=== PATIENT | female | born 1950 | race Caucasian/White ===

== ENCOUNTER → 2016-12-15 | Outpatient (CLI) | payer BC ==
[2016-12-15 11:44] LABS: ALT/SGPT 24 U/L (12-78); AST/SGOT 18 U/L (15-37); BLOOD UREA NITROGEN 19 mg/dl (7-18); BUN/CREATININE RATIO 17.6 (10-20); CALCIUM 9.2 mg/dl (8.5-10.1); CARBON DIOXIDE 28 mmol/L (21-32); CHLORIDE 110 mmol/L (98-107); GLUCOSE 95 mg/dl (70-99); POTASSIUM 4.5 mmol/L (3.5-5.1); SODIUM 141 mmol/L (136-145)
[2016-12-15 11:47] LABS: ALKALINE PHOSPHATASE 48 U/L (45-117); CHOLESTEROL 159 mg/dl (0-200); CHOLESTEROL/HDL RATIO 1.8; HDL CHOLESTEROL 86 mg/dl; LDL CHOLESTEROL CALCULATED 62 mg/dl; TRIGLYCERIDES 57 mg/dl (0-150); VERY LOW DENSITY LIPOPROT CALC 11 mg/dl
== END | disposition home or self-care (01) ==
LOC: C.LABBC 08:48
PROVIDERS: ATTEND Internal Medicine
DX: Z00.00 Encounter for general adult medical examination without abnormal findings (principal)

== ENCOUNTER → 2017-01-04 | Outpatient (CLI) | payer BC ==
--- NOTE | 2017-01-04 17:16 | MAMMOGRAPHY REPORT ---
BILATERAL DIGITAL SCREENING MAMMOGRAM WITH CAD: 01/04/2017 CLINICAL HISTORY: Routine screening. Patient has no complaints. TECHNIQUE: Current study was also evaluated with a Computer Aided Detection (CAD) system. Bilateral CC and MLO views were obtained. COMPARISON: Comparison is made to exams dated: 12/30/2015 mammogram, 12/22/2014 mammogram, 07/26/2013 lori mogram, 08/08/2012 mammogram, 07/17/2012 mammogram, and 01/04/2011 mammogram - [facility] ter. BREAST COMPOSITION: There are scattered areas of fibroglandular density in both breasts. FINDINGS: No suspicious masses, calcifications, or areas of architectural distortion are noted in ei ther breast. There has been no significant interval change compared to prior exams. Scattered bilater al benign-appearing calcifications are not significantly changed. IMPRESSION: ACR BI-RADS CATEGORY 2: BENIGN There is no mammographic evidence of malignancy. A 1 year screening mammogram is recommended. The pa tient will receive written notification of the results. Approximately 10% of breast cancers are not detected with mammography. A negative mammographic report should not delay biopsy if a clinically suggestive mass is present. Melanie Shah M.D. ah/:01/04/2017 16:03:30 Florist: Nina SON(Francisca)(M), [facility] letter sent: Normal 1/2 BI-RADS Code: ACR BI-RADS Category 2: Benign
== END | disposition home or self-care (01) ==
LOC: C.MAMM 15:39
PROVIDERS: ATTEND Internal Medicine
DX: Z12.31 Encounter for screening mammogram for malignant neoplasm of breast (principal)

== ENCOUNTER → 2017-02-27 | Outpatient (CLI) | payer BC | END | disposition home or self-care (01) | LOC: C.PAPS 10:11 | PROVIDERS: ATTEND Obstetrics & Gynecology | DX: Z01.419 Encounter for gynecological examination (general) (routine) without abnormal findings (principal); Z78.0 Asymptomatic menopausal state ==

== ENCOUNTER 2021-02-03 22:46 | Inpatient (IN) ==
[2021-02-04] MEDS ORDERED: SODIUM CHLORIDE 0.9% 500 ML IV ONE (00:03)
[2021-02-04 01:01] LABS: INR 1.2 (0.9-1.1); Partial Thromboplastin Ratio 1.1; Partial Thromboplastin Time 27.9 Seconds (21.0-31.0); Prothrombin Time 12.3 Seconds (9.0-12.0)
[2021-02-04 01:06] LABS: Hematocrit (blood only) 34.9 % (37-47); Hemoglobin 11.8 g/dL (12.0-16.0); Mean Corpuscular Hemoglobin 30.6 pg (25-34); Mean Corpuscular Hgb Conc 33.8 g/dL (32-36); Mean Corpuscular Volume 90.6 fL (80-100); Mean Platelet Volume 12.4 fL (7.4-10.4); Platelet Count 50 K/uL (130-400); RDW Coefficient of Variation 14.3 % (11.5-14.5); RDW Standard Deviation 47.2 fL (36.4-46.3); Red Blood Count 3.85 M/uL (4.2-5.4); White Blood Count 15.37 K/uL (4.8-10.8)
[2021-02-04 01:08] LABS: Alanine Aminotransferase 60 U/L (12-78); Aspartate Aminotransferase 38 U/L (15-37); BUN Creatinine Ratio 26.4 (10-20); Basophils # (auto) 0.01 K/uL (0-0.2); Basophils % (auto) 0.1 %; Blood Urea Nitrogen 34 mg/dl (7-18); Carbon Dioxide 23 mmol/L (21-32); Chloride 104 mmol/L (98-107); Echinocytes 1+; Eosinophils # (auto) 0.01 K/uL (0-0.5); Eosinophils % (auto) 0.1 %; Est GFR (African American) 48.8 ml/min; Est GFR (Non-African American) 42.1 ml/min; Glucose 129 mg/dl (70-99); Immature Granulocytes # (auto) 0.13 K/uL (0.00-0.02); Immature Granulocytes % (auto) 0.8 %; Lymphocytes # (auto) 0.34 K/uL (1.2-3.4); Lymphocytes % (auto) 2.2 %; Magnesium 1.7 mg/dl (1.8-2.4); Monocytes # (auto) 0.19 K/uL (0.11-0.59); Monocytes % (auto) 1.2 %; Neutrophils # (auto) 14.69 K/uL (1.4-6.5); Neutrophils % (auto) 95.6 %; Platelet Estimate Decreased (Normal); Potassium 4.1 mmol/L (3.5-5.1); Sodium 134 mmol/L (136-145)
[2021-02-04 01:10] LABS: Albumin Globulin Ratio 0.6 (0.9-2); Alkaline Phosphatase 196 U/L (45-117); Bilirubin,Total 1.7 mg/dl (0.2-1); Globulin 3.6 gm/dl (2.5-4.0); Total Protein 5.6 gm/dl (6.4-8.2)
[2021-02-04] MEDS ORDERED: PIPERACILL/TAZOBAC CONSULT ACTIVE PRN ×2 (01:14→06:43)
[2021-02-04] MEDS ORDERED: PIPERACILLIN/TAZOBACTAM 4.5 GM/120 ML BAG IV ONE (01:14)
[2021-02-04] MEDS ORDERED: OPTIRAY 320 100ml IV ONE (01:33)
[2021-02-04] MEDS ORDERED: VANCOMYCIN CONSULT ACTIVE PRN ×2 (01:44→06:43)
[2021-02-04] MEDS ORDERED: VANCOMYCIN HCL 1,000 MG in SODIUM CHLORIDE 0.9% 500 ML IV ONE (01:44)
[2021-02-04 03:13] LABS: Appearance Urine Clear (Clear); Bilirubin Urine Negative (Negative); Blood Urine Negative (Negative); Color Urine Yellow; Glucose Urine UA Negative (Negative); Ketones Urine Negative (Negative); Leukocyte Esterase Urine Negative (Negative); Nitrite Urine Negative (Negative); Protein Urine Negative (Negative); Specific Gravity Urine 1.024 (1.000-1.030); Urobilinogen Urine Negative (Negative)
--- NOTE | 2021-02-04 05:05 | History & Physical Report ---
Date of Service February 04, 2021 Assessment & Plan (1) Liver abscess: Plan: Multiple liver abscesses/pancreatic cancer metastatic to liver/status post IR treatment at [facility]- Persistent temperature over the past 10 days, with increased to 104 in the past 24 hours Vancomycin IV and Zosyn IV per pharmacokinetic monitoring Coordinate care with physicians at [facility] NPO Follow serial CBC with differential and chemistry profile (2) Pancreatic cancer: Plan: See above (3) Acute kidney injury superimposed on chronic kidney disease: Plan: Creatinine 1.30 upon admission, with most recent 1.03 NSS plus KCl 20 mEq at 100 mils per hour Repeat laboratories every morning (4) Thrombocytopenia: Plan: Platelets 50 upon admission, with usual range in the mid 200s. Check a peripheral smear Has never required platelet transfusion in the past No spontaneous bleeding Follow laboratory serially Does not appear sick enough to be in DIC (5) Hypothyroid: Plan: Continue levothyroxine 50 mcg daily History of Present Illness Chief Complaint: The patient presents to the emergency department with persis tently elevated temperature in the 102-103 range, and actually up to 104 today, and worsening abdominal discomfort since having her procedure at [facility] on January 22 Primary Care Provider: Sp Cadena MD Patient is a 70-year-old female with a past medical history including pleural effusion, pancreatic cancer, hypothyroidism, CKD stage III, renal insufficiency, GERD and constipation. Patient presents to the emergency department as noted above. Abnormal laboratories: WBC 15.37, hemoglobin 11.8, hematocrit 34.9, platelets 50, INR 1.2, sodium 134, creatinine 1.30, magnesium 1.7, total bili 1.7, AST 38, alk phos [address] of abdomen and pelvis with contrast: Irregular and patchy low-attenuation changes in the dome of the liver worrisome for abscesses. Diffuse thickening of the colon suggesting some form of colitis. Surgical changes related to the stomach and possibly pancreas Attempt was made to transfer the patient to [facility], where she receives most of her treatment, however, there were no beds available. From the ED patient received vancomycin IV, Zosyn IV and NSS of 500 mL. Allergies Allergy/AdvReac Type Severity Reaction Status Date / Time No Known Drug Allergies Allergy Unknown Verified 02/04/21 01:02 Home Medications Medication Instructions Recorded Confirmed Type calcium carbonate 600 mg(1,500 1 tab PO BID 12/27/18 02/04/21 History mg)-vitamin D3 800 unit chewable tablet (Caltrate 600 plus D) multivitamin 1 tab PO DAILY 12/27/18 02/04/21 History ascorbate calcium (vitamin C) 500 500 mg PO DAILY 01/02/19 02/04/21 History mg tablet cholecalciferol (vitamin D3) 50 50 mcg PO DAILY 01/09/20 02/04/21 History mcg (2,000 unit) tablet levothyroxine 50 mcg tablet 50 mcg PO DAILY #90 tab 01/09/20 02/04/21 Rx pantoprazole 40 mg tablet,delayed 40 mg PO DAILY 01/09/20 02/04/21 History release sennosides 8.6 mg capsule (senna) 8.6 mg PO BID PRN 01/09/20 02/04/21 History vit C 50 mg-E 15 unit-zinc cit 4.5 1 tab PO DAILY tab 01/09/20 02/04/21 History mg-lutein 2.5 mg-zeaxan chew tablet ([employer]) zinc 50 mg tablet 50 mg PO DAILY 01/09/20 02/04/21 History hydrocodone-homatropine 5 mg-1.5 5 ml PO Q6H PRN #946 ml 01/18/21 02/04/21 Rx mg/5 mL oral syrup (Hycodan (with homatropine)) ondansetron 8 mg disintegrating 8 mg PO Q8 PRN 02/04/21 02/04/21 History tablet Past Med/Surg History Medical History (Updated 02/04/21 @ 05:00 by Reji Leal MD) CKD (chronic kidney disease), stage III Hypothyroid Impacted cerumen of right ear Menopause Pancreatic mass Renal insufficiency, mild Surgical History H/O oral surgery History of ERCP 05/2019 History of liver biopsy History of pancreatic surgery History of thoracentesis Family History (Updated 01/13/21 @ 15:23 by Mariah Kamara) Mother Colon cancer Hyperlipidemia Hearing loss of aging Colorectal cancer Father Prostate cancer Hypertension Unknown Breast cancer Grandmother (Maternal) Diabetes Grandfather (Paternal) Stroke Other Allergies No family history of adverse response to anesthesia No family history of bleeding disorder Denies family history of Ovarian cancer Lung cancer Social History (Updated 01/13/21 @ 15:22 by Mariah Kamara) Smoking Status: Never smoker Second Hand Exposure: No; Hx Alcohol Use: Yes Alcohol type: hard liquor Alcohol Intake Frequency: 4 or More x per/Week Alcohol Intake Frequency Comment: no current use due to chemo Hx Substance Use: No Preferred Language: Algerian Communication Ability: Effective Visual Impairment: Limited Hearing Ability: Normal Administrator Health Care Facility Required: No marital status: Current Living Situation: Spouse current occupational status: employed 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 How many Children do You have: 0 Feels Safe at Home: Yes Childhood Exposure to Second-Hand Smoke: No caffeine: No Dental Care, Regularly: Yes Physical Activity Frequency: 5-6 Times per Week Seatbelt Use: always Sunscreen Use: Yes Review of Systems Review of Systems: The patient denies chest pain, palpitations, shortness of breath, dyspnea on exertion, cough, lower extremity swelling, sore throat, chills, sweats, blood in urine or stool, dysuria, urinary frequency or urgency, lightheadedness, dizziness, headache, memory loss, loss of consciousness, rash, abnormal bruising or bleeding, imbalance, focal weakness, numbness or tingling in arms or legs, neck pain, or night sweats. The review of systems is otherwise negative other than for that already noted above, and at least 10 systems have been reviewed. Physical Exam Physical Exam: The patient is awake, alert and oriented 3, normocephalic and atraumatic, lying in bed and in no acute distress. HEENT--PERRL, EOMI, mucous membranes and oropharynx normal. Neck--supple. No JVD. No bruits. Thyroid normal, trachea midline, no erasmo nopathy. Heart--normal S1 and S2. No murmurs, rubs or gallops. Lungs--clear bilaterally, no respiratory distress, no accessory muscle use. Abdomen--normal bowel sounds and soft. Tender right upper quadrant. Nondistended. Extremities--no cyanosis or clubbing. No edema. Dermatologic--normal skin turgor, normal color, no abnormal lymph nodes, no rash. Neurologic--cranial nerves II through XII grossly intact. Rheumatologic--normal range of motion. Psychiatric--normal affect. Results & Data Results & Data ([facility]) Vital Signs (Past 12 Hours) Vital Signs Temp Pulse Pulse Resp BP BP Pulse Ox 02/04/21 04:00 79 24 100/54 L 96 02/04/21 03:30 83 17 106/55 L 98 02/04/21 03:00 85 20 109/52 L 97 02/04/21 02:51 97 02/04/21 02:30 89 18 95/49 L 97 02/04/21 02:00 89 21 92/48 L 99 02/04/21 01:34 98 H 22 109/49 L 98 02/04/21 01:02 93 02/04/21 01:00 97 H 22 88/52 L 97 02/04/21 00:33 103 H 24 02/04/21 00:30 108 H 21 02/04/21 00:02 97 02/04/21 00:00 104 H 22 103/63 97 02/03/21 23:49 104 H 21 96 02/03/21 23:41 112 H 101/65 96 02/03/21 22:52 98.1 F 122 H 16 98/52 L 96 Laboratory Results Laboratory Results WBC 15.37 K/uL (4.8-10.8) H 02/04/21 00:28 RBC 3.85 M/uL (4.2-5.4) L 02/04/21 00:28 Hgb 11.8 g/dL (12.0-16.0) L 02/04/21 00:28 Hct 34.9 % (37-47) L 02/04/21 00:28 MCV 90.6 fL (80-100) 02/04/21 00:28 MCH 30.6 pg (25-34) 02/04/21 00:28 MCHC 33.8 g/dL (32-36) 02/04/21 00:28 RDW Std Deviation 47.2 fL (36.4-46.3) H 02/04/21 00:28 RDW Coeff of Lakhwinder 14.3 % (11.5-14.5) 02/04/21 00:28 Plt Count 50 K/uL (130-400) L 02/04/21 00:28 MPV 12.4 fL (7.4-10.4) H 02/04/21 00:28 Immature Gran % (Auto) 0.8 % 02/04/21 00:28 Neut % (Auto) 95.6 % 02/04/21 00: Lymph % (Auto) 2.2 % 02/04/21 00: Meagher % (Auto) 1.2 % 02/04/21 00:28 Eos % (Auto) 0.1 % 02/04/21 00:28 Baso % (Auto) 0.1 % 02/04/21 00:28 Neut # (Auto) 14.69 K/uL (1.4-6.5) H 02/04/21 00:28 Lymph # (Auto) 0.34 K/uL (1.2-3.4) L 02/04/21: Meagher # (Auto) 0.19 K/uL (0.11-0.59) 02/04/21 00: Eos # (Auto) 0.01 K/uL (0-0.5) 02/04/21 00: Baso # (Auto) 0.01 K/uL (0-0.2) 02/04/21 00: Immature Gran # (Auto) 0.13 K/uL (0.00-0.02) H 02/04/21 00:28 Platelet Estimate Decreased (Normal) L 02/04/21: Echinocytes 1+ 02/04/21: PT 12.3 Seconds (9.0-12.0) H 02/04/21 00: INR 1.2 (0.9-1.1) H 02/04/21: APTT 27.9 Seconds (21.0-31.0) 02/04/21: PTT Ratio 1.1 02/04/21: Sodium 134 mmol/L (136-145) L 02/04/21:28 Potassium 4.1 mmol/L (3.5-5.1) 02/04/21: Chloride 104 mmol/L (98-107) 02/04/21 00: Carbon Dioxide 23 mmol/L (21-32) 02/04/21: Anion Gap 7.0 (3-11) 02/04/21: BUN 34 mg/dl (7-18) H 02/04/21 00:28 Creatinine 1.30 mg/dl (0.6-1.2) H 02/04/21 00:28 Est Cr Clr Drug Dosing Not Reportable 02/04/21 00:28 Est GFR ( Amer) 48.8 ml/min 02/04/21 00:28 Est GFR (Non-Af Amer) 42.1 ml/min 02/04/21 00:28 BUN/Creatinine Ratio 26.4 (10-20) H 02/04/21 00:28 Glucose 129 mg/dl (70-99) H 02/04/21 00:28 Lactate 1.4 mmol/L (0.4-2.0) 02/04/21 01:43 Calcium 8.0 mg/dl (8.5-10.1) L 02/04/21 00:28 Magnesium 1.7 mg/dl (1.8-2.4) L 02/04/21 00:28 Total Bilirubin 1.7 mg/dl (0.2-1) H 02/04/21 00:28 AST 38 U/L (15-37) H 02/04/21 00:28 ALT 60 U/L (12-78) 02/04/21 00:28 Alkaline Phosphatase 196 U/L (45-117) H 02/04/21 00:28 Total Protein 5.6 gm/dl (6.4-8.2) L 02/04/21 00:28 Albumin 2.0 gm/dl (3.4-5.0) L 02/04/21 00:28 Globulin 3.6 gm/dl (2.5-4.0) 02/04/21 00:28 Albumin/Globulin Ratio 0.6 (0.9-2) L 02/04/21 00:28 Urine Color Yellow 02/04/21 02:45 Urine Appearance Clear (Clear) 02/04/21 02:45 Urine pH 5.0 (4.5-7.5) 02/04/21 02:45 Ur Specific [place] 1.024 (1.000-1.030) 02/04/21 02:45 Urine Protein Negative (Negative) 02/04/21 02:45 Urine Glucose (UA) Negative (Negative) 02/04/21 02:45 Urine Ketones Negative (Negative) 02/04/21 02:45 Urine Blood Negative (Negative) 02/04/21 02:45 Urine Nitrite Negative (Negative) 02/04/21 02:45 Urine Bilirubin Negative (Negative) 02/04/21 02:45 Urine Urobilinogen Negative (Negative) 02/04/21 02:45 Ur Leukocyte Esterase Negative (Negative) 02/04/21 02:45 COVID-19 Eval Order Covid19 at [facility] 02/04/21 00:35 SARS-CoV-2 (PCR) NEGATIVE (Negative) 02/04/21 00:35 Diagnostic Findings [facility] Patient: ANNALEE STEWART (Female) : 54 Status: ER Date: 02/04/21 01:40 Room #: History: PAIN AT RIGHT SIDE OF ABD, R/O LIVER ABSCESS S/P Y 90 PROCEDURE, Slices: 669 Priors: Tech: TamikoDaniel ardon @ [phone] Exams: CT ABDOMEN & PELVIS With Contrast Contrast: IV Amt: 93 ML OPTIRAY 320 Accession Numbers: [id number] Referring Physician: REFERRED SELF Preliminary Findings Only See Final Report For Complete Findings CT ABDOMEN & PELVIS With Contrast: Irregular and patchy low-attenuation changes in the dome of the liver, worrisome for abscesses. Cyst in left lobe. Diffuse thickening in the colon suggesting some form of colitis. No evidence of pneumatosis. Appendix not identified Irregular thickening and soft tissues of the left breast. Cholecystectomy. Surgical changes related to the stomach and possibly pancreas. Correlate Radiologist: Jesu Bullock M.D. Study ready at 01:48 and initial results transmitted at 01:55 *This report constitutes a preliminary interpretation only. Non-acute findings felt to be unrelated to the clinical presentation may not be discussed in this report. The study will be interpreted and a final report will be generated by the local Radiologist the following shift. To reach the hospital radiology department call [phone]. If a discrepancy is found between the preliminary and final interpretations of this study, please notify us via our Client Portal at [email or web address] [email or web address].You can also fax this report with a description of the discrepancy, or include the final report, to our daytime fax number [phone].If faxing, please indicate the severity of discrepancy using one of the following categories: [ ] 1 - Agree/Informational [ ] 2 - Unlikely to Affect Management [ ] 3 - Possible Eventual Change of Management [ ] 4 - Probable Immediate Change of Management For all other patient related information, please fax us at [phone]. [id number] Code Status & VTE Plan Code Status Full code VTE Prophylaxis Plan VTE Prophylaxis will be ordered: Yes PG Care Time/CCT Total # of Minutes Spent Total Time Spent with Patient: Total time spent is greater than 50% in coordination of care (as documented) at patient's floor/unit and/or counseling patient: Coding Level of Care Code 91690 Initial Inpt Care Lvl 3 Diagnoses Liver abscess K75.0 Pancreatic cancer C25.9 Hypothyroid E03.9 Acute kidney injury superimposed on chronic kidney disease N17.9; N18.9 Thrombocytopenia D69.6
[2021-02-04] MEDS ORDERED: PIPERACILLIN/TAZOBACTAM 4.5 GM in DEXTROSE 5% 100 ML IV SCH (06:43)
[2021-02-04] MEDS ORDERED: VANCOMYCIN HCL 750 MG in SODIUM CHLORIDE 0.9% 500 ML IV SCH (06:43)
--- NOTE | 2021-02-04 07:15 | Emergency Department Note ---
Impression & Plan Liver abscess Admit to the [facility] with plans to transfer to [facility] - accepting physician at [facility] was Dr. Larose from GI and Dr. Camarena from the Hospitalist group. They explained that she would be placed on a wait list and that this list was quite long but that if her vital signs declined that she could be moved to ICU level status and her transfer would be expedited. I made the admitting physicians aware of this as well as the patient and her . ED Provider Note NAME: ANNALEE STEWART AGE: 70 SEX: F ARRIVES VIA: Walk-In INFORMANT: Patient and her ED PROVIDER(S): Oksana Guevara DO CHIEF COMPLAINT: Fever and abdominal pain PLAN: Disposition: Admit to the [facility] until a bed was available at [facility] Condition: Guarded MEDICAL DECISION MAKING: This is a 70-year-old female patient who presents to the emergency department with persistent fever and increasing abdominal pain. The patient underwent a Y- 90 procedure 2 weeks ago with interventional radiology at [facility]. She has had intermittent fever since that time. However over the past couple days, the fever has been more persistent and she has increasing abdominal pain. The patient has symptoms that are concerning for peritoneal signs in the abdo men. She has significant leukocytosis. She presented hypotensive and tachycardic. Lactic acid was normal. Her blood pressure and pulse normalized with IV crystalloid therapy. She felt much better after fluids. She was given IV Zosyn and vancomycin. She has been accepted at [facility] but is waitlisted until a bed becomes available. Triage Nursing notes reviewed and agree with them. Additional history obtained from her who is a physician and is at the bedside. Vital Signs: reviewed and remarkable for hypotension and tachycardia Differential diagnosis: Perforated viscus, sepsis, septic shock, hepatic abscess, intra-abdominal bleeding ER treatment provided: IV normal saline bolus IV vancomycin IV Zosyn Diagnostics interpreted by me: ECG: Sinus tachycardia at [address] segment elevation or signs of ischemia. There is no ectopy. Cardiac Monitoring: Sinus tachycardia at 118 Laboratory studies: See below Imaging studies: As per stat rad CT abdomen and pelvis with contrast: Irregular and patchy low-attenuation changes in the dome of the liver, worrisome for abscess. Cyst in the left lobe. Diffuse thickening of the colon suggesting some form of colitis. No evidence of pneumatosis. Appendix not identified. Irregular thickening of soft tissues of the left breast. Cholecystectomy. Surgical changes related to the stomach and possibly pancreas. HPI: 70/F arrives for evaluation of fever abdominal pain. The patient underwent a Y-90 procedure on Jan 22, 2021 through interventional radiology at [facility]. Since that time, she has been on moxifloxacin and was given a Medrol Dosepak. She has had intermittent fevers which initially was not unexpected. However, the fever has become more consistent and has been higher over the past couple of days. She has felt more fatigued and now has developed increasing abdominal pain. After the patient arrived home from work today, she had significantly decreased appetite and developed rigors with a fever of 104 degrees. ROS: See above HPI for pertinent positives & negatives. A total of 10 systems re viewed and were otherwise negative. PAST MEDICAL HISTORY:See Below PAST SURGICAL HISTORY:See Below FAMILY HISTORY:See Below SOCIAL HISTORY:See Below HOME MEDICATIONS:See list ALLERGIES:None VITALS:See Below PHYSICAL EXAMINATION: HEENT: Head - normocephalic and atraumatic Pupils are equal, round, and reactive to light. Extraocular eye muscles are intact, and sclera are anicteric. Nose - moist nasal mucosa without discharge. Mouth - moist buccal mucosa. Oropharynx is nonerythematous and there is no tonsillar exudate or edema noted. Neck: Supple; no cervical lymphadenopathy or thyromegaly. Heart: Tachycardic rate and regular rhythm. There is a normal S1 and S2 with no murmurs, clicks, or gallops appreciated. Lungs: Clear to auscultation bilaterally with no wheezes, rales, or rhonchi. Abdomen: Soft, moderately tender, nondistended, with good bowel sounds. There are no palpable pulsatile masses or hepatosplenomegaly. There is no guarding, rigidity, or rebound noted. Extremities: No evidence of cyanosis, clubbing, or edema. There are easily palpable peripheral pulses. Skin: Pale, hot and dry with poor turgor and no rashes. ED COURSE: Times/Reassessments: 0000 the patient was evaluated in room C2. A septic pro tocol was performed. A Covid test was obtained. 2 IV locks were initiated and the patient was started on a bolus of normal saline solution because she was hypotensive initially. She received a total of 1500 cc of saline. An order was placed for continuous cardiac monitoring. The patient was in a sinus tachycardia at 118. A twelve-lead EKG was obtained. Patient was started on broad-spectrum antibiotics to include IV Zosyn and IV vancomycin. Her blood pressure responded nicely to the IV crystalloid therapy. The patient went for CT scan of the abdomen/pelvis. I reviewed the results of the labs and CT scan with the patient and her . I contacted the transfer center at [facility] with regards to this patient and they have accepted her in transfer but will wait list her until a bed becomes available as described above. At this point, I discussed the case with the [facility] hospitalist and they will evaluate for further management. I have personally spent greater than 75 minutes of critical care time in the direct management of this patient. This includes bedside care, interpretation of diagnostic studies, and testing, discussion with consultants, patient, and family members, and other required patient management activities. This 75 minutes is in excess of all separately billable procedures. Oksana Guevara DO Past Med/Surg History Medical History (Updated 02/04/21 @ 07:15 by Oksana Guevara DO) CKD (chronic kidney disease), stage III Hypothyroid Impacted cerumen of right ear Menopause Pancreatic mass Renal insufficiency, mild Surgical History H/O oral surgery History of ERCP 05/2019 History of liver biopsy History of pancreatic surgery History of thoracentesis Family History (Updated 01/13/21 @ 15:23 by Mariah Kamara) Mother Colon cancer Hyperlipidemia Hearing loss of aging Colorectal cancer Father Prostate cancer Hypertension Unknown Breast cancer Grandmother (Maternal) Diabetes Grandfather (Paternal) Stroke Other Allergies No family history of adverse response to anesthesia No family history of bleeding disorder Denies family history of Ovarian cancer Lung cancer Social History (Updated 01/13/21 @ 15:22 by Mariah Kamara) Smoking Status: Never smoker Second Hand Exposure: No; Hx Alcohol Use: Yes Alcohol type: hard liquor Alcohol Intake Frequency: 4 or More x per/Week Alcohol Intake Frequency Comment: no current use due to chemo Hx Substance Use: No Preferred Language: Czech Communication Ability: Effective Visual Impairment: Limited Hearing Ability: Normal Ride Mechanic Required: No Beliefs That Will Affect Care: None marital status: Current Living Situation: Spouse current occupational status: employed 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 How many Children do You have: 0 Feels Safe at Home: Yes Childhood Exposure to Second-Hand Smoke: No caffeine: No Dental Care, Regularly: Yes Physical Activity Frequency: 5-6 Times per Week Seatbelt Use: always Sunscreen Use: Yes Assistive Devices: Glasses Allergies Allergies Allergy/AdvReac Type Severity Reaction Status Date / Time No Known Drug Allergies Allergy Unknown Verified 02/04/21 01:02 Home Meds Home Medications Medication Instructions Recorded Confirmed calcium carbonate 600 mg(1,500 1 tab PO BID 12/27/18 02/04/21 mg)-vitamin D3 800 unit chewable tablet (Caltrate 600 plus D) multivitamin 1 tab PO DAILY 12/27/18 02/04/21 ascorbate calcium (vitamin C) 500 500 mg PO DAILY 01/02/19 02/04/21 mg tablet cholecalciferol (vitamin D3) 50 50 mcg PO DAILY 01/09/20 02/04/21 mcg (2,000 unit) tablet pantoprazole 40 mg tablet,delayed 40 mg PO DAILY 01/09/20 02/04/21 release sennosides 8.6 mg capsule (senna) 8.6 mg PO BID PRN 01/09/20 02/04/21 vit C 50 mg-E 15 unit-zinc cit 4.5 1 tab PO DAILY tab 01/09/20 02/04/21 mg-lutein 2.5 mg-zeaxan chew tablet ([employer] [facility]) zinc 50 mg tablet 50 mg PO DAILY 01/09/20 02/04/21 ondansetron 8 mg disintegrating 8 mg PO Q8 PRN 02/04/21 02/04/21 tablet Previous Rx's Medication Instructions Recorded levothyroxine 50 mcg tablet 50 mcg PO DAILY #90 tab 01/09/20 hydrocodone-homatropine 5 mg-1.5 5 ml PO Q6H PRN #946 ml 01/18/21 mg/5 mL oral syrup (Hycodan (with homatropine)) Results & Data (ED) Vital Signs Vital Signs - 24 hr 02/03/21 22:52 02/03/21 23:41 02/03/21 23:49 Temperature 36.7 C Temperature Source Temporal Artery Scan Pulse Rate 122 H 104 H Pulse Rate [Finger] 112 H Pulse Rate from SpO2 Sensor 107 H Respiratory Rate 16 21 Respiratory Effort / Characteristics Non-Labored Spontaneous Respiratory Depth Normal Blood Pressure 98/52 L Blood Pressure [Right Arm] 101/65 Blood Pressure Mean 67 Blood Pressure Mean [Right Arm] 77 Blood Pressure Position Sitting Pulse Oximetry 96 96 96 Oxygen Delivery Method Room Air Room Air Sepsis Recent Fever Within 48 Hours Yes Sepsis New/Unexplained Change in Mental Status No Sepsis Action Taken by Nursing No Action Required 02/04/21 00:00 02/04/21 00:02 02/04/21 00:30 Temperature Temperature Source Pulse Rate 104 H 108 H Pulse Rate [Finger] Pulse Rate from SpO2 Sensor 106 H Respiratory Rate 22 21 Respiratory Effort / Characteristics Non-Labored Spontaneous Respiratory Depth Blood Pressure 103/63 Blood Pressure [Right Arm] Blood Pressure Mean 76 Blood Pressure Mean [Right Arm] Blood Pressure Position Pulse Oximetry 97 97 Oxygen Delivery Method Room Air Sepsis Recent Fever Within 48 Hours Sepsis New/Unexplained Change in Mental Status Sepsis Action Taken by Nursing 02/04/21 00:33 02/04/21 01:00 02/04/21 01:02 Temperature Temperature Source Pulse Rate 97 H Pulse Rate [Finger] 103 H Pulse Rate from SpO2 Sensor 99 H Respiratory Rate 24 22 Respiratory Effort / Characteristics Non-Labored Spontaneous Respiratory Depth Blood Pressure 88/52 L Blood Pressure [Right Arm] Blood Pressure Mean 64 Blood Pressure Mean [Right Arm] Blood Pressure Position Pulse Oximetry 97 93 Oxygen Delivery Method Room Air Sepsis Recent Fever Within 48 Hours Sepsis New/Unexplained Change in Mental Status Sepsis Action Taken by Nursing 02/04/21 01:34 02/04/21 02:00 02/04/21 02:30 Temperature Temperature Source Pulse Rate 98 H 89 89 Pulse Rate [Finger] Pulse Rate from SpO2 Sensor 101 H 90 90 Respiratory Rate 22 21 18 Respiratory Effort / Characteristics Respiratory Depth Blood Pressure 109/49 L 92/48 L 95/49 L Blood Pressure [Right Arm] Blood Pressure Mean 69 62 64 Blood Pressure Mean [Right Arm] Blood Pressure Position Pulse Oximetry 98 99 97 Oxygen Delivery Method Room Air Sepsis Recent Fever Within 48 Hours Sepsis New/Unexplained Change in Mental Status Sepsis Action Taken by Nursing 02/04/21 02:51 02/04/21 03:00 02/04/21 03:30 Temperature Temperature Source Pulse Rate 85 83 Pulse Rate [Finger] Pulse Rate from SpO2 Sensor 85 82 Respiratory Rate 20 17 Respiratory Effort / Characteristics Non-Labored Spontaneous Respiratory Depth Blood Pressure 109/52 L 106/55 L Blood Pressure [Right Arm] Blood Pressure Mean 71 72 Blood Pressure Mean [Right Arm] Blood Pressure Position Pulse Oximetry 97 97 98 Oxygen Delivery Method Room Air Sepsis Recent Fever Within 48 Hours Sepsis New/Unexplained Change in Mental Status Sepsis Action Taken by Nursing 02/04/21 04:00 Temperature Temperature Source Pulse Rate 79 Pulse Rate [Finger] Pulse Rate from SpO2 Sensor 79 Respiratory Rate 24 Respiratory Effort / Characteristics Respiratory Depth Blood Pressure 100/54 L Blood Pressure [Right Arm] Blood Pressure Mean 69 Blood Pressure Mean [Right Arm] Blood Pressure Position Pulse Oximetry 96 Oxygen Delivery Method Room Air Sepsis Recent Fever Within 48 Hours Sepsis New/Unexplained Change in Mental Status Sepsis Action Taken by Nursing Laboratory Data Result diagrams: 02/04/21 08:43 02/04/21 08:43 Lab Results 02/04/21 02/04/21 02/04/21 Range/Units 00:28 00:28 00:28 WBC 15.37 H (4.8-10.8) K/uL RBC 3.85 L (4.2-5.4) M/uL Hgb 11.8 L (12.0-16.0) g/dL Hct 34.9 L (37-47) % MCV 90.6 (80-100) fL MCH 30.6 (25-34) pg MCHC 33.8 (32-36) g/dL RDW Std Deviation 47.2 H (36.4-46.3) fL RDW Coeff of Lakhwinder 14.3 (11.5-14.5) % Plt Count 50 L (130-400) K/uL MPV 12.4 H (7.4-10.4) fL Immature Gran % (Auto) 0.8 % Neut % (Auto) 95.6 % Lymph % (Auto) 2.2 % [place] % (Auto) 1.2 % Eos % (Auto) 0.1 % Baso % (Auto) 0.1 % Neut # (Auto) 14.69 H (1.4-6.5) K/uL Lymph # (Auto) 0.34 L (1.2-3.4) K/uL [place] # (Auto) 0.19 (0.11-0.59) K/uL Eos # (Auto) 0.01 (0-0.5) K/uL Baso # (Auto) 0.01 (0-0.2) K/uL Immature Gran # (Auto) 0.13 H (0.00-0.02) K/uL Platelet Estimate Decreased L (Normal) Echinocytes 1+ Peripher Smr Path Cons PT 12.3 H (9.0-12.0) Seconds INR 1.2 H (0.9-1.1) APTT 27.9 (21.0-31.0) Seconds PTT Ratio 1.1 Sodium 134 L (136-145) mmol/L Potassium 4.1 (3.5-5.1) mmol/L Chloride 104 (98-107) mmol/L Carbon Dioxide 23 (21-32) mmol/L Anion Gap 7.0 (3-11) BUN 34 H (7-18) mg/dl Creatinine 1.30 H (0.6-1.2) mg/dl Est Cr Clr Drug Dosing Not Reportable Est GFR ( Amer) 48.8 ml/min Est GFR (Non-Af Amer) 42.1 ml/min BUN/Creatinine Ratio 26.4 H (10-20) Glucose 129 H (70-99) mg/dl Lactate (0.4-2.0) mmol/L Calcium 8.0 L (8.5-10.1) mg/dl Magnesium 1.7 L (1.8-2.4) mg/dl Total Bilirubin 1.7 H (0.2-1) mg/dl AST 38 H (15-37) U/L ALT 60 (12-78) U/L Alkaline Phosphatase 196 H (45-117) U/L Total Protein 5.6 L (6.4-8.2) gm/dl Albumin 2.0 L (3.4-5.0) gm/dl Globulin 3.6 (2.5-4.0) gm/dl Albumin/Globulin Ratio 0.6 L (0.9-2) Urine Color Urine Appearance (Clear) Urine pH (4.5-7.5) Ur Specific [place] (1.000-1.030) Urine Protein (Negative) Urine Glucose (UA) (Negative) Urine Ketones (Negative) Urine Blood (Negative) Urine Nitrite (Negative) Urine Bilirubin (Negative) Urine Urobilinogen (Negative) Ur Leukocyte Esterase (Negative) COVID-19 Eval Order SARS-CoV-2 (PCR) (Negative) 02/04/21 02/04/21 02/04/21 Range/Units 00:35 00:35 01:43 WBC (4.8-10.8) K/uL RBC (4.2-5.4) M/uL Hgb (12.0-16.0) g/dL Hct (37-47) % MCV (80-100) fL MCH (25-34) pg MCHC (32-36) g/dL RDW Std Deviation (36.4-46.3) fL RDW Coeff of Lakhwinder (11.5-14.5) % Plt Count (130-400) K/uL MPV (7.4-10.4) fL Immature Gran % (Auto) % Neut % (Auto) % Lymph % (Auto) % [place] % (Auto) % Eos % (Auto) % Baso % (Auto) % Neut # (Auto) (1.4-6.5) K/uL Lymph # (Auto) (1.2-3.4) K/uL [place] # (Auto) (0.11-0.59) K/uL Eos # (Auto) (0-0.5) K/uL Baso # (Auto) (0-0.2) K/uL Immature Gran # (Auto) (0.00-0.02) K/uL Platelet Estimate (Normal) Echinocytes Peripher Smr Path Cons PT (9.0-12.0) Seconds INR (0.9-1.1) APTT (21.0-31.0) Seconds PTT Ratio Sodium (136-145) mmol/L Potassium (3.5-5.1) mmol/L Chloride (98-107) mmol/L Carbon Dioxide (21-32) mmol/L Anion Gap (3-11) BUN (7-18) mg/dl Creatinine (0.6-1.2) mg/dl Est Cr Clr Drug Dosing Est GFR ( Amer) ml/min Est GFR (Non-Af Amer) ml/min BUN/Creatinine Ratio (10-20) Glucose (70-99) mg/dl Lactate 1.4 (0.4-2.0) mmol/L Calcium (8.5-10.1) mg/dl Magnesium (1.8-2.4) mg/dl Total Bilirubin (0.2-1) mg/dl AST (15-37) U/L ALT (12-78) U/L Alkaline Phosphatase (45-117) U/L Total Protein (6.4-8.2) gm/dl Albumin (3.4-5.0) gm/dl Globulin (2.5-4.0) gm/dl Albumin/Globulin Ratio (0.9-2) Urine Color Urine Appearance (Clear) Urine pH (4.5-7.5) Ur Specific [place] (1.000-1.030) Urine Protein (Negative) Urine Glucose (UA) (Negative) Urine Ketones (Negative) Urine Blood (Negative) Urine Nitrite (Negative) Urine Bilirubin (Negative) Urine Urobilinogen (Negative) Ur Leukocyte Esterase (Negative) COVID-19 Eval Order Covid19 at [facility] SARS-CoV-2 (PCR) NEGATIVE (Negative) 02/04/21 Range/Units 02:45 WBC (4.8-10.8) K/uL RBC (4.2-5.4) M/uL Hgb (12.0-16.0) g/dL Hct (37-47) % MCV (80-100) fL MCH (25-34) pg MCHC (32-36) g/dL RDW Std Deviation (36.4-46.3) fL RDW Coeff of Lakhwinder (11.5-14.5) % Plt Count (130-400) K/uL MPV (7.4-10.4) fL Immature Gran % (Auto) % Neut % (Auto) % Lymph % (Auto) % [place] % (Auto) % Eos % (Auto) % Baso % (Auto) % Neut # (Auto) (1.4-6.5) K/uL Lymph # (Auto) (1.2-3.4) K/uL [place] # (Auto) (0.11-0.59) K/uL Eos # (Auto) (0-0.5) K/uL Baso # (Auto) (0-0.2) K/uL Immature Gran # (Auto) (0.00-0.02) K/uL Platelet Estimate (Normal) Echinocytes Peripher Smr Path Cons PT (9.0-12.0) Seconds INR (0.9-1.1) APTT (21.0-31.0) Seconds PTT Ratio Sodium (136-145) mmol/L Potassium (3.5-5.1) mmol/L Chloride (98-107) mmol/L Carbon Dioxide (21-32) mmol/L Anion Gap (3-11) BUN (7-18) mg/dl Creatinine (0.6-1.2) mg/dl Est Cr Clr Drug Dosing Est GFR ( Amer) ml/min Est GFR (Non-Af Amer) ml/min BUN/Creatinine Ratio (10-20) Glucose (70-99) mg/dl Lactate (0.4-2.0) mmol/L Calcium (8.5-10.1) mg/dl Magnesium (1.8-2.4) mg/dl Total Bilirubin (0.2-1) mg/dl AST (15-37) U/L ALT (12-78) U/L Alkaline Phosphatase (45-117) U/L Total Protein (6.4-8.2) gm/dl Albumin (3.4-5.0) gm/dl Globulin (2.5-4.0) gm/dl Albumin/Globulin Ratio (0.9-2) Urine Color Yellow Urine Appearance Clear (Clear) Urine pH 5.0 (4.5-7.5) Ur Specific [place] 1.024 (1.000-1.030) Urine Protein Negative (Negative) Urine Glucose (UA) Negative (Negative) Urine Ketones Negative (Negative) Urine Blood Negative (Negative) Urine Nitrite Negative (Negative) Urine Bilirubin Negative (Negative) Urine Urobilinogen Negative (Negative) Ur Leukocyte Esterase Negative (Negative) COVID-19 Eval Order SARS-CoV-2 (PCR) (Negative) Administered Medications Acetaminophen (Acetaminophen 325 Mg Tab) 650 mg PO Q4H PRN PRN Reason: Pain or Fever Stop: 03/06/21 06:42 Last Admin: 02/04/21 20:30 Dose: 650 mg Documented by: [id number] Potassium Chloride/Sodium Chloride (Normal Saline W/20 Meq Kcl) 20 meq in 1,000 mls @ 125 mls/hr IV .Q8H JAN Stop: 03/06/21 06:59 Last Admin: 02/04/21 16:31 Dose: 100 mls/hr Documented by: [id number] Infusion: 02/04/21 16:31 Dose: 100 mls/hr Documented by: [id number] Admin: 02/04/21 07:41 Dose: 100 mls/hr Documented by: [id number] Piperacillin Sod/Tazobactam (Sod 3.375 gm/ Dextrose) 115 mls @ 28.75 mls/hr IV Q8H JAN; Protocol Stop: 02/14/21 07:59 Last Infusion: 02/04/21 20:30 Dose: 0 mls/hr Documented by: [id number] Admin: 02/04/21 16:31 Dose: 30 mls/hr Documented by: [id number] Infusion: 02/04/21 12:10 Dose: 0 mls/hr Documented by: [id number] Admin: 02/04/21 07:41 Dose: 28.8 mls/hr Documented by: [id number] Discontinued Medications Sodium Chloride (Nss) 500 mls @ 999 mls/hr IV .Q31M ONE Stop: 02/04/21 00:33 Last Infusion: 02/04/21 01:14 Dose: 0 mls/hr Documented by: [id number] Admin: 02/04/21 00:42 Dose: 999 mls/hr Documented by: [id number] Piperacillin Sod/Tazobactam Sod (Zosyn) 4.5 gm in 120 mls @ 240 mls/hr IV NOW ONE Stop: 02/04/21 01:43 Last Infusion: 02/04/21 02:28 Dose: 0 mls/hr Documented by: [id number] Admin: 02/04/21 01:45 Dose: 240 mls/hr Documented by: [id number] Vancomycin HCl 1,000 mg/ (Sodium Chloride) 520 mls @ 200 mls/hr IV NOW ONE Stop: 02/04/21 04:19 Last Infusion: 02/04/21 04:35 Dose: 0 mls/hr Documented by: [id number] Admin: 02/04/21 01:59 Dose: 200 mls/hr Documented by: [id number] Pantoprazole Sodium 40 mg/ (Syringe) 10 mls @ 5 mls/min IV DAILY@1100 JAN Stop: 03/06/21 10:59 Last Admin: 02/04/21 09:09 Dose: 5 mls/min Documented by: [id number] Daptomycin 275 mg/ Syringe 5.5 mls @ 2.75 mls/min IV DAILY@0900 ONE; Protocol Stop: 02/04/21 08:46 Last Admin: 02/04/21 09:09 Dose: 2.75 mls/min Documented by: [id number] Magnesium Sulfate/Dextrose (Magnesium Sulfate / D5w) 1 gm in 100 mls @ 50 mls/hr IV Q2H JAN Stop: 02/04/21 12:29 Last Infusion: 02/04/21 14:19 Dose: 0 mls/hr Documented by: [id number] Admin: 02/04/21 12:14 Dose: 50 mls/hr Documented by: [id number] Infusion: 02/04/21 12:10 Dose: 0 mls/hr Documented by: [id number] Admin: 02/04/21 09:09 Dose: 50 mls/hr Documented by: [id number] Ioversol (Optiray 320 100ml) 100 ml IV ONCE ONE Stop: 02/04/21 01:34 Last Admin: 02/04/21 01:33 Dose: 93 ml Documented by: [id number] Discharge Plan Visit Data Chief Complaint: Fever Stated Complaint: MILD FEVER ED Provider: Oksana Guevara Discharge Problem: Liver abscess Patient Disposition: Admitted As Inpatient Discharge Instructions Interventions: ED Discharge Assessment Last Done: 02/04/21 05:59
--- NOTE | 2021-02-04 07:36 | XRay Report ---
XR chest 1V portable CLINICAL HISTORY: SEPSIS COMPARISON STUDY: Chest CT September 08, 2020 FINDINGS: Lung volumes are normal. Lungs are clear. There is no pneumothorax or pleural effusion. Car diac size is normal. Mediastinal contours are normal. There is no evidence for pulmonary edema. IMPRESSION: No acute cardiopulmonary findings. ACT 112: Negative or not required by law. Electronically signed by: Hussein Roca M.D. 02/04/2021 7:34 AM
[2021-02-04] MEDS: NSS + 20MEQ KCL 20 MEQ/1,000 ML BAG IV SCH ×2 (07:41→16:31)
[2021-02-04] MEDS: PIPERACILLIN/TAZOBACTAM 3.375 GM in DEXTROSE 5% 100 ML IV SCH ×2 (07:41→16:31)
--- NOTE | 2021-02-04 07:55 | CT Scan Report ---
CT OF THE ABDOMEN AND PELVIS WITH CONTRAST CLINICAL HISTORY: Evaluate for liver abscess s/p procedure. Pancreatic cancer. COMPARISON STUDY: CT of the abdomen November 23, 2019. CT of the abdomen and pelvis June 02, 2019. TECHNIQUE: Following IV administration of 93 mL of Optiray, axial images of the abdomen and pelvis we re obtained from the lung bases to the proximal femurs. Images were reviewed in the axial, sagittal, and coronal planes. IV contrast was administered without complication. Automated exposure control wa s utilized for the study. A dose lowering technique was utilized adhering to the principles of ALARA . CT DOSE: 257.62 mGy.cm FINDINGS: Mild right lower lobe airspace opacity favors atelectasis. No pneumatosis, free air or port al venous gas is present. A 1.2 cm lateral segment hepatic cyst is noted. Note is made of multiple cl ustered hypodense foci within segments 6 and 7 of the liver. In aggregate, these measure 6.7 x 6.5 cm . These are new since CT of November 27, 2019. Mild splenomegaly is noted. Adrenal glands are unremarkab le as are the kidneys. There are postoperative findings consistent with Whipple procedure. There is n o evidence for a bowel obstruction. Prominent para-aortic lymph nodes are probably benign. Note is ma de of marked wall thickening of the rectum. There is also moderate wall thickening of the sigmoid col on, descending colon and transverse colon with marked wall thickening of the cecum. Major vasculature is patent. There is trace ascites. No suspicious lesions identified within visualized skeletal struc tures. IMPRESSION: 1. Cluster hypodense foci within segments 6 and 7 of the liver, measuring 6.7 x 6.5 cm in aggregate. This is suspicious for multiloculated hepatic abscesses. Treated metastatic disease could appear mago lar. 2. Severe nonspecific proctocolitis, as described above. Marked colorectal wall thickening. Small am ount of ascites. No pneumatosis, free air or portal venous gas. Close clinical monitoring is recommen ded. 3. Status post Whipple procedure. 4. No bowel obstruction. ACT 112: Negative or not required by law. Electronically signed by: Hussein Roca M.D. 02/04/2021 7:54 AM
[2021-02-04] MEDS ORDERED: DAPTOmycin 275 MG in SYRINGE 0 ML IV ONE (08:45)
[2021-02-04] MEDS: MAGNESIUM SULFATE / D5W 1 GM/100 ML BAG IV SCH ×2 (09:09→12:14)
[2021-02-04 09:11] LABS: Hematocrit (blood only) 33.3 % (37-47); Mean Corpuscular Hemoglobin 30.3 pg (25-34); Mean Corpuscular Volume 91.7 fL (80-100); Mean Platelet Volume 12.4 fL (7.4-10.4); Platelet Count 58 K/uL (130-400); RDW Coefficient of Variation 14.3 % (11.5-14.5); RDW Standard Deviation 48.5 fL (36.4-46.3); Red Blood Count 3.63 M/uL (4.2-5.4); White Blood Count 20.38 K/uL (4.8-10.8)
[2021-02-04 09:28] LABS: BUN Creatinine Ratio 25.1 (10-20); Calcium 7.5 mg/dl (8.5-10.1); Creatinine Clr Calc Pharmacy 38.4 ml/min; Est GFR (African American) 64.7 ml/min; Est GFR (Non-African American) 55.8 ml/min; Potassium 4.1 mmol/L (3.5-5.1)
[2021-02-04 09:33] LABS: Basophils # (auto) 0.03 K/uL (0-0.2); Basophils % (auto) 0.1 %; Echinocytes 1+; Eosinophils # (auto) 0.01 K/uL (0-0.5); Immature Granulocytes # (auto) 0.12 K/uL (0.00-0.02); Immature Granulocytes % (auto) 0.6 %; Lymphocytes # (auto) 1.02 K/uL (1.2-3.4); Monocytes # (auto) 0.52 K/uL (0.11-0.59); Monocytes % (auto) 2.6 %; Neutrophils # (auto) 18.68 K/uL (1.4-6.5); Neutrophils % (auto) 91.7 %
[2021-02-04 09:45] LABS: Fibrinogen 318 mg/dl (184-400); INR 1.2 (0.9-1.1); Prothrombin Time 11.9 Seconds (9.0-12.0)
--- NOTE | 2021-02-04 10:23 | Hospitalist Progress Note ---
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 Gram-Negative Bacteremia 2/2 Multiple Liver Abscesses; Sepsis; Metastatic Pancreatic Cancer High-grade fevers, rigors, and RUQ abdominal pain x7 days, which started ~one week after Y90 liver procedure for liver metastases. Hypotensive/tachycardic in ED with procal 58.6. CT A/P showing multiloculated abscesses. - blood cx positive for GNB after <10 hours; speciation/sensitivities pending - started on Vanco/Zosyn and given Dapto x1 on 02/04, will continue with Zosyn for now - further adjustments pending blood cx speciation/sensitivities - continue NSS + 20mEq KCl @125cc/hr - while IV abx may be sufficient to treat abscesses in the liver (highly vascular), patient will likely need IR for drainage - [facility] [place] for [place], but there are no available beds; will continue IV abx and wait for available bed (no need for urgent transfer for IR at this point in time) - trend CBC/procal tomorrow AM MORGAN on CKDIII, MORGAN resolved Cr 1.30 on admission, improved to 1.03 with IVFs. Suspect pre-renal injury due to sepsis. NSS plus KCl 20 mEq at 100 mils per hour Repeat laboratories every morning Thrombocytopenia Plts 151 on 01/22, decreased to 50 on admission --> 54 today. No signs of active bleeding. Peripheral smear unremarkable, coags/fibrinogen WNL. Suspect 2/2 sepsis. - trend daily Chronic Normocytic Anemia Hgb 11.0 (at chronic baseline). Suspect anemia of chronic disease. - trend CBC daily Hypothyroidism - continue Synthroid 50 mcg daily GERD - continue Protonix 40mg PO daily FEN/GI: regular diet, NSS + 20mEq KCl @125cc/hr DVT Prophylaxis: SCDs, chemoppx contraindicated due to plts <75,000 Code Status: full code Disposition: PCU w/ tele (2) Pancreatic cancer: (3) Acute kidney injury superimposed on chronic kidney disease: (4) Thrombocytopenia: (5) Hypothyroid: Admission and Anticipated Discharge Date Admission Date: February 04, 2021 Supervising Physician Co-Signing Physician Notes I personally examined the patient and verified all montoya points of history and exam, discussed case, and agree with decision making with Dr Dominguez Feeling a good bit better. Still has right upper quadrant abdominal pain. No other new complaints. Has no lower abdominal pain or new/different bowel symptoms in the last few weeks. Vitals noted, in general she is awake and alert pleasant no distress. HEENT normocephalic atraumatic mucous membranes moist. Breathing unlabored no accessory muscle use good effort. Abdomen is somewhat soft, although she does have voluntary guarding particularly right upper abdominal/right upper quadrant although no rebound. The remainder of her abdomen is nontender. No focal neuro deficits. Sepsis/severe sepsis with gram-negative bacteremia and thrombocytopeniaall present on admissionappears to be related to liver abscesses, which appear to be consequent to her treatment for her liver metastases. Fortunately, she appears to be stabilizing already, and she seems to be doing so well this far into her diagnosis of pancreatic cancer, that this type of fallout from treatment honestly seems fairly reasonable given the overall she stabilizing quickly, and has appeared to do amazingly well with a very terrible diagnosis. Continue Zosyn, await speciation, can narrow antibiotics if possible. As far as source control/drainageshe is on the list for transfer to [place], and I do believe it is likely that drainage will be necessary to affect resolution of the infection, at the same time given how vascular the liver is, and how quickly she has stabilized, I am not harboring concerns about her being able to stabilize on antibiotics, and should she not be able to be transferred for several days, we will plan on repeat CT, because it is also at least theoretically possible antibiotics might be able to clear the infection entirely. AKIfrom severe sepsis. Improved Otherwise as above. Subjective Patient has been afebrile since admission and BP improved with IVFs. This morning the patient reports feeling much better than before admission. Confirms that she started to have worsening fever/chills/rigors (with Tmax 104F) as well as RUQ abdominal pain, 1 week after her Y90 procedure. Denies jaundice, dark urine, or sherri-colored stools. Denies itching. Denies chest pain, palpitations, SOB, cough, N/V, rash. Review of Systems Review of Systems: All systems reviewed & are unremarkable except as noted in HPI & below Physical Exam Physical Exam: General: A&Ox3. NAD. Cooperative. Thin. HEENT: Atraumatic, normocephalic. Pulm: CTAB A&P. -wheezes, -rales, -rhonchi. Symmetrical chest rise. No increase work of breathing. No respiratory distress. Cardiac: RRR, -mrg. Radial pulses intact and symmetrical. Abdominal: soft, moderate tenderness to palpation of RUQ only, non-distended, NA BS x 4 Skin: warm, dry, no rash Results & Data Results & Data ([facility]) Vital Signs (Past 12 Hours) Vital Signs Temp Pulse Pulse Resp BP BP BP 02/04/21 08:15 36.7 C 72 16 102/50 L 02/04/21 05:37 36.6 C 02/04/21 05:30 36.6 C 71 17 101/55 L 02/04/21 04:00 79 24 100/54 L 02/04/21 03:30 83 17 106/55 L 02/04/21 03:00 85 20 109/52 L 02/04/21 02:51 02/04/21 02:30 89 18 95/49 L 02/04/21 02:00 89 21 92/48 L 02/04/21 01:34 98 H 22 109/49 L 02/04/21 01:02 02/04/21 01:00 97 H 22 88/52 L 02/04/21 00:33 103 H 24 02/04/21 00:30 108 H 21 02/04/21 00:02 02/04/21 00:00 104 H 22 103/63 02/03/21 23:49 104 H 21 02/03/21 23:41 112 H 101/65 02/03/21 22:52 36.7 C 122 H 16 98/52 L Pulse Ox 02/04/21 08:15 96 02/04/21 05:37 02/04/21 05:30 100 02/04/21 04:00 96 02/04/21 03:30 98 02/04/21 03:00 97 02/04/21 02:51 97 02/04/21 02:30 97 02/04/21 02:00 99 02/04/21 01:34 98 02/04/21 01:02 93 02/04/21 01:00 97 02/04/21 00:33 02/04/21 00:30 02/04/21 00:02 97 02/04/21 00:00 97 02/03/21 23:49 96 02/03/21 23:41 96 02/03/21 22:52 96 Resident Activity Tracking Resident Involvement: Resident Care Provided Care Provided: Adult Hospital Medicine
[2021-02-04] MEDS ORDERED: PANTOprazole 40 MG in SYRINGE 0 ML IV SCH (11:00)
--- NOTE | 2021-02-04 16:49 | Electrocardiogram Report ---
Test Reason : Blood Pressure : / mmHG Vent. Rate : 111 BPM Atrial Rate : 111 BPM P-R Int : 118 ms QRS Dur : 080 ms QT Int : 354 ms P-R-T Axes : 062 074 072 degrees QTc Int : 481 ms Sinus tachycardia Prolonged QT When compared with ECG of 02-JUN-2019 16:29, Vent. rate has increased BY 61 BPM T wave amplitude has increased in Anterior leads QT has lengthened Confirmed by Abelino Mandel ([id number]) on 02/04/2021 4:49:29 PM Referred By: REFERRED SELF Confirmed By:Abelino Mandel
[2021-02-04] MEDS: ACETAMINOPHEN 325 MG TAB PO PRN (20:30)
[2021-02-05] MEDS: PIPERACILLIN/TAZOBACTAM 3.375 GM in DEXTROSE 5% 100 ML IV SCH ×3 (01:38→17:22)
[2021-02-05] MEDS: ACETAMINOPHEN 325 MG TAB PO PRN (01:39)
[2021-02-05] MEDS: NSS + 20MEQ KCL 20 MEQ/1,000 ML BAG IV SCH ×4 (01:46→16:25)
[2021-02-05 05:07] LABS: Hematocrit (blood only) 31.5 % (37-47); Hemoglobin 10.4 g/dL (12.0-16.0); Mean Corpuscular Hemoglobin 30.7 pg (25-34); Mean Corpuscular Volume 92.9 fL (80-100); RDW Coefficient of Variation 14.5 % (11.5-14.5); RDW Standard Deviation 49.4 fL (36.4-46.3); Red Blood Count 3.39 M/uL (4.2-5.4); White Blood Count 16.17 K/uL (4.8-10.8)
[2021-02-05 05:12] LABS: Mean Platelet Volume 11.4 fL (7.4-10.4); Platelet Count 73 K/uL (130-400)
[2021-02-05 05:38] LABS: Basophils # (auto) 0.02 K/uL (0-0.2); Basophils % (auto) 0.1 %; Dohle Bodies Occasional; Echinocytes 3+; Eosinophils # (auto) 0.18 K/uL (0-0.5); Eosinophils % (auto) 1.1 %; Immature Granulocytes # (auto) 0.07 K/uL (0.00-0.02); Immature Granulocytes % (auto) 0.4 %; Lymphocytes # (auto) 1.06 K/uL (1.2-3.4); Lymphocytes % (auto) 6.6 %; Monocytes # (auto) 0.69 K/uL (0.11-0.59); Monocytes % (auto) 4.3 %; Neutrophils # (auto) 14.15 K/uL (1.4-6.5); Neutrophils % (auto) 87.5 %
[2021-02-05 05:51] LABS: Albumin Globulin Ratio 0.5 (0.9-2); Albumin Level 1.4 gm/dl (3.4-5.0); Bilirubin,Total 0.7 mg/dl (0.2-1); Calcium 7.4 mg/dl (8.5-10.1); Est GFR (African American) 74.2 ml/min; Globulin 3.1 gm/dl (2.5-4.0); Magnesium 2.4 mg/dl (1.8-2.4); Phosphorus 2.3 mg/dl (2.5-4.9); Total Protein 4.5 gm/dl (6.4-8.2)
--- NOTE | 2021-02-05 07:29 | Hospitalist Progress Note ---
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 Gram-Negative Bacteremia 2/2 Multiple Liver Abscesses; Sepsis; Metastatic Ampullary Carcinoma High-grade fevers, rigors, and RUQ abdominal pain x7 days, which started ~one week after Y90 liver procedure for liver metastases. Hypotensive/tachycardic in ED with procal 58.6. CT A/P showing multiloculated abscesses. - Procal 58 --> 41 today, afebrile throughout admission - blood cx positive for GNB after <10 hours; speciation/sensitivities pending - started on Vanco/Zosyn and given Dapto x1 on 02/04, will continue with Zosyn for now - further adjustments pending blood cx speciation/sensitivities - continue NSS + 20mEq KCl @125cc/hr - while IV abx may be sufficient to treat abscesses in the liver (highly vascular), patient may still need IR for drainage [place] [facility] [place], but there are no available beds; will continue IV abx and wait for available bed (no need for urgent transfer for IR at this point in time) - trend CBC daily Acute Diarrhea Non-bloody diarrhea 2-3x per day for the last several days. c-diff negative. Suspect 2/2 abx (Zosyn) vs lack of pancreatic enzyme treatment while hospitalized. - ordered pancreatic enzymes MORGAN on CKDIII, MORGAN resolved Cr 1.30 on admission, improved to 1.03 with IVFs. Suspect pre-renal injury due to sepsis. - continue NSS + 20mEq KCl @ 125cc/hr Thrombocytopenia, improving Plts 151 on 01/22, decreased to 50 on admission --> 73 today. No signs of active bleeding. Peripheral smear unremarkable, coags/fibrinogen WNL. Suspect 2/2 sepsis. - trend daily Chronic Normocytic Anemia Hgb 11.0 (at chronic baseline). Suspect anemia of chronic disease. - trend CBC daily Hypothyroidism - continue Synthroid 50 mcg daily GERD - continue Protonix 40mg PO daily FEN/GI: regular diet, NSS + 20mEq KCl @125cc/hr DVT Prophylaxis: SCDs, chemoppx contraindicated due to plts <75,000 Code Status: full code Disposition: downgraded to med/surg with tele (2) Pancreatic cancer: (3) Acute kidney injury superimposed on chronic kidney disease: (4) Thrombocytopenia: (5) Hypothyroid: Admission and Anticipated Discharge Date Admission Date: February 04, 2021 Supervising Physician Co-Signing Physician Notes I personally examined the patient and verified all montoya points of history and exam, discussed case, and agree with decision making with Dr Dominguez Feeling better overall. Still has good bit of right upper quadrant abdominal painnotices it more after she eats or when she is sitting upright. Otherwise no new symptoms or complaints. Vitals noted, in general she is awake and alert pleasant no distress. HEENT normocephalic atraumatic mucous membranes moist. Breathing unlabored no accessory muscle use good effort. Initially examined seated in the chair, right upper quadrant with a fairly significant degree of voluntary guarding definitely worse than yesterday, no rebound, the rest of her abdomen felt more firm but not necessarily tender. Revisited whenever she was laying supine in bedabdominal exam was more similar to yesterday, may be slightly more tender right upper quadrant but still more mild degree of voluntary guarding, definitely better than it was in the chair. Of note these exams are by about 5 hours. No neuro deficits, mental status intact. Sepsis/severe sepsis with gram-negative bacteremia and thrombocytopeniaall present on admissionappears to be related to liver abscesses, which appear to be consequent to her treatment for her liver metastases. Overall improving. The main question in my mind will not be whether or not we affect improvement without source control, but whether or not she will need source control as a definitive treatment with this. For now continue Zosyn pending speciation on blood cultures, continue serial exams, and depending on when she is/is not able to go to [place] for IR, we may consider reCT to evaluate the progression of these liver lesions, on the small but real chance that they may totally regress with antibiotics alone. That said, the main game plan will still be antibiotics, followed by drainage for more definitive source control, and less definitively proven otherwise. AKIfrom severe sepsis. Improved Otherwise as above. Subjective No acute events overnight. Remains afebrile since admission. IVFs running. Had some abdominal pain controlled with Tylenol overnight. Denies fever/chills, chest pain, palpitations, SOB, cough, N/V, current abdominal pain, rash. Review of Systems Review of Systems: All systems reviewed & are unremarkable except as noted in HPI & below Physical Exam Physical Exam: General: A&Ox3. NAD. Cooperative. Thin. HEENT: Atraumatic, normocephalic. Pulm: CTAB A&P. -wheezes, -rales, -rhonchi. Symmetrical chest rise. No increase work of breathing. No respiratory distress. Cardiac: RRR, -mrg. Radial pulses intact and symmetrical. Abdominal: soft, moderate tenderness to palpation of RUQ, non-distended, NA BS x 4 Skin: warm, dry, no rash Results & Data Results & Data ([facility]) Vital Signs (Past 12 Hours) Vital Signs Temp Pulse Resp BP Pulse Ox Pulse Ox 02/05/21 04:00 36.8 C 62 16 108/57 L 99 02/05/21 00:00 36.6 C 63 16 106/54 L 99 02/04/21 20:00 37.1 C 75 20 109/46 L 100 100 Resident Activity Tracking Resident Involvement: Resident Care Provided Care Provided: Adult Hospital Medicine
[2021-02-05] MEDS: PANTOprazole 40 MG TAB PO SCH (08:25)
[2021-02-05] MEDS: PANCREAZE (LIPASE 10,500U) CAP PO SCH ×2 (12:33→16:26)
--- NOTE | 2021-02-05 16:33 | Billing Data ---
Date of Service February 05, 2021 Coding Level of Care Code 30778 Subseq Hosp Care Lvl 3
[2021-02-06] MEDS: NSS + 20MEQ KCL 20 MEQ/1,000 ML BAG IV SCH ×2 (01:03→09:08)
[2021-02-06] MEDS: PIPERACILLIN/TAZOBACTAM 3.375 GM in DEXTROSE 5% 100 ML IV SCH ×2 (01:55→08:05)
[2021-02-06 06:10] LABS: Basophils # (auto) 0.02 K/uL (0-0.2); Basophils % (auto) 0.2 %; Eosinophils # (auto) 0.09 K/uL (0-0.5); Eosinophils % (auto) 0.9 %; Hematocrit (blood only) 29.9 % (37-47); Immature Granulocytes # (auto) 0.04 K/uL (0.00-0.02); Immature Granulocytes % (auto) 0.4 %; Lymphocytes # (auto) 0.97 K/uL (1.2-3.4); Lymphocytes % (auto) 9.4 %; Mean Corpuscular Hemoglobin 30.9 pg (25-34); Mean Corpuscular Hgb Conc 33.4 g/dL (32-36); Mean Corpuscular Volume 92.3 fL (80-100); Mean Platelet Volume 11.9 fL (7.4-10.4); Monocytes # (auto) 0.42 K/uL (0.11-0.59); Monocytes % (auto) 4.1 %; Neutrophils # (auto) 8.81 K/uL (1.4-6.5); Platelet Count 104 K/uL (130-400); RDW Coefficient of Variation 14.2 % (11.5-14.5); RDW Standard Deviation 48.9 fL (36.4-46.3); Red Blood Count 3.24 M/uL (4.2-5.4); White Blood Count 10.35 K/uL (4.8-10.8)
[2021-02-06 06:41] LABS: Albumin Globulin Ratio 0.4 (0.9-2); Albumin Level 1.4 gm/dl (3.4-5.0); BUN Creatinine Ratio 8.3 (10-20); Bilirubin,Total 0.7 mg/dl (0.2-1); Calcium 7.4 mg/dl (8.5-10.1); Creatinine Clr Calc Pharmacy 47.2 ml/min; Est GFR (African American) 82.8 ml/min; Est GFR (Non-African American) 71.4 ml/min; Globulin 3.4 gm/dl (2.5-4.0); Phosphorus 2.2 mg/dl (2.5-4.9); Potassium 4.4 mmol/L (3.5-5.1); Total Protein 4.8 gm/dl (6.4-8.2)
--- NOTE | 2021-02-06 07:01 | Hospitalist Progress Note ---
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 Gram-Negative Bacteremia 2/2 Multiple Liver Abscesses; Sepsis; Metastatic Ampullary Carcinoma High-grade fevers, rigors, and RUQ abdominal pain x7 days, which started ~one week after Y90 liver procedure for liver metastases. Hypotensive/tachycardic in ED with procal 58.6. CT A/P showing multiloculated abscesses. - Procal elevated up to 58 at admission, afebrile throughout admission - blood cx positive for e coli, resistant to cipro, levo, and Bactrim. - started on Vanco/Zosyn and given Dapto x1 on 02/04, switched to Zosyn. 02/06/21: changing abx from Zosyn to Rocephin+IV Flagyl for intraabd coverage. - continue NSS + 20mEq KCl @125cc/hr - while IV abx may be sufficient to treat abscesses in the liver (highly vascular), patient may still need IR for drainage - [facility] [place], but there are no available beds; will continue IV abx and wait for available bed (no need for urgent transfer for IR at this point in time) - trend CBC daily Acute Diarrhea Non-bloody diarrhea 2-3x per day for the last several days. c-diff negative. Suspect 2/2 abx (Zosyn) vs lack of pancreatic enzyme treatment while hospitalized. - ordered pancreatic enzymes MORGAN on CKDIII, MORGAN resolved Cr 1.30 on admission, improved to 1.03 with IVFs. Suspect pre-renal injury due to sepsis. - NSS + 20mEq KCl @ 125cc/hr; 02/06/21 changing to NSS w/o KCL @ 100cc/hr. Fluid balance is pos 7L and K is in the 4s. Continuing fluids because septic/bacteremic. Assess clinically to avoid hypervolemia. Thrombocytopenia, improving Plts 151 on 01/22, decreased to 50 on admission --> 73 --> 104. No signs of active bleeding. Peripheral smear unremarkable, coags/fibrinogen WNL. Hold chemoppx - trend daily Chronic Normocytic Anemia Hgb 11.0 (at chronic baseline). Suspect anemia of chronic disease. - trend CBC daily Hypothyroidism - continue Synthroid 50 mcg daily GERD - continue Protonix 40mg PO daily FEN/GI: regular diet, NSS @ 100cc/hr DVT Prophylaxis: SCDs, hold chemoppx Code Status: full code Disposition: med/surg tele. awaiting placement [place] [place] (2) Pancreatic cancer: (3) Acute kidney injury superimposed on chronic kidney disease: (4) Thrombocytopenia: (5) Hypothyroid: Admission and Anticipated Discharge Date Admission Date: February 04, 2021 Supervising Physician Co-Signing Physician Notes I personally examined the patient and verified all montoya points of history and exam, discussed case, and agree with decision making with Dr Prabhakar Luis probably on the better side of the same. Otherwise no new complaints. Generally feeling better overall Vitals noted, awake and alert pleasant no distress. HEENT normocephalic atraumatic mucous membranes moist. Breathing unlabored no accessory muscle use good effort. Abdomen is waxer tender with a degree of voluntary guarding right upper quadrantalthough today she is seated upright, and her exam today more or less matches her exam yesterday when she was supine. Therefore it appears overall her abdominal exam is improving. Still no involuntary guarding/r igidity. Sepsis/severe sepsis with gram-negative bacteremia and thrombocytopeniaall present on admissionappears to be related to liver abscesses, which appear to be consequent to her treatment for her liver metastases. Overall improving. The main question in my mind will not be whether or not we affect improvement without source control, but whether or not she will need source control as a de finitive treatment with this. For now continue Zosyn pending speciation on blood cultures, continue serial exams, and depending on when she is/is not able to go to [place] for IR, we may consider reCT to evaluate the progression of these liver lesions, on the small but real chance that they may totally regress with antibiotics alone. With sensitivitieschanging antibiotics from Zosyn to ceftriaxone. Probably repeat CT tomorrow. Given the severity of the infection and the bacteremia, I suspect we should probably treat for the duration with IV, but fortunately since it is sensitive to ceftriaxone, that should be fairly easy to facilitate. AKIfrom severe sepsis. Improved Otherwise as above. Subjective No complaints. Slight subj warmth last night. No chills. Overall feels ok. Some appetite. The RUQ pain from yesterday afternoon has improved. Review of Systems Review of Systems: All systems reviewed & are unremarkable except as noted in HPI & below Constitutional: Denies chills Eyes: Denies blurry vision, vision changes ENT: Denies sore throat, sinus pain Cardiovascular: Denies chest pain, palpitations Respiratory: Denies shortness of breath Gastrointestinal: Denies abd pain, nausea, vomiting, constipation. liquidy stool. No bloody or melena. Genitourinary: Denies urinary symptoms including dysuria Musculoskeletal: Denies weakness, muscle aches/pain, joint aches/pain Neurological: Denies headache, focal weakness. chronic feet neuropathy. Physical Exam Physical Exam: General: Grossly A&O. NAD. Cooperative. HEENT: Atraumatic, normocephalic. Pulm: CTAB. -wheezes, -rales, -rhonchi. No respiratory distress. Cardiac: RRR, -mrg. Radial pulses intact and symmetrical. 1+ BLE Abdominal: Mildly firm. Voluntary guarding and mild ttp at RUQ. Results & Data Results & Data ([facility]) Vital Signs (Past 12 Hours) Vital Signs vitals reviewed Temp Pulse Pulse Resp BP Pulse Ox 02/06/21 03:54 36.8 C 65 18 115/58 L 98 02/05/21 23:59 66 02/05/21 23:00 37.2 C 65 18 111/63 98 02/05/21 19:00 37.1 C 72 18 108/67 98 Laboratory Results wbc 20.38->16.17->10.35. Hb stable 11.0->10.0. Plts 50-73->104. electrolytes ok. morgan resolved. 1.3->.92->.84. phos 2.2. liver labs ok. corrected Ca ok. alb 1.4 yest procalc still high at 41.0. neg cdiff. 02/04 ct abd/pelv multiloculated hepatic abscesses.. severe proctocolitis. s/p whipple procedure. 02/04 cxr ok. 02/04 ecg qtc 481. avoid qtc prolonging medications. 02/04 BC w/ gram neg bacilli aerobic pending. anaerobic e coli pending. stool culture pending 4.4L in 1L out. cumulative 8.2L in 1L out. 02/06/21 05:31 02/06/21 05:31 Diagnostic Findings Chest X-Ray 02/04/21 00:02 XR chest 1V portable CLINICAL HISTORY: SEPSIS COMPARISON STUDY: Chest CT September 08, 2020 FINDINGS: Lung volumes are normal. Lungs are clear. There is no pneumothorax or pleural effusion. Cardiac size is normal. Mediastinal contours are normal. There is no evidence for pulmonary edema. IMPRESSION: No acute cardiopulmonary findings. ACT 112: Negative or not required by law. Electronically signed by: Hussein Roca M.D. 02/04/2021 7:34 AM Abdomen/Pelvis CT 02/04/21 00:24 CT OF THE ABDOMEN AND PELVIS WITH CONTRAST CLINICAL HISTORY: Evaluate for liver abscess s/p procedure. Pancreatic cancer. COMPARISON STUDY: CT of the abdomen November 23, 2019. CT of the abdomen and pelvis June 02, 2019. TECHNIQUE: Following IV administration of 93 mL of Optiray, axial images of the abdomen and pelvis were obtained from the lung bases to the proximal femurs. Images were reviewed in the axial, sagittal, and coronal planes. IV contrast was administered without complication. Automated exposure control was utilized for the study. A dose lowering technique was utilized adhering to the principles of ALARA. CT DOSE: 257.62 mGy.cm FINDINGS: Mild right lower lobe airspace opacity favors atelectasis. No pneumatosis, free air or portal venous gas is present. A 1.2 cm lateral segment hepatic cyst is noted. Note is made of multiple clustered hypodense foci within segments 6 and 7 of the liver. In aggregate, these measure 6.7 x 6.5 cm. These are new since CT of November 27, 2019. Mild splenomegaly is noted. Adrenal glands are unremarkable as are the kidneys. There are postoperative findings consistent with Whipple procedure. There is no evidence for a bowel obstruction. Prominent para-aortic lymph nodes are probably benign. Note is made of marked wall thickening of the rectum. There is also moderate wall thickening of the sigmoid colon, descending colon and transverse colon with marked wall thickening of the cecum. Major vasculature is patent. There is trace ascites. No suspicious lesions identified within visualized skeletal structures. IMPRESSION: 1. Cluster hypodense foci within segments 6 and 7 of the liver, measuring 6.7 x 6.5 cm in aggregate. This is suspicious for multiloculated hepatic abscesses. Treated metastatic disease could appear similar. 2. Severe nonspecific proctocolitis, as described above. Marked colorectal wall thickening. Small amount of ascites. No pneumatosis, free air or portal venous gas. Close clinical monitoring is recommended. 3. Status post Whipple procedure. 4. No bowel obstruction. ACT 112: Negative or not required by law. Electronically signed by: Hussein Roca M.D. 02/04/2021 7:54 AM Medications Administered IV Zosyn Resident Activity Tracking Resident Involvement: Resident Care Provided Care Provided: Adult [facility] Medicine
[2021-02-06] MEDS: PANTOprazole 40 MG TAB PO SCH (07:58)
[2021-02-06] MEDS: PANCREAZE (LIPASE 10,500U) CAP PO SCH ×3 (07:58→16:58)
[2021-02-06] MEDS: cefTRIAXone SODIUM 1,000 MG in DEXTROSE 5% 50 ML IV SCH (16:21)
[2021-02-06] MEDS: metroNIDAZOLE 500 MG/100 ML BAG IV SCH ×2 (16:23→23:13)
[2021-02-06] MEDS: SODIUM CHLORIDE 0.9% 1000ML 1,000 ML IV SCH (16:57)
[2021-02-06] MEDS: ONDANSETRON INJ 2 MG/ML 2 ML VIAL IV PRN ×2 (16:58→23:12)
--- NOTE | 2021-02-06 17:13 | Billing Data ---
Date of Service February 06, 2021 Coding Level of Care Code 83101 Subseq Hosp Care Lvl 3
[2021-02-07] MEDS: SODIUM CHLORIDE 0.9% 1000ML 1,000 ML IV SCH (03:16)
[2021-02-07] MEDS ORDERED: CALCIUM CARBONATE 500 MG CHEWABLE TAB PO PRN ×2 (03:56→08:46)
[2021-02-07 06:26] LABS: Basophils # (auto) 0.03 K/uL (0-0.2); Basophils % (auto) 0.4 %; Eosinophils # (auto) 0.08 K/uL (0-0.5); Hematocrit (blood only) 31.4 % (37-47); Hemoglobin 10.4 g/dL (12.0-16.0); Immature Granulocytes # (auto) 0.03 K/uL (0.00-0.02); Immature Granulocytes % (auto) 0.4 %; Lymphocytes # (auto) 0.89 K/uL (1.2-3.4); Lymphocytes % (auto) 10.9 %; Mean Corpuscular Hemoglobin 30.7 pg (25-34); Mean Corpuscular Hgb Conc 33.1 g/dL (32-36); Mean Corpuscular Volume 92.6 fL (80-100); Mean Platelet Volume 10.7 fL (7.4-10.4); Monocytes # (auto) 0.46 K/uL (0.11-0.59); Monocytes % (auto) 5.7 %; Neutrophils # (auto) 6.65 K/uL (1.4-6.5); Neutrophils % (auto) 81.6 %; Platelet Count 144 K/uL (130-400); RDW Coefficient of Variation 14.1 % (11.5-14.5); RDW Standard Deviation 47.6 fL (36.4-46.3); Red Blood Count 3.39 M/uL (4.2-5.4); White Blood Count 8.14 K/uL (4.8-10.8)
[2021-02-07 06:41] LABS: Albumin Level 1.5 gm/dl (3.4-5.0); BUN Creatinine Ratio 7.4 (10-20); Calcium 7.7 mg/dl (8.5-10.1); Creatinine Clr Calc Pharmacy 53.6 ml/min; Est GFR (African American) 96.5 ml/min; Est GFR (Non-African American) 83.2 ml/min; Potassium 4.1 mmol/L (3.5-5.1)
[2021-02-07 06:43] LABS: Albumin Globulin Ratio 0.4 (0.9-2); Bilirubin,Total 0.6 mg/dl (0.2-1); Globulin 3.5 gm/dl (2.5-4.0)
[2021-02-07] MEDS: PANTOprazole 40 MG TAB PO SCH (08:32)
[2021-02-07] MEDS: PANCREAZE (LIPASE 10,500U) CAP PO SCH ×3 (08:32→16:04)
[2021-02-07] MEDS: metroNIDAZOLE 500 MG/100 ML BAG IV SCH ×2 (08:33→16:57)
--- NOTE | 2021-02-07 10:58 | Hospitalist Progress Note ---
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 Gram-Negative Bacteremia 2/2 Multiple Liver Abscesses; Sepsis, resolved; Metastatic Ampullary Carcinoma High-grade fevers, rigors, and RUQ abdominal pain x7 days, which started ~one week after Y90 liver procedure for liver metastases. Hypotensive/tachycardic in ED with procal 58.6. CT A/P showing multiloculated abscesses. - afebrile/hemodynamically stable on IVFs for >48 hours - however, repeat CT A/P today shows stable appearance of liver abscesses as well as increased peripheral enhancement and wall thickness - blood cx positive for e. coli, resistant to cipro, levo, and Bactrim. - continue CTX/Flagyl IV (day 4 abx) - stopped IVFs today - while IV abx may be sufficient to treat sepsis/bacteremia, patient will likely still need IR for drainage of abscesses - [facility] [place] and accepted patient for transfer, but there are no available beds; will continue IV abx and wait for available bed (no need for urgent transfer for IR at this point in time) - trend CBC daily Abdominal pain; Diarrhea RUQ abdominal pain as well as epigastric tenderness and lower right-sided abdominal pain. CT A/P today showed severe proctocolitis. Suspect due to Zosyn, which was changed yesterday. - continue abx as stated above - consider outpatient colonoscopy - defer to PCP Acute Diarrhea Non-bloody diarrhea 2-3x per day for the last several days. c-diff negative. Suspect 2/2 abx (Zosyn) vs lack of pancreatic enzyme treatment while hos pitalized. - continue pancreatic enzymes MORGAN on CKDIII, MORGAN resolved Cr 1.30 on admission, quickly improved to 1.03 with IVFs. Suspect pre-renal injury due to sepsis. - stopped IVFs today as stated above Thrombocytopenia, resolved Plts 151 on 01/22, decreased to 50 on admission --> 73 --> 104 --> 144 today. No signs of active bleeding. Peripheral smear unremarkable, coags/fibrinogen WNL. - started Lovenox today for DVT ppx - trend daily Chronic Normocytic Anemia Hgb 11.0 (at chronic baseline). Suspect anemia of chronic disease. - trend CBC daily Hypothyroidism - continue Synthroid 50 mcg daily GERD - continue Protonix 40mg PO daily - added Tums PRN for additional control FEN/GI: regular diet DVT Prophylaxis: SCDs, Lovenox Code Status: full code Disposition: med/surg tele. awaiting placement ([facility] [place]) (2) Pancreatic cancer: (3) Acute kidney injury superimposed on chronic kidney disease: (4) Thrombocytopenia: (5) Hypothyroid: Admission and Anticipated Discharge Date Admission Date: February 04, 2021 Supervising Physician Co-Signing Physician Notes I personally examined the patient and verified all montoya points of history and exam, discussed case, and agree with decision making with Dr Dominguez Subjective No acute events overnight. Remains afebrile since admission. Had some epigastric burning pain overnight, without N/V/hematemesis or melena, which significantly improved with Tums. Also continues to have mild-moderate RUQ pain. Denies fever/chills, chest pain, palpitations, SOB, cough, rash. Review of Systems Review of Systems: All systems reviewed & are unremarkable except as noted in HPI & below Physical Exam Physical Exam: General: A&Ox3. NAD. Cooperative. Thin. HEENT: Atraumatic, normocephalic. Pulm: CTAB A&P. -wheezes, -rales, -rhonchi. Symmetrical chest rise. No increase work of breathing. No respiratory distress. Cardiac: RRR, -mrg. Radial pulses intact and symmetrical. Abdominal: soft, moderate tenderness to palpation of RUQ, mild tenderness to palpation of epigastrium, non-distended, NA BS x 4 Skin: warm, dry, no rash Results & Data Results & Data ([facility]) Vital Signs (Past 12 Hours) Vital Signs Temp Pulse Pulse Resp BP Pulse Ox 02/07/21 08:37 36.6 C 63 14 118/50 L 100 02/07/21 02:41 37 C 69 16 114/71 98 02/06/21 23:59 64 02/06/21 23:00 37.2 C 67 18 113/67 98 Resident Activity Tracking Resident Involvement: Resident Care Provided Care Provided: [facility] Medicine
[2021-02-07] MEDS ORDERED: ENOXAPARIN INJ 30 MG/0.3 ML SYR SQ SCH (11:00)
[2021-02-07] MEDS ORDERED: OPTIRAY 320 100ml IV ONE (11:51)
--- NOTE | 2021-02-07 12:08 | CT Scan Report ---
CT OF THE ABDOMEN AND PELVIS WITH CONTRAST CLINICAL HISTORY: Follow-up liver abscesses. Pancreatic cancer. COMPARISON STUDY: CT of the abdomen and pelvis February 04, 2021. TECHNIQUE: Following IV administration of 95 mL of Optiray, axial images of the abdomen and pelvis we re obtained from the lung bases to the proximal femurs. Images were reviewed in the axial, sagittal, and coronal planes. IV contrast was administered without complication. Automated exposure control wa s utilized for the study. A dose lowering technique was utilized adhering to the principles of ALARA . CT DOSE: 252.05 mGy.cm FINDINGS: A trace right pleural effusion is noted. No pneumatosis, free air or portal venous gas is p resent. Postoperative findings consistent with Whipple procedure are noted. Cluster of peripherally e nhancing complex fluid collections within segments 6 and 7 of the liver are similar in size to CT of February 04, 2021. In aggregate, these measure 6.6 x 6.6 cm. Although size is similar to prior exam, t here is probable interval increase in peripheral enhancement of these abscesses. Mild prominence of i ntrahepatic bile duct is unchanged. A lateral segment hepatic cyst is again noted. A small amount of abdominal and pelvic ascites has increased since prior examination. Marked rectal wall thickening wit h mucosal hyperemia has progressed. There is no evidence for a bowel obstruction. The appendix is unr emarkable. No pathologically enlarged lymph nodes are present. There is no hydronephrosis. The spleen , adrenal glands and kidneys are unremarkable. No acute fracture or suspicious lesion is identified w ithin the visualized skeletal structures. There is body wall edema, slightly increased since prior ex am. Major vasculature is patent. IMPRESSION: 1. No significant change in size of the suspected multiloculated right hepatic lobe abscesses since C T of February 04, 2021. Peripheral enhancement and wall thickness of the abscesses has slightly increa sed. 2. Marked colorectal wall thickening with mucosal enhancement which has progressed since prior exam. This represents a severe nonspecific proctocolitis. Increase in a small amount of abdominal and pelvi c ascites. 3. No bowel obstruction. Status post Whipple procedure. ACT 112: Negative or not required by law. Electronically signed by: Hussein Roca M.D. 02/07/2021 12:06 PM
[2021-02-07] MEDS: cefTRIAXone SODIUM 1,000 MG in DEXTROSE 5% 50 ML IV SCH (16:13)
--- NOTE | 2021-02-07 17:12 | Discharge Summary ---
Date of Service February 07, 2021 Admission HPI Per Admitting Provider Patient is a 70-year-old female with a past medical history including pleural effusion, pancreatic cancer, hypothyroidism, CKD stage III, renal insufficiency, GERD and constipation. Patient presents to the emergency department as noted above. Abnormal laboratories: WBC 15.37, hemoglobin 11.8, hematocrit 34.9, platelets 50, INR 1.2, sodium 134, creatinine 1.30, magnesium 1.7, total bili 1.7, AST 38, alk phos [address] of abdomen and pelvis with contrast: Irregular and patchy low-attenuation changes in the dome of the liver worrisome for abscesses. Diffuse thickening of the colon suggesting some form of colitis. Surgical changes related to the stomach and possibly pancreas Attempt was made to transfer the patient to [facility], where she receives most of her treatment, however, there were no beds available. From the ED patient received vancomycin IV, Zosyn IV and NSS of 500 mL. Admission Exam Per Admitting Provider The patient is awake, alert and oriented 3, normocephalic and atraumatic, lying in bed and in no acute distress. HEENT--PERRL, EOMI, mucous membranes and oropharynx normal. Neck--supple. No JVD. No bruits. Thyroid normal, trachea midline, no adenopathy. Heart--normal S1 and S2. No murmurs, rubs or gallops. Lungs--clear bilaterally, no respiratory distress, no accessory muscle use. Abdomen--normal bowel sounds and soft. Tender right upper quadrant. Nondistended. Extremities--no cyanosis or clubbing. No edema. Dermatologic--normal skin turgor, normal color, no abnormal lymph nodes, no rash. Neurologic--cranial nerves II through XII grossly intact. Rheumatologic--normal range of motion. Psychiatric--normal affect. Principal Diagnosis Gram Negative Bacteremia due to Liver Abscesses Discharge Exam General: A&Ox3. NAD. Cooperative. Thin. HEENT: Atraumatic, normocephalic. Pulm: CTAB A&P. -wheezes, -rales, -rhonchi. Symmetrical chest rise. No increase work of breathing. No respiratory distress. Cardiac: RRR, -mrg. Radial pulses intact and symmetrical. 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 She will be transferred to [facility] on 02/07 for IR drainage of abscesses. Gram-Negative Bacteremia 2/2 Multiple Liver Abscesses; Sepsis, resolved; Metastatic Ampullary Carcinoma High-grade fevers, rigors, and RUQ abdominal pain x7 days, which started ~one week after Y90 liver procedure for liver metastases. Hypotensive/tachycardic in ED with procal 58.6. CT A/P showing multiloculated abscesses. - afebrile/hemodynamically stable on IVFs for >48 hours - however, repeat CT A/P today shows stable appearance of liver abscesses as well as increased peripheral enhancement and wall thickness - blood cx positive for e. coli, resistant to cipro, levo, and Bactrim. - started on Vanco/Zosyn on admission, given Dapto x1 on 02/04, and continued with Zosyn monotherapy until 02/06; then transitioned to CTX 1g IV Q24H + Flagyl 500mg IV Q8H (today is day 4 of abx) - stopped IVFs today - while IV abx may be sufficient to treat sepsis/bacteremia, patient will likely still need IR for drainage of abscesses - [facility] called and accepted patient for transfer Abdominal pain; Diarrhea; GERD RUQ abdominal pain as well as epigastric tenderness and lower right-sided abdominal pain. C-diff negative. CT A/P today showed severe proctocolitis. Suspect abdominal pain due to liver abscesses as well as exacerbated GERD due to recent severe illness. Suspect diarrhea due to pancreatic insufficiency as well as Zosyn adverse side effect - increased Protonix to 40mg PO BID - to continue for 1-2 weeks and then wean back to once daily - started Carafate 1g PO QID and Pepcid 20mg PO BID, to take both for the next 2 days MORGAN on CKDIII, MORGAN resolved Cr 1.30 on admission, quickly improved to 1.03 with IVFs. Suspect pre-renal injury due to sepsis. - stopped IVFs today as stated above Thrombocytopenia, resolved Plts 151 on 01/22, decreased to 50 on admission --> 73 --> 104 --> 144 today. No signs of active bleeding. Peripheral smear unremarkable, coags/fibrinogen WNL. - started Lovenox today for DVT ppx - trend daily Chronic Normocytic Anemia Hgb 11.0 (at chronic baseline). Suspect anemia of chronic disease. - trend CBC daily Hypothyroidism - continue Synthroid 50 mcg daily FEN/GI: regular diet DVT Prophylaxis: SCDs, Lovenox Code Status: full code (2) Pancreatic cancer: (3) Acute kidney injury superimposed on chronic kidney disease: (4) Thrombocytopenia: (5) Hypothyroid: Total Time Total Time Spent Total Time Spent (In Minutes): <30 minutes Discharge Plan Discharge Items Patient Disposition: Transfer Acute Care Hospital Reason For Visit: LIVER ABSCESSES Discharge Diagnosis: Gram Negative Bacteremia due to Liver Abscesses Activity: Per Instructions section Non-emergency contact: Primary Care Provider and Oncologist Call non-emergency contact if: you have any medication questions, your symptoms worsen, your pain is not controlled and you have a fever Follow-up/Referrals: Sp Cadena MD [Primary Care Provider] - Diet: Regular Addtl Attending Provider Instructions: Tamara Elkins is a 70yo female with PMHx including 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 She will be transferred to [facility] on 02/07 for IR drainage of abscesses. Gram-Negative Bacteremia 2/2 Multiple Liver Abscesses; Sepsis, resolved; Metastatic Ampullary Carcinoma High-grade fevers, rigors, and RUQ abdominal pain x7 days, which started ~one week after Y90 liver procedure for liver metastases. Hypotensive/tachycardic in ED with procal 58.6. CT A/P showing multiloculated abscesses. - afebrile/hemodynamically stable on IVFs for >48 hours - however, repeat CT A/P today shows stable appearance of liver abscesses as well as increased peripheral enhancement and wall thickness - blood cx positive for e. coli, resistant to cipro, levo, and Bactrim. - started on Vanco/Zosyn on admission, given Dapto x1 on 02/04, and continued with Zosyn monotherapy until 02/06; then transitioned to CTX 1g IV Q24H + Flagyl 500mg IV Q8H (today is day 4 of abx) - stopped IVFs today - while IV abx may be sufficient to treat sepsis/bacteremia, patient will likely still need IR for drainage of abscesses - [facility] called and accepted patient for transfer Abdominal pain; Diarrhea; GERD RUQ abdominal pain as well as epigastric tenderness and lower right-sided abdominal pain. C-diff negative. CT A/P today showed severe proctocolitis. Suspect abdominal pain due to liver abscesses as well as exacerbated GERD due to recent severe illness. Suspect diarrhea due to pancreatic insufficiency as well as Zosyn adverse side effect - increased Protonix to 40mg PO BID - to continue for 1-2 weeks and then wean back to once daily - started Carafate 1g PO QID and Pepcid 20mg PO BID, to take both for the next 2 days MORGAN on CKDIII, MORGAN resolved Cr 1.30 on admission, quickly improved to 1.03 with IVFs. Suspect pre-renal injury due to sepsis. - stopped IVFs today as stated above Thrombocytopenia, resolved Plts 151 on 01/22, decreased to 50 on admission --> 73 --> 104 --> 144 today. No signs of active bleeding. Peripheral smear unremarkable, coags/fibrinogen WNL. - started Lovenox today for DVT ppx - trend daily Chronic Normocytic Anemia Hgb 11.0 (at chronic baseline). Suspect anemia of chronic disease. - trend CBC daily Hypothyroidism - continue Synthroid 50 mcg daily FEN/GI: regular diet DVT Prophylaxis: SCDs, Lovenox Code Status: full code Pending Studies at Discharge: No Stand-Alone Forms: [facility] Skilled Items Patient informed of condition?: Yes DNR: No Discharge Level of Care: Other Communicable Disease: No Discharge Prognosis: Improving Lines: Peripheral IV Urinary Catheter: No Medications and DC Order Prescriptions: Continued hydrocodone-homatropine [Hycodan (with homatropine)] 5-1.5 mg/5 mL syrup 5 ml PO Q6H PRN (Reason: cough) Qty: 946 RF: 0 multivitamin tablet 1 tab PO DAILY RF: 0 Caltrate 600 plus D 600 mg (1,500 mg)-800 unit tablet,chewable 1 tab PO BID RF: 0 ascorbate calcium (vitamin C) 500 mg tablet 500 mg PO DAILY RF: 0 zinc 50 mg tablet 50 mg PO DAILY RF: 0 cholecalciferol (vitamin D3) 50 mcg (2,000 unit) tablet 50 mcg PO DAILY RF: 0 pantoprazole 40 mg tablet,delayed release (DR/EC) 40 mg PO DAILY RF: 0 senna 8.6 mg capsule 8.6 mg PO BID PRN (Reason: Constipation) RF: 0 levothyroxine 50 mcg tablet 50 mcg PO DAILY Qty: 90 RF: 3 Ocuvite Eye Health 50 mg-15 unit- 4.5 mg-2.5 mg tablet,chewable 1 tab PO DAILY RF: 0 ondansetron 8 mg tablet,disintegrating 8 mg PO Q8 PRN (Reason: Nausea And Vomiting) RF: 0 Discharge Orders: Discharge Order (Routine); Ordered 02/07/21 Ordered By: Twin Dominguez Admission Data Admit Date/Time: 02/04/21 04:43 Attending Provider: Nhan Blair Admit Provider: Reji Leal Primary Care Provider: Sp Cadena Other Providers: Reji Leal Other Interventions: Discharge Summary Assessment (RN) Last Done: 02/07/21 19:15 Supervising Physician Co-Signing Physician Notes I personally examined the patient and verified all montoya points of history and exam, discussed case, and agree with decision making with Dr Radford Main new complaint is an epigastric pain that is kind of a burning, sometimes a little bit better after eating and then comes back, sometimes worse after eating. Vitals noted, awake and alert pleasant no distress. HEENT normocephalic atraumatic mucous membranes moist. Breathing unlabored no accessory muscle use good effort. Skin shows no rashes, no pallor no icterus Sepsis/severe sepsis with gram-negative bacteremia and thrombocytopeniaall present on admissionappears to be related to liver abscesses, which appear to be consequent to her treatment for her liver metastases. Overall improving. On ceftriaxone and Flagyl. CT scan without any meaningful changeheavily implying that she will need drainage for source controlfortunately bed available at [place] and she can be transferred today. AKIfrom severe sepsis. Improved Otherwise as above. Resident Activity Tracking Resident Involvement: Resident Care Provided Care Provided: Adult Hospital Medicine
--- NOTE | 2021-02-07 19:48 | Billing Data ---
Date of Service February 07, 2021 Coding Level of Care Code D/C DAY MANAGEMENT <30 MINS
[2021-02-07] MEDS: SUCRALFATE 1 GM TAB PO SCH ×2 (19:54→19:55)
[2021-02-07] MEDS ORDERED: FAMOTIDINE 20 MG TAB PO SCH (21:00)
[2021-02-07] MEDS ORDERED: PANTOprazole 40 MG TAB PO SCH (21:00)
--- NOTE | 2021-02-25 07:15 | Coding Query ---
CODING QUERY To promote full compliance with coding requirements relating to patient care, provider participation is requested in all cases of transfer table operator uncertainty. Please assist us with the question(s) below: Coding Question(s): Your documentation states,"Sepsis/Severe Sepsis w/ Gram- Negative Bacteremia and Thrombocytopenia-all POA-appears to be related to liver abscess, which appear to be consequent to her treatment for her liver metastases." Please clarify below: (x ) Sepsis/Severe Sepsis and Liver Abscess are complications of the procedure ( ) Sepsis/Severe Sepsis and Liver Abscess are not complications of the procedure ( ) Sepsis/Severe Sepsis and Liver Abscess are expected outcomes of the procedure ( ) Other Please Explain: Thank you Jose Whaley Principal Diagnosis: "that condition established after study, to be chiefly responsible for occasioning the admission of the patient to the hospital for care." Co-Existing Principal Diagnosis: "when two or more diagnoses equally meet the criteria for principal diagnosis as determined by the circumstances of admission, diagnostic work up, and/or therapy provided, and the Alphabetic Index, Tabular List, or another coding guideline does not provide sequencing direction, any one of the diagnoses may be sequenced first." "When the physician has documented what appears to be a current diagnosis in the body of the record, but has not included the diagnosis in the final diagnostic statement, the physician should be asked whether the diagnosis should be added." ([facility] 2 QTR90. p3-4) KATHLEEN
== END 2021-02-07 20:51 | disposition short-term general hospital (02) | DRG 393 ==
LOC: ED 22:46 → SUATTDRO 02-04 04:43 → 1E 02-04 04:43 → 2W 02-05 17:14

== ENCOUNTER 2022-06-17 13:09 | Inpatient (IN) ==
[2022-06-17] MEDS ORDERED: SODIUM CHLORIDE 0.9% 1000ML 1,000 ML IV STA (14:05)
--- NOTE | 2022-06-17 14:09 | Emergency Department Note ---
Impression & Plan MORGAN (acute kidney injury) Admission ED Provider Note HPI: The patient is a 71-year-old female with history of metastatic pancreatic cancer, currently on chemotherapy, presents the emergency department with her at the bedside over concern for dehydration and weight loss. Patient's states that the patient has had nausea and vomiting that has been worse christina over the past 2 weeks. She is only able to tolerate small amounts of p.o. intake and then often will have episodes of emesis following p.o. intake. Patient finished her latest course of IV chemotherapy on 06/06. She was unable to tolerate her oral therapy for the past 4 to 5 days secondary to nausea and vomiting. Patient and her contacted their hematology/oncology provider through [facility], they were advised to come to the ED to be assessed for dehydration and the possibility of a mechanical obstruction as a source of her nausea and vomiting. Patient has lost approximately 15 pounds in the past 2 weeks according to her . On arrival here to the ED the patient is very frail and cachectic appearing however she is alert and hemodynamically stable, she is noted to have some mild hypotension at 96/69, heart rate is within normal limits, patient is saturating well on room air on arrival, patient is afebrile on arrival, she is in no acute physical distress on my initial assessment. ROS: - Per HPI *Outpatient medications and allergy history reviewed. *Pertinent external medical records reviewed. PE: General: Alert, cachectic appearing HEENT: Normocephalic, trachea midline Eyes: Extraocular eye movement is intact, no scleral erythema Pulmonary: Clear to auscultation bilaterally, no wheezing Cardio: Regular rate and rhythm GI: Abdomen is soft, nontender : No suprapubic tenderness MSK: No evidence of trauma or malformation of the extremities, no edema Skin: No evidence of rash Neuro: Alert, no focal deficits Psychiatric: Cooperative environmental monitoring technician: (As interpreted by myself): - An order was placed for continuous cardiac monitoring - Patient was noted to be in sinus rhythm with a rate of 60 Interventions provided in ED: -IV fluid bolus Medical Decision Making: Patient presented to the emergency department with nausea and vomiting, this is in the setting of known metastatic pancreatic cancer. Patient finished IV chemotherapy cycling several weeks ago, she is currently on oral chemotherapy but she was unable to tolerate this over about the past 4 days secondary to nausea and vomiting. She has not really had any abdominal pain. Shortly after arrival IV was established, lab work obtained, patient was placed on monitor tech. Lab work does show evidence of multiple abnormalities including acute renal failure, creatinine at 4.6, BUN elevated at 71, anion gap of 15, serum bicarbonate level of 17, likely consistent with starvation ketosis. There is also evidence of hyponatremia at 128. Hemoglobin is stable, platelet count is within normal limits. CT imaging of the abdomen pelvis was obtained without contrast, no evidence of small bowel obstruction, there is worsening metastatic disease in comparison to CT imaging from April 2021. On my reassessment the patient remains hemodynamically stable and resting comfortably in bed, she has not had any active nausea or vomiting here in the ED today. I discussed all the above findings with the patient and her at the bedside, they are in agreement for admission for further management. I do suspect her acute kidney injury is likely multifactorial but possibly secondary to fluid losses from her nausea and vomiting, unclear if there could be a side effect from her chemotherapy agents. She receives most of her care for this through [facility]. Regardless, she has not been taking any chemotherapy for about the past 4 to 5 days according to her at the bedside secondary to her symptoms. Given the patient's lab abnormalities, [facility] hospitalist service was consulted for admission. Case was discussed with Dr. Kim. Patient was placed for admission in stable condition. Consultants: Hospitalist service, Dr. Kim Disposition discussion held by myself with: Patient and at the bedside Diagnosis: 1. Acute renal failure 2. Nausea and vomiting, acute 3. Patient with metastatic pancreatic cancer, currently on chemotherapy 4. Uremia 5. Hyponatremia, acute Disposition: Admission Ever Fisher DO Emergency Medicine Past Med/Surg History Medical History CKD (chronic kidney disease), stage III Hypothyroid Impacted cerumen of right ear Menopause Pancreatic mass Renal insufficiency, mild Surgical History H/O oral surgery History of ERCP History of liver biopsy History of pancreatic surgery History of thoracentesis Family History Mother Colon cancer Hyperlipidemia Hearing loss of aging Colorectal cancer Father Prostate cancer Hypertension Unknown Breast cancer Grandmother (Maternal) Diabetes Myocardial infarction Grandfather (Paternal) Stroke Other Allergies No family history of adverse response to anesthesia No family history of bleeding disorder Denies family history of Ovarian cancer Lung cancer Social History Smoking Status: Never smoker Second Hand Exposure: No; Hx Alcohol Use: Yes Alcohol type: hard liquor Alcohol Intake Frequency: 4 or More x per/Week Alcohol Intake Frequency Comment: no current use due to chemo Hx Substance Use: No Preferred Language: Azerbaijani Communication Ability: Effective Visual Impairment: Limited Hearing Ability: Normal Heavy Equipment Operator/Paver Required: No Beliefs That Will Affect Care: None marital status: Current Living Situation: Spouse current occupational status: employed 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 How many Children do You have: 0 Feels Safe at Home: Yes Childhood Exposure to Second-Hand Smoke: No caffeine: No Dental Care, Regularly: Yes Physical Activity Frequency: 5-6 Times per Week Seatbelt Use: always Sunscreen Use: Yes Assistive Devices: Glasses Allergies Allergies Allergy/AdvReac Type Severity Reaction Status Date / Time No Known Drug Allergies Allergy Unknown Verified 01/18/22 14:50 metronidazole AdvReac Severe Cerebellar Unverified 06/17/22 14:41 toxicity with hospitalization benzoin AdvReac Unknown CONTACT Verified 02/11/22 10:11 DERMATITIS Home Meds Home Medications Medication Instructions Recorded Confirmed multivitamin 1 tab PO DAILY 12/27/18 06/17/22 cholecalciferol (vitamin D3) 50 50 mcg PO DAILY 01/09/20 06/17/22 mcg (2,000 unit) tablet pantoprazole 40 mg tablet,delayed 40 mg PO DAILY 01/09/20 06/17/22 release ondansetron 8 mg disintegrating 8 mg PO Q8 PRN Nausea And Vomiting 02/04/21 06/17/22 tablet Primadophilus 1 cap PO DAILY 02/16/21 06/17/22 [id number] See Rx Instructions .Route .COMPLEX 02/16/21 06/17/22 36,000-114,000-180,000 unit capsule,delay rel (Creon) ascorbate calcium (vitamin C) 500 1 g PO DAILY 02/18/21 06/17/22 mg tablet amoxicillin 875 mg-potassium 1 tab PO BID 06/17/22 06/17/22 clavulanate 125 mg tablet celecoxib 100 mg capsule 100 mg PO BID 06/17/22 06/17/22 gabapentin 300 mg capsule 300 mg PO TID PRN Pain 06/17/22 06/17/22 latanoprost 0.005 % eye drops 1 drp OPB HS 06/17/22 06/17/22 lidocaine-prilocaine 2.5 %-2.5 % 1 applic topical UD 06/17/22 06/17/22 topical cream opium tincture 10 mg/mL (morphine) 0.3 ml PO QID 06/17/22 06/17/22 oral oxycodone 10 mg tablet,crush 10 mg PO BID 06/17/22 06/17/22 resistant,extended release 12 hr (OxyContin) sucralfate 1 gram tablet 1 g PO ACHS 06/17/22 06/17/22 vancomycin 125 mg capsule 125 mg PO Q6H 06/17/22 06/17/22 zinc acetate 50 mg (zinc) capsule 50 mg PO DAILY 06/17/22 06/17/22 Previous Rx's Medication Instructions Recorded hydrocodone-homatropine 5 mg-1.5 5 ml PO Q6H PRN cough #946 mL 11/04/21 mg/5 mL oral syrup (Hycodan (with homatropine)) levothyroxine 50 mcg tablet 50 mcg PO DAILY #90 tabs 03/30/22 Results & Data (ED) Vital Signs Vital Signs - 24 hr 06/17/22 13:24 06/17/22 14:22 06/17/22 14:30 Temperature 36.5 C 36.8 C Temperature Source Temporal Artery Scan Oral Pulse Rate 95 H 77 Pulse Rate [Finger] 79 Pulse Rhythm Regular Respiratory Rate 18 19 16 Respiratory Effort / Characteristics Non-Labored Spontaneous Non-Labored Spontaneous Respiratory Depth Normal Respiratory Pattern Regular Blood Pressure 96/69 L Blood Pressure [Right Arm] 119/69 Blood Pressure Mean 78 Blood Pressure Mean [Right Arm] 85 Blood Pressure Position Sitting Blood Pressure Position [Right Arm] Semi-fowlers Pulse Oximetry 98 98 97 Oxygen Delivery Method Room Air Room Air Room Air Sepsis Recent Fever Within 48 Hours No Sepsis New/Unexplained Change in Mental Status No Sepsis Action Taken by Nursing No Action Required 06/17/22 15:58 06/17/22 16:05 Temperature 36.7 C Temperature Source Oral Pulse Rate 65 Pulse Rate [Finger] 62 Pulse Rhythm Respiratory Rate 14 Respiratory Effort / Characteristics Non-Labored Spontaneous Respiratory Depth Respiratory Pattern Blood Pressure Blood Pressure [Right Arm] 155/76 H Blood Pressure Mean Blood Pressure Mean [Right Arm] 102 Blood Pressure Position Blood Pressure Position [Right Arm] Semi-fowlers Pulse Oximetry 100 Oxygen Delivery Method Sepsis Recent Fever Within 48 Hours Sepsis New/Unexplained Change in Mental Status Sepsis Action Taken by Nursing Laboratory Data 06/17/22 14:38 06/17/22 14:38 Lab Results 06/17/22 06/17/22 06/17/22 Range/Units 14:38 14:38 14:38 WBC 7.56 (4.8-10.8) K/ul RBC 3.79 L (4.20-5.40) M/uL Hgb 12.2 (12.0-16.0) g/dl Hct 34.5 L (37.0-47.0) % MCV 91.0 (80.0-100.0) fL MCH 32.2 (25.0-34.0) pg MCHC 35.4 (32.0-36.0) g/dL RDW Std Deviation 62.0 H (36.4-46.3) fL RDW Coeff of Lakhwinder 19.9 H (11.5-14.5) % Plt Count 200 (130-400) K/uL MPV 9.7 (9.4-12.4) fL Immature Gran % (Auto) 0.4 % Neut % (Auto) 78.1 % Lymph % (Auto) 10.4 % [place] % (Auto) 11.0 % Eos % (Auto) 0.0 % Baso % (Auto) 0.1 % Neut # (Auto) 5.90 (1.40-6.50) K/uL Lymph # (Auto) 0.79 L (1.2-3.4) K/uL [place] # (Auto) 0.83 H (0.11-0.59) K/uL Eos # (Auto) 0.00 (0-0.50) K/uL Baso # (Auto) 0.01 (0-0.2) K/uL Immature Gran # (Auto) 0.03 (0.01-0.20) K/uL Sodium 128 L (136-145) mmol/L Potassium 5.0 (3.5-5.1) mmol/L Chloride 96 L (98-107) mmol/L Carbon Dioxide 17 L (21-32) mmol/L Anion Gap 15 H (3-11) BUN 71 H (6-23) mg/dl Creatinine 4.61 H* (0.6-1.2) mg/dl Est Cr Clr Drug Dosing 7.2 ml/min Est GFR ( Amer) 10.5 ml/min Est GFR (Non-Af Amer) 9.1 ml/min BUN/Creatinine Ratio 15.4 (10-20) Glucose 117 H (70-99(Fasting)) mg/dl Lactate 1.5 (0.4-2.0) mmol/L Calcium 7.6 L (8.5-10.1) mg/dl Total Bilirubin 0.7 (0.2-1.0) mg/dl AST 19 (13-39) U/L ALT 14 (7-52) U/L Alkaline Phosphatase 168 H (34-104) U/L Total Protein 6.8 (6.0-8.3) gm/dl Albumin 4.3 (3.4-5.0) gm/dl Globulin 2.5 (2.5-4.0) gm/dl Albumin/Globulin Ratio 1.7 (0.9-2) Lipase 5 L (11-82) U/L Administered Medications Sodium Chloride (Nss 1000ml) 1,000 mls @ 999 mls/hr IV .Q1H1M ONE Stop: 06/17/22 17:37 Last Admin: 06/17/22 16:48 Dose: 999 mls/hr Documented By: Discontinued Medications Sodium Chloride (Nss 1000ml) 1,000 mls @ 999 mls/hr IV .Q1H1M STA Stop: 06/17/22 15:05 Last Infusion: 06/17/22 15:33 Dose: 0 mls/hr Documented By: Admin: 06/17/22 14:32 Dose: 999 mls/hr Documented By: Imaging Data Radiologist's Impression: Abdomen/Pelvis CT 06/17/22 15:39 CT OF THE ABDOMEN AND PELVIS WITHOUT CONTRAST CLINICAL HISTORY: Nausea and vomiting. History of ampullary carcinoma. History of liver abscess. Evaluate for small bowel obstruction. COMPARISON STUDY: CT of the abdomen and pelvis May 20, 2021 and MRI of the abdomen October 15, 2021. TECHNIQUE: Axial images of the abdomen and pelvis were obtained without IV contrast. Images were reviewed in the axial, sagittal, and coronal planes. Automated exposure control was utilized for the study. A dose lowering technique was utilized adhering to the principles of ALARA. FINDINGS: Numerous ill-defined nodules throughout the lower lungs are noted. These are subcentimeter in size. There is mild interlobular septal thickening within the right lower lobe. No pneumatosis, free air or portal venous gas is present. Evaluation of the abdomen and pelvis is suboptimal on this unenhanced exam. There are postoperative findings consistent with Whipple procedure. A 7.4 x 6.5 cm segment 7 hepatic mass is noted. This represents a significant change since prior CT of May 20, 2021. Numerous additional hypodense hepatic lesi ons have developed since prior exam. There is no biliary or pancreatic ductal dilatation. Spleen, adrenal glands and kidneys are unremarkable. There is no hydronephrosis. There is no evidence for a bowel obstruction. The colon is fluid-filled with multiple air-fluid levels. A few small bowel loops are also mildly fluid-filled. Prominent mesenteric lymph nodes are noted. A 7 mm implant within the right lower quadrant on axial image 190 is noted. Numerous sclerotic skeletal lesions have developed since prior exam. No pathologic fracture is noted. IMPRESSION: 1. Interval development of metastatic disease, including extensive hepatic and skeletal metastases, as described above. No biliary ductal dilatation. No pathologic fractures. 2. Status post Whipple procedure. No bowel obstruction. Fluid-filled large and small bowel. This may reflect a gastroenteritis. 3. Numerous ill-defined nodules within the lower lungs. Although these may be infectious, metastases are favored. ACT 112: Negative or not required by law. Electronically signed by: Hussein Roca M.D. 06/17/2022 4:14 PM Discharge Plan Visit Data Chief Complaint: Illness Stated Complaint: POSSIBLE DEHYFRATION AND MALNURISHED ED Provider: Ever Fisher Discharge Problem: MORGAN (acute kidney injury) Forms Stand Alone Forms: [facility] Prescriptions Prescriptions: No Action Creon 36,000-114,000- 180,000 unit capsule,delayed release(DR/EC) See Rx Instructions .ROUTE .COMPLEX Rx Instructions: 2 capsule PO TID with each meal and 1 capsule PO with each snack, contents of capsule may be mixed with soft foods such as applesauce.; administer with meals and/or snacks Primadophilus 340 mg capsule 1 cap PO DAILY ascorbate calcium (vitamin C) 500 mg tablet 1 g PO DAILY hydrocodone-homatropine [Hycodan (with homatropine)] 5-1.5 mg/5 mL syrup 5 ml PO Q6H PRN (Reason: cough) Qty: 946 0RF levothyroxine 50 mcg tablet 50 mcg PO DAILY Qty: 90 3RF multivitamin tablet 1 tab PO DAILY cholecalciferol (vitamin D3) 50 mcg (2,000 unit) tablet 50 mcg PO DAILY pantoprazole 40 mg tablet,delayed release (DR/EC) 40 mg PO DAILY ondansetron 8 mg tablet,disintegrating 8 mg PO Q8 PRN (Reason: Nausea And Vomiting) latanoprost 0.005 % drops 1 drp OPB HS vancomycin 125 mg capsule 125 mg PO Q6H gabapentin 300 mg capsule 300 mg PO TID PRN (Reason: Pain) Rx Instructions: take as directed up to 3600mg per day in divided dose celecoxib 100 mg capsule 100 mg PO BID opium tincture 10 mg/mL (morphine) tincture 0.3 ml PO QID oxycodone [OxyContin] 10 mg tablet,oral only,ext.rel.12 hr 10 mg PO BID zinc acetate 50 mg (zinc) Capsule 50 mg PO DAILY lidocaine-prilocaine 2.5-2.5 % cream 1 applic topical UD Rx Instructions: 1 hour prior to accessing port amoxicillin-pot clavulanate 875-125 mg tablet 1 tab PO BID sucralfate 1 gram tablet 1 g PO ACHS Rx Instructions: 1 g PO Before Meals and at bedtime; Referrals Referrals: Sp Cadena MD [Primary Care Provider] -
[2022-06-17 15:07] LABS: Basophils # (auto) 0.01 K/uL (0-0.2); Basophils % (auto) 0.1 %; Hematocrit (blood only) 34.5 % (37.0-47.0); Hemoglobin 12.2 g/dl (12.0-16.0); Immature Granulocytes # (auto) 0.03 K/uL (0.01-0.20); Immature Granulocytes % (auto) 0.4 %; Lymphocytes # (auto) 0.79 K/uL (1.2-3.4); Lymphocytes % (auto) 10.4 %; Mean Corpuscular Hemoglobin 32.2 pg (25.0-34.0); Mean Corpuscular Hgb Conc 35.4 g/dL (32.0-36.0); Mean Platelet Volume 9.7 fL (9.4-12.4); Monocytes # (auto) 0.83 K/uL (0.11-0.59); Neutrophils % (auto) 78.1 %; Platelet Count 200 K/uL (130-400); RDW Coefficient of Variation 19.9 % (11.5-14.5); Red Blood Count 3.79 M/uL (4.20-5.40); White Blood Count 7.56 K/ul (4.8-10.8)
[2022-06-17 15:35] LABS: Albumin Globulin Ratio 1.7 (0.9-2); Albumin Level 4.3 gm/dl (3.4-5.0); BUN Creatinine Ratio 15.4 (10-20); Bilirubin,Total 0.7 mg/dl (0.2-1.0); Calcium 7.6 mg/dl (8.5-10.1); Creatinine Clr Calc Pharmacy 7.2 ml/min; Est GFR (African American) 10.5 ml/min; Est GFR (Non-African American) 9.1 ml/min; Globulin 2.5 gm/dl (2.5-4.0); Total Protein 6.8 gm/dl (6.0-8.3)
--- NOTE | 2022-06-17 16:15 | CT Scan Report ---
CT OF THE ABDOMEN AND PELVIS WITHOUT CONTRAST CLINICAL HISTORY: Nausea and vomiting. History of ampullary carcinoma. History of liver abscess. Eval uate for small bowel obstruction. COMPARISON STUDY: CT of the abdomen and pelvis May 20, 2021 and MRI of the abdomen October 15, 2021. TECHNIQUE: Axial images of the abdomen and pelvis were obtained without IV contrast. Images were revi ewed in the axial, sagittal, and coronal planes. Automated exposure control was utilized for the herminio dy. A dose lowering technique was utilized adhering to the principles of ALARA. FINDINGS: Numerous ill-defined nodules throughout the lower lungs are noted. These are subcentimeter in size. There is mild interlobular septal thickening within the right lower lobe. No pneumatosis, fr ee air or portal venous gas is present. Evaluation of the abdomen and pelvis is suboptimal on this un enhanced exam. There are postoperative findings consistent with Whipple procedure. A 7.4 x 6.5 cm seg ment 7 hepatic mass is noted. This represents a significant change since prior CT of May 20, 2021 . Numerous additional hypodense hepatic lesions have developed since prior exam. There is no biliary or pancreatic ductal dilatation. Spleen, adrenal glands and kidneys are unremarkable. There is no hyd ronephrosis. There is no evidence for a bowel obstruction. The colon is fluid-filled with multiple ai r-fluid levels. A few small bowel loops are also mildly fluid-filled. Prominent mesenteric lymph node s are noted. A 7 mm implant within the right lower quadrant on axial image 190 is noted. Numerous scl erotic skeletal lesions have developed since prior exam. No pathologic fracture is noted. IMPRESSION: 1. Interval development of metastatic disease, including extensive hepatic and skeletal metastases, a s described above. No biliary ductal dilatation. No pathologic fractures. 2. Status post Whipple procedure. No bowel obstruction. Fluid-filled large and small bowel. This may reflect a gastroenteritis. 3. Numerous ill-defined nodules within the lower lungs. Although these may be infectious, metastases are favored. ACT 112: Negative or not required by law. Electronically signed by: Hussein Roca M.D. 06/17/2022 4:14 PM
[2022-06-17] MEDS ORDERED: SODIUM CHLORIDE 0.9% 1000ML 1,000 ML IV ONE (16:37)
--- NOTE | 2022-06-17 17:06 | History & Physical Report ---
Date of Service June 17, 2022 Assessment & Plan (1) Acute renal failure: Plan: -Admit to med/tele -The patient is currently afebrile, hemodynamically stable and stable on RA -Cr today noted to be 4.61 (up from 0.73 as of 02/14/22) -Likely due to her nausea, vomiting, and diarrhea cause severe dehydration -CT of the abdomen/pelvis without contrast shows interval development of her metastases to the bone and liver -No acute renal abnormalities noted on CT -Noted to have a sodium of 128, likely due to dehydration and her poor oral intake -S/P 2L NSS bolus in the ED, will continue with LR at 120 mL/hr continuous for now with her poor oral intake -Will repeat labs this evening to see how she is responding to IV hydration, hold off on Nephrology consult for now as this is likely pre-renal -Patient's QTc is currently 497, will need to be very cautious with antiemetics, will add prn ativan for now -Palliative consult placed to assist with symptom management -Will obtain stool panel and c. diff screen to rule out infectious etiology -Monitor intake and output -DVT PPX with BL SCDs and Sub-Q heparin due to her renal failure -AM CBC, CMP, Mag, Phos, (2) High anion gap metabolic acidosis: Plan: -AG noted to be 15 with bicarb of 17 -Lactate WNL -Likely due to her severe dehydration and ketosis for severe malnutrition -Will follow repeat labs this evening (3) Liver abscess: Plan: -Continue chronic Augmentin therapy -Continue Probiotic (4) Primary malignant neoplasm of pancreas with metastasis to other site: Plan: -Hold oral chemotherapy for now (5) COVID-19: Plan: -Incidental findings on admission screen -Patient is currently stable on RA, could be a component of her continued diarrhea -Will obtain chest xray -Incentive spirometry and prn DuoNebs (6) Hypothyroid: Plan: -Continue levothyroxine (7) History of Clostridioides difficile infection: Plan: -Continue PO Vancomycin -Follow stool studies Plan The patient was discussed with Dr. Kim at the time of the admission History of Present Illness Chief Complaint: Dehydration and weight loss Primary Care Provider: Sp Cadena MD Tamara is a 71 year old female with a PMH significant for metastatic adenocarcinoma of the pancreas currently on Chemotherapy, S/P pancreaticoduodenectomy in June of 2019, previous liver abscess on chronic Augmentin therapy, previous C. diff infection currently on PO Vancomycin prophylactic therapy, hypothyroidism, and GERD who presented to the [facility] ED on 06/17/22 with complaints of nausea, vomiting, and dehydration. In the ED the patient was found to be afebrile, hemodynamically stable, and stable on RA. Labs were remarkable for a WBC WNL, stable Hgb at 12.2, stable platelets at 200, lymphopenia at 0.79, cr of 4.61 (Up from 0.73 as of 02/14/22), glcose of 117, sodium of 128, potassium of 5.0, calcium of 7.6, AG of 15 with bicarb of 17, chloride of 96, lipase of 5, alk phos of 168 otherwise LFTs WNL, and lactate of 1.5. CT of the abdomen and pelvis without contrast was read as "1. Interval development of metastatic disease, including extensive hepatic and skeletal metastases, as described above. No biliary ductal dilatation. No pathologic fractures. 2. Status post Whipple procedure. No bowel obstruction. Fluid-filled large and small bowel. This may reflect a gastroenteritis. 3. Numerous ill- defined nodules within the lower lungs. Although these may be infectious, metastases are favored.". Prior to admission the patient was given 1L NSS bolus and continued on NSS at 100 mL/hr. At the time of the exam the patient was resting in bed in no acute distress with her (Dr. Elkins) sitting bedside, history was obtained from both. Her explains that the patient is currently undergoing IV infusions of Irinotecan with 2 week breaks (last dose was approximately 2 weeks ago) and oral Capecitabine twice daily. Unfortunately the patient has been having uncontrolled nausea and vomiting to the point where she is unable to keep solids or liquids down. She did have half a cup of tea this am by taking small sips but nothing substantial recently. She is currently on Augmentin and PO Vancomycin for the previous liver abscess and recurrent C. diff infections. She has been experiencing 30+ episodes of watery diarrhea daily. They have been trying Imodium without relief of her symptoms. They have been in contact with her Oncologist (Dr. Leon) at [facility] and he instructed them to come to the ED for evaluation due to her ongoing symptoms. She denies recent fevers, chills, chest pain, SOB, abd pain, dysuria, hematuria, melena, swelling, and recent trauma. She has lost approximately 10 pounds in the past month due to her symptoms. Due to her symptoms the patient has not been taking her PO Capecitabine. We discussed Code Status and she currently wishes to be a Full Code. The patient was incidentally found to be covid positive on routine admission screen Please refer to Dr. Kim's attestation for any changes to the treatment plan Allergies Allergy/AdvReac Type Severity Reaction Status Date / Time metronidazole AdvReac Severe Cerebellar Verified 06/17/22 18:59 toxicity with hospitalization benzoin AdvReac Unknown CONTACT Verified 02/11/22 10:11 DERMATITIS Home Medications Medication Instructions Recorded Confirmed Type multivitamin 1 tab PO DAILY 12/27/18 06/17/22 History cholecalciferol (vitamin D3) 50 50 mcg PO DAILY 01/09/20 06/17/22 History mcg (2,000 unit) tablet pantoprazole 40 mg tablet,delayed 40 mg PO DAILY 01/09/20 06/17/22 History release ondansetron 8 mg disintegrating 8 mg PO Q8 PRN Nausea And Vomiting 02/04/21 06/17/22 History tablet Primadophilus 1 cap PO DAILY 02/16/21 06/17/22 History [id number]-hisopmp See Rx Instructions .Route .COMPLEX 02/16/21 06/17/22 History 36,000-114,000-180,000 unit capsule,delay rel (Creon) ascorbate calcium (vitamin C) 500 1 g PO DAILY 02/18/21 06/17/22 History mg tablet hydrocodone-homatropine 5 mg-1.5 5 ml PO Q6H PRN cough #946 mL 11/04/21 06/17/22 Rx mg/5 mL oral syrup (Hycodan (with homatropine)) levothyroxine 50 mcg tablet 50 mcg PO DAILY #90 tabs 03/30/22 06/17/22 Rx amoxicillin 875 mg-potassium 1 tab PO BID 06/17/22 06/17/22 History clavulanate 125 mg tablet celecoxib 100 mg capsule 100 mg PO BID 06/17/22 06/17/22 History gabapentin 300 mg capsule 300 mg PO TID PRN Pain 06/17/22 06/17/22 History latanoprost 0.005 % eye drops 1 drp OPB HS 06/17/22 06/17/22 History lidocaine-prilocaine 2.5 %-2.5 % 1 applic topical UD 06/17/22 06/17/22 History topical cream opium tincture 10 mg/mL (morphine) 0.3 ml PO QID 06/17/22 06/17/22 History oral oxycodone 10 mg tablet,crush 10 mg PO BID 06/17/22 06/17/22 History resistant,extended release 12 hr (OxyContin) sucralfate 1 gram tablet 1 g PO ACHS 06/17/22 06/17/22 History vancomycin 125 mg capsule 125 mg PO Q6H 06/17/22 06/17/22 History zinc acetate 50 mg (zinc) capsule 50 mg PO DAILY 06/17/22 06/17/22 History Past Med/Surg History Medical History CKD (chronic kidney disease), stage III Hypothyroid Impacted cerumen of right ear Menopause Pancreatic mass Renal insufficiency, mild Surgical History H/O oral surgery History of ERCP History of liver biopsy History of pancreatic surgery History of thoracentesis Family History Mother Colon cancer Hyperlipidemia Hearing loss of aging Colorectal cancer Father Prostate cancer Hypertension Unknown Breast cancer Grandmother (Maternal) Diabetes Myocardial infarction Grandfather (Paternal) Stroke Other Allergies No family history of adverse response to anesthesia No family history of bleeding disorder Denies family history of Ovarian cancer Lung cancer Social History Smoking Status: Never smoker Second Hand Exposure: No; Hx Alcohol Use: No Hx Substance Use: No Preferred Language: Mongolian Communication Ability: Effective Visual Impairment: Limited Hearing Ability: Normal Environmental Economist Required: No Beliefs That Will Affect Care: None marital status: Current Living Situation: Spouse current occupational status: employed 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 All systems have been reviewed and are otherwise negative. Physical Exam Physical Exam: Physical Exam: General: In no acute distress, stated age, cachectic, malnourished, chronically ill-appearing HEENT: Normocephalic, atraumatic, no scleral icterus, pupils around round, symmetrical, and reactive to light, dry mucus membranes, trachea midline, no thyromegaly Chest/Pulm: No respiratory distress, symmetrical chest expansion, clear breath sounds throughout Cardiac: RRR, no murmurs noted Abdomen: Negative for ascites and bruising, normoactive bowel sounds, soft, non-tender to palpation throughout Musculoskeletal: Symmetrical and without signs of acute trauma, upper and lower extremities with full ROM, no atrophy, spasticity, or flaccidity Extremities: Radial, dorsalis pedis, and posterior tibial pulses are intact and symmetrical, no edema noted in the BL LE's Skin: Warm, dry, no rashes , lesions, or scars noted Neuro: Alert and oriented to person, place, month, year, and president, no focal defects, CN II-XII tested and intact,no tremors noted Psych: No acute distress, calm and cooperative during the exam Results & Data Results & Data ([facility]) Vital Signs (Past 12 Hours) Vital Signs Temp Pulse Pulse Resp BP BP Pulse Ox 06/17/22 16:05 65 06/17/22 15:58 36.7 C 62 14 155/76 H 100 06/17/22 14:30 77 16 97 06/17/22 14:22 36.8 C 79 19 119/69 98 06/17/22 13:24 36.5 C 95 H 18 96/69 L 98 O2 Del Method 06/17/22 16:05 06/17/22 15:58 06/17/22 14:30 Room Air 06/17/22 14:22 Room Air 06/17/22 13:24 Room Air Laboratory Results Abnormal lab results 0206/17/22 06/17/22 Range/Units 14:38 14:38 16:46 RBC 3.79 L (4.20-5.40) M/uL Hct 34.5 L (37.0-47.0) % RDW Std Deviation 62.0 H (36.4-46.3) fL RDW Coeff of Lakhwinder 19.9 H (11.5-14.5) % Lymph # (Auto) 0.79 L (1.2-3.4) K/uL [place] # (Auto) 0.83 H (0.11-0.59) K/uL Sodium 128 L (136-145) mmol/L Chloride 96 L (98-107) mmol/L Carbon Dioxide 17 L (21-32) mmol/L Anion Gap 15 H (3-11) BUN 71 H (6-23) mg/dl Creatinine 4.61 H* (0.6-1.2) mg/dl Glucose 117 H (70-99(Fasting)) mg/dl Calcium 7.6 L (8.5-10.1) mg/dl Alkaline Phosphatase 168 H (34-104) U/L Lipase 5 L (11-82) U/L SARS-CoV-2, RNA, NAAT POSITIVE A* (NEGATIVE) Diagnostic Findings Abdomen/Pelvis CT 06/17/22 15:39 CT OF THE ABDOMEN AND PELVIS WITHOUT CONTRAST CLINICAL HISTORY: Nausea and vomiting. History of ampullary carcinoma. History of liver abscess. Evaluate for small bowel obstruction. COMPARISON STUDY: CT of the abdomen and pelvis May 20, 2021 and MRI of the abdomen October 15, 2021. TECHNIQUE: Axial images of the abdomen and pelvis were obtained without IV contrast. Images were reviewed in the axial, sagittal, and coronal planes. Automated exposure control was utilized for the study. A dose lowering yoel hnique was utilized adhering to the principles of ALARA. FINDINGS: Numerous ill-defined nodules throughout the lower lungs are noted. These are subcentimeter in size. There is mild interlobular septal thickening within the right lower lobe. No pneumatosis, free air or portal venous gas is present. Evaluation of the abdomen and pelvis is suboptimal on this unenhanced exam. There are postoperative findings consistent with Whipple procedure. A 7.4 x 6.5 cm segment 7 hepatic mass is noted. This represents a significant change since prior CT of May 20, 2021. Numerous additional hypodense hepatic lesions have developed since prior exam. There is no biliary or pancreatic ductal dilatation. Spleen, adrenal glands and kidneys are unremarkable. There is no hydronephrosis. There is no evidence for a bowel obstruction. The colon is fluid-filled with multiple air-fluid levels. A few small bowel loops are also mildly fluid-filled. Prominent mesenteric lymph nodes are noted. A 7 mm implant within the right lower quadrant on axial image 190 is noted. Numerous sclerotic skeletal lesions have developed since prior exam. No pathologic fracture is noted. IMPRESSION: 1. Interval development of metastatic disease, including extensive hepatic and skeletal metastases, as described above. No biliary ductal dilatation. No pathologic fractures. 2. Status post Whipple procedure. No bowel obstruction. Fluid-filled large and small bowel. This may reflect a gastroenteritis. 3. Numerous ill-defined nodules within the lower lungs. Although these may be infectious, metastases are favored. ACT 112: Negative or not required by law. Electronically signed by: Hussein Roca M.D. 06/17/2022 4:14 PM ECG Additional Comments: Poor data quality, interpretation may be adversely affected Normal sinus rhythm Possible Left atrial enlargement Nonspecific ST abnormality Prolonged QT Abnormal ECG When compared with ECG of 04-FEB-2021 00:24, Vent. rate has decreased BY [address] now depressed in Anterior leads Code Status & VTE Plan Code Status FUll code VTE Prophylaxis Plan VTE Prophylaxis will be ordered: Yes Supervising Physician Co-Signing Physician Notes I personally saw and examined the patient. I verified all montoya points and agree with Awais Barrios PA-C with the following exceptions and/or additions: 71 year old female with metastatic pancreatic cancer presents to the ER with nausea, vomiting and generalized weakness. Please see history above for full history. O/E A&Ox3, Cachectic appearing, HS RRR, Chest CTAB, Abdo SNT, no CVA tenderness A/P MORGAN - Suspect mostly pre-renal although UA pending. 1.5x maintenance fluids. Suspect nausea and vomiting secondary to uremia since already resolving Metabolic acidosis with elevated anion gap - lactate normal, suspect secondary to starvation ketosis in setting Acute hyponatremia - suspect due to vomiting/diarrhea and poor oral intake SARS-CoV-2 PCR positive - asymptomatic versus presymptomatic versus false positive. No current symptoms. No current need for treatment. PG Care Time/CCT Total # of Minutes Spent Total Time Spent with Patient: Total time spent is greater than 50% in coordination of care (as documented) at patient's floor/unit and/or counseling patient: C[place] [address] INT INP/OBS CARE 3/75MIN Patient Type Established Medical Decision Making High Complexity Diagnoses Acute renal failure N17.9 High anion gap metabolic acidosis E87.29 Liver abscess K75.0 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
[2022-06-17] MEDS ORDERED: ONDANSETRON INJ 2 MG/ML 2 ML VIAL IV PRN (17:33)
[2022-06-17] MEDS: LACTATED RINGER'S 1,000 ML IV SCH (17:57)
[2022-06-17] MEDS ORDERED: ALBUT/IPRATROP 3MG/0.5MG NEB 3 ML VIAL NEB PRN (18:07)
[2022-06-17] MEDS ORDERED: LORazepam 2 MG/1 ML VIAL IV PRN (18:17)
--- NOTE | 2022-06-17 18:34 | XRay Report ---
XR chest 1V portable HISTORY: covid positive COMPARISON: Chest 02/04/2021. FINDINGS: A left jugular Port-A-Cath terminates in the SVC. No pneumothorax. The heart is normal in s ize. Mild elevation the right hemidiaphragm. No pleural effusions. Right basilar linear densities fav or subsegmental atelectasis. Otherwise, lungs are clear. S-shaped scoliosis of the thoracolumbar spin e. IMPRESSION: Right basilar linear densities favor subsegmental atelectasis as seen on the same day abdomen and pel vis CT. ACT 112: Negative or not required by law. Electronically signed by: Ruiz Perrin M.D. 06/17/2022 6:32 PM
[2022-06-17] MEDS ORDERED: GABAPENTIN 300 MG CAP PO PRN ×2 (18:52→20:02)
[2022-06-17] MEDS ORDERED: HYDROcodone/HOMATROPINE SYRUP 5MG/1.5MG 5ML UDP PO PRN (18:52)
[2022-06-17] MEDS ORDERED: PANCREAZE (LIPASE 10,500U) CAP PO PRN (19:21)
[2022-06-17 19:33] LABS: Appearance Urine Turbid (Clear); Bilirubin Urine Negative (Negative); Blood Urine Trace (Negative); Color Urine Yellow; Epithelial Cell Urine Auto >30 /lpf (0-5); Glucose Urine UA Negative (Negative); Ketones Urine Trace (Negative); Leukocyte Esterase Urine Trace (Negative); Nitrite Urine Negative (Negative); Protein Urine 1+ (Negative); RBC Urine Automated 0-4 /hpf (0-4); Specific Gravity Urine 1.019 (1.000-1.030); Urobilinogen Urine Negative (Negative)
[2022-06-17 20:08] LABS: Amorphous Sediment Urine Present (None Prsent); Bacteria Urine Automated 1+ (Negative)
[2022-06-17 21:00] LABS: Albumin Globulin Ratio 1.9 (0.9-2); Albumin Level 3.9 gm/dl (3.4-5.0); Bilirubin,Total 0.7 mg/dl (0.2-1.0); Calcium 7.1 mg/dl (8.5-10.1); Creatinine Clr Calc Pharmacy 10.2 ml/min; Est GFR (African American) 16.1 ml/min; Est GFR (Non-African American) 13.9 ml/min; Globulin 2.1 gm/dl (2.5-4.0); Magnesium 2.2 mg/dl (1.7-2.4); Phosphorus 4.2 mg/dl (2.5-4.9); Potassium 4.4 mmol/L (3.5-5.1)
[2022-06-17] MEDS ORDERED: CELECOXIB 100 MG CAP PO SCH (21:00)
[2022-06-17] MEDS ORDERED: OPIUM TINCTURE 10 MG/ML PO SCH (21:00)
[2022-06-17] MEDS: RASPBERRY SYRUP 5 ML UDP PO SCH (21:20)
[2022-06-17] MEDS: VANCOMYCIN HCL 125 MG/2.5ML SOLN PO SCH (21:20)
[2022-06-17] MEDS: HEPARIN SOD 5,000 UNIT/0.5 ML VIAL SQ SCH (21:22)
[2022-06-17] MEDS: PANCREAZE (LIPASE 10,500U) CAP PO SCH (21:22)
[2022-06-17] MEDS: SUCRALFATE 1 GM TAB PO SCH (21:23)
[2022-06-17] MEDS: GABAPENTIN 300 MG CAP PO SCH (21:23)
[2022-06-17] MEDS: ADVANCED PROBIOTIC 1250 MG CAPSULE PO SCH (21:24)
[2022-06-17] MEDS: oxyCODONE HCL 10 MG TABCR (OxyCONTIN) PO SCH (21:24)
[2022-06-17] MEDS: LATANOPROST 0.005% OP SOLN 2.5 ML BTL OPB SCH (21:25)
[2022-06-17] MEDS: CALCIUM CARBONATE 1,250 MG/5 ML UDC PO SCH (21:35)
[2022-06-17 23:33] LABS: Adenovirus F 40/41 PCR Not Detected (NotDetected); Astrovirus PCR Not Detected (NotDetected); Campylobacter PCR Not Detected (NotDetected); Cryptosporidium PCR Not Detected (NotDetected); Cyclospora cayetanensis PCR Not Detected (NotDetected); Entamoeba histolytica PCR Not Detected (NotDetected); Enteroaggregative E.coli(EAEC) Not Detected (NotDetected); Enteropathogenic E.coli (EPEC) Not Detected (NotDetected); Enterotoxigenic E.coli (ETEC) Not Detected (NotDetected); Giardia lamblia PCR Not Detected (NotDetected); Norovirus GI/GII PCR Not Detected (NotDetected); Plesiomonas shigelloides PCR Not Detected (NotDetected); Rotavirus A PCR Not Detected (NotDetected); Salmonella PCR Not Detected (NotDetected); Sapovirus PCR Not Detected (NotDetected); Shiga-like Toxin E.coli (STEC) Not Detected (NotDetected); Shigella/Enteroinvasive E.coli Not Detected (NotDetected); Vibrio cholerae PCR Not Detected (NotDetected); Vibrio species PCR Not Detected (NotDetected); Yersinia enterocolitica PCR Not Detected (NotDetected)
[2022-06-18] MEDS: RASPBERRY SYRUP 5 ML UDP PO SCH ×4 (01:29→20:22)
[2022-06-18] MEDS: VANCOMYCIN HCL 125 MG/2.5ML SOLN PO SCH ×4 (01:29→20:24)
[2022-06-18] MEDS: LACTATED RINGER'S 1,000 ML IV SCH ×3 (01:29→20:15)
[2022-06-18] MEDS: LEVOTHYROXINE SODIUM 50 MCG TABLET PO SCH (07:20)
[2022-06-18 07:32] LABS: Hemoglobin 9.7 g/dl (12.0-16.0); Mean Corpuscular Hgb Conc 34.6 g/dL (32.0-36.0); Mean Corpuscular Volume 92.4 fL (80.0-100.0); Mean Platelet Volume 10.1 fL (9.4-12.4); Platelet Count 129 K/uL (130-400); RDW Coefficient of Variation 19.8 % (11.5-14.5); RDW Standard Deviation 62.7 fL (36.4-46.3); Red Blood Count 3.03 M/uL (4.20-5.40); White Blood Count 4.43 K/ul (4.8-10.8)
[2022-06-18 07:44] LABS: Albumin Globulin Ratio 1.8 (0.9-2); Albumin Level 3.2 gm/dl (3.4-5.0); BUN Creatinine Ratio 22.2 (10-20); Bilirubin,Total 0.7 mg/dl (0.2-1.0); Calcium 7.6 mg/dl (8.5-10.1); Creatinine Clr Calc Pharmacy 18.7 ml/min; Est GFR (African American) 33.6 ml/min; Globulin 1.8 gm/dl (2.5-4.0); Phosphorus 3.1 mg/dl (2.5-4.9); Potassium 3.4 mmol/L (3.5-5.1)
[2022-06-18] MEDS: GABAPENTIN 300 MG CAP PO SCH ×2 (08:57→20:17)
[2022-06-18] MEDS: PANCREAZE (LIPASE 10,500U) CAP PO SCH ×3 (08:58→20:18)
[2022-06-18] MEDS: HEPARIN SOD 5,000 UNIT/0.5 ML VIAL SQ SCH ×2 (08:59→20:23)
[2022-06-18] MEDS ORDERED: AMOXICILLIN/CLAVULANATE 500 MG TAB PO SCH (09:00)
[2022-06-18] MEDS: SUCRALFATE 1 GM TAB PO SCH ×4 (09:00→20:19)
[2022-06-18] MEDS: ADVANCED PROBIOTIC 1250 MG CAPSULE PO SCH (09:01)
[2022-06-18] MEDS: CALCIUM CARBONATE 1,250 MG/5 ML UDC PO SCH ×2 (09:03→20:21)
--- NOTE | 2022-06-18 09:55 | Electrocardiogram Report ---
Test Reason : Blood Pressure : / mmHG Vent. Rate : 065 BPM Atrial Rate : 065 BPM P-R Int : 150 ms QRS Dur : 074 ms QT Int : 478 ms P-R-T Axes : 069 067 052 degrees QTc Int : 497 ms Poor data quality, interpretation may be adversely affected Normal sinus rhythm Possible Left atrial enlargement Nonspecific ST abnormality Abnormal ECG When compared with ECG of 04-FEB-2021 00:24, Vent. rate has decreased BY 46 BPM Confirmed by Danielito Gongora ([id number]) on 06/18/2022 9:54:47 AM Referred By: REFERRED SELF Confirmed By:Danielito Gongora
[2022-06-18] MEDS: PANTOprazole 40 MG in SYRINGE 0 ML IV SCH (11:24)
[2022-06-18] MEDS: oxyCODONE HCL 10 MG TABCR (OxyCONTIN) PO SCH ×2 (11:32→20:24)
--- NOTE | 2022-06-18 12:38 | Hospitalist Progress Note ---
Date of Service June 18, 2022 Assessment & Plan (1) Acute renal failure: Plan: -Admit to med/tele -The patient is currently afebrile, hemodynamically stable and stable on RA -Cr today noted to be 4.61 (up from 0.73 as of 02/14/22) -Likely due to her nausea, vomiting, and diarrhea cause severe dehydration -CT of the abdomen/pelvis without contrast shows interval development of her metastases to the bone and liver -No acute renal abnormalities noted on CT -Noted to have a sodium of 128, likely due to dehydration and her poor oral intake -S/P 2L NSS bolus in the ED, will continue with LR at 120 mL/hr continuous for now with her poor oral intake -Will repeat labs this evening to see how she is responding to IV hydration, hold off on Nephrology consult for now as this is likely pre-renal -Patient's QTc is currently 497, will need to be very cautious with antiemetics, will add prn ativan for now -Palliative consult placed to assist with symptom management -Will obtain stool panel and c. diff screen to rule out infectious etiology -Monitor intake and output -DVT PPX with BL SCDs and Sub-Q heparin due to her renal failure -AM CBC, CMP, Mag, Phos, 06/18-patient reports slight improvement in symptoms No abdominal pain/patient reports watery stools We will check stool studies Oral intake is improved No evidence of hypoxia noted (2) High anion gap metabolic acidosis: Plan: -AG noted to be 15 with bicarb of 17 -Lactate WNL -Likely due to her severe dehydration and ketosis for severe malnutrition -Will follow repeat labs this evening (3) Liver abscess: Plan: -Continue chronic Augmentin therapy -Continue Probiotic (4) Primary malignant neoplasm of pancreas with metastasis to other site: Plan: -Hold oral chemotherapy for now (5) COVID-19: Plan: -Incidental findings on admission screen -Patient is currently stable on RA, could be a component of her continued diarrhea -Will obtain chest xray -Incentive spirometry and prn DuoNebs No evidence of hypoxia noted (6) Hypothyroid: Plan: -Continue levothyroxine (7) History of Clostridioides difficile infection: Plan: -Continue PO Vancomycin -Follow stool studies Plan The patient was discussed with Dr. Kim at the time of the admission Admission and Anticipated Discharge Date Admission Date: June 17, 2022 Subjective Patient reports watery stools about 2 episodes this a.m. Oral intake is slightly improved Patients at bedside Physical Exam Physical Exam: Head and ENT no thyroid enlargement trachea midline Cardiovascular S1-S2 are normal no S3 Lungs bilateral air entry fair no wheezing Abdomen soft nondistended positive bowel sounds no rebound tenderness Extremity shows trace edema Neurologically no focal deficits Skin shows no rash no cyanosis Results & Data Results & Data ([facility]) Vital Signs (Past 12 Hours) Vital Signs Temp Pulse Resp BP Pulse Ox O2 Del Method 06/18/22 11:59 36.7 C 60 18 121/65 100 Room Air 06/18/22 07:38 36.6 C 60 20 120/63 98 Room Air 06/18/22 02:45 36.7 C 56 L 16 106/62 98 Room Air Laboratory Results Short CBC 06/18/22 Range/Units 06:55 WBC 4.43 L (4.8-10.8) K/ul Hgb 9.7 L (12.0-16.0) g/dl Hct 28.0 L (37.0-47.0) % Plt Count 129 L (130-400) K/uL BMP 06/17/22 06/18/22 20:31 06:55 Sodium 132 L 134 L Potassium 4.4 3.4 L D Chloride 101 104 Carbon Dioxide 22 22 BUN 58 H 39 H Creatinine 3.23 H D 1.76 H D Glucose 73 79 Calcium 7.1 L 7.6 L Liver Function 06/17/22 06/18/22 Range/Units 20:31 06:55 Total Bilirubin 0.7 0.7 (0.2-1.0) mg/dl AST 18 15 (13-39) U/L ALT 12 10 (7-52) U/L Alkaline Phosphatase 152 H 125 H (34-104) U/L Albumin 3.9 3.2 L (3.4-5.0) gm/dl Urine 06/17/22 Range/Units 19:04 Urine Color Yellow Urine Appearance Turbid A (Clear) Urine pH 5.0 (4.5-7.5) Ur Specific [place] 1.019 (1.000-1.030) Urine Protein 1+ H (Negative) Urine Glucose (UA) Negative (Negative) PG Care Time/CCT Total # of Minutes Spent Total Time Spent with Patient: Total time spent is greater than 50% in coordination of care (as documented) at patient's floor/unit and/or counseling patient: Coding Level of Care Code 49096 SUB INP/OBS CARE 2/35MIN Diagnoses Acute renal failure N17.9 High anion gap metabolic acidosis E87.29 Liver abscess K75.0 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
[2022-06-18] MEDS: AMOXICILLIN/CLAVULANATE 500 MG TAB PO SCH (20:19)
[2022-06-18] MEDS: LATANOPROST 0.005% OP SOLN 2.5 ML BTL OPB SCH (20:22)
[2022-06-19] MEDS: VANCOMYCIN HCL 125 MG/2.5ML SOLN PO SCH ×4 (02:30→20:46)
[2022-06-19] MEDS: RASPBERRY SYRUP 5 ML UDP PO SCH ×4 (02:31→20:46)
[2022-06-19] MEDS: LACTATED RINGER'S 1,000 ML IV SCH ×3 (04:06→20:51)
[2022-06-19] MEDS: LEVOTHYROXINE SODIUM 50 MCG TABLET PO SCH (04:08)
[2022-06-19 07:24] LABS: Eosinophils # (auto) 0.04 K/uL (0-0.50); Eosinophils % (auto) 0.8 %; Hematocrit (blood only) 28.4 % (37.0-47.0); Immature Granulocytes # (auto) 0.03 K/uL (0.01-0.20); Immature Granulocytes % (auto) 0.6 %; Lymphocytes # (auto) 0.58 K/uL (1.2-3.4); Mean Corpuscular Hemoglobin 31.9 pg (25.0-34.0); Mean Corpuscular Hgb Conc 35.2 g/dL (32.0-36.0); Mean Corpuscular Volume 90.7 fL (80.0-100.0); Mean Platelet Volume 10.1 fL (9.4-12.4); Monocytes # (auto) 0.71 K/uL (0.11-0.59); Monocytes % (auto) 13.5 %; Neutrophils # (auto) 3.89 K/uL (1.40-6.50); Neutrophils % (auto) 74.1 %; Platelet Count 115 K/uL (130-400); RDW Coefficient of Variation 19.5 % (11.5-14.5); RDW Standard Deviation 61.2 fL (36.4-46.3); Red Blood Count 3.13 M/uL (4.20-5.40); White Blood Count 5.25 K/ul (4.8-10.8)
[2022-06-19 08:08] LABS: Albumin Globulin Ratio 1.7 (0.9-2); Albumin Level 3.1 gm/dl (3.4-5.0); BUN Creatinine Ratio 19.2 (10-20); Bilirubin,Total 0.7 mg/dl (0.2-1.0); Calcium 7.9 mg/dl (8.5-10.1); Creatinine Clr Calc Pharmacy 42.2 ml/min; Est GFR (African American) 89.9 ml/min; Est GFR (Non-African American) 77.6 ml/min; Globulin 1.8 gm/dl (2.5-4.0); Magnesium 1.5 mg/dl (1.7-2.4); Phosphorus 1.8 mg/dl (2.5-4.9); Total Protein 4.9 gm/dl (6.0-8.3)
[2022-06-19] MEDS: ADVANCED PROBIOTIC 1250 MG CAPSULE PO SCH (08:08)
[2022-06-19] MEDS: HEPARIN SOD 5,000 UNIT/0.5 ML VIAL SQ SCH ×2 (08:09→20:49)
[2022-06-19] MEDS: AMOXICILLIN/CLAVULANATE 500 MG TAB PO SCH (08:09)
[2022-06-19] MEDS: GABAPENTIN 300 MG CAP PO SCH ×2 (08:09→20:48)
[2022-06-19] MEDS: CALCIUM CARBONATE 1,250 MG/5 ML UDC PO SCH ×2 (08:09→20:49)
[2022-06-19] MEDS: SUCRALFATE 1 GM TAB PO SCH ×4 (08:09→20:45)
[2022-06-19] MEDS: oxyCODONE HCL 10 MG TABCR (OxyCONTIN) PO SCH ×2 (08:09→20:47)
[2022-06-19] MEDS: PANCREAZE (LIPASE 10,500U) CAP PO SCH ×3 (08:09→20:49)
[2022-06-19] MEDS ORDERED: POTASSIUM CHLORIDE CRTAB 20 MEQ TABCR PO STA (12:34)
[2022-06-19] MEDS: PANTOprazole 40 MG in SYRINGE 0 ML IV SCH (12:48)
[2022-06-19] MEDS: POTASSIUM CHLORIDE / WTR 10 MEQ/100 ML PLCT IV SCH ×3 (13:36→15:33)
--- NOTE | 2022-06-19 18:13 | Hospitalist Progress Note ---
Date of Service June 19, 2022 Assessment & Plan (1) Acute renal failure: Plan: -Admit to med/tele -The patient is currently afebrile, hemodynamically stable and stable on RA -Cr today noted to be 4.61 (up from 0.73 as of 02/14/22) -Likely due to her nausea, vomiting, and diarrhea cause severe dehydration -CT of the abdomen/pelvis without contrast shows interval development of her metastases to the bone and liver -No acute renal abnormalities noted on CT -Noted to have a sodium of 128, likely due to dehydration and her poor oral intake -S/P 2L NSS bolus in the ED, will continue with LR at 120 mL/hr continuous for now with her poor oral intake -Will repeat labs this evening to see how she is responding to IV hydration, hold off on Nephrology consult for now as this is likely pre-renal -Palliative consult placed to assist with symptom management -Will obtain stool panel and c. 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 Patient also has urine culture showing gram-negative bacteria and identification and susceptibility pending at this time Patient however denies any urinary symptoms and patient is also on long-term suppressive therapy with oral Augmentin for her liver abscess which will be continued. 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 Kim at the time of the admission Admission and Anticipated Discharge Date Admission Date: June 17, 2022 Subjective Patient reports improvement in her diarrhea with slightly more formed stools today. Oral intake is slightly improved as well Patients at bedside and plan discussed with patient and her in detail Physical Exam Physical Exam: Head and ENT no thyroid enlargement trachea midline Cardiovascular S1-S2 are normal no S3 Lungs bilateral air entry fair no wheezing Abdomen soft nondistended positive bowel sounds no rebound tenderness Extremity shows trace edema Neurologically no focal deficits Skin shows no rash no cyanosis Results & Data Results & Data ([facility]) Vital Signs (Past 12 Hours) Vital Signs Temp Pulse Pulse Resp BP Pulse Ox O2 Del Method 06/19/22 15:15 64 06/19/22 15:34 36.9 C 63 16 117/73 98 Room Air 06/19/22 11:33 37.0 C 61 16 111/64 99 Room Air 06/19/22 08:00 71 06/19/22 07:37 37.3 C 82 16 120/66 96 Room Air Laboratory Results Short CBC 06/19/22 Range/Units 06:43 WBC 5.25 (4.8-10.8) K/ul Hgb 10.0 L (12.0-16.0) g/dl Hct 28.4 L (37.0-47.0) % Plt Count 115 L (130-400) K/uL BMP 06/19/22 06:43 Sodium 137 Potassium 3.0 L Chloride 102 Carbon Dioxide 28 BUN 15 D Creatinine 0.78 D Glucose 92 Calcium 7.9 L Liver Function 06/19/22 Range/Units 06:43 Total Bilirubin 0.7 (0.2-1.0) mg/dl AST 19 (13-39) U/L ALT 11 (7-52) U/L Alkaline Phosphatase 136 H (34-104) U/L Albumin 3.1 L (3.4-5.0) gm/dl PG Care Time/CCT Total # of Minutes Spent Total Time Spent with Patient: Total time spent is greater than 50% in coordination of care (as documented) at patient's floor/unit and/or counseling patient: Coding Level of Care Code 53581 SUB INP/OBS CARE 2/35MIN Diagnoses Acute renal failure N17.9 High anion gap metabolic acidosis E87.29 Liver abscess K75.0 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
[2022-06-19] MEDS: LATANOPROST 0.005% OP SOLN 2.5 ML BTL OPB SCH (20:46)
[2022-06-19] MEDS: AMOXICILLIN/CLAVULANATE 875 MG TAB PO SCH (20:47)
[2022-06-20] MEDS: VANCOMYCIN HCL 125 MG/2.5ML SOLN PO SCH ×4 (05:03→21:12)
[2022-06-20] MEDS: LACTATED RINGER'S 1,000 ML IV SCH ×3 (05:04→21:25)
[2022-06-20] MEDS: LEVOTHYROXINE SODIUM 50 MCG TABLET PO SCH (05:04)
[2022-06-20] MEDS: RASPBERRY SYRUP 5 ML UDP PO SCH ×4 (05:04→21:13)
[2022-06-20 06:01] LABS: Basophils # (auto) 0.01 K/uL (0-0.2); Basophils % (auto) 0.2 %; Eosinophils # (auto) 0.12 K/uL (0-0.50); Eosinophils % (auto) 2.7 %; Hemoglobin 10.2 g/dl (12.0-16.0); Immature Granulocytes # (auto) 0.03 K/uL (0.01-0.20); Immature Granulocytes % (auto) 0.7 %; Lymphocytes # (auto) 0.85 K/uL (1.2-3.4); Lymphocytes % (auto) 19.3 %; Mean Corpuscular Hemoglobin 31.8 pg (25.0-34.0); Mean Corpuscular Hgb Conc 35.2 g/dL (32.0-36.0); Mean Corpuscular Volume 90.3 fL (80.0-100.0); Mean Platelet Volume 10.7 fL (9.4-12.4); Monocytes # (auto) 0.49 K/uL (0.11-0.59); Monocytes % (auto) 11.1 %; Neutrophils # (auto) 2.91 K/uL (1.40-6.50); Platelet Count 105 K/uL (130-400); RDW Coefficient of Variation 19.1 % (11.5-14.5); RDW Standard Deviation 60.3 fL (36.4-46.3); Red Blood Count 3.21 M/uL (4.20-5.40); White Blood Count 4.41 K/ul (4.8-10.8)
[2022-06-20 06:19] LABS: Albumin Globulin Ratio 1.5 (0.9-2); BUN Creatinine Ratio 9.6 (10-20); Bilirubin,Total 0.7 mg/dl (0.2-1.0); Creatinine Clr Calc Pharmacy 41.8 ml/min; Est GFR (African American) 97.4 ml/min; Magnesium 1.3 mg/dl (1.7-2.4); Phosphorus 1.6 mg/dl (2.5-4.9); Potassium 3.1 mmol/L (3.5-5.1)
[2022-06-20] MEDS: SUCRALFATE 1 GM TAB PO SCH ×4 (07:02→21:15)
[2022-06-20] MEDS: CALCIUM CARBONATE 1,250 MG/5 ML UDC PO SCH ×2 (08:19→21:14)
[2022-06-20] MEDS: oxyCODONE HCL 10 MG TABCR (OxyCONTIN) PO SCH ×2 (08:19→21:16)
[2022-06-20] MEDS: PANCREAZE (LIPASE 10,500U) CAP PO SCH ×3 (08:19→21:14)
[2022-06-20] MEDS: HEPARIN SOD 5,000 UNIT/0.5 ML VIAL SQ SCH ×2 (08:19→21:13)
[2022-06-20] MEDS: GABAPENTIN 300 MG CAP PO SCH ×2 (08:19→21:15)
[2022-06-20] MEDS: AMOXICILLIN/CLAVULANATE 875 MG TAB PO SCH ×2 (08:20→21:25)
[2022-06-20] MEDS: ADVANCED PROBIOTIC 1250 MG CAPSULE PO SCH (08:55)
[2022-06-20] MEDS ORDERED: POTASSIUM PHOS 3 MMOL/1 ML INFUSION IV STA (09:48)
[2022-06-20] MEDS ORDERED: POTASSIUM PHOSPHATE 21 MMOL in SODIUM CHLORIDE 0.9% 500 ML IV ONE (10:15)
--- NOTE | 2022-06-20 10:21 | Hospitalist Progress Note ---
Date of Service June 20, 2022 Assessment & Plan (1) Acute renal failure: Plan: Tamara is a 71 year old female w/ PmHx metastatic adenocarcinoma of the pancreas currently on Chemotherapy, S/P pancreaticoduodenectomy in June of 2019, previous liver abscess on chronic Augmentin therapy, previous C. diff infection currently on PO Vancomycin prophylactic therapy, hypothyroidism, and GERD admitted for nausea/vomiting/diarrhea induced dehydration and MORGAN. Acute Renal Failure: -Cr on admission noted to be 4.61 (up from 0.73 as of 02/14/22) -CT of the abdomen/pelvis without contrast shows interval development of her metastases to the bone and liver, no acute renal abnormalities. -Likely acute renal injury in the face of dehydration from nausea/vomiting/diarrhea. -C diff toxin negative, Giardia and norovirus pending however most likely chemotherapy related given timing. -Noted to have a sodium of 128, likely due to dehydration and her poor oral intake -S/P 2L NSS bolus in the ED, on LR 120ml/hr due to poor PO intake. -Will encourage increasing PO intake as tolerated to help support nutritional needs. Nausea/Vomiting: -May be related to chemotherapy given timing. -Palliative consulted - can try low dose zyprexa 2.5mg since QTc 497; patient curious about anticholinergic, discussed possibility of glycopyrrolate. High Anion Gap Metabolic Acidosis: Resolved -AG noted to be 15 with bicarb of 17 -Lactate WNL -Likely due to her severe dehydration and ketosis for severe malnutrition Liver Abscess: -Continue chronic Augmentin therapy -Continue Probiotic Primary Malignant Neoplasm of Pancreas with metastasis to other site: -Holding oral chemotherapy for now. -Talked with Dr. García at [facility] and let him know patient was admitted for MORGAN, dehydration. Dr. García stated he will make sure she has a follow up appointment next week if she will hopefully be out by then. Bacteruria: -10k colony of citrobacter farmeri, patient asymptomatic and on prophylactic Augmentin. -Will hold off on further antibiotic treatment unless develops symptoms. COVID-19: -Incidental findings on admission screen -Patient is currently stable on RA. -No need for remdesivir or steroid use at this time. -XR with evidence of R basilar atelectasis. -Incentive spirometry and prn DuoNebs. Hypothyroidism: -Continue home levothyroxine. History of C. Diff Infection: -C diff toxin negative on admission. F/E/N/GI: Regular diet, patient will increase intake as can tolerate. DVT Prophylaxis: Heparin 5k units Subq q12h Code Status: Full. Dispo: Med/tele. 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 a little bit of diarrhea today but not much - only a few episodes and not a lot of volume. vitals noted nad heent nc at mmm breathing unlabored no accessory muscles good effort skin no rashes no pallor or icterus CBC, CMP, mag, phos noted diarrhea (highly likely chemo related) and subsequent protein/calorie/electrolyte malnutrition (clinically severe) - encourage PO intake, ~1200 calorie/day minimum discussed and discussed how to track. moderate diarrhea as best as possible (fiber; if persistent despite fiber supplement effects with cholestyramine, and/or prn glycopyrollate). home once able to tolerate PO well enough. otherwise as above, replete electrolytes. refeeding quite unlikely given no AMS, no new/worse abdominal pain/nausea, etc otherwise as above Subjective Patient seen at the bedside this morning without any acute complaints. She still has the diarrhea, less in frequency however she had less intake since her admission. She has slowly been re-introducing foods little by little. She requested for me to reach out to Dr. García, her oncologist, at [place] for an update to her situation/hospitalization. Review of Systems Review of Systems: As per HPI. Physical Exam Constitutional: WD/WN, vitals as above Eyes: PERRL, conjunctivae normal, anicteric sclerae ENMT: external ear and nose normal, oropharynx normal Respiratory: normal respiratory effort, lungs clear to auscultation Cardiovascular: RRR, no murmur, no edema Gastrointestinal (Abdomen): normal bowel sounds, soft, nontender, no hepatosplenomegaly Psychiatric: A+Ox3, euthymic affect Results & Data Results & Data ([facility]) Vital Signs (Past 12 Hours) Vital Signs Temp Pulse Pulse Resp BP Pulse Ox O2 Del Method 06/20/22 07:30 61 06/20/22 07:32 37.0 C 60 18 111/66 97 Room Air 06/20/22 03:00 36.6 C 62 16 113/54 L 97 Room Air 06/20/22 01:32 67 Resident Activity Tracking Resident Involvement: Resident Care Provided Care Provided: Adult Hospital Medicine
[2022-06-20] MEDS: PANTOprazole 40 MG in SYRINGE 0 ML IV SCH (11:38)
[2022-06-20] MEDS: MAGNESIUM SULFATE / D5W 1 GM/100 ML BAG IV SCH ×2 (11:38→13:17)
--- NOTE | 2022-06-20 12:14 | Palliative Care Consultation ---
Date of Consultation June 20, 2022 Assessment & Plan (1) Nausea & vomiting: She has taken zofran in the past with good relief but was found to have QTc of 497 on admission. Fortunately symptoms have improved. Her QTc could potentially be lower with correction of electrolyte abnormalities. We did discuss possible use of low dose zyprexa if needed to manage her symptoms if QTc is prolonged. Minimal dose of 2.5mg daily can be effective antiemetic. (2) Diarrhea: with history of C diff. Per her , symptoms started after most recent chemo treatment. They are considering anticholinergic if C diff ruled out. Discussed glycopyrrolate and potential side effects of dry mouth and blurred vision. (3) Pain: Controlled with oxycodone ER. She has not used prn opioid. (4) Palliative care encounter: I spoke with Mrs. Elkins and her at bedside. She has a very positive attitude about her illness and despite multiple setbacks, she continues to rebound and resume treatment. They are concerned about setbacks causing some delay in treatment, particularly with progressive metastatic disease. She does not identify any potential limits to what she would be willing to go through in the course of her treatment. She has a strong support network. 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 She underwent Whipple procedure and had adjuvant chemotherapy with gemcitabine and abraxane. She had disease progression with liver lesion and underwent radioembolization complicated by hepatic abscess. Despite ongoing treatment, she has both hepatic and skeletal metastatic disease with numerous ill-defined pulmonary nodules. She has had ongoing problems with peripheral neuropathy and C diff. She presented with severe watery diarrhea, nausea and vomiting. On admission, she had MORGAN and hyponatremia which has resolved. She denies nausea and vomiting but did have an episode of retching this morning. She was incidentally found to be covid positive on admission but denies any respiratory symptoms other than a a chronic cough. She is on oxycodone ER 10mg twice daily for pain and management of her diarrhea. Allergies Allergy/AdvReac Type Severity Reaction Status Date / Time metronidazole AdvReac Severe Cerebellar Verified 06/17/22 18:59 toxicity with hospitalization benzoin AdvReac Unknown CONTACT Verified 02/11/22 10:11 DERMATITIS Home Medications Medication Instructions Recorded Confirmed Type multivitamin 1 tab PO DAILY 12/27/18 06/17/22 History cholecalciferol (vitamin D3) 50 50 mcg PO DAILY 01/09/20 06/17/22 History mcg (2,000 unit) tablet pantoprazole 40 mg tablet,delayed 40 mg PO DAILY 01/09/20 06/17/22 History release ondansetron 8 mg disintegrating 8 mg PO Q8 PRN Nausea And Vomiting 02/04/21 06/17/22 History tablet Primadophilus 1 cap PO DAILY 02/16/21 06/17/22 History [id number] See Rx Instructions .Route .COMPLEX 02/16/21 06/17/22 History 36,000-114,000-180,000 unit capsule,delay rel (Creon) ascorbate calcium (vitamin C) 500 1 g PO DAILY 02/18/21 06/17/22 History mg tablet hydrocodone-homatropine 5 mg-1.5 5 ml PO Q6H PRN cough #946 mL 11/04/21 06/17/22 Rx mg/5 mL oral syrup (Hycodan (with homatropine)) levothyroxine 50 mcg tablet 50 mcg PO DAILY #90 tabs 03/30/22 06/17/22 Rx amoxicillin 875 mg-potassium 1 tab PO BID 06/17/22 06/17/22 History clavulanate 125 mg tablet celecoxib 100 mg capsule 100 mg PO BID 06/17/22 06/17/22 History gabapentin 300 mg capsule 300 mg PO TID PRN Pain 06/17/22 06/17/22 History latanoprost 0.005 % eye drops 1 drp OPB HS 06/17/22 06/17/22 History lidocaine-prilocaine 2.5 %-2.5 % 1 applic topical UD 06/17/22 06/17/22 History topical cream opium tincture 10 mg/mL (morphine) 0.3 ml PO QID 06/17/22 06/17/22 History oral oxycodone 10 mg tablet,crush 10 mg PO BID 06/17/22 06/17/22 History resistant,extended release 12 hr (OxyContin) sucralfate 1 gram tablet 1 g PO ACHS 06/17/22 06/17/22 History vancomycin 125 mg capsule 125 mg PO Q6H 06/17/22 06/17/22 History zinc acetate 50 mg (zinc) capsule 50 mg PO DAILY 06/17/22 06/17/22 History Patient History Medical History CKD (chronic kidney disease), stage III Hypothyroid Impacted cerumen of right ear Menopause Pancreatic mass Renal insufficiency, mild Thrombocytopenia Surgical History H/O oral surgery History of ERCP 05/2019 History of liver biopsy History of pancreatic surgery History of thoracentesis Family History Mother Colon cancer Hyperlipidemia Hearing loss of aging Colorectal cancer Father Prostate cancer Hypertension Unknown Breast cancer Grandmother (Maternal) Diabetes Myocardial infarction Grandfather (Paternal) Stroke Other Allergies No family history of adverse response to anesthesia No family history of bleeding disorder Denies family history of Ovarian cancer Lung cancer Social History Smoking Status: Never smoker Second Hand Exposure: No; Hx Alcohol Use: No Hx Substance Use: No Preferred Language: Czech Communication Ability: Effective Visual Impairment: Limited Hearing Ability: Normal Twister Tender Paper Required: No Beliefs That Will Affect Care: None marital status: Current Living Situation: Spouse current occupational status: employed 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 How many Children do You have: 0 Other Information That Helps Us Care for You: No Feels Safe at Home: Yes Safety Concerns: Feels Safe At This Time Childhood Exposure to Second-Hand Smoke: No caffeine: No Dental Care, Regularly: Yes Physical Activity Frequency: 5-6 Times per Week Seatbelt Use: always Sunscreen Use: Yes Assistive Devices: None Review of Systems Review of Systems: ESAS Pain 0/3 Dyspnea 0/3 Nausea 0/3 Anxiety 0/3 Drowsiness 0/3 Physical Exam Constitutional: + thin; no acute distress Respiratory: normal respiratory effort; no labored breathing Musculoskeletal: Extremities: + muscle atrophy Neurologic: Speech / Cognition: normal cognition Psychiatric: A+Ox3, euthymic affect Genitourinary: continent Results & Data ([facility]) Vital Signs (Past 12 Hours) Vital Signs Temp Pulse Pulse Resp BP Pulse Ox O2 Del Method 06/20/22 11:35 98.6 F 70 16 120/74 100 Room Air 06/20/22 07:30 61 06/20/22 07:32 98.6 F 60 18 111/66 97 Room Air 06/20/22 03:00 97.9 F 62 16 113/54 L 97 Room Air 06/20/22 01:32 67 PG Care Time/CCT Total # of Minutes Spent Total Time Spent with Patient: Total time spent is greater than 50% in coordination of care (as documented) at patient's floor/unit and/or counseling patient: Coding Level of Care Code 52495 INT INP/OBS CARE 1/40MIN Diagnoses Nausea & vomiting R11.2 Diarrhea R19.7 Pain R52 Palliative care encounter Z51.5
[2022-06-20] MEDS ORDERED: PSYLLIUM or GUAR GUM FIBER POWDER PACKET PO ONE (18:05)
--- NOTE | 2022-06-20 18:12 | Billing Data ---
Date of Service June 20, 2022 Coding Level of Care Code 81837 SUB INP/OBS CARE MIN
[2022-06-20 18:30] LABS: BUN Creatinine Ratio 6.9 (10-20); Calcium 8.5 mg/dl (8.5-10.1); Creatinine Clr Calc Pharmacy 35.1 ml/min; Est GFR (African American) 78.8 ml/min; Magnesium 1.9 mg/dl (1.7-2.4); Phosphorus 3.1 mg/dl (2.5-4.9); Potassium 3.6 mmol/L (3.5-5.1)
[2022-06-20] MEDS: LATANOPROST 0.005% OP SOLN 2.5 ML BTL OPB SCH (21:11)
[2022-06-20] MEDS ORDERED: CHOLESTYRAMINE LIGHT 4 GM PKT PO SCH (22:00)
[2022-06-21] MEDS: VANCOMYCIN HCL 125 MG/2.5ML SOLN PO SCH ×4 (03:11→19:56)
[2022-06-21] MEDS: LACTATED RINGER'S 1,000 ML IV SCH ×3 (03:11→19:57)
[2022-06-21] MEDS: RASPBERRY SYRUP 5 ML UDP PO SCH ×4 (03:11→19:54)
[2022-06-21 07:23] LABS: BUN Creatinine Ratio 5.4 (10-20); Calcium 8.1 mg/dl (8.5-10.1); Creatinine Clr Calc Pharmacy 41.2 ml/min; Est GFR (African American) 95.8 ml/min; Est GFR (Non-African American) 82.7 ml/min; Magnesium 1.5 mg/dl (1.7-2.4); Phosphorus 2.3 mg/dl (2.5-4.9); Potassium 3.2 mmol/L (3.5-5.1)
--- NOTE | 2022-06-21 07:43 | Hospitalist Progress Note ---
Date of Service June 21, 2022 Assessment & Plan (1) Acute renal failure: Plan: Tamara is a 71 year old female w/ PmHx metastatic adenocarcinoma of the pancreas currently on Chemotherapy, S/P pancreaticoduodenectomy in June of 2019, previous liver abscess on chronic Augmentin therapy, previous C. diff infection currently on PO Vancomycin prophylactic therapy, hypothyroidism, and GERD admitted for nausea/vomiting/diarrhea induced dehydration and MORGAN. Acute Renal Failure: -Cr on admission noted to be 4.61 (up from 0.73 as of 02/14/22) -CT of the abdomen/pelvis without contrast shows interval development of her metastases to the bone and liver, no acute renal abnormalities. -Likely acute renal injury in the face of dehydration from nausea/vomiting/diarrhea. -C diff toxin negative, Giardia and norovirus pending however most likely chemotherapy related given timing. -Added Metamucil to regimen to help bulk up stools for symptomatic relief. If no relief can add cholestyramine. -Noted to have a sodium of 128, likely due to dehydration and her poor oral intake -S/P 2L NSS bolus in the ED, on LR 120ml/hr due to poor PO intake. -Will encourage increasing PO intake as tolerated to help support nutritional needs. Nausea/Vomiting: -May be related to chemotherapy given timing. -Palliative consulted - can try low dose zyprexa 2.5mg since QTc 497; patient curious about anticholinergic, discussed possibility of glycopyrrolate. High Anion Gap Metabolic Acidosis: Resolved -AG noted to be 15 with bicarb of 17 -Lactate WNL -Likely due to her severe dehydration and ketosis for severe malnutrition Liver Abscess: -Continue chronic Augmentin therapy -Continue Probiotic Primary Malignant Neoplasm of Pancreas with metastasis to other site: -Holding oral chemotherapy for now. -Talked with Dr. García at [facility] and let him know patient was admitted for MORGAN, dehydration. Dr. García stated he will make sure she has a follow up appointment next week if she will hopefully be out by then. Bacteruria: -10k colony of citrobacter farmeri, patient asymptomatic and on prophylactic Augmentin. -Will hold off on further antibiotic treatment unless develops symptoms. COVID-19: -Incidental findings on admission screen -Patient is currently stable on RA. -No need for remdesivir or steroid use at this time. -XR with evidence of R basilar atelectasis. -Incentive spirometry and prn DuoNebs. Hypothyroidism: -Continue home levothyroxine. History of C. Diff Infection: -C diff toxin negative on admission. F/E/N/GI: Regular diet, patient will increase intake as can tolerate. DVT Prophylaxis: Heparin 5k units Subq q12h Code Status: Full. Dispo: Med/tele. 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 Eating better. We discussed track ing diet intake, and she expresses good understanding, and has already downloaded an juanita to track. Nervous about going home. Would like to make sure she continues to eat well and that her bowels do not become significantly loose again. vitals noted nad heent nc at mmm breathing unlabored no accessory muscles good effort skin no rashes no pallor or icterus CBC, CMP, mag, phos noted again diarrhea (highly likely chemo related) and subsequent protein/calorie/electrolyte malnutrition (clinically severe) - encourage PO intake (doing better), ~1200 calorie/day minimum discussed and discussed how to track againshe is expressing good understanding. Diarrhea slowing (fiber; if persistent despite fiber supplement effects with cholestyramine, and/or prn glycopyrollate). Hopefully home tomorrowcontinue to follow to ensure diarrhea does not rebound and to ensure p.o. intake stays adequate. otherwise as above, replete electrolytes. refeeding quite unlikely given no AMS, no new/worse abdominal pain/nausea, etc. Pancytopenia due to antineoplastic chemotherapy fortunately fairly mildleukopenia really mild/intermittentcontinue to track periodically otherwise as above Subjective Patient seen at the bedside this morning saying she was feeling well, just a little grumpy. She had one episode of diarrhea yesterday and had been okay by e time I saw her. She had been able to take down a salad and some dry chicken last night, she was able to eat some of her cream of wheat this morning. Review of Systems Review of Systems: As per HPI. Physical Exam Constitutional: WD/WN, vitals as above Eyes: PERRL, conjunctivae normal, anicteric sclerae ENMT: external ear and nose normal, oropharynx normal Respiratory: normal respiratory effort, lungs clear to auscultation Cardiovascular: RRR, no murmur, no edema Gastrointestinal (Abdomen): normal bowel sounds, soft, nontender, no hepatosplenomegaly Psychiatric: A+Ox3, euthymic affect Results & Data Results & Data ([facility]) Vital Signs (Past 12 Hours) Vital Signs Temp Pulse Resp BP Pulse Ox O2 Del Method 06/21/22 07:37 36.4 C L 63 16 133/73 96 Room Air 06/21/22 02:53 37.0 C 62 16 129/74 97 Room Air 06/20/22 22:34 37.1 C 69 16 116/74 96 Room Air 06/20/22 21:56 Room Air Resident Activity Tracking Resident Involvement: Resident Care Provided Care Provided: Adult Hospital Medicine
[2022-06-21] MEDS: SUCRALFATE 1 GM TAB PO SCH ×4 (07:48→19:55)
[2022-06-21] MEDS: LEVOTHYROXINE SODIUM 50 MCG TABLET PO SCH (07:49)
[2022-06-21] MEDS: oxyCODONE HCL 10 MG TABCR (OxyCONTIN) PO SCH ×2 (08:22→19:55)
[2022-06-21] MEDS: PANCREAZE (LIPASE 10,500U) CAP PO SCH ×3 (08:23→19:54)
[2022-06-21] MEDS: GABAPENTIN 300 MG CAP PO SCH ×2 (08:23→19:56)
[2022-06-21] MEDS: PSYLLIUM or GUAR GUM FIBER POWDER PACKET PO SCH (08:23)
[2022-06-21] MEDS: HEPARIN SOD 5,000 UNIT/0.5 ML VIAL SQ SCH ×2 (08:23→19:56)
[2022-06-21] MEDS: ADVANCED PROBIOTIC 1250 MG CAPSULE PO SCH (08:23)
[2022-06-21] MEDS: CALCIUM CARBONATE 1,250 MG/5 ML UDC PO SCH ×2 (08:23→19:54)
[2022-06-21] MEDS: AMOXICILLIN/CLAVULANATE 875 MG TAB PO SCH ×2 (08:23→19:55)
[2022-06-21 09:19] LABS: Basophils # (auto) 0.01 K/uL (0-0.2); Basophils % (auto) 0.2 %; Eosinophils # (auto) 0.23 K/uL (0-0.50); Eosinophils % (auto) 4.3 %; Hematocrit (blood only) 27.7 % (37.0-47.0); Hemoglobin 9.6 g/dl (12.0-16.0); Immature Granulocytes # (auto) 0.02 K/uL (0.01-0.20); Immature Granulocytes % (auto) 0.4 %; Lymphocytes # (auto) 0.98 K/uL (1.2-3.4); Lymphocytes % (auto) 18.3 %; Mean Corpuscular Hemoglobin 32.2 pg (25.0-34.0); Mean Corpuscular Hgb Conc 34.7 g/dL (32.0-36.0); Mean Platelet Volume 10.3 fL (9.4-12.4); Monocytes # (auto) 0.46 K/uL (0.11-0.59); Monocytes % (auto) 8.6 %; Neutrophils # (auto) 3.65 K/uL (1.40-6.50); Neutrophils % (auto) 68.2 %; Platelet Count 103 K/uL (130-400); RDW Coefficient of Variation 19.7 % (11.5-14.5); RDW Standard Deviation 63.4 fL (36.4-46.3); Red Blood Count 2.98 M/uL (4.20-5.40); White Blood Count 5.35 K/ul (4.8-10.8)
[2022-06-21] MEDS ORDERED: POTASSIUM PHOS 3 MMOL/1 ML INFUSION IV STA (09:29)
[2022-06-21] MEDS: PANTOprazole 40 MG in SYRINGE 0 ML IV SCH (09:58)
[2022-06-21] MEDS: MAGNESIUM SULFATE / D5W 1 GM/100 ML BAG IV SCH ×2 (09:58→11:51)
[2022-06-21] MEDS ORDERED: POTASSIUM PHOSPHATE 21 MMOL in SODIUM CHLORIDE 0.9% 500 ML IV ONE (10:00)
--- NOTE | 2022-06-21 19:04 | Billing Data ---
Date of Service June 21, 2022 Coding Level of Care Code 59342 SUB INP/OBS CARE
[2022-06-21 19:17] LABS: Calcium 8.2 mg/dl (8.5-10.1); Potassium 3.7 mmol/L (3.5-5.1)
[2022-06-21 19:27] LABS: BUN Creatinine Ratio 7.5 (10-20); Creatinine Clr Calc Pharmacy 45.5 ml/min; Est GFR (African American) 103.9 ml/min; Est GFR (Non-African American) 89.7 ml/min; Phosphorus 3.6 mg/dl (2.5-4.9)
[2022-06-21] MEDS: LATANOPROST 0.005% OP SOLN 2.5 ML BTL OPB SCH (19:56)
[2022-06-22] MEDS: VANCOMYCIN HCL 125 MG/2.5ML SOLN PO SCH ×4 (02:18→19:54)
[2022-06-22] MEDS: RASPBERRY SYRUP 5 ML UDP PO SCH ×4 (02:18→19:57)
[2022-06-22] MEDS: LACTATED RINGER'S 1,000 ML IV SCH ×2 (03:14→06:11)
[2022-06-22] MEDS: LEVOTHYROXINE SODIUM 50 MCG TABLET PO SCH (06:11)
[2022-06-22 06:57] LABS: Calcium 8.5 mg/dl (8.5-10.1); Creatinine Clr Calc Pharmacy 46.5 ml/min; Est GFR (African American) 103.9 ml/min; Est GFR (Non-African American) 89.7 ml/min; Magnesium 1.7 mg/dl (1.7-2.4); Phosphorus 2.6 mg/dl (2.5-4.9); Potassium 3.3 mmol/L (3.5-5.1)
--- NOTE | 2022-06-22 07:22 | Hospitalist Progress Note ---
Date of Service June 22, 2022 Assessment & Plan (1) Acute renal failure: Plan: Tamara is a 71 year old female w/ PmHx metastatic adenocarcinoma of the pancreas currently on Chemotherapy, S/P pancreaticoduodenectomy in June of 2019, previous liver abscess on chronic Augmentin therapy, previous C. diff infection currently on PO Vancomycin prophylactic therapy, hypothyroidism, and GERD admitted for nausea/vomiting/diarrhea induced dehydration and MORGAN. Acute Renal Failure: Resolved -Cr on admission noted to be 4.61 (up from 0.73 as of 02/14/22) -CT of the abdomen/pelvis without contrast shows interval development of her metastases to the bone and liver, no acute renal abnormalities. -Likely acute renal injury in the face of dehydration from nausea/vomiting/diarrhea. -C diff toxin negative, Giardia and norovirus pending however most likely chemotherapy related given timing. -Added Metamucil to regimen to help bulk up stools for symptomatic relief. If no relief can add cholestyramine. -Noted to have a sodium of 128, likely due to dehydration and her poor oral intake -S/P 2L NSS bolus in the ED, on LR 120ml/hr due to poor PO intake. -Per nutrition patient with daily caloric need of 7773-3852 kcal. Encouraged patient to keep track of calories via phone juanita and try to exceed daily limit. -Will encourage increasing PO intake as tolerated to help support nutritional needs. Nausea/Vomiting: -May be related to chemotherapy given timing. -Palliative consulted - can try low dose zyprexa 2.5mg since QTc 497; patient curious about anticholinergic, discussed possibility of glycopyrrolate. High Anion Gap Metabolic Acidosis: Resolved -AG noted to be 15 with bicarb of 17 -Lactate WNL -Likely due to her severe dehydration and ketosis for severe malnutrition Liver Abscess: -Continue chronic Augmentin therapy -Continue Probiotic Primary Malignant Neoplasm of Pancreas with metastasis to other site: -Holding oral chemotherapy for now. -Talked with Dr. García at [facility] and let him know patient was admitted for MORGAN, dehydration. Dr. García stated he will make sure she has a follow up appointment next week if she will hopefully be out by then. Bacteruria: -10k colony of citrobacter farmeri, patient asymptomatic and on prophylactic Augmentin. -Will hold off on further antibiotic treatment unless develops symptoms. COVID-19: -Incidental findings on admission screen -Patient is currently stable on RA. -No need for remdesivir or steroid use at this time. -XR with evidence of R basilar atelectasis. -Incentive spirometry and prn DuoNebs. Hypothyroidism: -Continue home levothyroxine. History of C. Diff Infection: -C diff toxin negative on admission. -Continue vancomycin oral regimen from positive C diff prior to admission. F/E/N/GI: Regular diet, patient will increase intake as can tolerate. DVT Prophylaxis: Heparin 5k units Subq q12h Code Status: Full. Dispo: Med/tele. Likely home tomorrow. Will send patient with return to work note as well as send message to Dr. García in [facility] of exit from hospital. (2) High anion gap metabolic acidosis: (3) History of Clostridioides difficile infection: (4) Liver abscess: (5) COVID-19: (6) Diarrhea: (7) Hypothyroid: (8) Primary malignant neoplasm of pancreas with metastasis to other site: Admission and Anticipated Discharge Date Admission Date: June 17, 2022 Supervising Physician Co-Signing Physician Notes I personally examined the patient and verified all montoya points of history and exam, discussed case, and agree with decision making with Dr Kraft one solid BM, one liquid.eating better. notes will be able to be home/provide more support tomorrow vitals noted nad heent nc at mmm breathing unlabored no accessory muscles good effort skin no rashes no pallor or icterus CBC, CMP, mag, phos reviewed diarrhea (highly likely chemo related) and subsequent protein/calorie/electrolyte malnutrition (clinically severe) - encourage PO intake (doing better), ~1200 calorie/day minimum discussed and discussed how to track againshe is expressing good understanding. Diarrhea improved (fiber; if persistent despite fiber supplement effects with cholestyramine, and/or prn glycopyrollate). anticipate home tomorrow once home/able to provide more support. Pancytopenia due to antineoplastic chemotherapy fortunately fairly mildleukopenia really mild/intermittentcontinue to track periodically otherwise as above Subjective Patient seen at the bedside this morning saying she's doing well. She states she was able to keep down food for the most part, ate salad yesterday along with some chicken, this morning eating cream of wheat. She states that she has started to do a calorie log of foods for reaching and exceeding her daily nutritional needs. Review of Systems Review of Systems: As per HPI. Physical Exam Constitutional: WD/WN, vitals as above Eyes: PERRL, conjunctivae normal, anicteric sclerae ENMT: external ear and nose normal, oropharynx normal Respiratory: normal respiratory effort, lungs clear to auscultation Cardiovascular: RRR, no murmur, no edema Gastrointestinal (Abdomen): normal bowel sounds, soft, nontender, no hepatosplenomegaly Psychiatric: A+Ox3, euthymic affect Results & Data Results & Data ([facility]) Vital Signs (Past 12 Hours) Vital Signs Temp Pulse Resp BP Pulse Ox O2 Del Method 06/22/22 03:17 36.7 C 74 15 138/81 97 Room Air 06/21/22 23:11 37.1 C 65 16 127/68 98 Room Air Resident Activity Tracking Resident Involvement: Resident Care Provided Care Provided: Adult Hospital Medicine
[2022-06-22] MEDS: oxyCODONE HCL 10 MG TABCR (OxyCONTIN) PO SCH ×2 (08:06→19:54)
[2022-06-22] MEDS: ADVANCED PROBIOTIC 1250 MG CAPSULE PO SCH (08:07)
[2022-06-22] MEDS: PANCREAZE (LIPASE 10,500U) CAP PO SCH ×3 (08:07→19:57)
[2022-06-22] MEDS: AMOXICILLIN/CLAVULANATE 875 MG TAB PO SCH ×2 (08:07→19:57)
[2022-06-22] MEDS: GABAPENTIN 300 MG CAP PO SCH ×2 (08:07→19:58)
[2022-06-22] MEDS: SUCRALFATE 1 GM TAB PO SCH ×4 (08:07→19:56)
[2022-06-22] MEDS: HEPARIN SOD 5,000 UNIT/0.5 ML VIAL SQ SCH ×2 (08:08→19:56)
[2022-06-22] MEDS: PSYLLIUM or GUAR GUM FIBER POWDER PACKET PO SCH (08:09)
[2022-06-22] MEDS: CALCIUM CARBONATE 1,250 MG/5 ML UDC PO SCH ×2 (08:10→19:55)
[2022-06-22] MEDS: PANTOprazole 40 MG in SYRINGE 0 ML IV SCH (11:21)
[2022-06-22] MEDS ORDERED: POTASSIUM PHOS 3 MMOL/1 ML INFUSION IV STA (13:23)
[2022-06-22] MEDS ORDERED: POTASSIUM PHOSPHATE 15 MMOL in SODIUM CHLORIDE 0.9% 250 ML IV ONE (13:30)
--- NOTE | 2022-06-22 19:09 | Billing Data ---
Date of Service June 22, 2022 Coding Level of Care Code 75809 SUB INP/OBS CARE
[2022-06-22] MEDS: LATANOPROST 0.005% OP SOLN 2.5 ML BTL OPB SCH (19:55)
[2022-06-23] MEDS: RASPBERRY SYRUP 5 ML UDP PO SCH ×3 (00:54→13:05)
[2022-06-23] MEDS: VANCOMYCIN HCL 125 MG/2.5ML SOLN PO SCH ×3 (00:54→13:05)
[2022-06-23] MEDS: LEVOTHYROXINE SODIUM 50 MCG TABLET PO SCH (04:44)
[2022-06-23 07:32] LABS: BUN Creatinine Ratio 7.5 (10-20); Calcium 8.7 mg/dl (8.5-10.1); Creatinine Clr Calc Pharmacy 53.4 ml/min; Est GFR (African American) 103.9 ml/min; Est GFR (Non-African American) 89.7 ml/min; Magnesium 1.6 mg/dl (1.7-2.4); Phosphorus 3.1 mg/dl (2.5-4.9); Potassium 3.4 mmol/L (3.5-5.1)
[2022-06-23] MEDS: oxyCODONE HCL 10 MG TABCR (OxyCONTIN) PO SCH (08:22)
[2022-06-23] MEDS: SUCRALFATE 1 GM TAB PO SCH ×3 (08:23→16:49)
[2022-06-23] MEDS: PANCREAZE (LIPASE 10,500U) CAP PO SCH ×2 (08:23→13:05)
[2022-06-23] MEDS: CALCIUM CARBONATE 1,250 MG/5 ML UDC PO SCH (08:24)
[2022-06-23] MEDS: PSYLLIUM or GUAR GUM FIBER POWDER PACKET PO SCH (08:24)
[2022-06-23] MEDS: HEPARIN SOD 5,000 UNIT/0.5 ML VIAL SQ SCH (08:25)
[2022-06-23] MEDS: AMOXICILLIN/CLAVULANATE 875 MG TAB PO SCH (08:25)
[2022-06-23] MEDS: ADVANCED PROBIOTIC 1250 MG CAPSULE PO SCH (08:26)
[2022-06-23] MEDS: GABAPENTIN 300 MG CAP PO SCH (09:11)
[2022-06-23] MEDS: PANTOprazole 40 MG in SYRINGE 0 ML IV SCH (11:04)
[2022-06-23] MEDS: MAGNESIUM SULFATE / D5W 1 GM/100 ML BAG IV SCH ×2 (11:05→13:04)
[2022-06-23] MEDS: POTASSIUM CHLORIDE / WTR 10 MEQ/100 ML PLCT IV SCH ×3 (11:05→13:05)
--- NOTE | 2022-06-23 17:32 | Discharge Summary ---
Date of Service June 23, 2022 Admission HPI Per Admitting Provider Tamara is a 71 year old female with a PMH significant for metastatic adenocarcinoma of the pancreas currently on Chemotherapy, S/P pancreaticoduodenectomy in June of 2019, previous liver abscess on chronic Augmentin therapy, previous C. diff infection currently on PO Vancomycin prophylactic therapy, hypothyroidism, and GERD who presented to the [facility] ED on 06/17/22 with complaints of nausea, vomiting, and dehydration. In the ED the patient was found to be afebrile, hemodynamically stable, and stable on RA. Labs were remarkable for a WBC WNL, stable Hgb at 12.2, stable platelets at 200, lymphopenia at 0.79, cr of 4.61 (Up from 0.73 as of 02/14/22), glcose of 117, sodium of 128, potassium of 5.0, calcium of 7.6, AG of 15 with bicarb of 17, chloride of 96, lipase of 5, alk phos of 168 otherwise LFTs WNL, and lactate of 1.5. CT of the abdomen and pelvis without contrast was read as "1. Interval development of metastatic disease, including extensive hepatic and skeletal metastases, as described above. No biliary ductal dilatation. No pathologic fractures. 2. Status post Whipple procedure. No bowel obstruction. Fluid-filled large and small bowel. This may reflect a gastroenteritis. 3. Numerous ill- defined nodules within the lower lungs. Although these may be infectious, metastases are favored.". Prior to admission the patient was given 1L NSS bolus and continued on NSS at 100 mL/hr. At the time of the exam the patient was resting in bed in no acute distress with her (Dr. Elkins) sitting bedside, history was obtained from both. Her explains that the patient is currently undergoing IV infusions of Irinotecan with 2 week breaks (last dose was approximately 2 weeks ago) and oral Capecitabine twice daily. Unfortunately the patient has been having uncontrolled nausea and vomiting to the point where she is unable to keep solids or liquids down. She did have half a cup of tea this am by taking small sips but nothing substantial recently. She is currently on Augmentin and PO Vancomycin for the previous liver abscess and recurrent C. diff infections. She has been experiencing 30+ episodes of watery diarrhea daily. They have been trying Imodium without relief of her symptoms. They have been in contact with her Oncologist (Dr. Leon) at [facility] and he instructed them to come to the ED for evaluation due to her ongoing symptoms. She denies recent fevers, chills, chest pain, SOB, abd pain, dysuria, hematuria, melena, swelling, and recent trauma. She has lost approximately 10 pounds in the past month due to her symptoms. Due to her symptoms the patient has not been taking her PO Capecitabine. We discussed Code Status and she currently wishes to be a Full Code. The patient was incidentally found to be covid positive on routine admission screen Please refer to Dr. Kim's attestation for any changes to the treatment plan Admission Exam Per Admitting Provider General: In no acute distress, stated age, cachectic, malnourished, chronically ill-appearing HEENT: Normocephalic, atraumatic, no scleral icterus, pupils around round, symmetrical, and reactive to light, dry mucus membranes, trachea midline, no thyromegaly Chest/Pulm: No respiratory distress, symmetrical chest expansion, clear breath sounds throughout Cardiac: RRR, no murmurs noted Abdomen: Negative for ascites and bruising, normoactive bowel sounds, soft, non-tender to palpation throughout Musculoskeletal: Symmetrical and without signs of acute trauma, upper and l ower extremities with full ROM, no atrophy, spasticity, or flaccidity Extremities: Radial, dorsalis pedis, and posterior tibial pulses are intact and symmetrical, no edema noted in the BL LE's Skin: Warm, dry, no rashes , lesions, or scars noted Neuro: Alert and oriented to person, place, month, year, and president, no focal defects, CN II-XII tested and intact,no tremors noted Psych: No acute distress, calm and cooperative during the exam Principal Diagnosis Diarrhea, dehydration, MORGAN Discharge Exam Constitutional WD/WN, vitals as above Eyes PERRL, conjunctivae normal, anicteric sclerae ENMT external ear and nose normal, oropharynx normal Respiratory normal respiratory effort, lungs clear to auscultation Cardiovascular RRR, no murmur, no edema Gastrointestinal (Abdomen) normal bowel sounds, soft, nontender, no hepatosplenomegaly Psychiatric A+Ox3, euthymic affect Discharge Data Allergies Allergy/AdvReac Type Severity Reaction Status Date / Time metronidazole AdvReac Severe Cerebellar Verified 06/17/22 18:59 toxicity with hospitalization benzoin AdvReac Unknown CONTACT Verified 02/11/22 10:11 DERMATITIS Consultations 06/17/22 16:35 ED Decision to Admit Stat 06/17/22 17:37 Consult Palliative Care Routine Ordered Studies 06/17/22 15:39 CT abd pelvis wo con Stat IMPRESSION: 1. Interval development of metastatic disease, including extensive hepatic and skeletal metastases, as described above. No biliary ductal dilatation. No pathologic fractures. 2. Status post Whipple procedure. No bowel obstruction. Fluid-filled large and small bowel. This may reflect a gastroenteritis. 3. Numerous ill-defined nodules within the lower lungs. Although these may be infectious, metastases are favored. Hospital Course (1) Acute renal failure: Tamara is a 71 year old female w/ PmHx metastatic adenocarcinoma of the pancreas currently on Chemotherapy, S/P pancreaticoduodenectomy in June of 2019, previous liver abscess on chronic Augmentin therapy, previous C. diff infection currently on PO Vancomycin prophylactic therapy, hypothyroidism, and GERD admitted for nausea/vomiting/diarrhea induced dehydration and MORGAN. Acute Renal Failure: Resolved -Cr on admission noted to be 4.61 (up from 0.73 as of 02/14/22) -CT of the abdomen/pelvis without contrast shows interval development of her metastases to the bone and liver, no acute renal abnormalities. -Likely acute renal injury in the face of dehydration from nausea/vomiting/diarrhea. -C diff toxin and Giardia negative, norovirus pending however most likely chemotherapy related given timing. -Patient discussed glycopyrrolate use for symptomatic diarrhea, gave patient 14 day script for PRN BID glycopyrrolate 2mg to take if Metamucil does not work. -Added Metamucil to regimen to help bulk up stools for symptomatic relief. -Per nutrition patient with daily caloric need of 2228-0666 kcal. Encouraged patient to keep track of calories via phone juanita and try to exceed daily limit. Electrolyte abnormalities: -During stay had low K+, Mg, Phos likely due to diarrhea and poor nutrition. -on 06/23 K+ was 3.4, Mg was 1.6, and Phos was 3.1 - repleted 3 equivalents KCl, 2gm Mg before discharge. -Overall trend in hospital was electrolytes slowly catching up with nutritional uptake day by day, should continue to get better. Nausea/Vomiting: -May be related to chemotherapy given timing. -Palliative consulted - could try low dose zyprexa 2.5mg since QTc 497 however QTc may go down after correction of electrolytes as patient had low Mg, Phos, K+ Primary Malignant Neoplasm of Pancreas with metastasis to other site: -Held oral chemotherapy while inpatient and recovering. Patient will follow up with Dr. García on Monday06/27/2022 for continuation of chemotherapy. COVID-19: -Incidental findings on admission screen -Patient remained asymptomatic from upper respiratory symptoms as well as vitals stayed stable. -Did not require any remdesivir or steroids. (2) High anion gap metabolic acidosis: (3) History of Clostridioides difficile infection: (4) Liver abscess: (5) COVID-19: (6) Diarrhea: (7) Hypothyroid: (8) Primary malignant neoplasm of pancreas with metastasis to other site: Total Time Total Time Spent Total Time Spent (In Minutes): <30 Discharge Plan Discharge Items Patient Disposition: Home - Self-Care Reason For Visit: DEHYDRATION, WEIGHT LOSS Discharge Diagnosis: acute renal failure Activity: Per Instructions section Non-emergency contact: Primary Care Provider and Oncologist Call non-emergency contact if: you have any medication questions, your symptoms worsen and you have a fever Follow-up/Referrals: Sp Cadena MD [Primary Care Provider] - 07/04/22 11:00 am Diet: Regular Addtl Attending Provider Instructions: A discharge summary will be sent to your primary care physician to ensure continuity of care. You came to the hospital for nausea, vomiting, and diarrhea. You were found to be dehydrated due to the diarrhea and you had good response to receiving fluids. Stool studies were grossly negative for infectious etiology for your diarrhea. You had an acute kidney injury due to the dehydration however this resolved over your stay with fluid resuscitation. We discussed symptomatic diarrhea control with Metamucil daily as well as possibly taking glycopyrrolate if needed. Be sure to keep track of your daily calorie needs using your phone juanita to make sure you're getting adequate needs and hopefully exceeding this as well. Please be sure to follow up with Dr. García at [place] as well as your primary care doctor for further management. Follow-up: * You should be seen by your primary physician within the next week. * You have your next visit with Dr. García and chemotherapy on June 27 at 10:30AM. Medications: Your medication list has been reviewed and reconciled upon discharge to ensure accuracy and continuity of care. An updated list of all your medications is included with your hospital discharge paperwork. Please review this list closely, and make note of any changes. * Please continue to take Metamucil daily for symptomatic relief of diarrhea. * You will be given a prescription of glycopyrrolate 2mg tablets to take as needed for diarrhea if still symptomatic. You can take it up to twice a day as needed. Take your medications as instructed; do not skip a dose of your medicines. Make sure all of your doctors know every medicine you are taking (including fvve-wum-mmyworm medicines, vitamins, and supplements). let your primary care provider know before taking any new medicines because some of these may interact with your current medications, or may make your symptoms worse. CONTACT YOUR PRIMARY CARE PROVIDER if you experience any of the following: * Fevers or shaking chills * Shortness of breath not relieved by inhalers, fainting * Sudden abdominal distension not relieved by catheterization. * Difficulty following your treatment plan, or difficulty taking medications CALL 911 OR GO TO THE EMERGENCY DEPARTMENT if you experience any of the following: * Sudden, severe abdominal pain or nausea/vomiting * Severe chest pain, or chest pain that radiates (moves) to your jaw or arm * Sudden, severe shortness of breath or difficulty breathing It was was our pleasure taking care of you here at [facility] . Thank you for allowing us to participate in your care. Pending Studies at Discharge: Yes (Norovirus ) Stand-Alone Forms: [facility], Work/School Release, Smoking Cessation Medications and DC Order Prescriptions: New glycopyrrolate 2 mg tablet 2 mg PO BID PRN (Reason: secretions) 14 Days Qty: 28 0RF Continued Creon 36,000-114,000- 180,000 unit capsule,delayed release(DR/EC) See Rx Instructions .ROUTE .COMPLEX Rx Instructions: 2 capsule PO TID with each meal and 1 capsule PO with each snack, contents of capsule may be mixed with soft foods such as applesauce.; administer with meals and/or snacks Primadophilus 340 mg capsule 1 cap PO DAILY ascorbate calcium (vitamin C) 500 mg tablet 1 g PO DAILY hydrocodone-homatropine [Hycodan (with homatropine)] 5-1.5 mg/5 mL syrup 5 ml PO Q6H PRN (Reason: cough) Qty: 946 0RF levothyroxine 50 mcg tablet 50 mcg PO DAILY Qty: 90 3RF multivitamin tablet 1 tab PO DAILY cholecalciferol (vitamin D3) 50 mcg (2,000 unit) tablet 50 mcg PO DAILY pantoprazole 40 mg tablet,delayed release (DR/EC) 40 mg PO DAILY ondansetron 8 mg tablet,disintegrating 8 mg PO Q8 PRN (Reason: Nausea And Vomiting) latanoprost 0.005 % drops 1 drp OPB HS vancomycin 125 mg capsule 125 mg PO Q6H gabapentin 300 mg capsule 300 mg PO TID PRN (Reason: Pain) Rx Instructions: take as directed up to 3600mg per day in divided dose celecoxib 100 mg capsule 100 mg PO BID opium tincture 10 mg/mL (morphine) tincture 0.3 ml PO QID oxycodone [OxyContin] 10 mg tablet,oral only,ext.rel.12 hr 10 mg PO BID zinc acetate 50 mg (zinc) Capsule 50 mg PO DAILY lidocaine-prilocaine 2.5-2.5 % cream 1 applic topical UD Rx Instructions: 1 hour prior to accessing port amoxicillin-pot clavulanate 875-125 mg tablet 1 tab PO BID sucralfate 1 gram tablet 1 g PO ACHS Rx Instructions: 1 g PO Before Meals and at bedtime; Discharge Orders: Discharge Order (Routine); Ordered 06/23/22 Ordered By: Chino Kraft Admission Data Admit Date/Time: 06/17/22 17:06 Attending Provider: Nhan Blair Admit Provider: Wilfrido Kim Primary Care Provider: Sp Cadena Other Providers: Wilfrido Kim ; Eduarda Erazo Other Interventions: Discharge Summary Assessment (RN) Last Done: 06/23/22 17:32 Supervising Physician Co-Signing Physician Notes I personally examined the patient and verified all montoya points of history and exam, discussed case, and agree with decision making with Dr Kraft Feelrex up to going home. vitals noted nad heent nc at mmm breathing unlabored no accessory muscles good effort skin no rashes no pallor or icterus diarrhea (highly likely chemo related) and subsequent protein/calorie/electrolyte malnutrition (clinically severe) -doing well enough to go home, ~1200 calorie/day minimum discussed and discussed how to track againshe is expressing good understanding, and already tracking her calories diarrhea improved (continue fiber; if persistent despite fiber supplement effects with cholestyramine, and/or prn glycopyrollate). Safe/stable for home. Pancytopenia due to antineoplastic chemotherapy fortunately fairly mildleukopenia really mild/intermittentcontinue to track periodically otherwise as above Resident Activity Tracking Resident Involvement: Resident Care Provided Care Provided: Adult Hospital Medicine
--- NOTE | 2022-06-23 18:46 | Billing Data ---
Date of Service June 23, 2022 Coding Level of Care Code 13099 IN/OBS DISCH 30 MIN/LESS
== END 2022-06-23 18:33 | disposition home or self-care (01) | DRG 393 ==
LOC: ED 13:09 → 2S 17:06 → SUATTDRO 17:06 → 2S 18:20 → 2W 06-23 04:37

== ENCOUNTER 2022-10-19 19:18 | Inpatient (IN) ==
[2022-10-19] MEDS ORDERED: CEFEPIME 2,000 MG/20 ML VIAL IV STA (20:04)
[2022-10-19] MEDS ORDERED: ACETAMINOPHEN 1,000 MG/100 ML VIAL IV STA (20:06)
[2022-10-19] MEDS: SODIUM CHLORIDE 0.9% 1000ML 1,000 ML IV SCH ×2 (20:19→20:29)
[2022-10-19] MEDS ORDERED: PIPERACILLIN/TAZOBACTAM 4.5 GM/120 ML BAG IV ONE (20:32)
--- NOTE | 2022-10-19 20:41 | Emergency Department Note ---
Impression & Plan SIRS (systemic inflammatory response syndrome), Acute febrile illness, Metastatic disease, Elevated lactic acid level, Transaminitis, Elevated troponin ED Provider Note NAME: ANNALEE STEWART AGE: 71 SEX: F ARRIVES VIA: Walk-In INFORMANT: Patient ED PROVIDER(S): Cesar Connolly MD CHIEF COMPLAINT: Fever, Metastatic cancer on chemotherapy PLAN: Disposition: Admit MEDICAL DECISION MAKING: The patient is a pleasant 71-year-old woman with a past medical history of metastatic pancreatic cancer undergoing chemotherapy, history of liver abscess on prophylactic Augmentin, history of C. difficile on prophylactic oral vancomycin who presents to the emergency department via walk-in, accompanied by her who is a [facility] embroidery assistant for evaluation of fluctuating fever as high as 104 since Monday where they began a prescribed rescue pack of levofloxacin for fever and was seen by their national coverage specialist on Monday and had blood cultures performed which were negative to date and had an MRI of her brain that was unremarkable. The patient last had a PET scan in July that per her 's understanding demonstrated continuation of active sites but no significant change. They report that the patient had finished 3 out of 4-week cycle of chemo treatment when her platelets were noted to decline to 70K and so her fourth week of treatment was deferred. He reports her WBC and neutrophil counts were not low at that time. They deny any cough, congestion, chest pain or shortness of breath. She reported having some nausea with episode of high fever but this is not continued. She has chronic loose stool with her chemo treatments which is unchanged. Denies urinary symptoms. They deny any known tick exposures or tick bites. 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 On arrival the patient is fatigued and uncomfortable, febrile to 39.5 with heart in the 90s and vital signs otherwise stable. O2 saturation is 90% on room air. She appears clinically dry. She appears cachectic. She has mild abdominal distention but is not tense and it is not tender. She has scant bilateral lower extremity edema. EKG without overt acute ischemia. Chest x-ray negative for acute cardiopulmonary process per my preliminary review. WBC 2.8, nonspecific. ANC is normal at 2.7. There is no left shift. H/H similar to prior range values. Platelets 83k, nonspecific and similar to prior. VBG with pH of 7.42. Chemistry with bicarb of 19 consistent with the patient's clinically dry appearance. There is no anion gap elevation. Initial lactic acid was 4.9 however improved to 3.2 following initial IV fluid hydration. Magnesium 1.5 with repletion provided. LFTs are elevated compared to May of this year with normal total bilirubin and mildly elevated direct bilirubin 0.4 with AST and ALT 270 and 239, respectively. Alk phos is 215. High- sensitivity troponin 17.8, nonspecific. Procalcitonin is elevated at 28. UA without convincing evidence of infection. CTA of the chest was performed and was negative for PE. Metastatic disease is noted. CT of the abdomen pelvis further demonstrates the patient's known metastatic disease. Additionally note is made of fluid-filled small bowel with question of enteritis. Given no clear infectious source identified tickborne illness testing was performed and Lyme screen was positive for IgM antibody. Anaplasma and Babesia smear were negative with Anaplasma DNA pending. Respiratory viral panel/[employer] was negative. Patient was treated with empiric antibiotics due to her presentation and immunocompromise status with IV Zosyn and vancomycin. She received 30cc/kg of IV fluid hydration. Case was discussed with Dr. Brand, PANKAJ hospitalist, who will evaluate the patient for admission. Further management per admitting team. Triage Nursing notes reviewed and agree them. Prior/outside medical records reviewed Vital Signs: reviewed Differential diagnosis: Sepsis, UTI, pneumonia, metabolic, electrolyte abnormalities, cardiac sources, intracerebral event, toxicologic, neurologic, as well as other pathologies. ER treatment provided: See below. Diagnostics interpreted by me: ECG: Normal sinus rhythm, 82 bpm, no ectopy, no overt ST elevation or depression, QTc 446, QRS 72. Cardiac Monitoring: An order for continuous cardiac monitoring was placed and demonstrated normal sinus rhythm, 82 bpm, no ectopy. Laboratory studies: See below Imaging studies: See below Consultation(s): PANKAJ Arita hospitalist. HPI: The patient is a pleasant 71-year-old woman with a past medical history of metastatic pancreatic cancer undergoing chemotherapy, history of liver abscess on prophylactic Augmentin, history of C. difficile on prophylactic oral vancomycin who presents to the emergency department via walk-in, accompanied by her who is a [facility] embroidery assistant for evaluation of fluctuating fever as high as 104 since Monday where they began a prescribed rescue pack of levofloxacin for fever and was seen by their national coverage specialist on Monday and had blood cultures performed which were negative to date and had an MRI of her brain that was unremarkable. The patient last had a PET scan in July that per her 's understanding demonstrated continuation of active sites but no significant change. They report that the patient had finished 3 out of 4-week cycle of chemo treatment when her platelets were noted to decline to 70K and so her fourth week of treatment was deferred. He reports her WBC and neutrophil counts were not low at that time. They deny any cough, congestion, chest pain or shortness of breath. She reported having some nausea with episode of high fever but this is not continued. She has chronic loose stool with her chemo treatments which is unchanged. Denies urinary symptoms. They deny any known tick exposures or tick bites. 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 ROS: See above HPI for pertinent positives & negatives. A total of 10 systems reviewed and were otherwise negative. VITALS:See Below PHYSICAL EXAMINATION: GENERAL: Awake, alert, fatigued-appearing, in no distress, cachectic HENT: Normocephalic, atraumatic. Oropharynx with dry mucous membranes and otherwise unremarkable. EYES: Normal conjunctiva. Sclera non-icteric. NECK: Supple. No nuchal rigidity. FROM. No JVD. RESPIRATORY: Clear to auscultation. CARDIAC: Tachycardic rate, normal rhythm. Extremities warm and well perfused. Pulses equal. ABDOMEN: Mild distension but soft. No tenderness to palpation. No rebound or guarding. RECTAL: Deferred. MUSCULOSKELETAL: Chest examination reveals no tenderness. The back is symmetrical on inspection without obvious abnormality. There is no CVA tenderness to palpation. No joint edema. LOWER EXTREMITIES: Calves are equal size bilaterally and non-tender. Scant bilateral lower leg edema. No discoloration. NEURO: Normal sensorium. No sensory or motor deficits noted. SKIN: No rash or jaundice noted. ED COURSE: Critical Care: I have personally spent greater than 55 minutes of critical care time in the direct management of this patient. This includes bedside care, interpretation of diagnostic studies, and testing, discussion with consultants, patient, and family members, and other required patient management activities. This 55 minutes is in excess of all separately billable procedures. Cesar Connolly MD Past Med/Surg History Medical History CKD (chronic kidney disease), stage III COVID-19 Diarrhea History of Clostridioides difficile infection Hypothyroid Impacted cerumen of right ear Liver abscess Menopause Nausea & vomiting Pancreatic mass Renal insufficiency, mild Thrombocytopenia Surgical History H/O oral surgery History of ERCP 05/2019 History of liver biopsy History of pancreatic surgery History of thoracentesis Family History Mother Colon cancer Hyperlipidemia Hearing loss of aging Colorectal cancer Father Prostate cancer Hypertension Unknown Breast cancer Grandmother (Maternal) Diabetes Myocardial infarction Grandfather (Paternal) Stroke Other Allergies No family history of adverse response to anesthesia No family history of bleeding disorder Denies family history of Ovarian cancer Lung cancer Social History Smoking Status: Never smoker Second Hand Exposure: No; Do You Dip or Chew Tobacco: No; Hx Alcohol Use: No Hx Substance Use: No Preferred Language: Albanian Communication Ability: Effective Visual Impairment: Limited Hearing Ability: Normal Gate Mortiser Operator Required: No Beliefs That Will Affect Care: Yazidism marital status: Current Living Situation: Spouse current occupational status: employed 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 How many Children do You have: 0 Feels Safe at Home: Yes Childhood Exposure to Second-Hand Smoke: No caffeine: No Dental Care, Regularly: Yes Physical Activity Frequency: 5-6 Times per Week Seatbelt Use: always Sunscreen Use: Yes Assistive Devices: None Allergies Allergies Allergy/AdvReac Type Severity Reaction Status Date / Time metronidazole AdvReac Severe Cerebellar Verified 09/27/22 08:45 toxicity with hospitalization benzoin AdvReac Unknown CONTACT Verified 09/27/22 08:45 DERMATITIS Home Meds Home Medications Medication Instructions Recorded Confirmed multivitamin 1 tab PO DAILY 12/27/18 10/19/22 cholecalciferol (vitamin D3) 50 50 mcg PO DAILY 01/09/20 10/19/22 mcg (2,000 unit) tablet pantoprazole 40 mg tablet,delayed 40 mg PO DAILY 01/09/20 10/19/22 release ondansetron 8 mg disintegrating 8 mg PO Q8 PRN Nausea And Vomiting 02/04/21 10/19/22 tablet Primadophilus 1 cap PO QAM 02/16/21 10/19/22 [id number] See Rx Instructions .Route .COMPLEX 02/16/21 10/19/22 36,000-114,000-180,000 unit capsule,delay rel (Creon) ascorbate calcium (vitamin C) 500 1 g PO DAILY 02/18/21 10/19/22 mg tablet amoxicillin 875 mg-potassium 1 tab PO BID 06/17/22 10/19/22 clavulanate 125 mg tablet gabapentin 300 mg capsule 300 mg PO TID PRN Pain 06/17/22 10/19/22 latanoprost 0.005 % eye drops 1 drp OPB HS 06/17/22 10/19/22 lidocaine-prilocaine 2.5 %-2.5 % 1 applic topical UD 06/17/22 10/19/22 topical cream opium tincture 10 mg/mL (morphine) 0.3 ml PO QID PRN Cough 06/17/22 10/19/22 oral oxycodone 10 mg tablet,crush 10 mg PO BID 06/17/22 10/19/22 resistant,extended release 12 hr (OxyContin) sucralfate 1 gram tablet 1 g PO ACHS 06/17/22 10/19/22 vancomycin 125 mg capsule 125 mg PO Q6H 06/17/22 10/19/22 zinc acetate 50 mg (zinc) capsule 50 mg PO DAILY 06/17/22 10/19/22 capecitabine 500 mg tablet 1,000 mg PO BID 10/19/22 10/19/22 levothyroxine 50 mcg tablet 50 mcg PO DAILYBB 10/19/22 10/19/22 Previous Rx's Medication Instructions Recorded hydrocodone-homatropine 5 mg-1.5 5 ml PO Q6H PRN cough #946 mL 11/04/21 mg/5 mL oral syrup (Hycodan (with homatropine)) Results & Data (ED) Vital Signs Vital Signs - 24 hr 10/19/22 19:27 10/19/22 19:46 10/19/22 19:50 Temperature 38.6 C H 39.5 C H Temperature Source Oral Oral Pulse Rate 98 H 87 Pulse Rate [Apical] Respiratory Rate 18 Respiratory Effort / Characteristics Respiratory Depth Normal Respiratory Pattern Blood Pressure 117/66 Blood Pressure [Right Arm] Blood Pressure Mean 83 Blood Pressure Mean [Right Arm] Blood Pressure Position [Right Arm] Pulse Oximetry 95 Oxygen Delivery Method Room Air Sepsis Recent Fever Within 48 Hours Yes Sepsis New/Unexplained Change in Mental Status No Sepsis Action Taken by Nursing No Action Required 10/19/22 20:13 10/19/22 20:13 10/19/22 20:45 Temperature 37.8 C H Temperature Source Oral Pulse Rate 92 H Pulse Rate [Apical] 87 81 Respiratory Rate 18 17 17 Respiratory Effort / Characteristics Non-Labored Spontaneous Non-Labored Spontaneous Respiratory Depth Normal Normal Respiratory Pattern Blood Pressure Blood Pressure [Right Arm] 113/53 L 103/58 L Blood Pressure Mean Blood Pressure Mean [Right Arm] 73 73 Blood Pressure Position [Right Arm] Sitting Sitting Pulse Oximetry 98 98 98 Oxygen Delivery Method Room Air Room Air Room Air Sepsis Recent Fever Within 48 Hours Sepsis New/Unexplained Change in Mental Status Sepsis Action Taken by Nursing 10/19/22 21:09 10/19/22 22:28 10/19/22 23:56 Temperature Temperature Source Pulse Rate 68 Pulse Rate [Apical] 81 76 Respiratory Rate 17 18 Respiratory Effort / Characteristics Non-Labored Spontaneous Non-Labored Spontaneous Respiratory Depth Normal Normal Respiratory Pattern Blood Pressure Blood Pressure [Right Arm] 103/58 L 104/55 L Blood Pressure Mean Blood Pressure Mean [Right Arm] 73 71 Blood Pressure Position [Right Arm] Lying Lying Pulse Oximetry 98 96 Oxygen Delivery Method Room Air Room Air Sepsis Recent Fever Within 48 Hours Sepsis New/Unexplained Change in Mental Status Sepsis Action Taken by Nursing 10/20/22 00:36 Temperature Temperature Source Pulse Rate Pulse Rate [Apical] 68 Respiratory Rate 16 Respiratory Effort / Characteristics Non-Labored Spontaneous Respiratory Depth Normal Respiratory Pattern Regular Blood Pressure Blood Pressure [Right Arm] 99/56 L Blood Pressure Mean Blood Pressure Mean [Right Arm] 70 Blood Pressure Position [Right Arm] Pulse Oximetry 95 Oxygen Delivery Method Room Air Sepsis Recent Fever Within 48 Hours Sepsis New/Unexplained Change in Mental Status Sepsis Action Taken by Nursing Laboratory Data Attestation: I reviewed the patient's lab results. 10/19/22 20:00 10/19/22 20:00 Lab Results 10/19/22 10/19/22 10/19/22 Range/Units 20:00 20:00 20:00 WBC 2.89 L (4.8-10.8) K/ul RBC 3.03 L (4.20-5.40) M/uL Hgb 10.3 L (12.0-16.0) g/dl Hct 29.5 L (37.0-47.0) % MCV 97.4 (80.0-100.0) fL MCH 34.0 (25.0-34.0) pg MCHC 34.9 (32.0-36.0) g/dL RDW Std Deviation 59.2 H (36.4-46.3) fL RDW Coeff of Lakhwinder 16.7 H (11.5-14.5) % Plt Count 83 L (130-400) K/uL MPV 10.3 (9.4-12.4) fL Immature Gran % (Auto) 0.3 % Neut % (Auto) 94.6 % Lymph % (Auto) 4.5 % Citrus % (Auto) 0.3 % Eos % (Auto) 0.0 % Baso % (Auto) 0.3 % Neut # (Auto) 2.73 (1.40-6.50) K/uL Lymph # (Auto) 0.13 L (1.2-3.4) K/uL Citrus # (Auto) 0.01 L (0.11-0.59) K/uL Eos # (Auto) 0.00 (0-0.50) K/uL Baso # (Auto) 0.01 (0-0.2) K/uL Immature Gran # (Auto) 0.01 (0.01-0.20) K/uL Platelet Estimate Decreased L (Normal) Polychromasia 1+ Acanthocytes (Spur) 1+ PT 12.4 H (9.0-12.0) Seconds INR 1.1 (0.9-1.1) VBG pH (7.36-7.41) VBG pCO2 (38-50) mmHg VBG pO2 mmHg VBG HCO3 mmol/L VBG O2 Saturation % VBG Base Excess mEq/L Sodium 137 (136-145) mmol/L Potassium 3.2 L (3.5-5.1) mmol/L Chloride 107 (98-107) mmol/L Carbon Dioxide 19 L (21-32) mmol/L Anion Gap 11 (3-11) BUN 15 (6-23) mg/dl Creatinine 0.96 (0.6-1.2) mg/dl Est Cr Clr Drug Dosing 40.4 ml/min Est GFR ( Amer) 69.9 ml/min Est GFR (Non-Af Amer) 60.3 ml/min BUN/Creatinine Ratio 15.6 (10-20) Glucose 175 H (70-99(Fasting)) mg/dl Lactate (0.4-2.0) mmol/L Calcium 8.9 (8.6-10.3) mg/dl Phosphorus 2.2 L (2.5-4.9) mg/dl Magnesium 1.5 L (1.7-2.4) mg/dl Total Bilirubin 0.8 (0.2-1.0) mg/dl Direct Bilirubin 0.4 H (0-0.2) mg/dl AST 271 H (13-39) U/L ALT 239 H (7-52) U/L Alkaline Phosphatase 215 H (34-104) U/L Troponin I High Sens 17.8 H (0-14) pg/ml Total Protein 6.2 (6.0-8.3) gm/dl Albumin 3.7 (3.4-5.0) gm/dl Lipase 5 L (11-82) U/L Procalcitonin (0-0.5) ng/ml Urine Color Urine Appearance (Clear) Urine pH (4.5-7.5) Ur Specific [place] (1.000-1.030) Urine Protein (Negative) Urine Glucose (UA) (Negative) Urine Ketones (Negative) Urine Blood (Negative) Urine Nitrite (Negative) Urine Bilirubin (Negative) Urine Urobilinogen (Negative) Ur Leukocyte Esterase (Negative) Adenovirus (PCR) (NotDetected) Anaplasma Smear See Comment Babesia Smear See Comment B. pertussis DNA (PCR) (NotDetected) B.parapertussis DNA PCR (NotDetected) Lyme Disease IgG Ab (Negative) Lyme Disease IgM Ab (Negative) C. pneumoniae DNA (PCR) (NotDetected) Coronavirus OC43 (PCR) (NotDetected) Coronavirus HKU1 (PCR) (NotDetected) Coronavirus 229E (PCR) (NotDetected) SARS-CoV-2 (PCR) (NotDetected) Coronavirus NL63 (PCR) (NotDetected) Human Metapneumovir PCR (NotDetected) Influenza Type A (PCR) (NotDetected) Influenza Type B (PCR) (NotDetected) M. pneumoniae (PCR) (NotDetected) Parainfluenza 1 (PCR) (NotDetected) Parainfluenza 2 (PCR) (NotDetected) Parainfluenza 3 (PCR) (NotDetected) Parainfluenza 4 (PCR) (NotDetected) RSV (PCR) (NotDetected) Entero/Rhino (PCR) (NotDetected) 10/19/22 10/19/22 10/19/22 Range/Units 20:00 20:00 20:00 WBC (4.8-10.8) K/ul RBC (4.20-5.40) M/uL Hgb (12.0-16.0) g/dl Hct (37.0-47.0) % MCV (80.0-100.0) fL MCH (25.0-34.0) pg MCHC (32.0-36.0) g/dL RDW Std Deviation (36.4-46.3) fL RDW Coeff of Lakhwinder (11.5-14.5) % Plt Count (130-400) K/uL MPV (9.4-12.4) fL Immature Gran % (Auto) % Neut % (Auto) % Lymph % (Auto) % Citrus % (Auto) % Eos % (Auto) % Baso % (Auto) % Neut # (Auto) (1.40-6.50) K/uL Lymph # (Auto) (1.2-3.4) K/uL Citrus # (Auto) (0.11-0.59) K/uL Eos # (Auto) (0-0.50) K/uL Baso # (Auto) (0-0.2) K/uL Immature Gran # (Auto) (0.01-0.20) K/uL Platelet Estimate (Normal) Polychromasia Acanthocytes (Spur) PT (9.0-12.0) Seconds INR (0.9-1.1) VBG pH (7.36-7.41) VBG pCO2 (38-50) mmHg VBG pO2 mmHg VBG HCO3 mmol/L VBG O2 Saturation % VBG Base Excess mEq/L Sodium (136-145) mmol/L Potassium (3.5-5.1) mmol/L Chloride (98-107) mmol/L Carbon Dioxide (21-32) mmol/L Anion Gap (3-11) BUN (6-23) mg/dl Creatinine (0.6-1.2) mg/dl Est Cr Clr Drug Dosing ml/min Est GFR ( Amer) ml/min Est GFR (Non-Af Amer) ml/min BUN/Creatinine Ratio (10-20) Glucose (70-99(Fasting)) mg/dl Lactate 4.9 H* (0.4-2.0) mmol/L Calcium (8.6-10.3) mg/dl Phosphorus (2.5-4.9) mg/dl Magnesium (1.7-2.4) mg/dl Total Bilirubin (0.2-1.0) mg/dl Direct Bilirubin (0-0.2) mg/dl AST (13-39) U/L ALT (7-52) U/L Alkaline Phosphatase (34-104) U/L Troponin I High Sens (0-14) pg/ml Total Protein (6.0-8.3) gm/dl Albumin (3.4-5.0) gm/dl Lipase (11-82) U/L Procalcitonin 28.68 H (0-0.5) ng/ml Urine Color Urine Appearance (Clear) Urine pH (4.5-7.5) Ur Specific [place] (1.000-1.030) Urine Protein (Negative) Urine Glucose (UA) (Negative) Urine Ketones (Negative) Urine Blood (Negative) Urine Nitrite (Negative) Urine Bilirubin (Negative) Urine Urobilinogen (Negative) Ur Leukocyte Esterase (Negative) Adenovirus (PCR) (NotDetected) Anaplasma Smear Babesia Smear B. pertussis DNA (PCR) (NotDetected) B.parapertussis DNA PCR (NotDetected) Lyme Disease IgG Ab Negative (Negative) Lyme Disease IgM Ab Positive A (Negative) C. pneumoniae DNA (PCR) (NotDetected) Coronavirus OC43 (PCR) (NotDetected) Coronavirus HKU1 (PCR) (NotDetected) Coronavirus 229E (PCR) (NotDetected) SARS-CoV-2 (PCR) (NotDetected) Coronavirus NL63 (PCR) (NotDetected) Human Metapneumovir PCR (NotDetected) Influenza Type A (PCR) (NotDetected) Influenza Type B (PCR) (NotDetected) M. pneumoniae (PCR) (NotDetected) Parainfluenza 1 (PCR) (NotDetected) Parainfluenza 2 (PCR) (NotDetected) Parainfluenza 3 (PCR) (NotDetected) Parainfluenza 4 (PCR) (NotDetected) RSV (PCR) (NotDetected) Entero/Rhino (PCR) (NotDetected) 10/19/22 10/19/22 10/19/22 Range/Units 20:23 21:00 23:01 WBC (4.8-10.8) K/ul RBC (4.20-5.40) M/uL Hgb (12.0-16.0) g/dl Hct (37.0-47.0) % MCV (80.0-100.0) fL MCH (25.0-34.0) pg MCHC (32.0-36.0) g/dL RDW Std Deviation (36.4-46.3) fL RDW Coeff of Lakhwinder (11.5-14.5) % Plt Count (130-400) K/uL MPV (9.4-12.4) fL Immature Gran % (Auto) % Neut % (Auto) % Lymph % (Auto) % Citrus % (Auto) % Eos % (Auto) % Baso % (Auto) % Neut # (Auto) (1.40-6.50) K/uL Lymph # (Auto) (1.2-3.4) K/uL Citrus # (Auto) (0.11-0.59) K/uL Eos # (Auto) (0-0.50) K/uL Baso # (Auto) (0-0.2) K/uL Immature Gran # (Auto) (0.01-0.20) K/uL Platelet Estimate (Normal) Polychromasia Acanthocytes (Spur) PT (9.0-12.0) Seconds INR (0.9-1.1) VBG pH 7.42 H (7.36-7.41) VBG pCO2 29 L (38-50) mmHg VBG pO2 56 mmHg VBG HCO3 19 mmol/L VBG O2 Saturation 86.3 % VBG Base Excess -4.9 mEq/L Sodium (136-145) mmol/L Potassium (3.5-5.1) mmol/L Chloride (98-107) mmol/L Carbon Dioxide (21-32) mmol/L Anion Gap (3-11) BUN (6-23) mg/dl Creatinine (0.6-1.2) mg/dl Est Cr Clr Drug Dosing ml/min Est GFR ( Amer) ml/min Est GFR (Non-Af Amer) ml/min BUN/Creatinine Ratio (10-20) Glucose (70-99(Fasting)) mg/dl Lactate 3.2 H* (0.4-2.0) mmol/L Calcium (8.6-10.3) mg/dl Phosphorus (2.5-4.9) mg/dl Magnesium (1.7-2.4) mg/dl Total Bilirubin (0.2-1.0) mg/dl Direct Bilirubin (0-0.2) mg/dl AST (13-39) U/L ALT (7-52) U/L Alkaline Phosphatase (34-104) U/L Troponin I High Sens (0-14) pg/ml Total Protein (6.0-8.3) gm/dl Albumin (3.4-5.0) gm/dl Lipase (11-82) U/L Procalcitonin (0-0.5) ng/ml Urine Color Urine Appearance (Clear) Urine pH (4.5-7.5) Ur Specific [place] (1.000-1.030) Urine Protein (Negative) Urine Glucose (UA) (Negative) Urine Ketones (Negative) Urine Blood (Negative) Urine Nitrite (Negative) Urine Bilirubin (Negative) Urine Urobilinogen (Negative) Ur Leukocyte Esterase (Negative) Adenovirus (PCR) Not Detected (NotDetected) Anaplasma Smear Babesia Smear B. pertussis DNA (PCR) Not Detected (NotDetected) B.parapertussis DNA PCR Not Detected (NotDetected) Lyme Disease IgG Ab (Negative) Lyme Disease IgM Ab (Negative) C. pneumoniae DNA (PCR) Not Detected (NotDetected) Coronavirus OC43 (PCR) Not Detected (NotDetected) Coronavirus HKU1 (PCR) Not Detected (NotDetected) Coronavirus 229E (PCR) Not Detected (NotDetected) SARS-CoV-2 (PCR) Not Detected (NotDetected) Coronavirus NL63 (PCR) Not Detected (NotDetected) Human Metapneumovir PCR Not Detected (NotDetected) Influenza Type A (PCR) Not Detected (NotDetected) Influenza Type B (PCR) Not Detected (NotDetected) M. pneumoniae (PCR) Not Detected (NotDetected) Parainfluenza 1 (PCR) Not Detected (NotDetected) Parainfluenza 2 (PCR) Not Detected (NotDetected) Parainfluenza 3 (PCR) Not Detected (NotDetected) Parainfluenza 4 (PCR) Not Detected (NotDetected) RSV (PCR) Not Detected (NotDetected) Entero/Rhino (PCR) Not Detected (NotDetected) 10/19/22 Range/Units 23:30 WBC (4.8-10.8) K/ul RBC (4.20-5.40) M/uL Hgb (12.0-16.0) g/dl Hct (37.0-47.0) % MCV (80.0-100.0) fL MCH (25.0-34.0) pg MCHC (32.0-36.0) g/dL RDW Std Deviation (36.4-46.3) fL RDW Coeff of Lakhwinder (11.5-14.5) % Plt Count (130-400) K/uL MPV (9.4-12.4) fL Immature Gran % (Auto) % Neut % (Auto) % Lymph % (Auto) % [place] % (Auto) % Eos % (Auto) % Baso % (Auto) % Neut # (Auto) (1.40-6.50) K/uL Lymph # (Auto) (1.2-3.4) K/uL [place] # (Auto) (0.11-0.59) K/uL Eos # (Auto) (0-0.50) K/uL Baso # (Auto) (0-0.2) K/uL Immature Gran # (Auto) (0.01-0.20) K/uL Platelet Estimate (Normal) Polychromasia Acanthocytes (Spur) PT (9.0-12.0) Seconds INR (0.9-1.1) VBG pH (7.36-7.41) VBG pCO2 (38-50) mmHg VBG pO2 mmHg VBG HCO3 mmol/L VBG O2 Saturation % VBG Base Excess mEq/L Sodium (136-145) mmol/L Potassium (3.5-5.1) mmol/L Chloride (98-107) mmol/L Carbon Dioxide (21-32) mmol/L Anion Gap (3-11) BUN (6-23) mg/dl Creatinine (0.6-1.2) mg/dl Est Cr Clr Drug Dosing ml/min Est GFR ( Amer) ml/min Est GFR (Non-Af Amer) ml/min BUN/Creatinine Ratio (10-20) Glucose (70-99(Fasting)) mg/dl Lactate (0.4-2.0) mmol/L Calcium (8.6-10.3) mg/dl Phosphorus (2.5-4.9) mg/dl Magnesium (1.7-2.4) mg/dl Total Bilirubin (0.2-1.0) mg/dl Direct Bilirubin (0-0.2) mg/dl AST (13-39) U/L ALT (7-52) U/L Alkaline Phosphatase (34-104) U/L Troponin I High Sens (0-14) pg/ml Total Protein (6.0-8.3) gm/dl Albumin (3.4-5.0) gm/dl Lipase (11-82) U/L Procalcitonin (0-0.5) ng/ml Urine Color Yellow Urine Appearance Clear (Clear) Urine pH 5.0 (4.5-7.5) Ur Specific [place] 1.021 (1.000-1.030) Urine Protein Negative (Negative) Urine Glucose (UA) Trace H (Negative) Urine Ketones Negative (Negative) Urine Blood Negative (Negative) Urine Nitrite Negative (Negative) Urine Bilirubin Negative (Negative) Urine Urobilinogen Negative (Negative) Ur Leukocyte Esterase Negative (Negative) Adenovirus (PCR) (NotDetected) Anaplasma Smear Babesia Smear B. pertussis DNA (PCR) (NotDetected) B.parapertussis DNA PCR (NotDetected) Lyme Disease IgG Ab (Negative) Lyme Disease IgM Ab (Negative) C. pneumoniae DNA (PCR) (NotDetected) Coronavirus OC43 (PCR) (NotDetected) Coronavirus HKU1 (PCR) (NotDetected) Coronavirus 229E (PCR) (NotDetected) SARS-CoV-2 (PCR) (NotDetected) Coronavirus NL63 (PCR) (NotDetected) Human Metapneumovir PCR (NotDetected) Influenza Type A (PCR) (NotDetected) Influenza Type B (PCR) (NotDetected) M. pneumoniae (PCR) (NotDetected) Parainfluenza 1 (PCR) (NotDetected) Parainfluenza 2 (PCR) (NotDetected) Parainfluenza 3 (PCR) (NotDetected) Parainfluenza 4 (PCR) (NotDetected) RSV (PCR) (NotDetected) Entero/Rhino (PCR) (NotDetected) Administered Medications Vancomycin HCl 1,250 mg/ (Sodium Chloride) 525 mls @ 200 mls/hr IV NOW ONE Stop: 10/20/22 01:44 Last Admin: 10/19/22 23:50 Dose: 200 mls/hr Documented By: AN Discontinued Medications Sodium Chloride (Nss 1000ml) 1,000 mls @ 999 mls/hr IV .Q1H1M JAN Stop: 10/19/22 22:15 Last Infusion: 10/19/22 23:34 Dose: 0 mls/hr Documented By: Admin: 10/19/22 20:29 Dose: 999 mls/hr Documented By: Infusion: 10/19/22 20:29 Dose: 999 mls/hr Documented By: Admin: 10/19/22 20:19 Dose: 999 mls/hr Documented By: CC Cefepime HCl (Maxipime) 2,000 mg in 20 mls @ 5 mls/min IV NOW STA; Protocol Stop: 10/19/22 20:07 Last Admin: 10/19/22 20:54 Dose: Not Given Documented By: CC Acetaminophen (Ofirmev) 1,000 mg in 100 mls @ 400 mls/hr IV NOW STA Stop: 10/19/22 20:20 Last Infusion: 10/19/22 20:47 Dose: 0 mls/hr Documented By: Admin: 10/19/22 20:16 Dose: 400 mls/hr Documented By: CC Piperacillin Sod/Tazobactam Sod (Zosyn) 4.5 gm in 120 mls @ 240 mls/hr IV NOW ONE Stop: 10/19/22 21:01 Last Infusion: 10/19/22 22:00 Dose: 0 mls/hr Documented By: Admin: 10/19/22 20:56 Dose: 240 mls/hr Documented By: CC Magnesium Sulfate/Dextrose (Magnesium Sulfate / D5w) 1 gm in 100 mls @ 100 ml s/hr IV NOW STA Stop: 10/20/22 00:08 Last Infusion: 10/20/22 00:38 Dose: 0 mls/hr Documented By: JOSE CARLOS Admin: 10/19/22 23:30 Dose: 100 mls/hr Documented By: JOSE CARLOS Ioversol (Optiray 320 125ml) 119 ml IV ONCE ONE Stop: 10/19/22 21:43 Last Admin: 10/19/22 21:42 Dose: 119 ml Documented By: LEONID Imaging Data Radiologist's Impression: Abdomen/Pelvis CT 10/19/22 20:33 Exam(s): CT ABDOMEN + PELVIS With Contrast IV Amt: 119 ml optiray 3220 EXAM: CT Abdomen and Pelvis With Intravenous Contrast CLINICAL HISTORY: Reason for exam: fever, metastatic panc CA, h/o liver abscess. TECHNIQUE: Axial computed tomography images of the abdomen and pelvis with intravenous contrast. CTDI is 6.14 mGy and DLP is 268.68 mGy-cm. Automated exposure control was utilized for the study. A dose lowering technique was utilized adhering to the principles of ALARA. CONTRAST: Patient received 119 ml optiray 3220 of IV contrast COMPARISON: No relevant prior studies available. FINDINGS: Lung bases: Atelectasis at the lung bases. ABDOMEN: Liver: Low-attenuation lesion in the superior RIGHT hepatic lobe segment 7 measures 5.1 x 4.2 cm, concerning for a pancreatic metastasis. Gallbladder and bile ducts: See below. Pancreas: Whipple procedure with partial gastrectomy, cholecystectomy, and moderate intrahepatic biliary ductal dilation. Spleen: Unremarkable. No splenomegaly. Adrenals: Unremarkable. No mass. Kidneys and ureters: Unremarkable. No solid mass. No hydronephrosis. Stomach and bowel: Fluid-filled small bowel which is mildly distended, correlate for enteritis/ileus. Mild liquid stool in the colon, correlate for diarrheal disease. PELVIS: Appendix: No findings to suggest acute appendicitis. Bladder: Distended urinary bladder. Reproductive: Atrophied uterus. ABDOMEN and PELVIS: Intraperitoneal space: Unremarkable. No free air. No significant fluid collection. Bones/joints: Osseous metastasis including the lumbar spine and pelvis. Metastatic lesion involves RIGHT femoral neck, which increases susceptibility to pathologic fracture. Degenerative changes of the spine. No dislocation. Soft tissues: Unremarkable. Vasculature: Atherosclerotic changes of the aorta. No abdominal aortic aneurysm. Lymph nodes: Unremarkable. No enlarged lymph nodes. IMPRESSION: 1. Low-attenuation lesion in the superior RIGHT hepatic lobe segment 7 measures 5.1 x 4.2 cm, concerning for a pancreatic metastasis. 2. Osseous metastasis including the lumbar spine and pelvis. Metastatic lesion involves RIGHT femoral neck, which increases susceptibility to pathologic fracture. 3. Whipple procedure with partial gastrectomy, cholecystectomy, and moderate intrahepatic biliary ductal dilation. 4. Fluid-filled small bowel which is mildly distended, correlate for enteritis/ileus. Mild liquid stool in the colon, correlate for diarrheal disease. Electronically signed by: Benjie Lopez MD 10/19/22 22:22 PM Chest CTA 10/19/22 20:33 Exam(s): CTA CHEST IV Amt: 119 ml optiray 320 EXAM: CT Angiography Chest With Intravenous Contrast CLINICAL HISTORY: Reason for exam: fever, metastatic panc CA, r/o PE. TECHNIQUE: Axial computed tomographic angiography images of the chest with intravenous contrast. CTDI is 12.64 mGy and DLP is 405.15 mGy-cm. Automated exposure control was utilized for the study. A dose lowering technique was utilized adhering to the principles of ALARA. MIP reconstructed images were created and reviewed. COMPARISON: No relevant prior studies available. FINDINGS: Pulmonary arteries: Unremarkable. No pulmonary embolism. Aorta: Atherosclerotic changes of the aorta. No thoracic aortic aneurysm. Lungs: LEFT upper lobe subpleural nodule versus implant, anteriorly measures 1.0 x 0.8 cm. Consider evaluation with PET/CT scan given that the patient has known metastatic pancreatic carcinoma. Scarring/atelectasis in the lingula. Pleural space: Unremarkable. No pleural effusion or pneumothorax. Heart: Cardiomegaly. No significant pericardial effusion. No evidence of RV dysfunction. Bones/joints: Osseous metastases within the thoracic spine. Degenerative changes of the spine. No acute fracture. No dislocation. Soft tissues: Unremarkable. Lymph nodes: Unremarkable. No enlarged lymph nodes. Tubes, lines and devices: LEFT Port-A-Cath terminates in the SVC. IMPRESSION: 1. No pleural effusion or pneumothorax. 2. LEFT upper lobe subpleural nodule versus implant, anteriorly measures 1.0 x 0.8 cm. Consider evaluation with PET/CT scan given that the patient has known metastatic pancreatic carcinoma. 3. Osseous metastases within the thoracic spine. Electronically signed by: Benjie Lopez MD 10/19/22 22:08 PM Discharge Plan Visit Data Chief Complaint: Fever Stated Complaint: FEVER, WAS UNRESPONSIVE ED Provider: Cesar Connolly Discharge Problem: SIRS (systemic inflammatory response syndrome), Acute febrile illness, Metastatic disease, Elevated lactic acid level, Transaminitis, Elevated troponin Forms Stand Alone Forms: [facility] [place] [employer] Prescriptions Prescriptions: No Action Creon 36,000-114,000- 180,000 unit capsule,delayed release(DR/EC) See Rx Instructions .ROUTE .COMPLEX Rx Instructions: 2 capsule PO TID with each meal and 1 capsule PO with each snack, contents of capsule may be mixed with soft foods such as applesauce.; administer with meals and/or snacks Primadophilus 340 mg capsule 1 cap PO QAM ascorbate calcium (vitamin C) 500 mg tablet 1 g PO DAILY hydrocodone-homatropine [Hycodan (with homatropine)] 5-1.5 mg/5 mL syrup 5 ml PO Q6H PRN (Reason: cough) Qty: 946 0RF multivitamin tablet 1 tab PO DAILY cholecalciferol (vitamin D3) 50 mcg (2,000 unit) tablet 50 mcg PO DAILY pantoprazole 40 mg tablet,delayed release (DR/EC) 40 mg PO DAILY ondansetron 8 mg tablet,disintegrating 8 mg PO Q8 PRN (Reason: Nausea And Vomiting) latanoprost 0.005 % drops 1 drp OPB HS vancomycin 125 mg capsule 125 mg PO Q6H gabapentin 300 mg capsule 300 mg PO TID PRN (Reason: Pain) Rx Instructions: take as directed up to 3600mg per day in divided dose opium tincture 10 mg/mL (morphine) tincture 0.3 ml PO QID PRN (Reason: Cough) oxycodone [OxyContin] 10 mg tablet,oral only,ext.rel.12 hr 10 mg PO BID zinc acetate 50 mg (zinc) Capsule 50 mg PO DAILY lidocaine-prilocaine 2.5-2.5 % cream 1 applic topical UD Rx Instructions: 1 hour prior to accessing port amoxicillin-pot clavulanate 875-125 mg tablet 1 tab PO BID sucralfate 1 gram tablet 1 g PO ACHS Rx Instructions: 1 g PO Before Meals and at bedtime; levothyroxine 50 mcg tablet 50 mcg PO DAILYBB capecitabine 500 mg tablet 1,000 mg PO BID Rx Instructions: on 10 days off 10 days Referrals Referrals: Jose Maria Mir MD [Primary Care Provider] -
[2022-10-19 20:43] LABS: Hematocrit (blood only) 29.5 % (37.0-47.0); Hemoglobin 10.3 g/dl (12.0-16.0); Mean Corpuscular Hgb Conc 34.9 g/dL (32.0-36.0); Mean Corpuscular Volume 97.4 fL (80.0-100.0); RDW Coefficient of Variation 16.7 % (11.5-14.5); RDW Standard Deviation 59.2 fL (36.4-46.3); Red Blood Count 3.03 M/uL (4.20-5.40); White Blood Count 2.89 K/ul (4.8-10.8)
[2022-10-19 20:49] LABS: Albumin Level 3.7 gm/dl (3.4-5.0); BUN Creatinine Ratio 15.6 (10-20); Bilirubin Direct 0.4 mg/dl (0-0.2); Bilirubin,Total 0.8 mg/dl (0.2-1.0); Calcium 8.9 mg/dl (8.6-10.3); Creatinine Clr Calc Pharmacy 40.4 ml/min; Est GFR (African American) 69.9 ml/min; Est GFR (Non-African American) 60.3 ml/min; Magnesium 1.5 mg/dl (1.7-2.4); Phosphorus 2.2 mg/dl (2.5-4.9); Potassium 3.2 mmol/L (3.5-5.1); Total Protein 6.2 gm/dl (6.0-8.3)
[2022-10-19 20:57] LABS: Troponin I High Sensitivity 17.8 pg/ml (0-14)
[2022-10-19 21:04] LABS: INR 1.1 (0.9-1.1); Prothrombin Time 12.4 Seconds (9.0-12.0)
[2022-10-19 21:25] LABS: Base Excess VBG -4.9 mEq/L; HCO3 VBG 19 mmol/L; Oxygen Saturation VBG 86.3 %; PCO2 VBG 29 mmHg (38-50); PO2 VBG 56 mmHg; pH VBG 7.42 (7.36-7.41)
[2022-10-19 21:32] LABS: Adenovirus PCR Not Detected (NotDetected); Bordetella parapertussis PCR Not Detected (NotDetected); Bordetella pertussis PCR Not Detected (NotDetected); Chlamydia pneumoniae PCR Not Detected (NotDetected); Coronavirus 229E PCR Not Detected (NotDetected); Coronavirus CoV-2 (COVID19)PCR Not Detected (NotDetected); Coronavirus HKU1 PCR Not Detected (NotDetected); Coronavirus NL63 PCR Not Detected (NotDetected); Coronavirus OC43PCR Not Detected (NotDetected); Human Metapneumovirus PCR Not Detected (NotDetected); Influenza A PCR Not Detected (NotDetected); Influenza B PCR Not Detected (NotDetected); Mycoplasma pneumoniae PCR Not Detected (NotDetected); Parainfluenza Virus 1 PCR Not Detected (NotDetected); Parainfluenza Virus 2 PCR Not Detected (NotDetected); Parainfluenza Virus 3 PCR Not Detected (NotDetected); Parainfluenza Virus 4 PCR Not Detected (NotDetected); Respiratory Syncytial VirusPCR Not Detected (NotDetected); Rhinovirus/Enterovirus PCR Not Detected (NotDetected)
[2022-10-19] MEDS ORDERED: OPTIRAY 320 125ml IV ONE (21:42)
[2022-10-19 22:03] LABS: Basophils # (auto) 0.01 K/uL (0-0.2); Basophils % (auto) 0.3 %; Immature Granulocytes # (auto) 0.01 K/uL (0.01-0.20); Immature Granulocytes % (auto) 0.3 %; Lymphocytes # (auto) 0.13 K/uL (1.2-3.4); Lymphocytes % (auto) 4.5 %; Mean Platelet Volume 10.3 fL (9.4-12.4); Monocytes # (auto) 0.01 K/uL (0.11-0.59); Monocytes % (auto) 0.3 %; Neutrophils # (auto) 2.73 K/uL (1.40-6.50); Neutrophils % (auto) 94.6 %; Platelet Count 83 K/uL (130-400); Platelet Estimate Decreased (Normal)
--- NOTE | 2022-10-19 22:09 | CT Scan Report ---
Exam(s): CTA CHEST IV Amt: 119 ml optiray 320 EXAM: CT Angiography Chest With Intravenous Contrast CLINICAL HISTORY: Reason for exam: fever, metastatic panc CA, r/o PE. TECHNIQUE: Axial computed tomographic angiography images of the chest with intravenous contrast. CTDI is 12.64 mGy and DLP is 405.15 mGy-cm. Automated exposure control was utilized for the study. A dose lowering technique was utilized adhering to the principles of ALARA. MIP reconstructed images were created and reviewed. COMPARISON: No relevant prior studies available. FINDINGS: Pulmonary arteries: Unremarkable. No pulmonary embolism. Aorta: Atherosclerotic changes of the aorta. No thoracic aortic aneurysm. Lungs: LEFT upper lobe subpleural nodule versus implant, anteriorly measures 1.0 x 0.8 cm. Consider evaluation with PET/CT scan given that the patient has known metastatic pancreatic carcinoma. Scarring/atelectasis in the lingula. Pleural space: Unremarkable. No pleural effusion or pneumothorax. Heart: Cardiomegaly. No significant pericardial effusion. No evidence of RV dysfunction. Bones/joints: Osseous metastases within the thoracic spine. Degenerative changes of the spine. No acute fracture. No dislocation. Soft tissues: Unremarkable. Lymph nodes: Unremarkable. No enlarged lymph nodes. Tubes, lines and devices: LEFT Port-A-Cath terminates in the SVC. IMPRESSION: 1. No pleural effusion or pneumothorax. 2. LEFT upper lobe subpleural nodule versus implant, anteriorly measures 1.0 x 0.8 cm. Consider evaluation with PET/CT scan given that the patient has known metastatic pancreatic carcinoma. 3. Osseous metastases within the thoracic spine. Electronically signed by: Benjie Lopez MD 10/19/22 22:08 PM
--- NOTE | 2022-10-19 22:23 | CT Scan Report ---
Exam(s): CT ABDOMEN + PELVIS With Contrast IV Amt: 119 ml optiray 3220 EXAM: CT Abdomen and Pelvis With Intravenous Contrast CLINICAL HISTORY: Reason for exam: fever, metastatic panc CA, h/o liver abscess. TECHNIQUE: Axial computed tomography images of the abdomen and pelvis with intravenous contrast. CTDI is 6.14 mGy and DLP is 268.68 mGy-cm. Automated exposure control was utilized for the study. A dose lowering technique was utilized adhering to the principles of ALARA. CONTRAST: Patient received 119 ml optiray 3220 of IV contrast COMPARISON: No relevant prior studies available. FINDINGS: Lung bases: Atelectasis at the lung bases. ABDOMEN: Liver: Low-attenuation lesion in the superior RIGHT hepatic lobe segment 7 measures 5.1 x 4.2 cm, concerning for a pancreatic metastasis. Gallbladder and bile ducts: See below. Pancreas: Whipple procedure with partial gastrectomy, cholecystectomy, and moderate intrahepatic biliary ductal dilation. Spleen: Unremarkable. No splenomegaly. Adrenals: Unremarkable. No mass. Kidneys and ureters: Unremarkable. No solid mass. No hydronephrosis. Stomach and bowel: Fluid-filled small bowel which is mildly distended, correlate for enteritis/ileus. Mild liquid stool in the colon, correlate for diarrheal disease. PELVIS: Appendix: No findings to suggest acute appendicitis. Bladder: Distended urinary bladder. Reproductive: Atrophied uterus. ABDOMEN and PELVIS: Intraperitoneal space: Unremarkable. No free air. No significant fluid collection. Bones/joints: Osseous metastasis including the lumbar spine and pelvis. Metastatic lesion involves RIGHT femoral neck, which increases susceptibility to pathologic fracture. Degenerative changes of the spine. No dislocation. Soft tissues: Unremarkable. Vasculature: Atherosclerotic changes of the aorta. No abdominal aortic aneurysm. Lymph nodes: Unremarkable. No enlarged lymph nodes. IMPRESSION: 1. Low-attenuation lesion in the superior RIGHT hepatic lobe segment 7 measures 5.1 x 4.2 cm, concerning for a pancreatic metastasis. 2. Osseous metastasis including the lumbar spine and pelvis. Metastatic lesion involves RIGHT femoral neck, which increases susceptibility to pathologic fracture. 3. Whipple procedure with partial gastrectomy, cholecystectomy, and moderate intrahepatic biliary ductal dilation. 4. Fluid-filled small bowel which is mildly distended, correlate for enteritis/ileus. Mild liquid stool in the colon, correlate for diarrheal disease. Electronically signed by: Benjie Lopez MD 10/19/22 22:22 PM
[2022-10-19] MEDS ORDERED: VANCOMYCIN HCL 1,250 MG in SODIUM CHLORIDE 0.9% 500 ML IV ONE (23:07)
[2022-10-19] MEDS ORDERED: VANCOMYCIN CONSULT ACTIVE PRN (23:07)
[2022-10-19] MEDS ORDERED: MAGNESIUM SULFATE / D5W 1 GM/100 ML BAG IV STA (23:09)
[2022-10-19 23:58] LABS: Appearance Urine Clear (Clear); Bilirubin Urine Negative (Negative); Blood Urine Negative (Negative); Color Urine Yellow; Glucose Urine UA Trace (Negative); Ketones Urine Negative (Negative); Leukocyte Esterase Urine Negative (Negative); Nitrite Urine Negative (Negative); Protein Urine Negative (Negative); Specific Gravity Urine 1.021 (1.000-1.030); Urobilinogen Urine Negative (Negative)
--- NOTE | 2022-10-19 23:59 | History & Physical Report ---
Date of Service October 19, 2022 Assessment & Plan (1) Fever: Plan: 71yo female with metastatic adenocarcinoma of the pancreas s/p surgical excision, on chemotherapy presenting with 5 days of intermittent fever/chills/rigors. No obvious source of infection per history and exam. Respiratory BioFire panel is NEGATIVE. CTA with CINTHYA nodule. UA does not suggest infection CT of the abdomen with fluid filled small bowel with liquid in stool correlating with patient's known ongoing diarrhea. Blood cultures from [facility] [place] 10/14/22 are NGTD thus far. Blood cultures have been drawn in the ER. Patient has been on daily Augmentin BID due to liver abscess. She has also been taking her rescue Levaquin daily as directed by her Oncology for febrile illness. Laboratory findings as above - patient is leukopenic with thrombocytopenia. New elevation of transaminase levels - KVB=010, IUI=996. Patient has had persistent elevation of AP and Bilirubin, most likely from her underlying metastatic disease. Procalcitonin elevated at 28.68- has been persistently elevated most likely secondary to underlying pancreatic disease. Lactate elevated as well - 4.9 on arrival which improved to 3.2 after 2L IVF. BP has remained stable. Laboratory findings concerning for tick-borne illness. Tick labs have been sent from the ER -Admit to medical with telemetry -Check stool PCR and C. diff -Follow cultures and tick-borne illness testing -Empiric Doxycycline 100mg IV BID -Vancomycin 125mg PO q 6 hours until c. diff testing is resulted -Tylenol PRN -Zofran PRN (2) Pancreatic cancer: Plan: Patient receives her Oncology Care at [facility]. -Continue Oxycodone 10mg po BID -Zofran PRN -Creon as directed -Gabapentin 300mg po TID (3) Abnormal LFTs: Plan: Elevated AST and ALT. ?Tick borne illness vs viral illness -Check acute hepatitis panel -Check Acetaminophen level -Repeat LFTs in AM (4) Hypothyroid: Plan: Chronic. Stable -Continue Synthroid (5) Liver abscess: Plan: -Continue Augmentin BID (6) History of Clostridioides difficile infection: Plan: Patient with history of c. diff. Is to take PO Vancomycin when she has diarrhea -Continue PO Vancomycin -Check C. diff (7) CKD (chronic kidney disease), stage III: Plan: BUN and Cr near baseline -IVF as below -Repeat chemistry in AM F/E/N - LR at 125mL/hr x 2 liters, Potassium and Phosphate repletion - 15mmol with repeat chemistry in AM, Mg repletion with 2gm - repeat level in AM, regular diet as tolerated Ppx - Lovenox for DVT prophylaxis Code - Full per discussion with patient Dispo -Admit to medical History of Present Illness Chief Complaint: fever Primary Care Provider: Jose Maria Mir MD Tamara Elkins is a pleasant 71yo female with history of pancreatic adenocarcinoma with metastases to bone and liver s/p pancreaticoduodenectomy in June 2019 currently on chemotherapy, liver abscess on Augmentin and prior c. diff infection presenting with intermittent fevers over the last 5 days. Patient has had intermittent episodes of fever with Tm of 104 associated with chills and rigors that have been occurring several times daily for the last 5 days. Episodes last approximately 1 hour. Also with nausea and vomiting on 10/16/22 and ongoing watery diarrhea since 10/16/22. She was found in her car today minimally responsive. Was seen at [facility] on 10/14/22 and had an MRI of the brain that is unremarkable and blood cultures that are NGTD (confirmed at time of admission) She has been on daily Augmentin for history of liver abscess. Has also been on Levaquin since 10/14/22. She was to have her chemotherapy infusion on 10/17/22 which was held due to ongoing febrile episodes. Patient otherwise denies headache, visual changes, facial/dental pain, pain with swallowing or trouble swallowing. She denies chest pain, palpitations, cough, SOB, abdominal pain, dysuria. Denies rashes or joint pain. No recent travel or sick contacts. No change in medications. Patient denies recent tick bites but she does walk through a grassy area to get to her garden. In the ER she is afebrile, HD stable, NAD Allergies Allergy/AdvReac Type Severity Reaction Status Date / Time metronidazole AdvReac Severe Cerebellar Verified 09/27/22 08:45 toxicity with hospitalization benzoin AdvReac Unknown CONTACT Verified 09/27/22 08:45 DERMATITIS Home Medications Medication Instructions Recorded Confirmed Type multivitamin 1 tab PO DAILY 12/27/18 10/19/22 History cholecalciferol (vitamin D3) 50 50 mcg PO DAILY 01/09/20 10/19/22 History mcg (2,000 unit) tablet pantoprazole 40 mg tablet,delayed 40 mg PO DAILY 01/09/20 10/19/22 History release ondansetron 8 mg disintegrating 8 mg PO Q8 PRN Nausea And Vomiting 02/04/21 10/19/22 History tablet Primadophilus 1 cap PO QAM 02/16/21 10/19/22 History [id number] See Rx Instructions .Route .COMPLEX 02/16/21 10/19/22 History 36,000-114,000-180,000 unit capsule,delay rel (Creon) ascorbate calcium (vitamin C) 500 1 g PO DAILY 02/18/21 10/19/22 History mg tablet hydrocodone-homatropine 5 mg-1.5 5 ml PO Q6H PRN cough #946 mL 11/04/21 10/19/22 Rx mg/5 mL oral syrup (Hycodan (with homatropine)) amoxicillin 875 mg-potassium 1 tab PO BID 06/17/22 10/19/22 History clavulanate 125 mg tablet gabapentin 300 mg capsule 300 mg PO TID PRN Pain 06/17/22 10/19/22 History latanoprost 0.005 % eye drops 1 drp OPB HS 06/17/22 10/19/22 History lidocaine-prilocaine 2.5 %-2.5 % 1 applic topical UD 06/17/22 10/19/22 History topical cream opium tincture 10 mg/mL (morphine) 0.3 ml PO QID PRN Cough 06/17/22 10/19/22 History oral oxycodone 10 mg tablet,crush 10 mg PO BID 06/17/22 10/19/22 History resistant,extended release 12 hr (OxyContin) sucralfate 1 gram tablet 1 g PO ACHS 06/17/22 10/19/22 History vancomycin 125 mg capsule 125 mg PO Q6H 06/17/22 10/19/22 History zinc acetate 50 mg (zinc) capsule 50 mg PO DAILY 06/17/22 10/19/22 History capecitabine 500 mg tablet 1,000 mg PO BID 10/19/22 10/19/22 History levothyroxine 50 mcg tablet 50 mcg PO DAILYBB 10/19/22 10/19/22 History Past Med/Surg History Medical History (Updated 10/20/22 @ 01:36 by Mamie Brand DO) CKD (chronic kidney disease), stage III History of Clostridioides difficile infection Hypothyroid Liver abscess Nausea & vomiting Pancreatic cancer Thrombocytopenia Surgical History H/O oral surgery History of ERCP 05/2019 History of liver biopsy History of pancreatic surgery History of thoracentesis Family History Mother Colon cancer Hyperlipidemia Hearing loss of aging Colorectal cancer Father Prostate cancer Hypertension Unknown Breast cancer Grandmother (Maternal) Diabetes Myocardial infarction Grandfather (Paternal) Stroke Other Allergies No family history of adverse response to anesthesia No family history of bleeding disorder Denies family history of Ovarian cancer Lung cancer Social History Smoking Status: Never smoker Second Hand Exposure: No; Do You Dip or Chew Tobacco: No; Hx Alcohol Use: No Hx Substance Use: No Preferred Language: Icelandic Communication Ability: Effective Visual Impairment: Limited Hearing Ability: Normal Delivery Route Driver Required: No Beliefs That Will Affect Care: Confucianist marital status: Current Living Situation: Spouse current occupational status: employed 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 How many Children do You have: 0 Feels Safe at Home: Yes Childhood Exposure to Second-Hand Smoke: No caffeine: No Dental Care, Regularly: Yes Physical Activity Frequency: 5-6 Times per Week Seatbelt Use: always Sunscreen Use: Yes Assistive Devices: None Review of Systems Review of Systems: All systems reviewed & are unremarkable except as noted in HPI & below Physical Exam Physical Exam: General: thin, frail female patient resting comfortably, NAD, non-toxic in appearance, AA&O x 4 Skin: warm, dry, intact, no rashes or lesions HEENT: NC/AT, PERRL, EOMI, anicteric sclera, conjunctiva without injection, external ear normal to inspection and nontender, nares patent, dry mucus membranes, dentition intact, no oropharyngeal lesions, neck supple, trachea midline, no LAD, no thyromegaly, no JVD Heart: +S1/S2, regular, no m/r/g, chest port in place, nontender, no erythema Lungs: equal air entry bilaterally, no rales/rhonchi/wheezes Abd: +BS, soft, NT/ND, no masses/organomegaly/ascites Ext: warm, 2+ pulses in UE/LE bilaterally, no clubbing/cyanosis or edema Neuro: nonfocal, patient AA&O x 4, speech intact, no facial droop, moving all extremities on command with equal strength 5/5 Results & Data Results & Data Vital Signs (Past 12 Hours) Vital Signs Temp Pulse Pulse Resp BP BP Pulse Ox 10/19/22 23:56 68 10/19/22 22:28 76 18 104/55 L 96 10/19/22 21:09 81 17 103/58 L 98 10/19/22 20:45 37.8 C H 81 17 103/58 L 98 10/19/22 20:13 87 17 113/53 L 98 10/19/22 20:13 92 H 18 98 10/19/22 19:50 87 10/19/22 19:46 39.5 C H 10/19/22 19:27 38.6 C H 98 H 18 117/66 95 O2 Del Method 10/19/22 23:56 10/19/22 22:28 Room Air 10/19/22 21:09 Room Air 10/19/22 20:45 Room Air 10/19/22 20:13 Room Air 10/19/22 20:13 Room Air 10/19/22 19:50 10/19/22 19:46 10/19/22 19:27 Room Air Laboratory Results Laboratory Results WBC 2.89 K/ul (4.8-10.8) L 10/19/22 20:00 RBC 3.03 M/uL (4.20-5.40) L 10/19/22 20:00 Hgb 10.3 g/dl (12.0-16.0) L 10/19/22 20:00 Hct 29.5 % (37.0-47.0) L 10/19/22 20:00 MCV 97.4 fL (80.0-100.0) 10/19/22 20:00 MCH 34.0 pg (25.0-34.0) 10/19/22 20:00 MCHC 34.9 g/dL (32.0-36.0) 10/19/22 20:00 RDW Std Deviation 59.2 fL (36.4-46.3) H 10/19/22 20:00 RDW Coeff of Lakhwinder 16.7 % (11.5-14.5) H 10/19/22 20:00 Plt Count 83 K/uL (130-400) L 10/19/22 20:00 MPV 10.3 fL (9.4-12.4) 10/19/22 20:00 Immature Gran % (Auto) 0.3 % 10/19/22 20:00 Neut % (Auto) 94.6 % 10/19/22 20:00 Lymph % (Auto) 4.5 % 10/19/22 20:00 [place] % (Auto) 0.3 % 10/19/22 20:00 Eos % (Auto) 0.0 % 10/19/22 20:00 Baso % (Auto) 0.3 % 10/19/22 20:00 Neut # (Auto) 2.73 K/uL (1.40-6.50) 10/19/22 20:00 Lymph # (Auto) 0.13 K/uL (1.2-3.4) L 10/19/22 20:00 [place] # (Auto) 0.01 K/uL (0.11-0.59) L 10/19/22 20:00 Eos # (Auto) 0.00 K/uL (0-0.50) 10/19/22 20:00 Baso # (Auto) 0.01 K/uL (0-0.2) 10/19/22 20:00 Immature Gran # (Auto) 0.01 K/uL (0.01-0.20) 10/19/22 20:00 Platelet Estimate Decreased (Normal) L 10/19/22 20:00 Polychromasia 1+ 10/19/22 20:00 Acanthocytes (Spur) 1+ 10/19/22 20:00 PT 12.4 Seconds (9.0-12.0) H 10/19/22 20:00 INR 1.1 (0.9-1.1) 10/19/22 20:00 VBG pH 7.42 (7.36-7.41) H 10/19/22 21:00 VBG pCO2 29 mmHg (38-50) L 10/19/22 21:00 VBG pO2 56 mmHg 10/19/22 21:00 VBG HCO3 19 mmol/L 10/19/22 21:00 VBG O2 Saturation 86.3 % 10/19/22 21:00 VBG Base Excess -4.9 mEq/L 10/19/22 21:00 Sodium 137 mmol/L (136-145) 10/19/22 20:00 Potassium 3.2 mmol/L (3.5-5.1) L 10/19/22 20:00 Chloride 107 mmol/L (98-107) 10/19/22 20:00 Carbon Dioxide 19 mmol/L (21-32) L 10/19/22 20:00 Anion Gap 11 (3-11) 10/19/22 20:00 BUN 15 mg/dl (6-23) 10/19/22 20:00 Creatinine 0.96 mg/dl (0.6-1.2) 10/19/22 20:00 Est Cr Clr Drug Dosing 40.4 ml/min 10/19/22 20:00 Est GFR ( Amer) 69.9 ml/min 10/19/22 20:00 Est GFR (Non-Af Amer) 60.3 ml/min 10/19/22 20:00 BUN/Creatinine Ratio 15.6 (10-20) 10/19/22 20:00 Glucose 175 mg/dl (70-99(Fasting)) H 10/19/22 20:00 Lactate 3.2 mmol/L (0.4-2.0) H* 10/19/22 23:01 Calcium 8.9 mg/dl (8.6-10.3) 10/19/22 20:00 Phosphorus 2.2 mg/dl (2.5-4.9) L 10/19/22 20:00 Magnesium 1.5 mg/dl (1.7-2.4) L 10/19/22 20:00 Total Bilirubin 0.8 mg/dl (0.2-1.0) 10/19/22 20:00 Direct Bilirubin 0.4 mg/dl (0-0.2) H 10/19/22 20:00 AST 271 U/L (13-39) H 10/19/22 20:00 ALT 239 U/L (7-52) H 10/19/22 20:00 Alkaline Phosphatase 215 U/L (34-104) H 10/19/22 20:00 Troponin I High Sens 17.8 pg/ml (0-14) H 10/19/22 20:00 Total Protein 6.2 gm/dl (6.0-8.3) 10/19/22 20:00 Albumin 3.7 gm/dl (3.4-5.0) 10/19/22 20:00 Lipase 5 U/L (11-82) L 10/19/22 20:00 Procalcitonin 28.68 ng/ml (0-0.5) H 10/19/22 20:00 Urine Color Yellow 10/19/22 23:30 Urine Appearance Clear (Clear) 10/19/22 23:30 Urine pH 5.0 (4.5-7.5) 10/19/22 23:30 Ur Specific [place] 1.021 (1.000-1.030) 10/19/22 23:30 Urine Protein Negative (Negative) 10/19/22 23:30 Urine Glucose (UA) Trace (Negative) H 10/19/22 23:30 Urine Ketones Negative (Negative) 10/19/22 23:30 Urine Blood Negative (Negative) 10/19/22 23:30 Urine Nitrite Negative (Negative) 10/19/22 23:30 Urine Bilirubin Negative (Negative) 10/19/22 23:30 Urine Urobilinogen Negative (Negative) 10/19/22 23:30 Ur Leukocyte Esterase Negative (Negative) 10/19/22 23:30 Adenovirus (PCR) Not Detected (NotDetected) 10/19/22 20:23 Anaplasma Smear See Comment 10/19/22 20:00 Babesia Smear See Comment 10/19/22 20:00 B. pertussis DNA (PCR) Not Detected (NotDetected) 10/19/22 20:23 B.parapertussis DNA PCR Not Detected (NotDetected) 10/19/22 20:23 Lyme Disease IgG Ab Negative (Negative) 10/19/22 20:00 Lyme Disease IgM Ab Positive (Negative) A 10/19/22 20:00 C. pneumoniae DNA (PCR) Not Detected (NotDetected) 10/19/22 20:23 Coronavirus OC43 (PCR) Not Detected (NotDetected) 10/19/22 20:23 Coronavirus HKU1 (PCR) Not Detected (NotDetected) 10/19/22 20:23 Coronavirus 229E (PCR) Not Detected (NotDetected) 10/19/22 20:23 SARS-CoV-2 (PCR) Not Detected (NotDetected) 10/19/22 20:23 Coronavirus NL63 (PCR) Not Detected (NotDetected) 10/19/22 20:23 Human Metapneumovir PCR Not Detected (NotDetected) 10/19/22 20:23 Influenza Type A (PCR) Not Detected (NotDetected) 10/19/22 20:23 Influenza Type B (PCR) Not Detected (NotDetected) 10/19/22 20:23 M. pneumoniae (PCR) Not Detected (NotDetected) 10/19/22 20:23 Parainfluenza 1 (PCR) Not Detected (NotDetected) 10/19/22 20:23 Parainfluenza 2 (PCR) Not Detected (NotDetected) 10/19/22 20:23 Parainfluenza 3 (PCR) Not Detected (NotDetected) 10/19/22 20:23 Parainfluenza 4 (PCR) Not Detected (NotDetected) 10/19/22 20:23 RSV (PCR) Not Detected (NotDetected) 10/19/22 20:23 Entero/Rhino (PCR) Not Detected (NotDetected) 10/19/22 20:23 Impressions Abdomen/Pelvis CT 10/19/22 20:33 Exam(s): CT ABDOMEN + PELVIS With Contrast IV Amt: 119 ml optiray 3220 EXAM: CT Abdomen and Pelvis With Intravenous Contrast CLINICAL HISTORY: Reason for exam: fever, metastatic panc CA, h/o liver abscess. TECHNIQUE: Axial computed tomography images of the abdomen and pelvis with intravenous contrast. CTDI is 6.14 mGy and DLP is 268.68 mGy-cm. Automated exposure control was utilized for the study. A dose lowering technique was utilized adhering to the principles of ALARA. CONTRAST: Patient received 119 ml optiray 3220 of IV contrast COMPARISON: No relevant prior studies available. FINDINGS: Lung bases: Atelectasis at the lung bases. ABDOMEN: Liver: Low-attenuation lesion in the superior RIGHT hepatic lobe segment 7 measures 5.1 x 4.2 cm, concerning for a pancreatic metastasis. Gallbladder and bile ducts: See below. Pancreas: Whipple procedure with partial gastrectomy, cholecystectomy, and moderate intrahepatic biliary ductal dilation. Spleen: Unremarkable. No splenomegaly. Adrenals: Unremarkable. No mass. Kidneys and ureters: Unremarkable. No solid mass. No hydronephrosis. Stomach and bowel: Fluid-filled small bowel which is mildly distended, correlate for enteritis/ileus. Mild liquid stool in the colon, correlate for diarrheal disease. PELVIS: Appendix: No findings to suggest acute appendicitis. Bladder: Distended urinary bladder. Reproductive: Atrophied uterus. ABDOMEN and PELVIS: Intraperitoneal space: Unremarkable. No free air. No significant fluid collection. Bones/joints: Osseous metastasis including the lumbar spine and pelvis. Metastatic lesion involves RIGHT femoral neck, which increases susceptibility to pathologic fracture. Degenerative changes of the spine. No dislocation. Soft tissues: Unremarkable. Vasculature: Atherosclerotic changes of the aorta. No abdominal aortic aneurysm. Lymph nodes: Unremarkable. No enlarged lymph nodes. IMPRESSION: 1. Low-attenuation lesion in the superior RIGHT hepatic lobe segment 7 measures 5.1 x 4.2 cm, concerning for a pancreatic metastasis. 2. Osseous metastasis including the lumbar spine and pelvis. Metastatic lesion involves RIGHT femoral neck, which increases susceptibility to pathologic fracture. 3. Whipple procedure with partial gastrectomy, cholecystectomy, and moderate intrahepatic biliary ductal dilation. 4. Fluid-filled small bowel which is mildly distended, correlate for enteritis/ileus. Mild liquid stool in the colon, correlate for diarrheal disease. Electronically signed by: Benjie Lopez MD 10/19/22 22:22 PM Chest CTA 10/19/22 20:33 Exam(s): CTA CHEST IV Amt: 119 ml optiray 320 EXAM: CT Angiography Chest With Intravenous Contrast CLINICAL HISTORY: Reason for exam: fever, metastatic panc CA, r/o PE. TECHNIQUE: Axial computed tomographic angiography images of the chest with intravenous contrast. CTDI is 12.64 mGy and DLP is 405.15 mGy-cm. Automated exposure control was utilized for the study. A dose lowering technique was utilized adhering to the principles of ALARA. MIP reconstructed images were created and reviewed. COMPARISON: No relevant prior studies available. FINDINGS: Pulmonary arteries: Unremarkable. No pulmonary embolism. Aorta: Atherosclerotic changes of the aorta. No thoracic aortic aneurysm. Lungs: LEFT upper lobe subpleural nodule versus implant, anteriorly measures 1.0 x 0.8 cm. Consider evaluation with PET/CT scan given that the patient has known metastatic pancreatic carcinoma. Scarring/atelectasis in the lingula. Pleural space: Unremarkable. No pleural effusion or pneumothorax. Heart: Cardiomegaly. No significant pericardial effusion. No evidence of RV dysfunction. Bones/joints: Osseous metastases within the thoracic spine. Degenerative changes of the spine. No acute fracture. No dislocation. Soft tissues: Unremarkable. Lymph nodes: Unremarkable. No enlarged lymph nodes. Tubes, lines and devices: LEFT Port-A-Cath terminates in the SVC. IMPRESSION: 1. No pleural effusion or pneumothorax. 2. LEFT upper lobe subpleural nodule versus implant, anteriorly measures 1.0 x 0.8 cm. Consider evaluation with PET/CT scan given that the patient has known metastatic pancreatic carcinoma. 3. Osseous metastases within the thoracic spine. Electronically signed by: Benjie Lopez MD 10/19/22 22:08 PM Code Status & VTE Plan VTE Prophylaxis Plan VTE Prophylaxis will be ordered: Yes PG Care Time/CCT Total # of Minutes Spent Total Time Spent with Patient: Total time spent is greater than 50% in coordination of care (as documented) at patient's floor/unit and/or counseling patient: Coding Level of Care Code 63486 INT INP/OBS CARE 3/75MIN Diagnoses Fever R50.9 Pancreatic cancer C25.9 Abnormal LFTs R79.89 Hypothyroid E03.9 Liver abscess K75.0 History of Clostridioides difficile infection Z86.19 CKD (chronic kidney disease), stage III N18.3
[2022-10-20 00:33] LABS: Lyme Ab IgG w/WB Rflx Negative (Negative)
[2022-10-20 00:36] LABS: Lyme Ab IgM w/WB Rflx Positive (Negative)
[2022-10-20 00:52] LABS: Acanthocytes 1+; Polychromasia 1+
[2022-10-20] MEDS ORDERED: ONDANSETRON INJ 2 MG/ML 2 ML VIAL IV PRN (05:07)
[2022-10-20] MEDS ORDERED: LIDOCAINE/PRILOCAINE 2.5% EA CRM EXT PRN (05:07)
[2022-10-20] MEDS ORDERED: POTASSIUM PHOS 3 MMOL/1 ML INFUSION IV STA (05:07)
[2022-10-20] MEDS ORDERED: MAGNESIUM SULFATE / D5W 1 GM/100 ML BAG IV ONE (05:07)
[2022-10-20] MEDS ORDERED: ACETAMINOPHEN 325 MG TAB PO PRN (05:07)
[2022-10-20] MEDS: LACTATED RINGER'S 1,000 ML IV SCH ×2 (05:20→14:56)
[2022-10-20] MEDS ORDERED: POTASSIUM PHOSPHATE 15 MMOL in SODIUM CHLORIDE 0.9% 250 ML IV ONE (05:30)
[2022-10-20] MEDS ORDERED: PANCREAZE (LIPASE 10,500U) CAP PO PRN (05:50)
[2022-10-20] MEDS: RASPBERRY SYRUP 5 ML UDP PO SCH ×4 (06:27→23:33)
[2022-10-20] MEDS: VANCOMYCIN HCL 125 MG/2.5ML SOLN PO SCH ×4 (06:27→23:33)
[2022-10-20] MEDS: LEVOTHYROXINE SODIUM 50 MCG TABLET PO SCH (06:28)
[2022-10-20] MEDS: DOXYCYCLINE HYCLATE 100 MG in DEXTROSE 5% 100 ML IV SCH ×2 (06:28→17:58)
--- NOTE | 2022-10-20 07:19 | XRay Report ---
SINGLE VIEW CHEST CLINICAL HISTORY: Sepsis. FINDINGS: An AP, portable, upright chest radiograph is compared to study dated 06/17/2022 and correlat ed with chest CT dated 09/08/2020. A left internal jugular central venous infusion port is unchanged i n position. The cardiomediastinal silhouette is unremarkable noting atherosclerotic calcification of the thoracic aorta. Chronic interstitial thickening similar to previous. There is bibasilar scarring/ atelectasis. No airspace consolidation or large pleural effusion is identified. No pneumothorax is se en. The skeletal structures are osteopenic. The bony thorax is grossly intact. Cholecystectomy clips are noted in the right upper quadrant. IMPRESSION: No active disease in the chest. ACT 112: Negative or not required by law. Electronically signed by: Bunny Gramajo M.D. 10/20/2022 7:17 AM
[2022-10-20] MEDS: PANCREAZE (LIPASE 10,500U) CAP PO SCH ×3 (08:13→16:53)
[2022-10-20] MEDS: AMOXICILLIN/CLAVULANATE 875 MG TAB PO SCH ×2 (08:13→16:53)
[2022-10-20] MEDS: SUCRALFATE 1 GM TAB PO SCH ×4 (08:13→20:58)
[2022-10-20] MEDS ORDERED: LOPERAMIDE HCL 2 MG CAP PO STA (08:20)
[2022-10-20] MEDS ORDERED: GLYCOPYRROLATE 1 MG TAB PO ONE (08:25)
--- NOTE | 2022-10-20 08:48 | Electrocardiogram Report ---
Test Reason : Blood Pressure : / mmHG Vent. Rate : 082 BPM Atrial Rate : 082 BPM P-R Int : 130 ms QRS Dur : 072 ms QT Int : 382 ms P-R-T Axes : 067 053 068 degrees QTc Int : 446 ms Normal sinus rhythm Normal ECG When compared with ECG of 17-JUN-2022 17:51, QT has shortened Confirmed by Kelechi Gipson ([id number]) on 10/20/2022 8:47:56 AM Referred By: REFERRED SELF Confirmed By:Kelechi Gipson
[2022-10-20] MEDS: PANTOprazole 40 MG TAB PO SCH (09:38)
[2022-10-20] MEDS: ADVANCED PROBIOTIC 1250 MG CAPSULE PO SCH (09:38)
[2022-10-20] MEDS: oxyCODONE HCL 10 MG TABCR (OxyCONTIN) PO SCH ×2 (09:38→21:00)
[2022-10-20 11:17] LABS: Hemoglobin 8.4 g/dl (12.0-16.0); Mean Corpuscular Hemoglobin 33.9 pg (25.0-34.0); Mean Corpuscular Volume 96.8 fL (80.0-100.0); Mean Platelet Volume 11.4 fL (9.4-12.4); Platelet Count 72 K/uL (130-400); RDW Coefficient of Variation 16.9 % (11.5-14.5); RDW Standard Deviation 59.6 fL (36.4-46.3); Red Blood Count 2.48 M/uL (4.20-5.40); White Blood Count 10.01 K/ul (4.8-10.8)
[2022-10-20 11:35] LABS: Basophils # (auto) 0.02 K/uL (0-0.2); Basophils % (auto) 0.2 %; Eosinophils # (auto) 0.09 K/uL (0-0.50); Eosinophils % (auto) 0.9 %; Immature Granulocytes # (auto) 0.73 K/uL (0.01-0.20); Immature Granulocytes % (auto) 7.3 %; Lymphocytes # (auto) 1.09 K/uL (1.2-3.4); Lymphocytes % (auto) 10.9 %; Monocytes # (auto) 0.34 K/uL (0.11-0.59); Monocytes % (auto) 3.4 %; Neutrophils # (auto) 7.74 K/uL (1.40-6.50); Neutrophils % (auto) 77.3 %; Poikilocytosis Present; Polychromasia 1+
[2022-10-20 11:38] LABS: Albumin Level 2.6 gm/dl (3.4-5.0); BUN Creatinine Ratio 13.7 (10-20); Bilirubin Direct 0.1 mg/dl (0-0.2); Bilirubin,Total 0.5 mg/dl (0.2-1.0); Calcium 7.4 mg/dl (8.6-10.3); Creatinine Clr Calc Pharmacy 53.2 ml/min; Est GFR (African American) 97.4 ml/min; Phosphorus 3.8 mg/dl (2.5-4.9); Potassium 3.7 mmol/L (3.5-5.1); Total Protein 4.6 gm/dl (6.0-8.3)
--- NOTE | 2022-10-20 13:25 | Hospitalist Progress Note ---
Date of Service October 20, 2022 Assessment & Plan (1) Fever: Plan: 71yo female with metastatic adenocarcinoma of the pancreas s/p surgical excision, on chemotherapy presenting with 5 days of intermittent fever/chills/rigors. Fever No obvious source of infection per history and exam. Respiratory BioFire panel is NEGATIVE. CTA with CINTHYA nodule. UA does not suggest infection. CT of the abdomen with fluid filled small bowel with liquid in stool correlating with patient's known ongoing diarrhea. Blood cultures [place] [facility] [place]14[place] are NGTD thus far. Wbc and platelet counts low New elevation of transaminase levels - LEV=694, ULY=704. Was not elevated on Monday (10/17). Chronic AP and Bilirubin from her underlying metastatic disease. Procalcitonin elevated at 28.68- has been persistently elevated most likely secondary to underlying pancreatic disease. Lactate elevated as well - 4.9 on arrival which improved to 3.2 after 2L IVF. BP has remained stable. -IgM lyme positive but IgG neg. Western blot pending. PS neg for anaplasma and babesia. -stool PCR and C. diff pending -Blood cultures pending from admission (cultures from [facility] [place] 10/14/22 - NGTD) -Received broad spectrum abx in ED but with low suspicions, held on admission. -Patient has been on daily Augmentin BID due to liver abscess. -She has also been taking her rescue Levaquin daily as directed by her Oncology for febrile illness. -GI consult for input regarding role of liver abscess contributing to presentation. -Empiric Doxycycline 100mg IV BID -Vancomycin 125mg PO q 6 hours until c. diff testing is resulted -continue IVF Pancreatic cancer: Patient receives her Oncology Care at [facility]. -Continue Oxycodone 10mg po BID -Zofran PRN -Creon as directed -Gabapentin 300mg po TID Abnormal LFTs: Elevated AST and ALT. Tick borne illness vs viral illness -Consulted GI, recommendations appreciated. -Hepatitis Panel pending -LFTs showed improvement. Liver abscess: -Continue Augmentin BID History of Clostridioides difficile infection: Patient with history of C. diff. Is to take PO Vancomycin when she has diarrhea -Continue PO Vancomycin -C.Diff pending CKD (chronic kidney disease), stage III: BUN and Cr near baseline -IVF as below F/E/N - LR at 125mL/hr x 2 liters, Potassium and Phosphate repletion - 15mmol with repeat chemistry in AM, Mg repletion with 2gm - repeat level in AM, regular diet as tolerated Ppx - Lovenox for DVT prophylaxis Code - Full per discussion with patient Dispo - Medicine (2) Pancreatic cancer: (3) Abnormal LFTs: (4) Hypothyroid: (5) Liver abscess: (6) History of Clostridioides difficile infection: (7) CKD (chronic kidney disease), stage III: Admission and Anticipated Discharge Date Admission Date: October 19, 2022 Supervising Physician Co-Signing Physician Notes Medical Student Supervision Note: I was personally present during medical student patient encounter and independently interviewed and examined the patient and verified the montoya history and physical, reviewed labs and image studies, discussed the case with Paty Pat and agree with the findings and care plan. Fever/Chills and elevated LFT Liver Abscess Pancreatic Ca with mets Diarrhea with h/o C diff --workup as listed above. continue IVF hydration. IV doxy for possible tick born illness. Western blot pending --GI consulted. Appreciate input. --continue home augmentin --Stool studies pending. Subjective No acute events overnight. Pt reports no episode of fever today. She did not abdominal pain, nausea or vomiting. She is still have diarrhea. Review of Systems Constitutional: Endorses fever and chills intermittently. Denied night sweats, fatigue, weakness, dizziness Respiratory: Denied cough or shortness of breath. Cardiovascular: Additional Comments: Denied chest pain, palpitations Gastrointestinal: Endorsed diarrhea. Denied nausea, vomiting, abdominal pain. Neurologic: Denied weaknesss, numbness, or tingling. Physical Exam Constitutional: Alert and oriented x3 in hopsital bed Neck: Respiratory: CTA, no increased work of breathing Cardiovascular: Normal rate and regular rhythmn. S1 S2 no r/m/g. Radial pulses equal b/l. Gastrointestinal (Abdomen): Nondistended, nontender, normoactive bowel sounds. Skin: Warm dry, no apparent rashed. Psychiatric: Appropriate mood and affect. Results & Data Results & Data Vital Signs (Past 12 Hours) Vital Signs Temp Pulse Pulse Resp BP BP Pulse Ox 10/20/22 10:48 36.9 C 64 18 101/59 L 99 10/20/22 09:34 37.4 C 61 18 101/52 L 94 10/20/22 07:05 55 L 10/20/22 05:30 50 L 16 101/57 L 99 10/20/22 03:57 57 L 10/20/22 03:00 59 L 15 95/56 L 93 10/20/22 02:40 59 L 15 95/53 L 94 O2 Del Method 10/20/22 10:48 Room Air 10/20/22 09:34 Room Air 10/20/22 07:05 10/20/22 05:30 Room Air 10/20/22 03:57 10/20/22 03:00 Room Air 10/20/22 02:40 Room Air Laboratory Results 10/20/22 10:55 10/20/22 10:55
--- NOTE | 2022-10-20 14:52 | Gastrointestinal Consultation ---
Date of Consultation October 20, 2022 Assessment & Plan (1) Abnormal LFTs: Her LFT's were abnormal on admit and that is a new finding at least for recent history. They have reduced by at least 50% over night. I think her LFT's bumped because of whatever illness was giving her her rigors. LFT's frequently bump with some other illness and resolve as that illness resolves. It is possible the liver abscess is contributing to her rigors if it is developing resistance but it has been stable for a while she says. Obviously with her history one would worry about biliary issues but her alk phos is the lowest it has been in a while so I don't think that is the issue. For now, I would just follow her LFT's. Once the infectious process plays out I think they will be back to normal. History of Present Illness Reason for Consultation: abnormal LFT's Attending Physician: Danelle Guadalupe MD History of Present Illness 71 year old female with a history of metastatic pancreatic cancer s/p [place] who came in with chills. She is unaware of the magnitude of her temperature. She was getting them intermittently and finally her brought her in. She has an active liver abscess that she has been dealing with for some time now. On admission her LFT's were elevated and they have been normal in the recent past. Today they are about 50% lower. She has had diarrhea but she typically gets that from her chemotherapy. She does not think she has been exposed to any GI infectious agents. She also doesn't think she has been exposed to any ticks. Her alkaline phosphatase is about 130 which is almost the best it has been in some time. Allergies Allergy/AdvReac Type Severity Reaction Status Date / Time metronidazole AdvReac Severe Cerebellar Verified 09/27/22 08:45 toxicity with hospitalization benzoin AdvReac Unknown CONTACT Verified 09/27/22 08:45 DERMATITIS Home Medications Medication Instructions Recorded Confirmed Type multivitamin 1 tab PO DAILY 12/27/18 10/19/22 History cholecalciferol (vitamin D3) 50 50 mcg PO DAILY 01/09/20 10/19/22 History mcg (2,000 unit) tablet pantoprazole 40 mg tablet,delayed 40 mg PO DAILY 01/09/20 10/19/22 History release ondansetron 8 mg disintegrating 8 mg PO Q8 PRN Nausea And Vomiting 02/04/21 10/19/22 History tablet Primadophilus 1 cap PO QAM 02/16/21 10/19/22 History [id number] See Rx Instructions .Route .COMPLEX 02/16/21 10/19/22 History 36,000-114,000-180,000 unit capsule,delay rel (Creon) ascorbate calcium (vitamin C) 500 1 g PO DAILY 02/18/21 10/19/22 History mg tablet hydrocodone-homatropine 5 mg-1.5 5 ml PO Q6H PRN cough #946 mL 11/04/21 10/19/22 Rx mg/5 mL oral syrup (Hycodan (with homatropine)) amoxicillin 875 mg-potassium 1 tab PO BID 06/17/22 10/19/22 History clavulanate 125 mg tablet gabapentin 300 mg capsule 300 mg PO TID PRN Pain 06/17/22 10/19/22 History latanoprost 0.005 % eye drops 1 drp OPB HS 06/17/22 10/19/22 History lidocaine-prilocaine 2.5 %-2.5 % 1 applic topical UD 06/17/22 10/19/22 History topical cream opium tincture 10 mg/mL (morphine) 0.3 ml PO QID PRN Cough 06/17/22 10/19/22 History oral oxycodone 10 mg tablet,crush 10 mg PO BID 06/17/22 10/19/22 History resistant,extended release 12 hr (OxyContin) sucralfate 1 gram tablet 1 g PO ACHS 06/17/22 10/19/22 History vancomycin 125 mg capsule 125 mg PO Q6H 06/17/22 10/19/22 History zinc acetate 50 mg (zinc) capsule 50 mg PO DAILY 06/17/22 10/19/22 History capecitabine 500 mg tablet 1,000 mg PO BID 10/19/22 10/19/22 History levothyroxine 50 mcg tablet 50 mcg PO DAILYBB 10/19/22 10/19/22 History Patient History Medical History CKD (chronic kidney disease), stage III History of Clostridioides difficile infection Hypothyroid Liver abscess Nausea & vomiting Pancreatic cancer Thrombocytopenia Surgical History H/O oral surgery History of ERCP 05/2019 History of liver biopsy History of pancreatic surgery History of thoracentesis Family History Mother Colon cancer Hyperlipidemia Hearing loss of aging Colorectal cancer Father Prostate cancer Hypertension Unknown Breast cancer Grandmother (Maternal) Diabetes Myocardial infarction Grandfather (Paternal) Stroke Other Allergies No family history of adverse response to anesthesia No family history of bleeding disorder Denies family history of Ovarian cancer Lung cancer Social History Smoking Status: Never smoker Second Hand Exposure: No; Do You Dip or Chew Tobacco: No; Hx Alcohol Use: No Hx Substance Use: No Preferred Language: Malaysian Communication Ability: Effective Visual Impairment: Limited Hearing Ability: Normal Receptionist Required: No Beliefs That Will Affect Care: None marital status: Current Living Situation: Spouse current occupational status: employed 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 How many Children do You have: 0 Feels Safe at Home: Yes Childhood Exposure to Second-Hand Smoke: No caffeine: No Dental Care, Regularly: Yes Physical Activity Frequency: 5-6 Times per Week Seatbelt Use: always Sunscreen Use: Yes Assistive Devices: None Review of Systems Review of Systems: All systems reviewed & are unremarkable except as noted in HPI & below Physical Exam Constitutional: WD/WN, vitals as above no acute distress Eyes: PERRL, conjunctivae normal, anicteric sclerae ENMT: external ear and nose normal, oropharynx normal Neck: trachea midline, no thyromegaly Respiratory: normal respiratory effort, lungs clear to auscultation port in left upper chest Cardiovascular: RRR, no murmur, no edema Gastrointestinal (Abdomen): normal bowel sounds, soft, nontender, no hepatosplenomegaly Musculoskeletal: Extremities: no cyanosis and no clubbing Skin: no rashes, warm and dry Neurologic: PERRL, EOMI, accommodation nl, no face palsy, no dysarthria Psychiatric: Orientation: alert and oriented x 3 Results & Data Vital Signs (Past 12 Hours) Vital Signs Temp Pulse Pulse Resp BP BP Pulse Ox 10/20/22 10:48 36.9 C 64 18 101/59 L 99 10/20/22 09:34 37.4 C 61 18 101/52 L 94 10/20/22 07:05 55 L 10/20/22 05:30 50 L 16 101/57 L 99 10/20/22 03:57 57 L 10/20/22 03:00 59 L 15 95/56 L 93 O2 Del Method 10/20/22 10:48 Room Air 10/20/22 09:34 Room Air 10/20/22 07:05 10/20/22 05:30 Room Air 10/20/22 03:57 10/20/22 03:00 Room Air Laboratory Results 10/20/22 10/20/22 10/20/22 Range/Units 10:55 10:55 06:19 WBC 10.01 (4.8-10.8) K/ul RBC 2.48 L (4.20-5.40) M/uL Hgb 8.4 L (12.0-16.0) g/dl Hct 24.0 L (37.0-47.0) % MCV 96.8 (80.0-100.0) fL MCH 33.9 (25.0-34.0) pg MCHC 35.0 (32.0-36.0) g/dL RDW Std Deviation 59.6 H (36.4-46.3) fL RDW Coeff of Lakhwinder 16.9 H (11.5-14.5) % Plt Count 72 L (130-400) K/uL MPV 11.4 (9.4-12.4) fL Immature Gran % (Auto) 7.3 % Neut % (Auto) 77.3 % Lymph % (Auto) 10.9 % Sebastian % (Auto) 3.4 % Eos % (Auto) 0.9 % Baso % (Auto) 0.2 % Neut # (Auto) 7.74 H (1.40-6.50) K/uL Lymph # (Auto) 1.09 L (1.2-3.4) K/uL Sebastian # (Auto) 0.34 (0.11-0.59) K/uL Eos # (Auto) 0.09 (0-0.50) K/uL Baso # (Auto) 0.02 (0-0.2) K/uL Immature Gran # (Auto) 0.73 H (0.01-0.20) K/uL Platelet Estimate (Normal) Polychromasia 1+ Poikilocytosis Present Acanthocytes (Spur) PT (9.0-12.0) Seconds INR (0.9-1.1) VBG pH (7.36-7.41) VBG pCO2 (38-50) mmHg VBG pO2 mmHg VBG HCO3 mmol/L VBG O2 Saturation % VBG Base Excess mEq/L Sodium 140 (136-145) mmol/L Potassium 3.7 (3.5-5.1) mmol/L Chloride 113 H (98-107) mmol/L Carbon Dioxide 22 (21-32) mmol/L Anion Gap 5 (3-11) BUN 10 (6-23) mg/dl Creatinine 0.73 (0.6-1.2) mg/dl Est Cr Clr Drug Dosing 53.2 ml/min Est GFR ( Amer) 97.4 ml/min Est GFR (Non-Af Amer) 84.0 ml/min BUN/Creatinine Ratio 13.7 (10-20) Glucose 126 H (70-99(Fasting)) mg/dl Lactate (0.4-2.0) mmol/L Calcium 7.4 L (8.6-10.3) mg/dl Phosphorus 3.8 D (2.5-4.9) mg/dl Magnesium 2.0 (1.7-2.4) mg/dl Total Bilirubin 0.5 (0.2-1.0) mg/dl Direct Bilirubin 0.1 (0-0.2) mg/dl AST 94 H (13-39) U/L ALT 138 H (7-52) U/L Alkaline Phosphatase 133 H (34-104) U/L Troponin I High Sens 12.8 D (0-14) pg/ml Total Protein 4.6 L D (6.0-8.3) gm/dl Albumin 2.6 L (3.4-5.0) gm/dl Lipase (11-82) U/L Procalcitonin (0-0.5) ng/ml Urine Color Urine Appearance (Clear) Urine pH (4.5-7.5) Ur Specific [place] (1.000-1.030) Urine Protein (Negative) Urine Glucose (UA) (Negative) Urine Ketones (Negative) Urine Blood (Negative) Urine Nitrite (Negative) Urine Bilirubin (Negative) Urine Urobilinogen (Negative) Ur Leukocyte Esterase (Negative) Acetaminophen (10-30) ug/ml Adenovirus (PCR) (NotDetected) Anaplasma Smear A. phagocytophilum DNA Babesia Smear Babesia microti DNA PCR B. pertussis DNA (PCR) (NotDetected) B.parapertussis DNA PCR (NotDetected) Lyme Disease IgG Ab (Negative) Lyme IgG (Western Blot) Lyme IgG 18 kDa Band Lyme IgG 23 kDa Band Lyme IgG 28 kDa Band Lyme IgG 30 kDa Band Lyme IgG 39 kDa Band Lyme IgG 41 kDa Band Lyme IgG 45 kDa Band Lyme IgG 58 kDa Band Lyme IgG 66 kDa Band Lyme IgG 93 kDa Band Lyme IgM Ab (WB) Lyme Disease IgM Ab (Negative) Lyme IgM 23 kDa Band Lyme IgM 39 kDa Band Lyme IgM 41 kDa Band C. pneumoniae DNA (PCR) (NotDetected) Coronavirus OC43 (PCR) (NotDetected) Coronavirus HKU1 (PCR) (NotDetected) Coronavirus 229E (PCR) (NotDetected) SARS-CoV-2 (PCR) (NotDetected) Coronavirus NL63 (PCR) (NotDetected) Hepatitis A IgM Ab Hep Bs Antigen Hep Bs Ag Confirmation Hep B Core IgM Ab Hepatitis C Ab (EIA) Human Metapneumovir PCR (NotDetected) Influenza Type A (PCR) (NotDetected) Influenza Type B (PCR) (NotDetected) M. pneumoniae (PCR) (NotDetected) Parainfluenza 1 (PCR) (NotDetected) Parainfluenza 2 (PCR) (NotDetected) Parainfluenza 3 (PCR) (NotDetected) Parainfluenza 4 (PCR) (NotDetected) RSV (PCR) (NotDetected) Entero/Rhino (PCR) (NotDetected) 10/20/22 10/20/22 10/19/22 Range/Units 06:19 06:19 23:45 WBC (4.8-10.8) K/ul RBC (4.20-5.40) M/uL Hgb (12.0-16.0) g/dl Hct (37.0-47.0) % MCV (80.0-100.0) fL MCH (25.0-34.0) pg MCHC (32.0-36.0) g/dL RDW Std Deviation (36.4-46.3) fL RDW Coeff of Lakhwinder (11.5-14.5) % Plt Count (130-400) K/uL MPV (9.4-12.4) fL Immature Gran % (Auto) % Neut % (Auto) % Lymph % (Auto) % Sebastian % (Auto) % Eos % (Auto) % Baso % (Auto) % Neut # (Auto) (1.40-6.50) K/uL Lymph # (Auto) (1.2-3.4) K/uL Sebastian # (Auto) (0.11-0.59) K/uL Eos # (Auto) (0-0.50) K/uL Baso # (Auto) (0-0.2) K/uL Immature Gran # (Auto) (0.01-0.20) K/uL Platelet Estimate (Normal) Polychromasia Poikilocytosis Acanthocytes (Spur) PT (9.0-12.0) Seconds INR (0.9-1.1) VBG pH (7.36-7.41) VBG pCO2 (38-50) mmHg VBG pO2 mmHg VBG HCO3 mmol/L VBG O2 Saturation % VBG Base Excess mEq/L Sodium (136-145) mmol/L Potassium (3.5-5.1) mmol/L Chloride (98-107) mmol/L Carbon Dioxide (21-32) mmol/L Anion Gap (3-11) BUN (6-23) mg/dl Creatinine (0.6-1.2) mg/dl Est Cr Clr Drug Dosing ml/min Est GFR ( Amer) ml/min Est GFR (Non-Af Amer) ml/min BUN/Creatinine Ratio (10-20) Glucose (70-99(Fasting)) mg/dl Lactate (0.4-2.0) mmol/L Calcium (8.6-10.3) mg/dl Phosphorus (2.5-4.9) mg/dl Magnesium (1.7-2.4) mg/dl Total Bilirubin (0.2-1.0) mg/dl Direct Bilirubin (0-0.2) mg/dl AST (13-39) U/L ALT (7-52) U/L Alkaline Phosphatase (34-104) U/L Troponin I High Sens (0-14) pg/ml Total Protein (6.0-8.3) gm/dl Albumin (3.4-5.0) gm/dl Lipase (11-82) U/L Procalcitonin (0-0.5) ng/ml Urine Color Urine Appearance (Clear) Urine pH (4.5-7.5) Ur Specific [place] (1.000-1.030) Urine Protein (Negative) Urine Glucose (UA) (Negative) Urine Ketones (Negative) Urine Blood (Negative) Urine Nitrite (Negative) Urine Bilirubin (Negative) Urine Urobilinogen (Negative) Ur Leukocyte Esterase (Negative) Acetaminophen 3 L (10-30) ug/ml Adenovirus (PCR) (NotDetected) Anaplasma Smear A. phagocytophilum DNA Babesia Smear Babesia microti DNA PCR Pending B. pertussis DNA (PCR) (NotDetected) B.parapertussis DNA PCR (NotDetected) Lyme Disease IgG Ab (Negative) Lyme IgG (Western Blot) Lyme IgG 18 kDa Band Lyme IgG 23 kDa Band Lyme IgG 28 kDa Band Lyme IgG 30 kDa Band Lyme IgG 39 kDa Band Lyme IgG 41 kDa Band Lyme IgG 45 kDa Band Lyme IgG 58 kDa Band Lyme IgG 66 kDa Band Lyme IgG 93 kDa Band Lyme IgM Ab (WB) Lyme Disease IgM Ab (Negative) Lyme IgM 23 kDa Band Lyme IgM 39 kDa Band Lyme IgM 41 kDa Band C. pneumoniae DNA (PCR) (NotDetected) Coronavirus OC43 (PCR) (NotDetected) Coronavirus HKU1 (PCR) (NotDetected) Coronavirus 229E (PCR) (NotDetected) SARS-CoV-2 (PCR) (NotDetected) Coronavirus NL63 (PCR) (NotDetected) Hepatitis A IgM Ab Pending Hep Bs Antigen Pending Hep Bs Ag Confirmation Pending Hep B Core IgM Ab Pending Hepatitis C Ab (EIA) Pending Human Metapneumovir PCR (NotDetected) Influenza Type A (PCR) (NotDetected) Influenza Type B (PCR) (NotDetected) M. pneumoniae (PCR) (NotDetected) Parainfluenza 1 (PCR) (NotDetected) Parainfluenza 2 (PCR) (NotDetected) Parainfluenza 3 (PCR) (NotDetected) Parainfluenza 4 (PCR) (NotDetected) RSV (PCR) (NotDetected) Entero/Rhino (PCR) (NotDetected) 10/19/22 10/19/22 10/19/22 Range/Units 23:45 23:30 23:01 WBC (4.8-10.8) K/ul RBC (4.20-5.40) M/uL Hgb (12.0-16.0) g/dl Hct (37.0-47.0) % MCV (80.0-100.0) fL MCH (25.0-34.0) pg MCHC (32.0-36.0) g/dL RDW Std Deviation (36.4-46.3) fL RDW Coeff of Lakhwinder (11.5-14.5) % Plt Count (130-400) K/uL MPV (9.4-12.4) fL Immature Gran % (Auto) % Neut % (Auto) % Lymph % (Auto) % Sebastian % (Auto) % Eos % (Auto) % Baso % (Auto) % Neut # (Auto) (1.40-6.50) K/uL Lymph # (Auto) (1.2-3.4) K/uL Sebastian # (Auto) (0.11-0.59) K/uL Eos # (Auto) (0-0.50) K/uL Baso # (Auto) (0-0.2) K/uL Immature Gran # (Auto) (0.01-0.20) K/uL Platelet Estimate (Normal) Polychromasia Poikilocytosis Acanthocytes (Spur) PT (9.0-12.0) Seconds INR (0.9-1.1) VBG pH (7.36-7.41) VBG pCO2 (38-50) mmHg VBG pO2 mmHg VBG HCO3 mmol/L VBG O2 Saturation % VBG Base Excess mEq/L Sodium (136-145) mmol/L Potassium (3.5-5.1) mmol/L Chloride (98-107) mmol/L Carbon Dioxide (21-32) mmol/L Anion Gap (3-11) BUN (6-23) mg/dl Creatinine (0.6-1.2) mg/dl Est Cr Clr Drug Dosing ml/min Est GFR ( Amer) ml/min Est GFR (Non-Af Amer) ml/min BUN/Creatinine Ratio (10-20) Glucose (70-99(Fasting)) mg/dl Lactate 3.2 H* (0.4-2.0) mmol/L Calcium (8.6-10.3) mg/dl Phosphorus (2.5-4.9) mg/dl Magnesium (1.7-2.4) mg/dl Total Bilirubin (0.2-1.0) mg/dl Direct Bilirubin (0-0.2) mg/dl AST (13-39) U/L ALT (7-52) U/L Alkaline Phosphatase (34-104) U/L Troponin I High Sens (0-14) pg/ml Total Protein (6.0-8.3) gm/dl Albumin (3.4-5.0) gm/dl Lipase (11-82) U/L Procalcitonin (0-0.5) ng/ml Urine Color Yellow Urine Appearance Clear (Clear) Urine pH 5.0 (4.5-7.5) Ur Specific [place] 1.021 (1.000-1.030) Urine Protein Negative (Negative) Urine Glucose (UA) Trace H (Negative) Urine Ketones Negative (Negative) Urine Blood Negative (Negative) Urine Nitrite Negative (Negative) Urine Bilirubin Negative (Negative) Urine Urobilinogen Negative (Negative) Ur Leukocyte Esterase Negative (Negative) Acetaminophen (10-30) ug/ml Adenovirus (PCR) (NotDetected) Anaplasma Smear A. phagocytophilum DNA Pending Babesia Smear Babesia microti DNA PCR B. pertussis DNA (PCR) (NotDetected) B.parapertussis DNA PCR (NotDetected) Lyme Disease IgG Ab (Negative) Lyme IgG (Western Blot) Lyme IgG 18 kDa Band Lyme IgG 23 kDa Band Lyme IgG 28 kDa Band Lyme IgG 30 kDa Band Lyme IgG 39 kDa Band Lyme IgG 41 kDa Band Lyme IgG 45 kDa Band Lyme IgG 58 kDa Band Lyme IgG 66 kDa Band Lyme IgG 93 kDa Band Lyme IgM Ab (WB) Lyme Disease IgM Ab (Negative) Lyme IgM 23 kDa Band Lyme IgM 39 kDa Band Lyme IgM 41 kDa Band C. pneumoniae DNA (PCR) (NotDetected) Coronavirus OC43 (PCR) (NotDetected) Coronavirus HKU1 (PCR) (NotDetected) Coronavirus 229E (PCR) (NotDetected) SARS-CoV-2 (PCR) (NotDetected) Coronavirus NL63 (PCR) (NotDetected) Hepatitis A IgM Ab Hep Bs Antigen Hep Bs Ag Confirmation Hep B Core IgM Ab Hepatitis C Ab (EIA) Human Metapneumovir PCR (NotDetected) Influenza Type A (PCR) (NotDetected) Influenza Type B (PCR) (NotDetected) M. pneumoniae (PCR) (NotDetected) Parainfluenza 1 (PCR) (NotDetected) Parainfluenza 2 (PCR) (NotDetected) Parainfluenza 3 (PCR) (NotDetected) Parainfluenza 4 (PCR) (NotDetected) RSV (PCR) (NotDetected) Entero/Rhino (PCR) (NotDetected) 10/19/22 10/19/22 10/19/22 Range/Units 21:00 20:23 20:00 WBC (4.8-10.8) K/ul RBC (4.20-5.40) M/uL Hgb (12.0-16.0) g/dl Hct (37.0-47.0) % MCV (80.0-100.0) fL MCH (25.0-34.0) pg MCHC (32.0-36.0) g/dL RDW Std Deviation (36.4-46.3) fL RDW Coeff of Lakhwinder (11.5-14.5) % Plt Count (130-400) K/uL MPV (9.4-12.4) fL Immature Gran % (Auto) % Neut % (Auto) % Lymph % (Auto) % Sebastian % (Auto) % Eos % (Auto) % Baso % (Auto) % Neut # (Auto) (1.40-6.50) K/uL Lymph # (Auto) (1.2-3.4) K/uL Sebastian # (Auto) (0.11-0.59) K/uL Eos # (Auto) (0-0.50) K/uL Baso # (Auto) (0-0.2) K/uL Immature Gran # (Auto) (0.01-0.20) K/uL Platelet Estimate (Normal) Polychromasia Poikilocytosis Acanthocytes (Spur) PT (9.0-12.0) Seconds INR (0.9-1.1) VBG pH 7.42 H (7.36-7.41) VBG pCO2 29 L (38-50) mmHg VBG pO2 56 mmHg VBG HCO3 19 mmol/L VBG O2 Saturation 86.3 % VBG Base Excess -4.9 mEq/L Sodium (136-145) mmol/L Potassium (3.5-5.1) mmol/L Chloride (98-107) mmol/L Carbon Dioxide (21-32) mmol/L Anion Gap (3-11) BUN (6-23) mg/dl Creatinine (0.6-1.2) mg/dl Est Cr Clr Drug Dosing ml/min Est GFR ( Amer) ml/min Est GFR (Non-Af Amer) ml/min BUN/Creatinine Ratio (10-20) Glucose (70-99(Fasting)) mg/dl Lactate (0.4-2.0) mmol/L Calcium (8.6-10.3) mg/dl Phosphorus (2.5-4.9) mg/dl Magnesium (1.7-2.4) mg/dl Total Bilirubin (0.2-1.0) mg/dl Direct Bilirubin (0-0.2) mg/dl AST (13-39) U/L ALT (7-52) U/L Alkaline Phosphatase (34-104) U/L Troponin I High Sens (0-14) pg/ml Total Protein (6.0-8.3) gm/dl Albumin (3.4-5.0) gm/dl Lipase (11-82) U/L Procalcitonin (0-0.5) ng/ml Urine Color Urine Appearance (Clear) Urine pH (4.5-7.5) Ur Specific [place] (1.000-1.030) Urine Protein (Negative) Urine Glucose (UA) (Negative) Urine Ketones (Negative) Urine Blood (Negative) Urine Nitrite (Negative) Urine Bilirubin (Negative) Urine Urobilinogen (Negative) Ur Leukocyte Esterase (Negative) Acetaminophen (10-30) ug/ml Adenovirus (PCR) Not Detected (NotDetected) Anaplasma Smear A. phagocytophilum DNA Babesia Smear Babesia microti DNA PCR B. pertussis DNA (PCR) Not Detected (NotDetected) B.parapertussis DNA PCR Not Detected (NotDetected) Lyme Disease IgG Ab (Negative) Lyme IgG (Western Blot) Pending Lyme IgG 18 kDa Band Pending Lyme IgG 23 kDa Band Pending Lyme IgG 28 kDa Band Pending Lyme IgG 30 kDa Band Pending Lyme IgG 39 kDa Band Pending Lyme IgG 41 kDa Band Pending Lyme IgG 45 kDa Band Pending Lyme IgG 58 kDa Band Pending Lyme IgG 66 kDa Band Pending Lyme IgG 93 kDa Band Pending Lyme IgM Ab (WB) Pending Lyme Disease IgM Ab (Negative) Lyme IgM 23 kDa Band Pending Lyme IgM 39 kDa Band Pending Lyme IgM 41 kDa Band Pending C. pneumoniae DNA (PCR) Not Detected (NotDetected) Coronavirus OC43 (PCR) Not Detected (NotDetected) Coronavirus HKU1 (PCR) Not Detected (NotDetected) Coronavirus 229E (PCR) Not Detected (NotDetected) SARS-CoV-2 (PCR) Not Detected (NotDetected) Coronavirus NL63 (PCR) Not Detected (NotDetected) Hepatitis A IgM Ab Hep Bs Antigen Hep Bs Ag Confirmation Hep B Core IgM Ab Hepatitis C Ab (EIA) Human Metapneumovir PCR Not Detected (NotDetected) Influenza Type A (PCR) Not Detected (NotDetected) Influenza Type B (PCR) Not Detected (NotDetected) M. pneumoniae (PCR) Not Detected (NotDetected) Parainfluenza 1 (PCR) Not Detected (NotDetected) Parainfluenza 2 (PCR) Not Detected (NotDetected) Parainfluenza 3 (PCR) Not Detected (NotDetected) Parainfluenza 4 (PCR) Not Detected (NotDetected) RSV (PCR) Not Detected (NotDetected) Entero/Rhino (PCR) Not Detected (NotDetected) 10/19/22 10/19/22 10/19/22 Range/Units 20:00 20:00 20:00 WBC (4.8-10.8) K/ul RBC (4.20-5.40) M/uL Hgb (12.0-16.0) g/dl Hct (37.0-47.0) % MCV (80.0-100.0) fL MCH (25.0-34.0) pg MCHC (32.0-36.0) g/dL RDW Std Deviation (36.4-46.3) fL RDW Coeff of Lakhwinder (11.5-14.5) % Plt Count (130-400) K/uL MPV (9.4-12.4) fL Immature Gran % (Auto) % Neut % (Auto) % Lymph % (Auto) % Sebastian % (Auto) % Eos % (Auto) % Baso % (Auto) % Neut # (Auto) (1.40-6.50) K/uL Lymph # (Auto) (1.2-3.4) K/uL Sebastian # (Auto) (0.11-0.59) K/uL Eos # (Auto) (0-0.50) K/uL Baso # (Auto) (0-0.2) K/uL Immature Gran # (Auto) (0.01-0.20) K/uL Platelet Estimate (Normal) Polychromasia Poikilocytosis Acanthocytes (Spur) PT (9.0-12.0) Seconds INR (0.9-1.1) VBG pH (7.36-7.41) VBG pCO2 (38-50) mmHg VBG pO2 mmHg VBG HCO3 mmol/L VBG O2 Saturation % VBG Base Excess mEq/L Sodium (136-145) mmol/L Potassium (3.5-5.1) mmol/L Chloride (98-107) mmol/L Carbon Dioxide (21-32) mmol/L Anion Gap (3-11) BUN (6-23) mg/dl Creatinine (0.6-1.2) mg/dl Est Cr Clr Drug Dosing ml/min Est GFR ( Amer) ml/min Est GFR (Non-Af Amer) ml/min BUN/Creatinine Ratio (10-20) Glucose (70-99(Fasting)) mg/dl Lactate 4.9 H* (0.4-2.0) mmol/L Calcium (8.6-10.3) mg/dl Phosphorus (2.5-4.9) mg/dl Magnesium (1.7-2.4) mg/dl Total Bilirubin (0.2-1.0) mg/dl Direct Bilirubin (0-0.2) mg/dl AST (13-39) U/L ALT (7-52) U/L Alkaline Phosphatase (34-104) U/L Troponin I High Sens (0-14) pg/ml Total Protein (6.0-8.3) gm/dl Albumin (3.4-5.0) gm/dl Lipase (11-82) U/L Procalcitonin 28.68 H (0-0.5) ng/ml Urine Color Urine Appearance (Clear) Urine pH (4.5-7.5) Ur Specific [place] (1.000-1.030) Urine Protein (Negative) Urine Glucose (UA) (Negative) Urine Ketones (Negative) Urine Blood (Negative) Urine Nitrite (Negative) Urine Bilirubin (Negative) Urine Urobilinogen (Negative) Ur Leukocyte Esterase (Negative) Acetaminophen (10-30) ug/ml Adenovirus (PCR) (NotDetected) Anaplasma Smear A. phagocytophilum DNA Babesia Smear Babesia microti DNA PCR B. pertussis DNA (PCR) (NotDetected) B.parapertussis DNA PCR (NotDetected) Lyme Disease IgG Ab Negative (Negative) Lyme IgG (Western Blot) Lyme IgG 18 kDa Band Lyme IgG 23 kDa Band Lyme IgG 28 kDa Band Lyme IgG 30 kDa Band Lyme IgG 39 kDa Band Lyme IgG 41 kDa Band Lyme IgG 45 kDa Band Lyme IgG 58 kDa Band Lyme IgG 66 kDa Band Lyme IgG 93 kDa Band Lyme IgM Ab (WB) Lyme Disease IgM Ab Positive A (Negative) Lyme IgM 23 kDa Band Lyme IgM 39 kDa Band Lyme IgM 41 kDa Band C. pneumoniae DNA (PCR) (NotDetected) Coronavirus OC43 (PCR) (NotDetected) Coronavirus HKU1 (PCR) (NotDetected) Coronavirus 229E (PCR) (NotDetected) SARS-CoV-2 (PCR) (NotDetected) Coronavirus NL63 (PCR) (NotDetected) Hepatitis A IgM Ab Hep Bs Antigen Hep Bs Ag Confirmation Hep B Core IgM Ab Hepatitis C Ab (EIA) Human Metapneumovir PCR (NotDetected) Influenza Type A (PCR) (NotDetected) Influenza Type B (PCR) (NotDetected) M. pneumoniae (PCR) (NotDetected) Parainfluenza 1 (PCR) (NotDetected) Parainfluenza 2 (PCR) (NotDetected) Parainfluenza 3 (PCR) (NotDetected) Parainfluenza 4 (PCR) (NotDetected) RSV (PCR) (NotDetected) Entero/Rhino (PCR) (NotDetected) 10/19/22 10/19/22 10/19/22 Range/Units 20:00 20:00 20:00 WBC 2.89 L (4.8-10.8) K/ul RBC 3.03 L (4.20-5.40) M/uL Hgb 10.3 L (12.0-16.0) g/dl Hct 29.5 L (37.0-47.0) % MCV 97.4 (80.0-100.0) fL MCH 34.0 (25.0-34.0) pg MCHC 34.9 (32.0-36.0) g/dL RDW Std Deviation 59.2 H (36.4-46.3) fL RDW Coeff of Lakhwinder 16.7 H (11.5-14.5) % Plt Count 83 L (130-400) K/uL MPV 10.3 (9.4-12.4) fL Immature Gran % (Auto) 0.3 % Neut % (Auto) 94.6 % Lymph % (Auto) 4.5 % Sebastian % (Auto) 0.3 % Eos % (Auto) 0.0 % Baso % (Auto) 0.3 % Neut # (Auto) 2.73 (1.40-6.50) K/uL Lymph # (Auto) 0.13 L (1.2-3.4) K/uL Sebastian # (Auto) 0.01 L (0.11-0.59) K/uL Eos # (Auto) 0.00 (0-0.50) K/uL Baso # (Auto) 0.01 (0-0.2) K/uL Immature Gran # (Auto) 0.01 (0.01-0.20) K/uL Platelet Estimate Decreased L (Normal) Polychromasia 1+ Poikilocytosis Acanthocytes (Spur) 1+ PT 12.4 H (9.0-12.0) Seconds INR 1.1 (0.9-1.1) VBG pH (7.36-7.41) VBG pCO2 (38-50) mmHg VBG pO2 mmHg VBG HCO3 mmol/L VBG O2 Saturation % VBG Base Excess mEq/L Sodium 137 (136-145) mmol/L Potassium 3.2 L (3.5-5.1) mmol/L Chloride 107 (98-107) mmol/L Carbon Dioxide 19 L (21-32) mmol/L Anion Gap 11 (3-11) BUN 15 (6-23) mg/dl Creatinine 0.96 (0.6-1.2) mg/dl Est Cr Clr Drug Dosing 40.4 ml/min Est GFR ( Amer) 69.9 ml/min Est GFR (Non-Af Amer) 60.3 ml/min BUN/Creatinine Ratio 15.6 (10-20) Glucose 175 H (70-99(Fasting)) mg/dl Lactate (0.4-2.0) mmol/L Calcium 8.9 (8.6-10.3) mg/dl Phosphorus 2.2 L (2.5-4.9) mg/dl Magnesium 1.5 L (1.7-2.4) mg/dl Total Bilirubin 0.8 (0.2-1.0) mg/dl Direct Bilirubin 0.4 H (0-0.2) mg/dl AST 271 H (13-39) U/L ALT 239 H (7-52) U/L Alkaline Phosphatase 215 H (34-104) U/L Troponin I High Sens 17.8 H (0-14) pg/ml Total Protein 6.2 (6.0-8.3) gm/dl Albumin 3.7 (3.4-5.0) gm/dl Lipase 5 L (11-82) U/L Procalcitonin (0-0.5) ng/ml Urine Color Urine Appearance (Clear) Urine pH (4.5-7.5) Ur Specific [place] (1.000-1.030) Urine Protein (Negative) Urine Glucose (UA) (Negative) Urine Ketones (Negative) Urine Blood (Negative) Urine Nitrite (Negative) Urine Bilirubin (Negative) Urine Urobilinogen (Negative) Ur Leukocyte Esterase (Negative) Acetaminophen (10-30) ug/ml Adenovirus (PCR) (NotDetected) Anaplasma Smear See Comment A. phagocytophilum DNA Babesia Smear See Comment Babesia microti DNA PCR B. pertussis DNA (PCR) (NotDetected) B.parapertussis DNA PCR (NotDetected) Lyme Disease IgG Ab (Negative) Lyme IgG (Western Blot) Lyme IgG 18 kDa Band Lyme IgG 23 kDa Band Lyme IgG 28 kDa Band Lyme IgG 30 kDa Band Lyme IgG 39 kDa Band Lyme IgG 41 kDa Band Lyme IgG 45 kDa Band Lyme IgG 58 kDa Band Lyme IgG 66 kDa Band Lyme IgG 93 kDa Band Lyme IgM Ab (WB) Lyme Disease IgM Ab (Negative) Lyme IgM 23 kDa Band Lyme IgM 39 kDa Band Lyme IgM 41 kDa Band C. pneumoniae DNA (PCR) (NotDetected) Coronavirus OC43 (PCR) (NotDetected) Coronavirus HKU1 (PCR) (NotDetected) Coronavirus 229E (PCR) (NotDetected) SARS-CoV-2 (PCR) (NotDetected) Coronavirus NL63 (PCR) (NotDetected) Hepatitis A IgM Ab Hep Bs Antigen Hep Bs Ag Confirmation Hep B Core IgM Ab Hepatitis C Ab (EIA) Human Metapneumovir PCR (NotDetected) Influenza Type A (PCR) (NotDetected) Influenza Type B (PCR) (NotDetected) M. pneumoniae (PCR) (NotDetected) Parainfluenza 1 (PCR) (NotDetected) Parainfluenza 2 (PCR) (NotDetected) Parainfluenza 3 (PCR) (NotDetected) Parainfluenza 4 (PCR) (NotDetected) RSV (PCR) (NotDetected) Entero/Rhino (PCR) (NotDetected) Diagnostic Findings Chest X-Ray 10/19/22 20:04 SINGLE VIEW CHEST CLINICAL HISTORY: Sepsis. FINDINGS: An AP, portable, upright chest radiograph is compared to study dated 06/17/2022 and correlated with chest CT dated 09/08/2020. A left internal jugular central venous infusion port is unchanged in position. The cardiomediastinal silhouette is unremarkable noting atherosclerotic calcification of the thoracic aorta. Chronic interstitial thickening similar to previous. There is bibasilar scarring/atelectasis. No airspace consolidation or large pleural effusion is identified. No pneumothorax is seen. The skeletal structures are osteopenic. The bony thorax is grossly intact. Cholecystectomy clips are noted in the right up per quadrant. IMPRESSION: No active disease in the chest. ACT 112: Negative or not required by law. Electronically signed by: Bunny Gramajo M.D. 10/20/2022 7:17 AM Abdomen/Pelvis CT 10/19/22 20:33 Exam(s): CT ABDOMEN + PELVIS With Contrast IV Amt: 119 ml optiray 3220 EXAM: CT Abdomen and Pelvis With Intravenous Contrast CLINICAL HISTORY: Reason for exam: fever, metastatic panc CA, h/o liver abscess. TECHNIQUE: Axial computed tomography images of the abdomen and pelvis with intravenous contrast. CTDI is 6.14 mGy and DLP is 268.68 mGy-cm. Automated exposure control was utilized for the study. A dose lowering technique was utilized adhering to the principles of ALARA. CONTRAST: Patient received 119 ml optiray 3220 of IV contrast COMPARISON: No relevant prior studies available. FINDINGS: Lung bases: Atelectasis at the lung bases. ABDOMEN: Liver: Low-attenuation lesion in the superior RIGHT hepatic lobe segment 7 measures 5.1 x 4.2 cm, concerning for a pancreatic metastasis. Gallbladder and bile ducts: See below. Pancreas: Whipple procedure with partial gastrectomy, cholecystectomy, and moderate intrahepatic biliary ductal dilation. Spleen: Unremarkable. No splenomegaly. Adrenals: Unremarkable. No mass. Kidneys and ureters: Unremarkable. No solid mass. No hydronephrosis. Stomach and bowel: Fluid-filled small bowel which is mildly distended, correlate for enteritis/ileus. Mild liquid stool in the colon, correlate for diarrheal disease. PELVIS: Appendix: No findings to suggest acute appendicitis. Bladder: Distended urinary bladder. Reproductive: Atrophied uterus. ABDOMEN and PELVIS: Intraperitoneal space: Unremarkable. No free air. No significant fluid collection. Bones/joints: Osseous metastasis including the lumbar spine and pelvis. Metastatic lesion involves RIGHT femoral neck, which increases susceptibility to pathologic fracture. Degenerative changes of the spine. No dislocation. Soft tissues: Unremarkable. Vasculature: Atherosclerotic changes of the aorta. No abdominal aortic aneurysm. Lymph nodes: Unremarkable. No enlarged lymph nodes. IMPRESSION: 1. Low-attenuation lesion in the superior RIGHT hepatic lobe segment 7 measures 5.1 x 4.2 cm, concerning for a pancreatic metastasis. 2. Osseous metastasis including the lumbar spine and pelvis. Metastatic lesion involves RIGHT femoral neck, which increases susceptibility to pathologic fracture. 3. Whipple procedure with partial gastrectomy, cholecystectomy, and moderate intrahepatic biliary ductal dilation. 4. Fluid-filled small bowel which is mildly distended, correlate for enteritis/ileus. Mild liquid stool in the colon, correlate for diarrheal disease. Electronically signed by: Benjie Lopez MD 10/19/22 22:22 PM Chest CTA 10/19/22 20:33 Exam(s): CTA CHEST IV Amt: 119 ml optiray 320 EXAM: CT Angiography Chest With Intravenous Contrast CLINICAL HISTORY: Reason for exam: fever, metastatic panc CA, r/o PE. TECHNIQUE: Axial computed tomographic angiography images of the chest with intravenous contrast. CTDI is 12.64 mGy and DLP is 405.15 mGy-cm. Automated exposure control was utilized for the study. A dose lowering technique was utilized adhering to the principles of ALARA. MIP reconstructed images were created and reviewed. COMPARISON: No relevant prior studies available. FINDINGS: Pulmonary arteries: Unremarkable. No pulmonary embolism. Aorta: Atherosclerotic changes of the aorta. No thoracic aortic aneurysm. Lungs: LEFT upper lobe subpleural nodule versus implant, anteriorly measures 1.0 x 0.8 cm. Consider evaluation with PET/CT scan given that the patient has known metastatic pancreatic carcinoma. Scarring/atelectasis in the lingula. Pleural space: Unremarkable. No pleural effusion or pneumothorax. Heart: Cardiomegaly. No significant pericardial effusion. No evidence of RV dysfunction. Bones/joints: Osseous metastases within the thoracic spine. Degenerative changes of the spine. No acute fracture. No dislocation. Soft tissues: Unremarkable. Lymph nodes: Unremarkable. No enlarged lymph nodes. Tubes, lines and devices: LEFT Port-A-Cath terminates in the SVC. IMPRESSION: 1. No pleural effusion or pneumothorax. 2. LEFT upper lobe subpleural nodule versus implant, anteriorly measures 1.0 x 0.8 cm. Consider evaluation with PET/CT scan given that the patient has known metastatic pancreatic carcinoma. 3. Osseous metastases within the thoracic spine. Electronically signed by: Benjie Lopez MD 10/19/22 22:08 PM
[2022-10-20] MEDS ORDERED: ACETAMINOPHEN 500 MG TAB PO PRN (17:44)
[2022-10-20 18:09] LABS: A calco-baum cmplx NotReported Not Detected (NotDetected); Bact fragilis Not Reported Not Detected (NotDetected); C auris Not Reported Not Detected (NotDetected); CTX-M Resistant Gene Not Detected (NotDetected); Calbicans Not Reported Not Detected (NotDetected); Candida glabrata Not Reported Not Detected (NotDetected); Candida krusei Not Reported Not Detected (NotDetected); Cneoformans/gatti Not Reported Not Detected (NotDetected); Cparapsilosis Not Reported Not Detected (NotDetected); Ctropicalis Not Reported Not Detected (NotDetected); E cloacae compx Not Reported Not Detected (NotDetected); Efaecalis Not Reported Not Detected (NotDetected); Efaecium Not Reported Not Detected (NotDetected); Enterobacterales Not Reported DETECTED (NotDetected); Escherichia coli Not Reported DETECTED (NotDetected); H influenzae Not Reported Not Detected (NotDetected); IMP Resistant Gene Not Detected (NotDetected); K aerogenes Not Reported Not Detected (NotDetected); KPC Resistant Gene Not Detected (NotDetected); Koxytoca Not Reported Not Detected (NotDetected); Kpneumoniae grp Not Reported Not Detected (NotDetected); Lmonocyt Not Reported Not Detected (NotDetected); N meningitidis Not Reported Not Detected (NotDetected); NDM Resistant Gene Not Detected (NotDetected); OXA 48 Like Resistant Gene Not Detected (NotDetected); P aeruginosa Not Reported Not Detected (NotDetected); Proteus spp Not Reported Not Detected (NotDetected); Salmonella spp Not Reported Not Detected (NotDetected); Smarcescens Not Reported Not Detected (NotDetected); Staph lugdunensis Not Reported Not Detected (NotDetected); Staph spp. Not Reported Not Detected (NotDetected); Staphaureus Not Reported Not Detected (NotDetected); Staphepi Not Reported Not Detected (NotDetected); Stenmaltophilia Not Reported Not Detected (NotDetected); Strep agal(GrpB) Not Reported Not Detected (NotDetected); Strep pneum Not Reported Not Detected (NotDetected); Strep pyog (GrpA) Not Reported Not Detected (NotDetected); Strep spp Not Reported Not Detected (NotDetected); VIM Resistant Gene Not Detected (NotDetected); mcr-1 Colistin Resistant Gene Not Detected (NotDetected)
[2022-10-20] MEDS ORDERED: LOPERAMIDE HCL 2 MG CAP PO PRN (18:17)
[2022-10-20 18:26] LABS: Enterobacterales DETECTED (NotDetected)
[2022-10-20] MEDS ORDERED: VANCOMYCIN CONSULT ACTIVE PRN (18:33)
[2022-10-20] MEDS ORDERED: PIPERACILLIN/TAZOBACTAM 4.5 GM in DEXTROSE 5% 100 ML IV ONE (19:00)
[2022-10-20] MEDS ORDERED: VANCOMYCIN HCL 750 MG in SODIUM CHLORIDE 0.9% 250 ML IV SCH (20:00)
[2022-10-20] MEDS: LATANOPROST 0.005% OP SOLN 2.5 ML BTL OPB SCH (20:59)
[2022-10-20] MEDS: GABAPENTIN 300 MG CAP PO PRN (21:12)
[2022-10-21] MEDS: LACTATED RINGER'S 1,000 ML IV SCH (02:46)
[2022-10-21] MEDS: PIPERACILLIN/TAZOBACTAM 4.5 GM in DEXTROSE 5% 100 ML IV SCH ×3 (02:47→17:59)
[2022-10-21 04:05] LABS: Adenovirus F 40/41 PCR Not Detected (NotDetected); Astrovirus PCR Not Detected (NotDetected); Campylobacter PCR Not Detected (NotDetected); Cryptosporidium PCR Not Detected (NotDetected); Cyclospora cayetanensis PCR Not Detected (NotDetected); Entamoeba histolytica PCR Not Detected (NotDetected); Enteroaggregative E.coli(EAEC) Not Detected (NotDetected); Enteropathogenic E.coli (EPEC) Not Detected (NotDetected); Enterotoxigenic E.coli (ETEC) Not Detected (NotDetected); Giardia lamblia PCR Not Detected (NotDetected); Norovirus GI/GII PCR Not Detected (NotDetected); Plesiomonas shigelloides PCR Not Detected (NotDetected); Rotavirus A PCR Not Detected (NotDetected); Salmonella PCR Not Detected (NotDetected); Sapovirus PCR Not Detected (NotDetected); Shiga-like Toxin E.coli (STEC) Not Detected (NotDetected); Shigella/Enteroinvasive E.coli Not Detected (NotDetected); Vibrio cholerae PCR Not Detected (NotDetected); Vibrio species PCR Not Detected (NotDetected); Yersinia enterocolitica PCR Not Detected (NotDetected)
[2022-10-21] MEDS: VANCOMYCIN HCL 125 MG/2.5ML SOLN PO SCH ×4 (06:35→23:21)
[2022-10-21] MEDS: DOXYCYCLINE HYCLATE 100 MG in DEXTROSE 5% 100 ML IV SCH (06:35)
[2022-10-21] MEDS: RASPBERRY SYRUP 5 ML UDP PO SCH ×4 (06:36→23:21)
[2022-10-21] MEDS: LEVOTHYROXINE SODIUM 50 MCG TABLET PO SCH (06:36)
[2022-10-21] MEDS: SUCRALFATE 1 GM TAB PO SCH ×4 (06:36→20:13)
[2022-10-21 07:39] LABS: Hematocrit (blood only) 22.4 % (37.0-47.0); Hemoglobin 7.5 g/dl (12.0-16.0); Mean Corpuscular Hemoglobin 33.2 pg (25.0-34.0); Mean Corpuscular Hgb Conc 33.5 g/dL (32.0-36.0); Mean Corpuscular Volume 99.1 fL (80.0-100.0); Mean Platelet Volume 11.7 fL (9.4-12.4); Platelet Count 64 K/uL (130-400); RDW Coefficient of Variation 17.1 % (11.5-14.5); RDW Standard Deviation 61.5 fL (36.4-46.3); Red Blood Count 2.26 M/uL (4.20-5.40); White Blood Count 9.54 K/ul (4.8-10.8)
[2022-10-21] MEDS: PANCREAZE (LIPASE 10,500U) CAP PO SCH ×3 (07:43→16:34)
[2022-10-21] MEDS ORDERED: VANCOMYCIN HCL 750 MG in SODIUM CHLORIDE 0.9% 250 ML IV SCH (08:00)
[2022-10-21 08:12] LABS: Albumin Level 2.3 gm/dl (3.4-5.0); BUN Creatinine Ratio 11.3 (10-20); Bilirubin Direct 0.2 mg/dl (0-0.2); Bilirubin,Total 0.5 mg/dl (0.2-1.0); Calcium 7.1 mg/dl (8.6-10.3); Creatinine Clr Calc Pharmacy 56.8 ml/min; Est GFR (African American) 100.7 ml/min; Est GFR (Non-African American) 86.9 ml/min; Magnesium 1.7 mg/dl (1.7-2.4); Phosphorus 2.2 mg/dl (2.5-4.9); Potassium 3.2 mmol/L (3.5-5.1); Total Protein 4.1 gm/dl (6.0-8.3)
--- NOTE | 2022-10-21 08:15 | Gastroenterology Progress Note ---
Supervising physician's note Case discussed with Tamie Barnett NP, primary hospital team, chart reviewed, patient seen and examined LFT's are improving but blood culture returned (+) for E. coli. I suggested ID consultation and that has been done. I suspect problems from her abscess. I really have nothing else to offer at this time but will follow I have spent 20 minutes time total doing the above as well as entering information into the medical record Shahram Hernandez Jr, [place] [facility] [place] Service October 21, 2022 Assessment & Plan (1) Abnormal LFTs: Plan: Elevated LFTs: LFTs continue to trend down this morning. LFT elevation felt related to current illness and will likely continue to improve. Continue to monitor LFTs. Anemia: History of pancreatic cancer and liver abscess. Now on Lovenox for DVT prophylaxis. Hemoglobin 7.5, hematocrit 22.4 this morning. Ordered occult blood stool testing. Nursing is aware of order. Continue to monitor. Case reviewed with Dr. Hernandez. Please refer to supervising physician addendum for further recommendations. I have spent 15 minutes of discrete time performing the activities of this visit which include but are not limited to review of the medical record, obtaining a history, physical exam, and entering information in the electronic record. Admission and Anticipated Discharge Date Admission Date: October 19, 2022 Subjective Continue supportive seated in bed with her breakfast tray. She reports that overall she is feeling well at this time. She is not currently having chills. She denies any abdominal pain, nausea, vomiting. She reports that she continues to have diarrhea. Denies melena or hematochezia. Review of Systems Review of Systems: All systems reviewed & are unremarkable except as noted in Subjective Physical Exam Respiratory: normal respiratory effort; no respiratory distress and no labored breathing Gastrointestinal (Abdomen): normal bowel sounds, soft, nontender, no hepatosplenomegaly Results & Data Vital Signs (Past 12 Hours) Vital Signs Temp Pulse Pulse Pulse Resp BP Pulse Ox 10/21/22 04:15 36.7 C 61 18 90/50 L 98 10/21/22 00:19 37 C 75 16 94/57 L 96 10/20/22 21:59 78 10/20/22 23:13 37 C 75 16 94/57 L 96 O2 Del Method 10/21/22 04:15 Room Air 10/21/22 00:19 Room Air 10/20/22 21:59 10/20/22 23:13 Room Air Laboratory Results Laboratory Results - last 24 hr 10/19/22 10/20/22 10/20/22 20:00 10:55 10:55 WBC 10.01 RBC 2.48 L Hgb 8.4 L Hct 24.0 L MCV 96.8 MCH 33.9 MCHC 35.0 RDW Std Deviation 59.6 H RDW Coeff of Lakhwinder 16.9 H Plt Count 72 L MPV 11.4 Immature Gran % (Auto) 7.3 Neut % (Auto) 77.3 Lymph % (Auto) 10.9 Benzie % (Auto) 3.4 Eos % (Auto) 0.9 Baso % (Auto) 0.2 Neut # (Auto) 7.74 H Lymph # (Auto) 1.09 L Benzie # (Auto) 0.34 Eos # (Auto) 0.09 Baso # (Auto) 0.02 Immature Gran # (Auto) 0.73 H Polychromasia 1+ Poikilocytosis Present Sodium 140 Potassium 3.7 Chloride 113 H Carbon Dioxide 22 Anion Gap 5 BUN 10 Creatinine 0.73 Est Cr Clr Drug Dosing 53.2 Est GFR ( Amer) 97.4 Est GFR (Non-Af Amer) 84.0 BUN/Creatinine Ratio 13.7 Glucose 126 H Calcium 7.4 L Phosphorus 3.8 D Magnesium 2.0 Total Bilirubin 0.5 Direct Bilirubin 0.1 AST 94 H ALT 138 H Alkaline Phosphatase 133 H Total Protein 4.6 L D Albumin 2.6 L Stl C. cayetanensis PCR Stool Rotavirus A PCR Stl Adenov F 40/41 PCR Stool Astrovirus (PCR) Stool Campylobacter PCR Stl C. diff Tox B Gene Stool Cryptosporidium PCR Stl E.coli Shiga Tox PCR Stl Enterotoxigenic E PCR Stool EPEC (PCR) Stool EAEC (PCR) Stl E. histolytica PCR Stool Giardia Lamblia PCR Stool Salmonella PCR Stool Sapovirus (PCR) Stl P. shigelloides PCR Stl Shigella/EIEC PCR St Y.enterocolitica PCR Stool Vibrio (PCR) Stl Vibrio cholerae PCR Stl Norovirus GI/GII PCR Enterobacterales (PCR) DETECTED A E. coli (PCR) DETECTED A mcr-1 Colistin Res Gene PCR Not Detected blaIMP Car res Gene PCR Not Detected KPC-Carbap Res Gene PCR Not Detected blaNDM Car Res Gene PCR Not Detected OXA-48 Carbapenem Resis Gene (PCR) Not Detected blaVIM Car Res Gene PCR Not Detected CTX-M Gene Resistance (PCR) Not Detected Bld Cult ID Panel PCR See PCR Comment 10/21/22 10/21/22 10/21/22 02:41 02:41 06:15 WBC 9.54 RBC 2.26 L Hgb 7.5 L Hct 22.4 L MCV 99.1 MCH 33.2 MCHC 33.5 RDW Std Deviation 61.5 H RDW Coeff of Lakhwinder 17.1 H Plt Count 64 L MPV 11.7 Immature Gran % (Auto) Neut % (Auto) Lymph % (Auto) Benzie % (Auto) Eos % (Auto) Baso % (Auto) Neut # (Auto) Lymph # (Auto) Benzie # (Auto) Eos # (Auto) Baso # (Auto) Immature Gran # (Auto) Polychromasia Poikilocytosis Sodium Potassium Chloride Carbon Dioxide Anion Gap BUN Creatinine Est Cr Clr Drug Dosing Est GFR ( Amer) Est GFR (Non-Af Amer) BUN/Creatinine Ratio Glucose Calcium Phosphorus Magnesium Total Bilirubin Direct Bilirubin AST ALT Alkaline Phosphatase Total Protein Albumin Stl C. cayetanensis PCR Not Detected Stool Rotavirus A PCR Not Detected Stl Adenov F 40 PCR Not Detected Stool Astrovirus (PCR) Not Detected Stool Campylobacter PCR Not Detected Stl C. diff Tox B Gene Negative Cdiff Gene Stool Cryptosporidium PCR Not Detected Stl E.coli Shiga Tox PCR Not Detected Stl Enterotoxigenic E PCR Not Detected Stool EPEC (PCR) Not Detected Stool EAEC (PCR) Not Detected Stl E. histolytica PCR Not Detected Stool Giardia Lamblia PCR Not Detected Stool Salmonella PCR Not Detected Stool Sapovirus (PCR) Not Detected Stl P. shigelloides PCR Not Detected Stl Shigella/EIEC PCR Not Detected St Y.enterocolitica PCR Not Detected Stool Vibrio (PCR) Not Detected Stl Vibrio cholerae PCR Not Detected Stl Norovirus GI/GII PCR Not Detected Enterobacterales (PCR) E. coli (PCR) mcr-1 Colistin Res Gene PCR blaIMP Car res Gene PCR KPC-Carbap Res Gene PCR blaNDM Car Res Gene PCR OXA-48 Carbapenem Resis Gene (PCR) blaVIM Car Res Gene PCR CTX-M Gene Resistance (PCR) Bld Cult ID Panel PCR 10/21/22 06:15 WBC RBC Hgb Hct MCV MCH MCHC RDW Std Deviation RDW Coeff of Lakhwinder Plt Count MPV Immature Gran % (Auto) Neut % (Auto) Lymph % (Auto) Benzie % (Auto) Eos % (Auto) Baso % (Auto) Neut # (Auto) Lymph # (Auto) Benzie # (Auto) Eos # (Auto) Baso # (Auto) Immature Gran # (Auto) Polychromasia Poikilocytosis Sodium 141 Potassium 3.2 L Chloride 113 H Carbon Dioxide 23 Anion Gap 5 BUN 8 Creatinine 0.71 Est Cr Clr Drug Dosing 56.8 Est GFR ( Amer) 100.7 Est GFR (Non-Af Amer) 86.9 BUN/Creatinine Ratio 11.3 Glucose 105 H Calcium 7.1 L Phosphorus 2.2 L D Magnesium 1.7 Total Bilirubin 0.5 Direct Bilirubin 0.2 AST 58 H ALT 98 H Alkaline Phosphatase 118 H Total Protein 4.1 L Albumin 2.3 L Stl C. cayetanensis PCR Stool Rotavirus A PCR Stl Adenov F 40/41 PCR Stool Astrovirus (PCR) Stool Campylobacter PCR Stl C. diff Tox B Gene Stool Cryptosporidium PCR Stl E.coli Shiga Tox PCR Stl Enterotoxigenic E PCR Stool EPEC (PCR) Stool EAEC (PCR) Stl E. histolytica PCR Stool Giardia Lamblia PCR Stool Salmonella PCR Stool Sapovirus (PCR) Stl P. shigelloides PCR Stl Shigella/EIEC PCR St Y.enterocolitica PCR Stool Vibrio (PCR) Stl Vibrio cholerae PCR Stl Norovirus GI/GII PCR Enterobacterales (PCR) E. coli (PCR) mcr-1 Colistin Res Gene PCR blaIMP Car res Gene PCR KPC-Carbap Res Gene PCR blaNDM Car Res Gene PCR OXA-48 Carbapenem Resis Gene (PCR) blaVIM Car Res Gene PCR CTX-M Gene Resistance (PCR) Bld Cult ID Panel PCR
[2022-10-21 08:37] LABS: HBSAG NON-REACTIVE (NON-REACTIVE); Hepatitis A Antibody IgM NON-REACTIVE (NON-REACTIVE); Hepatitis B Core Antibody IgM NON-REACTIVE (NON-REACTIVE)
[2022-10-21] MEDS: GABAPENTIN 300 MG CAP PO PRN (08:55)
[2022-10-21] MEDS: PANTOprazole 40 MG TAB PO SCH (08:55)
[2022-10-21] MEDS: ADVANCED PROBIOTIC 1250 MG CAPSULE PO SCH (08:55)
[2022-10-21] MEDS: oxyCODONE HCL 10 MG TABCR (OxyCONTIN) PO SCH ×2 (08:57→20:09)
--- NOTE | 2022-10-21 09:16 | Pharmacy Report ---
Pharmacy PK ABX Note - Date of Service October 21, 2022 - Assessment and Plan Assessment 71 year old F receiving empiric vancomycin, piperacillin/tazobactam and doxycycline for treatment of febrile illness/sepsis likely secondary to GI (liver abscess). Pertinent PMH includes pancreatic cancer (on chemotherapy), known liver abscess (chronic Augmentin), history of Clostridium difficile, and CKD. Pertinent microbiologic data includes: blood cultures (10/19/22) x 2 (1 of 2 growing gram-negative Bacilli, E.coli per Biofire). Could consider de- escalation to ceftriaxone based on Biofire results, but reasonable to continue Zosyn at this time given complicated case in immunocompromised patient w/ metronidazole allergy/adverse reaction. Day # 2 of antimicrobial therapy. Plan Vancomycin * Loading dose: 1250 mg IV x 1 * Maintenance dose: 750 mg IV every 12 hours * Regimen is predicted to achieve target AUC/MARCELA of ~400-600 mg/L.hr * Random level ordered for: 10/22/22 Zosyn * 4.5 g IV q8h - no change Doxycycline * 100 mg IV BID - being used empirically at this time for possible tick-borne illness, no change Pharmacy will continue to follow and will adjust dose/frequency as necessary. Thank you. Pharmacy has transitioned to AUC monitoring for vancomycin. AUC/MARCELA is the preferred PK/PD target and is associated with decreased risk of nephrotoxicity compared to traditional trough targets.
--- NOTE | 2022-10-21 10:19 | Hospitalist Progress Note ---
Date of Service October 21, 2022 Assessment & Plan (1) Fever: Plan: 71yo female with metastatic adenocarcinoma of the pancreas s/p surgical excision, on chemotherapy presenting with 5 days of intermittent fever/chills/rigors. Fever with gram neg bacteremia in setting of liver abscess Sepsis POA Fever since 10/16/2022. [place] [facility] [place] NGT[place] thus far. Patient has been on daily Augmentin BID due to liver abscess. She has also been taking her rescue Levaquin daily as directed by her Oncology for febrile ill ness. --CT of the abdomen with fluid filled small bowel with liquid in stool correlating with patient's known ongoing diarrhea. --One blood cx with Gram neg bacteria. Biofire + for E coli and Enterobacter. UA does not suggest infection. --IV zosyn -continue. will d/c IV vanco. --Discussed with GI - will consult ID for concern of resistance against current suppressive therapy - augmentin for liver abscess. Transaminitis: Elevated AST and ALT.Possibly from liver abscess. -Consulted GI, --Transaminase levels have decreased significantly. AST=58, ALT=98 --Hepatitis Panel pending Chronic diarrhea with h/o C diff -Stool PCR neg. C diff neg as well. -Continue oral vanco for suppressive therapy while on antibiotics -125mg PO q 6 hours. Lyme IgM positive -Have source of infection and fever. Western blot is pending but IgM is likely false positive - will d/c doxycycline. Chemotherapy induced pancytopenia No longer leukopenic. Plts low at 64. Hgb 7.5 > 8.9 on reassessment. Pancreatic cancer: Patient receives her Oncology Care at [facility]. -Continue Oxycodone 10mg po BID -Zofran PRN -Creon as directed -Gabapentin 300mg po TID Liver abscess: -Holding Augmentin BID while on IV antibiotics and for concern of resistance against augmentin. CKD (chronic kidney disease), stage III: BUN and Cr near baseline F/E/N - regular diet as tolerated Ppx - Lovenox for DVT prophylaxis Code - Full per discussion with patient Dispo - Medicine (2) Pancreatic cancer: (3) Abnormal LFTs: (4) Hypothyroid: (5) Liver abscess: (6) History of Clostridioides difficile infection: (7) CKD (chronic kidney disease), stage III: Admission and Anticipated Discharge Date Admission Date: October 19, 2022 Supervising Physician Co-Signing Physician Notes Medical Student Supervision Note: I was personally present during medical student patient encounter and independently interviewed and examined the patient and verified the montoya history and physical, reviewed labs and image studies, discussed the case with Paty Pat and agree with the findings and care plan. Sepsis/Fever/Chills and elevated LFT/Bacteremia Liver Abscess Pancreatic Ca with mets Chemotherapy induced pancytopenia Diarrhea with h/o C diff --G neg bacteria in one blood culture. IV zosyn. Discussed with GI and added ID consult as per their recommendation for concern of abx resistance for liver abscess. --d/c IV doxy --Follow cbc. --C diff neg. continue suppressive oral vancomycin. Subjective No acute events overnight. Temp of 102 yesterday afternoon and positive gram neg bacilli motivated addition of Zosyn to antibiotic regimen. She continues to endorse diarrhea but has not had another episode of fever or chills today. Review of Systems Respiratory: Denied shortness of breath. Cardiovascular: Additional Comments: Denied chest pain, palpitations Gastrointestinal: Denied nausea, vomiting, abdominal pain. Physical Exam Constitutional: Alert and oriented x3 in hopsital bed Neck: Respiratory: CTA, no increased work of breathing Cardiovascular: Normal rate and regular rhythmn. S1 S2 no r/m/g. Radial pulses equal b/l. Capillary refill less than 2 sec. Gastrointestinal (Abdomen): Nondistended, nontender, normoactive bowel sounds. Musculoskeletal: Moves all extremities independently Skin: Warm dry, no apparent rashed. Psychiatric: Appropriate mood and affect. Lymphatic: No lymphadenopathy in the neck and cervical region. Results & Data Results & Data Vital Signs (Past 12 Hours) Vital Signs Temp Pulse Pulse Resp BP Pulse Ox O2 Del Method 10/21/22 08:28 36.9 C 59 L 16 106/58 L 99 Room Air 10/21/22 04:15 36.7 C 61 18 90/50 L 98 Room Air 10/21/22 00:19 37 C 75 16 94/57 L 96 Room Air 10/20/22 23:13 37 C 75 16 94/57 L 96 Room Air Laboratory Results 10/21/22 06:15 10/21/22 06:15
[2022-10-21 12:08] LABS: Hematocrit (blood only) 26.2 % (37.0-47.0); Hemoglobin 8.9 g/dl (12.0-16.0)
[2022-10-21] MEDS: GLYCOPYRROLATE 1 MG TAB PO SCH ×2 (12:16→20:13)
--- NOTE | 2022-10-21 15:20 | Infectious Disease Consult ---
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 She was evaluated by her Oncologist outpatient. A MRi brain was completed (unremarkable) and BC obtained (sterile). She was prescribed Levaquin, but fevers continued. She was scheduled to received chemotherapy, but it was held 2/2 fevers. Patient is a poor historian. Her (hammer fitter) provides most of the history at visit via phone. She denies abdominal pain, headaches, cough, shortness of breath, chest pain, rash, change in urine habits or sick contacts. [place], but denies tick or mosquito bites. She has chronic loose stools with chemotherapy. 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 In the ED she is febrile with T 39.5 . Labs notable for WBC 2.89, hemoglobin 10.3, hct 29.5, plt 83, Bun 15, cr 0.94, procalcitonin 28.68, lactate 4.9--->3.2 ( post IVF) , direct bilirubin 0.4 with AST 270 and ALT 250, Alk phos 215. A respiratory viral panel is negative. UA without blood, nitrites or leukocyte esterase. Lyme IGM positive, IGG negative, pending reflex Western blot. GI pathogen PCR panel negative including cdiff. Cxr showed no active lung disease. CTAB shows a low-attenuation lesion in the superior right hepatic lobe concerning for pancreatic metastasis,osseous metastasis including the lumbar spine and pelvis, right femoral neck and fluid-filled small bowel c/f enteritis/ileus as well as mild liquid stool in the colon. Chest CTA showeda left upper lobe subpleural nodule and no pleural effusion or pneumothorax. Osseous metastasis within the thoracic spine is also seen. Admission Bc grew Ecoli in 3/4 bottles. Susceptibilities pending. She is receiving oral vancomycin. Augmentin was held and she was started on Zosyn today. Id consulted for GNR bacteremia Micro: BC 10/19 3/4 bottles + for ECOLI ( PRELIM) Abx: Augmentin 10/19-10/20 Vanco PO 10/19-ongoing Doxy 10/19-10/20 zosyn -ongoing #Ecoli bacteremia #Metastatic ampullary carcinoma #h/o of liver abscess on chronic Augmentin #h/o C diff on oral chronic oral vancomycin #Flagyl allergy #pancytopenia # Port in place The source of Ecoli bacteremia is likely the GI tract. She has no urinary symptoms. Port looks clean and intact. Bacteremia occurred while on Augmentin suppression. Prior EColi in in 2020 was R to Cipro, levaquin and TMP- SULF. Augmentin has been held and she was started on Zosyn 10/20. 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 I am concerned for development of possible Ecoli resistance on Suppressive therapy. There is however, no Esbl or CRE resistance found on BC ID PCR. Blood Culture sensitivities are pending finalization. She has not been febrile in 24 hours. The pancytopenia is likely secondary to cancer and chemotherapy, however it is reasonable to empirically treat for tick related disease as Lyme IGm is positive with reflex is pending ( IGG negative) and she [place] area. I would not expect a positive Lyme test in early Lyme disease as serology takes about 3-4 weeks to turn positive. Anaplasma and Babesia smear negative and PCR pending. Her leukopenia "resolved " in setting of Ecoli sepsis ( WBc 2.89---> 9.54) She remains on oral vancomycin suppression and has been receiving treatment dose q 6 hours in the outpatient setting. Recommendations: -Agree with holding Augmentin and starting coverage for Ecoli bacteremia with Zosyn 4.5 g IV q8 hrs ( no evidence of ESBL, CRE resistance of BC ID Pcr), pe nding susceptibilities. This will also provides anaerobic coverage as she has a Flagyl allergy. -Follow up Suceptibilitis of EC from 10/19 BC -Follow up repeat BC to ensure clearnance. -Continue oral vancomycin 125 mg po q6 while on IV abx. -Restarted Oral doxycycline 100 mg po bid for empiric tick illness coverage, pending outstanding tests -Follow up Lyme reflex Western blot and anaplasma PCR. Thank you for this consultation. ID will continue to follow. Yinka Lee MD, MPH Infectious Disease [facility], [facility] Call [phone] with questions Consultation Information Consultation was provided via telemedicine using two-way real-time interactive telecommunication between the patient and the telemedicine provider. For the duration of the visit, the provider was performing the assessment from a different facility than the patient. This includesuse of bluetooth stethoscope forauscultationperformed by the telepresenter that the telemedicine provider can hear if described in the physical exam. Machine [employer]ators contact information: Please call [facility] Call Center . 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 She was evaluated by her Oncologist outpatient. A MRi brain was completed (unremarkable) and BC obtained (sterile). She was prescribed Levaquin, but fevers continued. She was scheduled to received chemotherapy, but it was held 2/2 fevers. Patient is a poor historian. Her (hammer fitter) provides most of the history at visit via phone. She denies abdominal pain, headaches, cough, shortness of breath, chest pain, rash, change in urine habits or sick contacts. [place], but denies tick or mosquito bites. She has chronic loose stools with chemotherapy. 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 In the ED she is febrile with T 39.5 . Labs notable for WBC 2.89, hemoglobin 10.3, hct 29.5, plt 83, Bun 15, cr 0.94, procalcitonin 28.68, lactate 4.9--->3.2 ( post IVF) , direct bilirubin 0.4 with AST 270 and ALT 250, Alk phos 215. A respiratory viral panel is negative. UA without blood, nitrites or leukocyte esterase. Lyme IGM positive, IGG negative, pending reflex Western blot. GI pathogen PCR panel negative including cdiff. Cxr showed no active lung disease. CTAB shows a low-attenuation lesion in the superior right hepatic lobe concerning for pancreatic metastasis,osseous metastasis including the lumbar spine and pelvis, right femoral neck and fluid-filled small bowel c/f enteritis/ileus as well as mild liquid stool in the colon. Chest CTA showeda left upper lobe subpleural nodule and no pleural effusion or pneumothorax. Osseous metastasis within the thoracic spine is also seen. Admission Bc grew Ecoli in 3/4 bottles. Susceptibilities pending. She is receiving oral vancomycin. Augmentin was held and she was started on Zosyn today. Id consulted for GNR bacteremia Allergies Allergy/AdvReac Type Severity Reaction Status Date / Time metronidazole AdvReac Severe Cerebellar Verified 09/27/22 08:45 toxicity with hospitalization benzoin AdvReac Unknown CONTACT Verified 09/27/22 08:45 DERMATITIS Home Medications Medication Instructions Recorded Confirmed Type multivitamin 1 tab PO DAILY 12/27/18 10/19/22 History cholecalciferol (vitamin D3) 50 50 mcg PO DAILY 01/09/20 10/19/22 History mcg (2,000 unit) tablet pantoprazole 40 mg tablet,delayed 40 mg PO DAILY 01/09/20 10/19/22 History release ondansetron 8 mg disintegrating 8 mg PO Q8 PRN Nausea And Vomiting 02/04/21 10/19/22 History tablet Primadophilus 1 cap PO QAM 02/16/21 10/19/22 History [id number] See Rx Instructions .Route .COMPLEX 02/16/21 10/19/22 History 36,000-114,000-180,000 unit capsule,delay rel (Creon) ascorbate calcium (vitamin C) 500 1 g PO DAILY 02/18/21 10/19/22 History mg tablet hydrocodone-homatropine 5 mg-1.5 5 ml PO Q6H PRN cough #946 mL 11/04/21 10/19/22 Rx mg/5 mL oral syrup (Hycodan (with homatropine)) amoxicillin 875 mg-potassium 1 tab PO BID 06/17/22 10/19/22 History clavulanate 125 mg tablet gabapentin 300 mg capsule 300 mg PO TID PRN Pain 06/17/22 10/19/22 History latanoprost 0.005 % eye drops 1 drp OPB HS 06/17/22 10/19/22 History lidocaine-prilocaine 2.5 %-2.5 % 1 applic topical UD 06/17/22 10/19/22 History topical cream opium tincture 10 mg/mL (morphine) 0.3 ml PO QID PRN Cough 06/17/22 10/19/22 History oral oxycodone 10 mg tablet,crush 10 mg PO BID 06/17/22 10/19/22 History resistant,extended release 12 hr (OxyContin) sucralfate 1 gram tablet 1 g PO ACHS 06/17/22 10/19/22 History vancomycin 125 mg capsule 125 mg PO Q6H 06/17/22 10/19/22 History zinc acetate 50 mg (zinc) capsule 50 mg PO DAILY 06/17/22 10/19/22 History capecitabine 500 mg tablet 1,000 mg PO BID 10/19/22 10/19/22 History levothyroxine 50 mcg tablet 50 mcg PO DAILYBB 10/19/22 10/19/22 History Patient History Medical History CKD (chronic kidney disease), stage III History of Clostridioides difficile infection Hypothyroid Liver abscess Nausea & vomiting Pancreatic cancer Thrombocytopenia Surgical History H/O oral surgery History of ERCP 05/2019 History of liver biopsy History of pancreatic surgery History of thoracentesis Family History Mother Colon cancer Hyperlipidemia Hearing loss of aging Colorectal cancer Father Prostate cancer Hypertension Unknown Breast cancer Grandmother (Maternal) Diabetes Myocardial infarction Grandfather (Paternal) Stroke Other Allergies No family history of adverse response to anesthesia No family history of bleeding disorder Denies family history of Ovarian cancer Lung cancer Social History Smoking Status: Never smoker Second Hand Exposure: No; Do You Dip or Chew Tobacco: No; Hx Alcohol Use: No Hx Substance Use: No Preferred Language: Welsh Communication Ability: Effective Visual Impairment: Limited Hearing Ability: Normal Workers Compensation Administrator Required: No Beliefs That Will Affect Care: None marital status: Current Living Situation: Spouse current occupational status: employed 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 Pertinent positives as per hpi. Physical Exam Physical Exam: Gen- Nad HEENT- PERRLA, EOMI NECK- supple LUNG- No increased work of breathing. Left chest port site, c/d/I. No tenderness Abd- soft, NT, ND EXT- trace edema Neuro- AAO*3 Results & Data Vital Signs (Past 12 Hours) Vital Signs Temp Pulse Pulse Resp BP Pulse Ox O2 Del Method 10/21/22 08:00 52 L 10/21/22 11:15 37.9 C H 10/21/22 11:47 37.9 C H 94 H 16 97/59 L 95 Room Air 10/21/22 11:07 38.9 C H 10/21/22 08:28 36.9 C 59 L 16 106/58 L 99 Room Air 10/21/22 04:15 36.7 C 61 18 90/50 L 98 Room Air Laboratory Results Laboratory Results - last 48 hr 10/19/22 10/19/22 10/19/22 20:00 20:00 20:00 WBC 2.89 L RBC 3.03 L Hgb 10.3 L Hct 29.5 L MCV 97.4 MCH 34.0 MCHC 34.9 RDW Std Deviation 59.2 H RDW Coeff of Lakhwinder 16.7 H Plt Count 83 L MPV 10.3 Immature Gran % (Auto) 0.3 Neut % (Auto) 94.6 Lymph % (Auto) 4.5 [place] % (Auto) 0.3 Eos % (Auto) 0.0 Baso % (Auto) 0.3 Neut # (Auto) 2.73 Lymph # (Auto) 0.13 L [place] # (Auto) 0.01 L Eos # (Auto) 0.00 Baso # (Auto) 0.01 Immature Gran # (Auto) 0.01 Platelet Estimate Decreased L Polychromasia 1+ Poikilocytosis Acanthocytes (Spur) 1+ PT 12.4 H INR 1.1 VBG pH VBG pCO2 VBG pO2 VBG HCO3 VBG O2 Saturation VBG Base Excess Sodium 137 Potassium 3.2 L Chloride 107 Carbon Dioxide 19 L Anion Gap 11 BUN 15 Creatinine 0.96 Est Cr Clr Drug Dosing 40.4 Est GFR ( Amer) 69.9 Est GFR (Non-Af Amer) 60.3 BUN/Creatinine Ratio 15.6 Glucose 175 H Lactate Calcium 8.9 Phosphorus 2.2 L Magnesium 1.5 L Total Bilirubin 0.8 Direct Bilirubin 0.4 H AST 271 H ALT 239 H Alkaline Phosphatase 215 H Troponin I High Sens 17.8 H Total Protein 6.2 Albumin 3.7 Lipase 5 L Procalcitonin Urine Color Urine Appearance Urine pH Ur Specific [place] Urine Protein Urine Glucose (UA) Urine Ketones Urine Blood Urine Nitrite Urine Bilirubin Urine Urobilinogen Ur Leukocyte Esterase Stool Occult Bld Scrn Stl C. cayetanensis PCR Stool Rotavirus A PCR Stl Adenov F PCR Stool Astrovirus (PCR) Stool Campylobacter PCR Stl C. diff Tox B Gene Stool Cryptosporidium PCR Stl E.coli Shiga Tox PCR Stl Enterotoxigenic E PCR Stool EPEC (PCR) Stool EAEC (PCR) Stl E. histolytica PCR Stool Giardia Lamblia PCR Stool Salmonella PCR Stool Sapovirus (PCR) Stl P. shigelloides PCR Stl Shigella/EIEC PCR St Y.enterocolitica PCR Stool Vibrio (PCR) Stl Vibrio cholerae PCR Stl Norovirus GI/GII PCR Acetaminophen Adenovirus (PCR) Anaplasma Smear See Comment Babesia Smear See Comment B. pertussis DNA (PCR) B.parapertussis DNA PCR Lyme Disease IgG Ab Lyme Disease IgM Ab C. pneumoniae DNA (PCR) Coronavirus OC43 (PCR) Coronavirus HKU1 (PCR) Coronavirus 229E (PCR) SARS-CoV-2 (PCR) Coronavirus NL63 (PCR) Enterobacterales (PCR) E. coli (PCR) Hepatitis A IgM Ab Hep Bs Antigen Hep Bs Ag Confirmation Hep B Core IgM Ab Hepatitis C Ab (EIA) Human Metapneumovir PCR Influenza Type A (PCR) Influenza Type B (PCR) M. pneumoniae (PCR) Parainfluenza 1 (PCR) Parainfluenza 2 (PCR) Parainfluenza 3 (PCR) Parainfluenza 4 (PCR) RSV (PCR) Entero/Rhino (PCR) mcr-1 Colistin Res Gene PCR blaIMP Car res Gene PCR KPC-Carbap Res Gene PCR blaNDM Car Res Gene PCR OXA-48 Carbapenem Resis Gene (PCR) blaVIM Car Res Gene PCR CTX-M Gene Resistance (PCR) Bld Cult ID Panel PCR 10/19/22 10/19/22 10/19/22 20:00 20:00 20:00 WBC RBC Hgb Hct MCV MCH MCHC RDW Std Deviation RDW Coeff of Lakhwinder Plt Count MPV Immature Gran % (Auto) Neut % (Auto) Lymph % (Auto) [place] % (Auto) Eos % (Auto) Baso % (Auto) Neut # (Auto) Lymph # (Auto) [place] # (Auto) Eos # (Auto) Baso # (Auto) Immature Gran # (Auto) Platelet Estimate Polychromasia Poikilocytosis Acanthocytes (Spur) PT INR VBG pH VBG pCO2 VBG pO2 VBG HCO3 VBG O2 Saturation VBG Base Excess Sodium Potassium Chloride Carbon Dioxide Anion Gap BUN Creatinine Est Cr Clr Drug Dosing Est GFR ( Amer) Est GFR (Non-Af Amer) BUN/Creatinine Ratio Glucose Lactate 4.9 H* Calcium Phosphorus Magnesium Total Bilirubin Direct Bilirubin AST ALT Alkaline Phosphatase Troponin I High Sens Total Protein Albumin Lipase Procalcitonin 28.68 H Urine Color Urine Appearance Urine pH Ur Specific [place] Urine Protein Urine Glucose (UA) Urine Ketones Urine Blood Urine Nitrite Urine Bilirubin Urine Urobilinogen Ur Leukocyte Esterase Stool Occult Bld Scrn Stl C. cayetanensis PCR Stool Rotavirus A PCR Stl Adenov F 40 PCR Stool Astrovirus (PCR) Stool Campylobacter PCR Stl C. diff Tox B Gene Stool Cryptosporidium PCR Stl E.coli Shiga Tox PCR Stl Enterotoxigenic E PCR Stool EPEC (PCR) Stool EAEC (PCR) Stl E. histolytica PCR Stool Giardia Lamblia PCR Stool Salmonella PCR Stool Sapovirus (PCR) Stl P. shigelloides PCR Stl Shigella/EIEC PCR St Y.enterocolitica PCR Stool Vibrio (PCR) Stl Vibrio cholerae PCR Stl Norovirus GI/GII PCR Acetaminophen Adenovirus (PCR) Anaplasma Smear Babesia Smear B. pertussis DNA (PCR) B.parapertussis DNA PCR Lyme Disease IgG Ab Negative Lyme Disease IgM Ab Positive A C. pneumoniae DNA (PCR) Coronavirus OC43 (PCR) Coronavirus HKU1 (PCR) Coronavirus 229E (PCR) SARS-CoV-2 (PCR) Coronavirus NL63 (PCR) Enterobacterales (PCR) E. coli (PCR) Hepatitis A IgM Ab Hep Bs Antigen Hep Bs Ag Confirmation Hep B Core IgM Ab Hepatitis C Ab (EIA) Human Metapneumovir PCR Influenza Type A (PCR) Influenza Type B (PCR) M. pneumoniae (PCR) Parainfluenza 1 (PCR) Parainfluenza 2 (PCR) Parainfluenza 3 (PCR) Parainfluenza 4 (PCR) RSV (PCR) Entero/Rhino (PCR) mcr-1 Colistin Res Gene PCR blaIMP Car res Gene PCR KPC-Carbap Res Gene PCR blaNDM Car Res Gene PCR OXA-48 Carbapenem Resis Gene (PCR) blaVIM Car Res Gene PCR CTX-M Gene Resistance (PCR) Bld Cult ID Panel PCR 10/19/22 10/19/22 10/19/22 20:00 20:23 21:00 WBC RBC Hgb Hct MCV MCH MCHC RDW Std Deviation RDW Coeff of Lakhwinder Plt Count MPV Immature Gran % (Auto) Neut % (Auto) Lymph % (Auto) [place] % (Auto) Eos % (Auto) Baso % (Auto) Neut # (Auto) Lymph # (Auto) [place] # (Auto) Eos # (Auto) Baso # (Auto) Immature Gran # (Auto) Platelet Estimate Polychromasia Poikilocytosis Acanthocytes (Spur) PT INR VBG pH 7.42 H VBG pCO2 29 L VBG pO2 56 VBG HCO3 19 VBG O2 Saturation 86.3 VBG Base Excess -4.9 Sodium Potassium Chloride Carbon Dioxide Anion Gap BUN Creatinine Est Cr Clr Drug Dosing Est GFR ( Amer) Est GFR (Non-Af Amer) BUN/Creatinine Ratio Glucose Lactate Calcium Phosphorus Magnesium Total Bilirubin Direct Bilirubin AST ALT Alkaline Phosphatase Troponin I High Sens Total Protein Albumin Lipase Procalcitonin Urine Color Urine Appearance Urine pH Ur Specific [place] Urine Protein Urine Glucose (UA) Urine Ketones Urine Blood Urine Nitrite Urine Bilirubin Urine Urobilinogen Ur Leukocyte Esterase Stool Occult Bld Scrn Stl C. cayetanensis PCR Stool Rotavirus A PCR Stl Adenov F 40/41 PCR Stool Astrovirus (PCR) Stool Campylobacter PCR Stl C. diff Tox B Gene Stool Cryptosporidium PCR Stl E.coli Shiga Tox PCR Stl Enterotoxigenic E PCR Stool EPEC (PCR) Stool EAEC (PCR) Stl E. histolytica PCR Stool Giardia Lamblia PCR Stool Salmonella PCR Stool Sapovirus (PCR) Stl P. shigelloides PCR Stl Shigella/EIEC PCR St Y.enterocolitica PCR Stool Vibrio (PCR) Stl Vibrio cholerae PCR Stl Norovirus GI/GII PCR Acetaminophen Adenovirus (PCR) Not Detected Anaplasma Smear Babesia Smear B. pertussis DNA (PCR) Not Detected B.parapertussis DNA PCR Not Detected Lyme Disease IgG Ab Lyme Disease IgM Ab C. pneumoniae DNA (PCR) Not Detected Coronavirus OC43 (PCR) Not Detected Coronavirus HKU1 (PCR) Not Detected Coronavirus 229E (PCR) Not Detected SARS-CoV-2 (PCR) Not Detected Coronavirus NL63 (PCR) Not Detected Enterobacterales (PCR) DETECTED A E. coli (PCR) DETECTED A Hepatitis A IgM Ab Hep Bs Antigen Hep Bs Ag Confirmation Hep B Core IgM Ab Hepatitis C Ab (EIA) Human Metapneumovir PCR Not Detected Influenza Type A (PCR) Not Detected Influenza Type B (PCR) Not Detected M. pneumoniae (PCR) Not Detected Parainfluenza 1 (PCR) Not Detected Parainfluenza 2 (PCR) Not Detected Parainfluenza 3 (PCR) Not Detected Parainfluenza 4 (PCR) Not Detected RSV (PCR) Not Detected Entero/Rhino (PCR) Not Detected mcr-1 Colistin Res Gene PCR Not Detected blaIMP Car res Gene PCR Not Detected KPC-Carbap Res Gene PCR Not Detected blaNDM Car Res Gene PCR Not Detected OXA-48 Carbapenem Resis Gene (PCR) Not Detected blaVIM Car Res Gene PCR Not Detected CTX-M Gene Resistance (PCR) Not Detected Bld Cult ID Panel PCR See PCR Comment 10/19/22 10/19/22 10/20/22 23:01 23:30 06:19 WBC RBC Hgb Hct MCV MCH MCHC RDW Std Deviation RDW Coeff of Lakhwinder Plt Count MPV Immature Gran % (Auto) Neut % (Auto) Lymph % (Auto) [place] % (Auto) Eos % (Auto) Baso % (Auto) Neut # (Auto) Lymph # (Auto) [place] # (Auto) Eos # (Auto) Baso # (Auto) Immature Gran # (Auto) Platelet Estimate Polychromasia Poikilocytosis Acanthocytes (Spur) PT INR VBG pH VBG pCO2 VBG pO2 VBG HCO3 VBG O2 Saturation VBG Base Excess Sodium Potassium Chloride Carbon Dioxide Anion Gap BUN Creatinine Est Cr Clr Drug Dosing Est GFR ( Amer) Est GFR (Non-Af Amer) BUN/Creatinine Ratio Glucose Lactate 3.2 H* Calcium Phosphorus Magnesium Total Bilirubin Direct Bilirubin AST ALT Alkaline Phosphatase Troponin I High Sens Total Protein Albumin Lipase Procalcitonin Urine Color Yellow Urine Appearance Clear Urine pH 5.0 Ur Specific [place] 1.021 Urine Protein Negative Urine Glucose (UA) Trace H Urine Ketones Negative Urine Blood Negative Urine Nitrite Negative Urine Bilirubin Negative Urine Urobilinogen Negative Ur Leukocyte Esterase Negative Stool Occult Bld Scrn Stl C. cayetanensis PCR Stool Rotavirus A PCR Stl Adenov F 40/41 PCR Stool Astrovirus (PCR) Stool Campylobacter PCR Stl C. diff Tox B Gene Stool Cryptosporidium PCR Stl E.coli Shiga Tox PCR Stl Enterotoxigenic E PCR Stool EPEC (PCR) Stool EAEC (PCR) Stl E. histolytica PCR Stool Giardia Lamblia PCR Stool Salmonella PCR Stool Sapovirus (PCR) Stl P. shigelloides PCR Stl Shigella/EIEC PCR St Y.enterocolitica PCR Stool Vibrio (PCR) Stl Vibrio cholerae PCR Stl Norovirus GI/GII PCR Acetaminophen Adenovirus (PCR) Anaplasma Smear Babesia Smear B. pertussis DNA (PCR) B.parapertussis DNA PCR Lyme Disease IgG Ab Lyme Disease IgM Ab C. pneumoniae DNA (PCR) Coronavirus OC43 (PCR) Coronavirus HKU1 (PCR) Coronavirus 229E (PCR) SARS-CoV-2 (PCR) Coronavirus NL63 (PCR) Enterobacterales (PCR) E. coli (PCR) Hepatitis A IgM Ab NON-REACTIVE Hep Bs Antigen NON-REACTIVE Hep Bs Ag Confirmation TNP Hep B Core IgM Ab NON-REACTIVE Hepatitis C Ab (EIA) NON-REACTIVE Human Metapneumovir PCR Influenza Type A (PCR) Influenza Type B (PCR) M. pneumoniae (PCR) Parainfluenza 1 (PCR) Parainfluenza 2 (PCR) Parainfluenza 3 (PCR) Parainfluenza 4 (PCR) RSV (PCR) Entero/Rhino (PCR) mcr-1 Col[place] Res Gene PCR blaIMP Car res Gene PCR KPC-Carbap Res Gene PCR blaNDM Car Res Gene PCR OXA-48 Carbapenem Resis Gene (PCR) blaVIM Car Res Gene PCR CTX-M Gene Resistance (PCR) Bld Cult ID Panel PCR 10/20/22 10/20/22 10/20/22 06:19 06:19 10:55 WBC 10.01 RBC 2.48 L Hgb 8.4 L Hct 24.0 L MCV 96.8 MCH 33.9 MCHC 35.0 RDW Std Deviation 59.6 H RDW Coeff of Lakhwinder 16.9 H Plt Count 72 L MPV 11.4 Immature Gran % (Auto) 7.3 Neut % (Auto) 77.3 Lymph % (Auto) 10.9 [place] % (Auto) 3.4 Eos % (Auto) 0.9 Baso % (Auto) 0.2 Neut # (Auto) 7.74 H Lymph # (Auto) 1.09 L [place] # (Auto) 0.34 Eos # (Auto) 0.09 Baso # (Auto) 0.02 Immature Gran # (Auto) 0.73 H Platelet Estimate Polychromasia 1+ Poikilocytosis Present Acanthocytes (Spur) PT INR VBG pH VBG pCO2 VBG pO2 VBG HCO3 VBG O2 Saturation VBG Base Excess Sodium Potassium Chloride Carbon Dioxide Anion Gap BUN Creatinine Est Cr Clr Drug Dosing Est GFR ( Amer) Est GFR (Non-Af Amer) BUN/Creatinine Ratio Glucose Lactate Calcium Phosphorus Magnesium Total Bilirubin Direct Bilirubin AST ALT Alkaline Phosphatase Troponin I High Sens 12.8 D Total Protein Albumin Lipase Procalcitonin Urine Color Urine Appearance Urine pH Ur Specific [place] Urine Protein Urine Glucose (UA) Urine Ketones Urine Blood Urine Nitrite Urine Bilirubin Urine Urobilinogen Ur Leukocyte Esterase Stool Occult Bld Scrn Stl C. cayetanensis PCR Stool Rotavirus A PCR Stl Adenov F 40/41 PCR Stool Astrovirus (PCR) Stool Campylobacter PCR Stl C. diff Tox B Gene Stool Cryptosporidium PCR Stl E.coli Shiga Tox PCR Stl Enterotoxigenic E PCR Stool EPEC (PCR) Stool EAEC (PCR) Stl E. histolytica PCR Stool Giardia Lamblia PCR Stool Salmonella PCR Stool Sapovirus (PCR) Stl P. shigelloides PCR Stl Shigella/EIEC PCR St Y.enterocolitica PCR Stool Vibrio (PCR) Stl Vibrio cholerae PCR Stl Norovirus GI/GII PCR Acetaminophen 3 L Adenovirus (PCR) Anaplasma Smear Babesia Smear B. pertussis DNA (PCR) B.parapertussis DNA PCR Lyme Disease IgG Ab Lyme Disease IgM Ab C. pneumoniae DNA (PCR) Coronavirus OC43 (PCR) Coronavirus HKU1 (PCR) Coronavirus 229E (PCR) SARS-CoV-2 (PCR) Coronavirus NL63 (PCR) Enterobacterales (PCR) E. coli (PCR) Hepatitis A IgM Ab Hep Bs Antigen Hep Bs Ag Confirmation Hep B Core IgM Ab Hepatitis C Ab (EIA) Human Metapneumovir PCR Influenza Type A (PCR) Influenza Type B (PCR) M. pneumoniae (PCR) Parainfluenza 1 (PCR) Parainfluenza 2 (PCR) Parainfluenza 3 (PCR) Parainfluenza 4 (PCR) RSV (PCR) Entero/Rhino (PCR) mcr-1 Colistin Res Gene PCR blaIMP Car res Gene PCR KPC-Carbap Res Gene PCR blaNDM Car Res Gene PCR OXA-48 Carbapenem Resis Gene (PCR) blaVIM Car Res Gene PCR CTX-M Gene Resistance (PCR) Bld Cult ID Panel PCR 10/20/22 10/21/22 10/21/22 10:55 02:41 02:41 WBC RBC Hgb Hct MCV MCH MCHC RDW Std Deviation RDW Coeff of Lakhwinder Plt Count MPV Immature Gran % (Auto) Neut % (Auto) Lymph % (Auto) [place] % (Auto) Eos % (Auto) Baso % (Auto) Neut # (Auto) Lymph # (Auto) [place] # (Auto) Eos # (Auto) Baso # (Auto) Immature Gran # (Auto) Platelet Estimate Polychromasia Poikilocytosis Acanthocytes (Spur) PT INR VBG pH VBG pCO2 VBG pO2 VBG HCO3 VBG O2 Saturation VBG Base Excess Sodium 140 Potassium 3.7 Chloride 113 H Carbon Dioxide 22 Anion Gap 5 BUN 10 Creatinine 0.73 Est Cr Clr Drug Dosing 53.2 Est GFR ( Amer) 97.4 Est GFR (Non-Af Amer) 84.0 BUN/Creatinine Ratio 13.7 Glucose 126 H Lactate Calcium 7.4 L Phosphorus 3.8 D Magnesium 2.0 Total Bilirubin 0.5 Direct Bilirubin 0.1 AST 94 H ALT 138 H Alkaline Phosphatase 133 H Troponin I High Sens Total Protein 4.6 L D Albumin 2.6 L Lipase Procalcitonin Urine Color Urine Appearance Urine pH Ur Specific [place] Urine Protein Urine Glucose (UA) Urine Ketones Urine Blood Urine Nitrite Urine Bilirubin Urine Urobilinogen Ur Leukocyte Esterase Stool Occult Bld Scrn Stl C. cayetanensis PCR Not Detected Stool Rotavirus A PCR Not Detected Stl Adenov F 40/41 PCR Not Detected Stool Astrovirus (PCR) Not Detected Stool Campylobacter PCR Not Detected Stl C. diff Tox B Gene Negative Cdiff Gene Stool Cryptosporidium PCR Not Detected Stl E.coli Shiga Tox PCR Not Detected Stl Enterotoxigenic E PCR Not Detected Stool EPEC (PCR) Not Detected Stool EAEC (PCR) Not Detected Stl E. histolytica PCR Not Detected Stool Giardia Lamblia PCR Not Detected Stool Salmonella PCR Not Detected Stool Sapovirus (PCR) Not Detected Stl P. shigelloides PCR Not Detected Stl Shigella/EIEC PCR Not Detected St Y.enterocolitica PCR Not Detected Stool Vibrio (PCR) Not Detected Stl Vibrio cholerae PCR Not Detected Stl Norovirus GI/GII PCR Not Detected Acetaminophen Adenovirus (PCR) Anaplasma Smear Babesia Smear B. pertussis DNA (PCR) B.parapertussis DNA PCR Lyme Disease IgG Ab Lyme Disease IgM Ab C. pneumoniae DNA (PCR) Coronavirus OC43 (PCR) Coronavirus HKU1 (PCR) Coronavirus 229E (PCR) SARS-CoV-2 (PCR) Coronavirus NL63 (PCR) Enterobacterales (PCR) E. coli (PCR) Hepatitis A IgM Ab Hep Bs Antigen Hep Bs Ag Confirmation Hep B Core IgM Ab Hepatitis C Ab (EIA) Human Metapneumovir PCR Influenza Type A (PCR) Influenza Type B (PCR) M. pneumoniae (PCR) Parainfluenza 1 (PCR) Parainfluenza 2 (PCR) Parainfluenza 3 (PCR) Parainfluenza 4 (PCR) RSV (PCR) Entero/Rhino (PCR) mcr-1 Colistin Res Gene PCR blaIMP Car res Gene PCR KPC-Carbap Res Gene PCR blaNDM Car Res Gene PCR OXA-48 Carbapenem Resis Gene (PCR) blaVIM Car Res Gene PCR CTX-M Gene Resistance (PCR) Bld Cult ID Panel PCR 10/21/22 10/21/22 10/21/22 06:15 06:15 11:11 WBC 9.54 RBC 2.26 L Hgb 7.5 L Hct 22.4 L MCV 99.1 MCH 33.2 MCHC 33.5 RDW Std Deviation 61.5 H RDW Coeff of Lakhwinder 17.1 H Plt Count 64 L MPV 11.7 Immature Gran % (Auto) Neut % (Auto) Lymph % (Auto) [place] % (Auto) Eos % (Auto) Baso % (Auto) Neut # (Auto) Lymph # (Auto) [place] # (Auto) Eos # (Auto) Baso # (Auto) Immature Gran # (Auto) Platelet Estimate Polychromasia Poikilocytosis Acanthocytes (Spur) PT INR VBG pH VBG pCO2 VBG pO2 VBG HCO3 VBG O2 Saturation VBG Base Excess Sodium 141 Potassium 3.2 L Chloride 113 H Carbon Dioxide 23 Anion Gap 5 BUN 8 Creatinine 0.71 Est Cr Clr Drug Dosing 56.8 Est GFR ( Amer) 100.7 Est GFR (Non-Af Amer) 86.9 BUN/Creatinine Ratio 11.3 Glucose 105 H Lactate Calcium 7.1 L Phosphorus 2.2 L D Magnesium 1.7 Total Bilirubin 0.5 Direct Bilirubin 0.2 AST 58 H ALT 98 H Alkaline Phosphatase 118 H Troponin I High Sens Total Protein 4.1 L Albumin 2.3 L Lipase Procalcitonin Urine Color Urine Appearance Urine pH Ur Specific [place] Urine Protein Urine Glucose (UA) Urine Ketones Urine Blood Urine Nitrite Urine Bilirubin Urine Urobilinogen Ur Leukocyte Esterase Stool Occult Bld Scrn Negative Stl C. cayetanensis PCR Stool Rotavirus A PCR Stl Adenov F 40/41 PCR Stool Astrovirus (PCR) Stool Campylobacter PCR Stl C. diff Tox B Gene Stool Cryptosporidium PCR Stl E.coli Shiga Tox PCR Stl Enterotoxigenic E PCR Stool EPEC (PCR) Stool EAEC (PCR) Stl E. histolytica PCR Stool Giardia Lamblia PCR Stool Salmonella PCR Stool Sapovirus (PCR) Stl P. shigelloides PCR Stl Shigella/EIEC PCR St Y.enterocolitica PCR Stool Vibrio (PCR) Stl Vibrio cholerae PCR Stl Norovirus GI/GII PCR Acetaminophen Adenovirus (PCR) Anaplasma Smear Babesia Smear B. pertussis DNA (PCR) B.parapertussis DNA PCR Lyme Disease IgG Ab Lyme Disease IgM Ab C. pneumoniae DNA (PCR) Coronavirus OC43 (PCR) Coronavirus HKU1 (PCR) Coronavirus 229E (PCR) SARS-CoV-2 (PCR) Coronavirus NL63 (PCR) Enterobacterales (PCR) E. coli (PCR) Hepatitis A IgM Ab Hep Bs Antigen Hep Bs Ag Confirmation Hep B Core IgM Ab Hepatitis C Ab (EIA) Human Metapneumovir PCR Influenza Type A (PCR) Influenza Type B (PCR) M. pneumoniae (PCR) Parainfluenza 1 (PCR) Parainfluenza 2 (PCR) Parainfluenza 3 (PCR) Parainfluenza 4 (PCR) RSV (PCR) Entero/Rhino (PCR) mcr-1 Colistin Res Gene PCR blaIMP Car res Gene PCR KPC-Carbap Res Gene PCR blaNDM Car Res Gene PCR OXA-48 Carbapenem Resis Gene (PCR) blaVIM Car Res Gene PCR CTX-M Gene Resistance (PCR) Bld Cult ID Panel PCR 10/21/22 11:51 WBC RBC Hgb 8.9 L Hct 26.2 L MCV MCH MCHC RDW Std Deviation RDW Coeff of Lakhwinder Plt Count MPV Immature Gran % (Auto) Neut % (Auto) Lymph % (Auto) [place] % (Auto) Eos % (Auto) Baso % (Auto) Neut # (Auto) Lymph # (Auto) [place] # (Auto) Eos # (Auto) Baso # (Auto) Immature Gran # (Auto) Platelet Estimate Polychromasia Poikilocytosis Acanthocytes (Spur) PT INR VBG pH VBG pCO2 VBG pO2 VBG HCO3 VBG O2 Saturation VBG Base Excess Sodium Potassium Chloride Carbon Dioxide Anion Gap BUN Creatinine Est Cr Clr Drug Dosing Est GFR ( Amer) Est GFR (Non-Af Amer) BUN/Creatinine Ratio Glucose Lactate Calcium Phosphorus Magnesium Total Bilirubin Direct Bilirubin AST ALT Alkaline Phosphatase Troponin I High Sens Total Protein Albumin Lipase Procalcitonin Urine Color Urine Appearance Urine pH Ur Specific [place] Urine Protein Urine Glucose (UA) Urine Ketones Urine Blood Urine Nitrite Urine Bilirubin Urine Urobilinogen Ur Leukocyte Esterase Stool Occult Bld Scrn Stl C. cayetanensis PCR Stool Rotavirus A PCR Stl Adenov F 40/41 PCR Stool Astrovirus (PCR) Stool Campylobacter PCR Stl C. diff Tox B Gene Stool Cryptosporidium PCR Stl E.coli Shiga Tox PCR Stl Enterotoxigenic E PCR Stool EPEC (PCR) Stool EAEC (PCR) Stl E. histolytica PCR Stool Giardia Lamblia PCR Stool Salmonella PCR Stool Sapovirus (PCR) Stl P. shigelloides PCR Stl Shigella/EIEC PCR St Y.enterocolitica PCR Stool Vibrio (PCR) Stl Vibrio cholerae PCR Stl Norovirus GI/GII PCR Acetaminophen Adenovirus (PCR) Anaplasma Smear Babesia Smear B. pertussis DNA (PCR) B.parapertussis DNA PCR Lyme Disease IgG Ab Lyme Disease IgM Ab C. pneumoniae DNA (PCR) Coronavirus OC43 (PCR) Coronavirus HKU1 (PCR) Coronavirus 229E (PCR) SARS-CoV-2 (PCR) Coronavirus NL63 (PCR) Enterobacterales (PCR) E. coli (PCR) Hepatitis A IgM Ab Hep Bs Antigen Hep Bs Ag Confirmation Hep B Core IgM Ab Hepatitis C Ab (EIA) Human Metapneumovir PCR Influenza Type A (PCR) Influenza Type B (PCR) M. pneumoniae (PCR) Parainfluenza 1 (PCR) Parainfluenza 2 (PCR) Parainfluenza 3 (PCR) Parainfluenza 4 (PCR) RSV (PCR) Entero/Rhino (PCR) mcr-1 Colistin Res Gene PCR blaIMP Car res Gene PCR KPC-Carbap Res Gene PCR blaNDM Car Res Gene PCR OXA-48 Carbapenem Resis Gene (PCR) blaVIM Car Res Gene PCR CTX-M Gene Resistance (PCR) Bld Cult ID Panel PCR Diagnostic Findings Microbiology 10/19/22 21:36 Blood Aerobic Blood Culture - Preliminary Gram negative bacilli 10/19/22 21:36 Blood Anaerobic Blood Culture - Preliminary No growth in Anaerobic bottle after 24 hours. 10/19/22 20:00 Blood Aerobic Blood Culture - Preliminary No growth in Aerobic bottle after 24 hours. 10/19/22 20:00 Blood Anaerobic Blood Culture - Preliminary Gram negative bacilli Chest X-Ray 10/19/22 20:04 SINGLE VIEW CHEST CLINICAL HISTORY: Sepsis. FINDINGS: An AP, portable, upright chest radiograph is compared to study dated 06/17/2022 and correlated with chest CT dated 09/08/2020. A left internal jugular central venous infusion port is unchanged in position. The cardiomediastinal silhouette is unremarkable noting atherosclerotic calcification of the thoracic aorta. Chronic interstitial thickening similar to previous. There is bibasilar scarring/atelectasis. No airspace consolidation or large pleural effusion is identified. No pneumothorax is seen. The skeletal structures are osteopenic. The bony thorax is grossly intact. Cholecystectomy clips are noted in the right upper quadrant. IMPRESSION: No active disease in the chest. ACT 112: Negative or not required by law. Electronically signed by: Bunny Gramajo M.D. 10/20/2022 7:17 AM Abdomen/Pelvis CT 10/19/22 20:33 Exam(s): CT ABDOMEN + PELVIS With Contrast IV Amt: 119 ml optiray 3220 EXAM: CT Abdomen and Pelvis With Intravenous Contrast CLINICAL HISTORY: Reason for exam: fever, metastatic panc CA, h/o liver abscess. TECHNIQUE: Axial computed tomography images of the abdomen and pelvis with intravenous contrast. CTDI is 6.14 mGy and DLP is 268.68 mGy-cm. Automated exposure control was utilized for the study. A dose lowering technique was utilized adhering to the principles of ALARA. CONTRAST: Patient received 119 ml optiray 3220 of IV contrast COMPARISON: No relevant prior studies available. FINDINGS: Lung bases: Atelectasis at the lung bases. ABDOMEN: Liver: Low-attenuation lesion in the superior RIGHT hepatic lobe segment 7 measures 5.1 x 4.2 cm, concerning for a pancreatic metastasis. Gallbladder and bile ducts: See below. Pancreas: Whipple procedure with partial gastrectomy, cholecystectomy, and moderate intrahepatic biliary ductal dilation. Spleen: Unremarkable. No splenomegaly. Adrenals: Unremarkable. No mass. Kidneys and ureters: Unremarkable. No solid mass. No hydronephrosis. Stomach and bowel: Fluid-filled small bowel which is mildly distended, correlate for enteritis/ileus. Mild liquid stool in the colon, correlate for diarrheal disease. PELVIS: Appendix: No findings to suggest acute appendicitis. Bladder: Distended urinary bladder. Reproductive: Atrophied uterus. ABDOMEN and PELVIS: Intraperitoneal space: Unremarkable. No free air. No significant fluid collection. Bones/joints: Osseous metastasis including the lumbar spine and pelvis. Metastatic lesion involves RIGHT femoral neck, which increases susceptibility to pathologic fracture. Degenerative changes of the spine. No dislocation. Soft tissues: Unremarkable. Vasculature: Atherosclerotic changes of the aorta. No abdominal aortic aneurysm. Lymph nodes: Unremarkable. No enlarged lymph nodes. IMPRESSION: 1. Low-attenuation lesion in the superior RIGHT hepatic lobe segment 7 measures 5.1 x 4.2 cm, concerning for a pancreatic metastasis. 2. Osseous metastasis including the lumbar spine and pelvis. Metastatic lesion involves RIGHT femoral neck, which increases susceptibility to pathologic fracture. 3. Whipple procedure with partial gastrectomy, cholecystectomy, and moderate intrahepatic biliary ductal dilation. 4. Fluid-filled small bowel which is mildly distended, correlate for enteritis/ileus. Mild liquid stool in the colon, correlate for diarrheal disease. Electronically signed by: Benjie Lopez MD 10/19/22 22:22 PM Chest CTA 10/19/22 20:33 Exam(s): CTA CHEST IV Amt: 119 ml optiray 320 EXAM: CT Angiography Chest With Intravenous Contrast CLINICAL HISTORY: Reason for exam: fever, metastatic panc CA, r/o PE. TECHNIQUE: Axial computed tomographic angiography images of the chest with intravenous contrast. CTDI is 12.64 mGy and DLP is 405.15 mGy-cm. Automated exposure control was utilized for the study. A dose lowering technique was utilized adhering to the principles of ALARA. MIP reconstructed images were created and reviewed. COMPARISON: No relevant prior studies available. FINDINGS: Pulmonary arteries: Unremarkable. No pulmonary embolism. Aorta: Atherosclerotic changes of the aorta. No thoracic aortic aneurysm. Lungs: LEFT upper lobe subpleural nodule versus implant, anteriorly measures 1.0 x 0.8 cm. Consider evaluation with PET/CT scan given that the patient has known metastatic pancreatic carcinoma. Scarring/atelectasis in the lingula. Pleural space: Unremarkable. No pleural effusion or pneumothorax. Heart: Cardiomegaly. No significant pericardial effusion. No evidence of RV dysfunction. Bones/joints: Osseous metastases within the thoracic spine. Degenerative changes of the spine. No acute fracture. No dislocation. Soft tissues: Unremarkable. Lymph nodes: Unremarkable. No enlarged lymph nodes. Tubes, lines and devices: LEFT Port-A-Cath terminates in the SVC. IMPRESSION: 1. No pleural effusion or pneumothorax. 2. LEFT upper lobe subpleural nodule versus implant, anteriorly measures 1.0 x 0.8 cm. Consider evaluation with PET/CT scan given that the patient has known metastatic pancreatic carcinoma. 3. Osseous metastases within the thoracic spine. Electronically signed by: Benjie Lopez MD 10/19/22 22:08 PM Medications Administered Home Medications Medication Instructions Recorded Confirmed Last Taken multivitamin 1 tab PO DAILY 12/27/18 10/19/22 10/19/22 cholecalciferol (vitamin D3) 50 50 mcg PO DAILY 01/09/20 10/19/22 10/18/22 mcg (2,000 unit) tablet pantoprazole 40 mg tablet,delayed 40 mg PO DAILY 01/09/20 10/19/22 10/19/22 release ondansetron 8 mg disintegrating 8 mg PO Q8 PRN Nausea And Vomiting 02/04/21 10/19/22 06/17/22 tablet Primadophilus 1 cap PO QAM 02/16/21 10/19/22 10/19/22 [id number] See Rx Instructions .Route .COMPLEX 02/16/21 10/19/22 10/19/22 36,000-114,000-180,000 unit capsule,delay rel (Creon) ascorbate calcium (vitamin C) 500 1 g PO DAILY 02/18/21 10/19/22 10/18/22 mg tablet hydrocodone-homatropine 5 mg-1.5 5 ml PO Q6H PRN cough #946 mL 11/04/21 10/19/22 06/17/22 mg/5 mL oral syrup (Hycodan (with homatropine)) amoxicillin 875 mg-potassium 1 tab PO BID 06/17/22 10/19/22 10/19/22 clavulanate 125 mg tablet gabapentin 300 mg capsule 300 mg PO TID PRN Pain 06/17/22 10/19/22 10/18/22 latanoprost 0.005 % eye drops 1 drp OPB HS 06/17/22 10/19/22 10/18/22 lidocaine-prilocaine 2.5 %-2.5 % 1 applic topical UD 06/17/22 10/19/22 Unknown topical cream opium tincture 10 mg/mL (morphine) 0.3 ml PO QID PRN Cough 06/17/22 10/19/22 06/17/22 oral oxycodone 10 mg tablet,crush 10 mg PO BID 06/17/22 10/19/22 10/18/22 resistant,extended release 12 hr (OxyContin) sucralfate 1 gram tablet 1 g PO ACHS 06/17/22 10/19/22 10/19/22 vancomycin 125 mg capsule 125 mg PO Q6H 06/17/22 10/19/22 10/19/22 18:00 zinc acetate 50 mg (zinc) capsule 50 mg PO DAILY 06/17/22 10/19/22 10/19/22 capecitabine 500 mg tablet 1,000 mg PO BID 10/19/22 10/19/22 10/19/22 am levothyroxine 50 mcg tablet 50 mcg PO DAILYBB 10/19/22 10/19/22 10/19/22 Active Medications Generic Name Dose Route Start Last Admin Trade Name Freq PRN Reason Stop Dose Admin Acetaminophen 1,000 mg 10/20/22 17:44 10/21/22 11:08 Acetaminophen 500 Mg Tab PO 11/19/22 05:06 1,000 mg Q8H PRN Administration pain/fever Amoxicillin/Clavulanate Potassium 1 tab 10/20/22 08:00 10/20/22 16:53 Amoxicillin/Clavulanate 875 Mg Tab PO 11/19/22 07:59 1 tab BIDM JAN Administration Protocol Lipase/Protease/Amylase 2 cap 10/20/22 08:00 10/21/22 12:18 Pancreaze (Lipase 10,500u) Cap PO 11/19/22 07:59 2 cap TIDM JAN Administration Gabapentin 300 mg 10/20/22 05:07 10/21/22 08:55 Gabapentin 300 Mg Cap PO 11/19/22 05:06 300 mg TID PRN Administration Pain Glycopyrrolate 2 mg 10/21/22 11:00 10/21/22 12:16 Glycopyrrolate 1 Mg Tab PO 11/20/22 10:59 2 mg BID JAN Administration Doxycycline Hyclate 100 mg/ 110 mls @ 50 mls/hr 10/20/22 06:00 10/21/22 10:48 Dextrose IV 10/22/22 05:59 Infused Q12H JAN Infusion Piperacillin Sod/Tazobactam 120 mls @ 30 mls/hr 06/30/23 02:00 10/21/22 11:14 Sod 4.5 gm/ Dextrose IV 10/31/22 01:59 30 mls/hr Q8H JAN Administration Protocol Vancomycin HCl 750 mg/ Sodium 265 mls @ 200 mls/hr 10/21/22 08:00 10/21/22 10:48 Chloride IV 10/31/22 07:59 Infused Q12H JAN Infusion Lactobacillus Acidophilus 2 cap 10/20/22 09:00 10/21/22 08:55 Advanced Probiotic 1250 Mg Capsule PO 11/19/22 08:59 2 cap QAM JAN Administration Latanoprost 1 drops 10/20/22 21:00 10/20/22 20:59 Latanoprost 0.005% Op Soln 2.5 Ml Btl OPB 11/19/22 20:59 1 drops HS JAN Administration Levothyroxine Sodium 50 mcg 10/20/22 06:30 10/21/22 06:36 Levothyroxine Sodium 50 Mcg Tablet PO 11/19/22 06:29 50 mcg DAILYBB JAN Administration Loperamide HCl 2 mg 10/20/22 18:17 10/20/22 21:12 Loperamide Hcl 2 Mg Cap PO 11/19/22 18:16 2 mg Q6H PRN Administration Diarrhea Oxycodone HCl 10 mg 10/20/22 09:00 10/21/22 08:57 Oxycodone Hcl 10 Mg Tabcr (Oxycontin) PO 11/03/22 08:59 10 mg BID JAN Administration Pantoprazole Sodium 40 mg 10/20/22 09:00 10/21/22 08:55 Pantoprazole 40 Mg Tab PO 11/19/22 08:59 40 mg DAILY JAN Administration Raspberry 5 ml 10/20/22 06:00 10/21/22 12:18 Raspberry Syrup 5 Ml Udp PO 10/30/22 05:59 5 ml Q6 JAN Administration Sucralfate 1 gm 10/20/22 07:30 10/21/22 12:17 Sucralfate 1 Gm Tab PO 11/19/22 07:29 1 gm ACHS JAN Administration Vancomycin HCl 125 mg 10/20/22 06:00 10/21/22 12:20 Vancomycin Hcl 125 Mg/2.5ml Soln PO 10/30/22 05:59 125 mg Q6 JAN Administration
[2022-10-21] MEDS: LATANOPROST 0.005% OP SOLN 2.5 ML BTL OPB SCH (20:09)
[2022-10-22] MEDS: PIPERACILLIN/TAZOBACTAM 4.5 GM in DEXTROSE 5% 100 ML IV SCH ×3 (01:29→18:07)
[2022-10-22] MEDS: VANCOMYCIN HCL 125 MG/2.5ML SOLN PO SCH ×4 (05:32→23:12)
[2022-10-22] MEDS: LEVOTHYROXINE SODIUM 50 MCG TABLET PO SCH (05:32)
[2022-10-22] MEDS: RASPBERRY SYRUP 5 ML UDP PO SCH ×4 (05:32→23:11)
[2022-10-22 06:39] LABS: Hematocrit (blood only) 23.1 % (37.0-47.0); Hemoglobin 8.1 g/dl (12.0-16.0); Mean Corpuscular Hemoglobin 33.8 pg (25.0-34.0); Mean Corpuscular Hgb Conc 35.1 g/dL (32.0-36.0); Mean Corpuscular Volume 96.3 fL (80.0-100.0); Mean Platelet Volume 12.8 fL (9.4-12.4); Platelet Count 81 K/uL (130-400); RDW Standard Deviation 59.7 fL (36.4-46.3); White Blood Count 10.79 K/ul (4.8-10.8)
[2022-10-22 06:58] LABS: Albumin Level 2.5 gm/dl (3.4-5.0); BUN Creatinine Ratio 7.5 (10-20); Basophils # (auto) 0.04 K/uL (0-0.2); Basophils % (auto) 0.4 %; Bilirubin Direct 0.3 mg/dl (0-0.2); Bilirubin,Total 0.5 mg/dl (0.2-1.0); Calcium 7.2 mg/dl (8.6-10.3); Creatinine Clr Calc Pharmacy 44.6 ml/min; Dohle Bodies 1+; Echinocytes 1+; Eosinophils # (auto) 0.19 K/uL (0-0.50); Eosinophils % (auto) 1.8 %; Est GFR (African American) 72.7 ml/min; Est GFR (Non-African American) 62.7 ml/min; Immature Granulocytes # (auto) 0.04 K/uL (0.01-0.20); Immature Granulocytes % (auto) 0.4 %; Lymphocytes # (auto) 1.25 K/uL (1.2-3.4); Lymphocytes % (auto) 11.6 %; Monocytes # (auto) 0.51 K/uL (0.11-0.59); Monocytes % (auto) 4.7 %; Neutrophils # (auto) 8.76 K/uL (1.40-6.50); Neutrophils % (auto) 81.1 %; Polychromasia 1+; Potassium 2.9 mmol/L (3.5-5.1); Total Protein 4.7 gm/dl (6.0-8.3)
--- NOTE | 2022-10-22 07:15 | Hospitalist Progress Note ---
Date of Service October 22, 2022 Assessment & Plan (1) Abnormal LFTs: (2) Fever: (3) Liver abscess: (4) History of Clostridioides difficile infection: (5) Pancreatic cancer: (6) SIRS (systemic inflammatory response syndrome): (7) Acute febrile illness: (8) Metastatic disease: (9) Transaminitis: (10) Elevated lactic acid level: Plan Tamara Elkins is a 71 year-old female with metastatic adenocarcinoma of the pancreas s/p surgical excision, on chemotherapy presenting with 5 days of intermittent fever/chills/rigors. Fever with gram neg bacteremia in setting of known liver abscess Sepsis POA Fever since 10/16/2022. Outpatient Blood cultures from [facility] 10/14/22 are NGTD. Patient has been on daily Augmentin BID due to chronic liver abscess. She had also been taking Levaquin since 10/17 as directed by her Oncology for febrile illness. Has had the liver abscess drained multiple times in past by IR -CT of the abdomen with fluid filled small bowel with liquid in stool correlating with patient's known ongoing diarrhea. -Two blood cx with Gram neg bacteria. UA did not not suggest infection. -ID consulted, appreciate recommendations -Suspect GI source of gram negative bacteremia -Known liver abscess previously, although imaging this admission did not visualize such abscess. -Blood cultures grew e.coli, sensitivities include resistance to Levofloxacin, Ciprofloxacin, and Bactrim -Notified ID of sensitivities, will continue Zosyn for now -Repeat blood cultures completed this morning (10/22) Transaminitis Elevated AST and ALT on admission.Possibly from liver abscess vs. viral infection. -Consulted GI, now have signed off. -Transaminase levels have decreased significantly. AST=42, ALT=80 -Hepatitis panel negative/non-reactive -Continue monitoring hepatic panel Chronic diarrhea with h/o C diff -Stool PCR neg. C diff neg as well. 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 -Considering endemic area - per ID recommendations will continue PO doxycycline. Chemotherapy induced pancytopenia -Today WBC 10.79, Hgb 8.1, Plts low at 81. Pancreatic cancer: Patient receives her Oncology Care at [facility]. -Continue Oxycodone 10mg po BID -Zofran PRN -Creon as directed -Gabapentin 300mg po TID Liver abscess Known history of chronic liver abscess, required hospitalization and placement of drain at [facility] in 2020. -Holding Augmentin BID while on IV antibiotics and for concern of resistance against augmentin. CKD (chronic kidney disease), stage III: BUN and Cr near baseline Hypokalemia -Potassium decreased to 2.9 today, ordered KCl repletion. -Repeat BMP ordered F/E/N - regular diet as tolerated VTE Prophylaxis- Lovenox for DVT prophylaxis Code - Full Code Dispo - Med/Surg Admission and Anticipated Discharge Date Admission Date: October 19, 2022 Supervising Physician Co-Signing Physician Notes Resident Physician Supervision Note: I independently interviewed and examined the patient and verified the montoya history and physical, reviewed labs and image studies and agree with resident findings and care plan. Subjective Patient was seen and examined at bedside. She states she is feeling ok so far today, denies any fevers/chills/rigors at this point. Has been able to ambulate around the room. Denies chest pain or shortness of breath. Notes one episode of diarrhea so far this morning. Review of Systems Review of Systems: As per above Physical Exam Constitutional: + thin, cooperative and comfortable Eyes: no conjunctival abnormality ENMT: External ears and nose normal. Moist mucous membranes. Respiratory: normal respiratory effort, lungs clear to auscultation Cardiovascular: Rate/Rhythm: regular rate and regular rhythm No lower extremity edema bilaterally. Skin: no rashes, warm and dry Neurologic: moves all extremities Psychiatric: A+Ox3, euthymic affect Results & Data Results & Data Vital Signs (Past 12 Hours) Vital Signs Temp Pulse Pulse Resp BP Pulse Ox O2 Del Method 10/22/22 04:00 36.8 C 63 18 103/57 L 95 Room Air 10/21/22 21:59 55 L 10/21/22 22:00 36.7 C 63 18 91/57 L 96 Room Air Resident Activity Tracking Resident Involvement: Resident Care Provided Care Provided: Adult Hospital Medicine
[2022-10-22] MEDS ORDERED: VANCOMYCIN LEVEL ONE (07:30)
[2022-10-22] MEDS ORDERED: POTASSIUM CHLORIDE CRTAB 20 MEQ TABCR PO STA (07:39)
--- NOTE | 2022-10-22 08:58 | Gastroenterology Progress Note ---
Date of Service October 22, 2022 Assessment & Plan (1) Abnormal LFTs: Plan: Plan as per ID. I have nothing further to offer. Will sign off. Please reconsult PRN Admission and Anticipated Discharge Date Admission Date: October 19, 2022 Subjective ID consult noted and appreciated, LFT's are getting close to normal Results & Data Vital Signs (Past 12 Hours) Vital Signs Temp Pulse Pulse Resp BP Pulse Ox O2 Del Method 10/22/22 07:49 36.8 C 65 20 110/58 L 95 Room Air 10/22/22 04:00 36.8 C 63 18 103/57 L 95 Room Air 10/21/22 21:59 55 L 10/21/22 22:00 36.7 C 63 18 91/57 L 96 Room Air
[2022-10-22] MEDS: PANCREAZE (LIPASE 10,500U) CAP PO SCH ×3 (10:02→16:28)
[2022-10-22] MEDS: SUCRALFATE 1 GM TAB PO SCH ×4 (10:02→20:10)
[2022-10-22] MEDS: ADVANCED PROBIOTIC 1250 MG CAPSULE PO SCH (10:03)
[2022-10-22] MEDS: oxyCODONE HCL 10 MG TABCR (OxyCONTIN) PO SCH ×2 (10:03→20:10)
[2022-10-22] MEDS: GLYCOPYRROLATE 1 MG TAB PO SCH ×2 (10:04→20:11)
[2022-10-22] MEDS: PANTOprazole 40 MG TAB PO SCH (10:04)
[2022-10-22] MEDS: DOXYCYCLINE HYCLATE 100 MG CAP PO SCH ×2 (11:48→20:11)
[2022-10-22] MEDS ORDERED: POTASSIUM CHLORIDE CRTAB 20 MEQ TABCR PO ONE (21:00)
[2022-10-22] MEDS: LATANOPROST 0.005% OP SOLN 2.5 ML BTL OPB SCH (21:43)
[2022-10-23] MEDS: PIPERACILLIN/TAZOBACTAM 4.5 GM in DEXTROSE 5% 100 ML IV SCH ×3 (01:03→17:31)
[2022-10-23 02:24] LABS: Babesia microti DNA Not Detected (Not Detected)
[2022-10-23] MEDS: LEVOTHYROXINE SODIUM 50 MCG TABLET PO SCH (05:07)
[2022-10-23] MEDS: VANCOMYCIN HCL 125 MG/2.5ML SOLN PO SCH ×4 (05:07→23:28)
[2022-10-23] MEDS: RASPBERRY SYRUP 5 ML UDP PO SCH ×4 (05:07→23:28)
[2022-10-23] MEDS: HEPARIN 100 UNIT/ML 5ML FLUSH FLUSH PRN ×3 (06:29→13:35)
[2022-10-23 07:10] LABS: Basophils # (auto) 0.02 K/uL (0-0.2); Basophils % (auto) 0.2 %; Eosinophils # (auto) 0.14 K/uL (0-0.50); Eosinophils % (auto) 1.7 %; Hematocrit (blood only) 24.1 % (37.0-47.0); Hemoglobin 8.3 g/dl (12.0-16.0); Immature Granulocytes # (auto) 0.09 K/uL (0.01-0.20); Immature Granulocytes % (auto) 1.1 %; Lymphocytes # (auto) 1.35 K/uL (1.2-3.4); Lymphocytes % (auto) 16.2 %; Mean Corpuscular Hemoglobin 33.6 pg (25.0-34.0); Mean Corpuscular Hgb Conc 34.4 g/dL (32.0-36.0); Mean Corpuscular Volume 97.6 fL (80.0-100.0); Mean Platelet Volume 11.8 fL (9.4-12.4); Monocytes # (auto) 0.44 K/uL (0.11-0.59); Monocytes % (auto) 5.3 %; Neutrophils # (auto) 6.29 K/uL (1.40-6.50); Neutrophils % (auto) 75.5 %; Platelet Count 106 K/uL (130-400); RDW Standard Deviation 60.4 fL (36.4-46.3); Red Blood Count 2.47 M/uL (4.20-5.40); White Blood Count 8.33 K/ul (4.8-10.8)
[2022-10-23 07:44] LABS: Albumin Level 2.5 gm/dl (3.4-5.0); BUN Creatinine Ratio 6.8 (10-20); Bilirubin Direct 0.1 mg/dl (0-0.2); Bilirubin,Total 0.5 mg/dl (0.2-1.0); Calcium 7.5 mg/dl (8.6-10.3); Creatinine Clr Calc Pharmacy 47.4 ml/min; Est GFR (African American) 77.7 ml/min; Potassium 3.6 mmol/L (3.5-5.1); Total Protein 4.7 gm/dl (6.0-8.3)
[2022-10-23] MEDS: PANCREAZE (LIPASE 10,500U) CAP PO SCH ×3 (08:03→16:22)
[2022-10-23] MEDS: DOXYCYCLINE HYCLATE 100 MG CAP PO SCH ×2 (08:03→21:06)
[2022-10-23] MEDS: GLYCOPYRROLATE 1 MG TAB PO SCH ×2 (08:03→21:07)
[2022-10-23] MEDS: SUCRALFATE 1 GM TAB PO SCH ×4 (08:03→21:04)
[2022-10-23] MEDS: PANTOprazole 40 MG TAB PO SCH (08:03)
[2022-10-23] MEDS: ADVANCED PROBIOTIC 1250 MG CAPSULE PO SCH (08:03)
--- NOTE | 2022-10-23 08:03 | Hospitalist Progress Note ---
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 Fever sec to E coli bacteremia in setting of known liver abscess Sepsis POA Fever since 10/16/2022. Outpatient Blood cultures from [facility] 10/14/22 are NGTD. Patient has been on daily Augmentin BID due to chronic liver abscess. She had also started taking Levaquin since 10/17 as directed by her Oncology for febrile illness. Has had the liver abscess drained multiple times in past by IR -Two blood cx with E coli. UA did not not suggest infection. -In the past 24hrs, patient has been afebrile with no episodes of chills/rigors -Repeat blood cultures completed yesterday, NGTD -Continue Zosyn. -Plan to discuss with ID, [facility] Oncologist tomorrow to discuss antibiotic course in setting of existing liver abscess Transaminitis Elevated AST and ALT on admission.Improving -Continue monitoring hepatic panel Liver abscess Known history of chronic liver abscess, required hospitalization and placement of drain at [facility] in 2020. -Holding Augmentin BID while on IV antibiotics and for concern of resistance against Augmentin. Chronic diarrhea with h/o C diff -Stool PCR neg. C diff neg as well. 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 -Considering endemic area - per ID recommendations will continue PO doxycycline. Chemotherapy induced pancytopenia -Today WBC 10.79, Hgb 8.1, Plts low at 106. Pancreatic cancer: Patient receives her Oncology Care at [facility]. -Continue Oxycodone 10mg po BID -Zofran PRN -Creon as directed -Gabapentin 300mg po TID CKD (chronic kidney disease), stage III: -BUN and Cr near baseline F/E/N - regular diet as tolerated VTE Prophylaxis- Lovenox for DVT prophylaxis Code - Full Code Dispo - Med/Surg Admission and Anticipated Discharge Date Admission Date: October 19, 2022 Supervising Physician Co-Signing Physician Notes Resident Physician Supervision Note: I independently interviewed and examined the patient and verified the montoya history and physical, reviewed labs and image studies and agree with resident findings and care plan. Subjective Patient seen and examined at bedside. No acute events overnight. Tamara states she has not had fever/chills/rigors in the past day which is an improvement. Notes that she has been up and moving around the issue, has been eating and drinking without issue. Review of Systems Review of Systems: As per above Physical Exam Constitutional: + thin, cooperative and comfortable Eyes: no conjunctival abnormality ENMT: External ears and nose normal. Moist mucous membranes. Respiratory: normal respiratory effort, lungs clear to auscultation Cardiovascular: Rate/Rhythm: regular rate and regular rhythm Skin: no rashes, warm and dry Neurologic: moves all extremities Psychiatric: A+Ox3, euthymic affect Lymphatic: No lower extremity edema, bilaterally. Results & Data Results & Data Vital Signs (Past 12 Hours) Vital Signs Temp Pulse Pulse Resp BP Pulse Ox O2 Del Method 10/23/22 06:53 50 L 10/23/22 03:18 36.9 C 54 L 16 123/69 98 Room Air 10/22/22 22:35 60 10/22/22 22:00 37 C 60 18 124/65 97 Room Air Resident Activity Tracking Resident Involvement: Resident Care Provided Care Provided: Adult Hospital Medicine
[2022-10-23] MEDS: oxyCODONE HCL 10 MG TABCR (OxyCONTIN) PO SCH ×2 (08:05→21:06)
[2022-10-23] MEDS: LATANOPROST 0.005% OP SOLN 2.5 ML BTL OPB SCH (21:06)
[2022-10-24] MEDS: PIPERACILLIN/TAZOBACTAM 4.5 GM in DEXTROSE 5% 100 ML IV SCH (01:29)
[2022-10-24] MEDS: RASPBERRY SYRUP 5 ML UDP PO SCH ×4 (05:33→23:01)
[2022-10-24] MEDS: LEVOTHYROXINE SODIUM 50 MCG TABLET PO SCH (05:34)
[2022-10-24] MEDS: VANCOMYCIN HCL 125 MG/2.5ML SOLN PO SCH ×4 (05:34→23:01)
[2022-10-24] MEDS: HEPARIN 100 UNIT/ML 5ML FLUSH FLUSH PRN ×2 (07:02→11:26)
[2022-10-24] MEDS: PANCREAZE (LIPASE 10,500U) CAP PO SCH ×3 (07:35→16:26)
[2022-10-24] MEDS: SUCRALFATE 1 GM TAB PO SCH ×4 (07:36→20:14)
[2022-10-24 07:38] LABS: Basophils # (auto) 0.02 K/uL (0-0.2); Basophils % (auto) 0.4 %; Eosinophils # (auto) 0.13 K/uL (0-0.50); Eosinophils % (auto) 2.3 %; Hematocrit (blood only) 24.5 % (37.0-47.0); Hemoglobin 8.4 g/dl (12.0-16.0); Immature Granulocytes # (auto) 0.09 K/uL (0.01-0.20); Immature Granulocytes % (auto) 1.6 %; Lymphocytes % (auto) 21.3 %; Mean Corpuscular Hemoglobin 33.1 pg (25.0-34.0); Mean Corpuscular Hgb Conc 34.3 g/dL (32.0-36.0); Mean Corpuscular Volume 96.5 fL (80.0-100.0); Mean Platelet Volume 11.5 fL (9.4-12.4); Monocytes # (auto) 0.35 K/uL (0.11-0.59); Monocytes % (auto) 6.2 %; Neutrophils # (auto) 3.84 K/uL (1.40-6.50); Neutrophils % (auto) 68.2 %; Platelet Count 126 K/uL (130-400); RDW Coefficient of Variation 17.2 % (11.5-14.5); RDW Standard Deviation 60.2 fL (36.4-46.3); Red Blood Count 2.54 M/uL (4.20-5.40); White Blood Count 5.63 K/ul (4.8-10.8)
[2022-10-24 07:55] LABS: Albumin Level 2.5 gm/dl (3.4-5.0); BUN Creatinine Ratio 5.4 (10-20); Bilirubin Direct 0.2 mg/dl (0-0.2); Bilirubin,Total 0.5 mg/dl (0.2-1.0); Calcium 7.5 mg/dl (8.6-10.3); Creatinine Clr Calc Pharmacy 45.6 ml/min; Est GFR (African American) 73.6 ml/min; Est GFR (Non-African American) 63.5 ml/min; Potassium 3.3 mmol/L (3.5-5.1); Total Protein 4.7 gm/dl (6.0-8.3)
[2022-10-24] MEDS ORDERED: POTASSIUM CHLORIDE CRTAB 20 MEQ TABCR PO ONE (08:05)
[2022-10-24] MEDS: GLYCOPYRROLATE 1 MG TAB PO SCH ×2 (09:15→20:15)
[2022-10-24] MEDS: DOXYCYCLINE HYCLATE 100 MG CAP PO SCH ×2 (09:15→20:14)
[2022-10-24] MEDS: ADVANCED PROBIOTIC 1250 MG CAPSULE PO SCH (09:16)
[2022-10-24] MEDS: PANTOprazole 40 MG TAB PO SCH (09:16)
[2022-10-24] MEDS: oxyCODONE HCL 10 MG TABCR (OxyCONTIN) PO SCH ×2 (09:18→20:14)
--- NOTE | 2022-10-24 09:37 | Infectious Disease Progress Nt ---
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 She was evaluated by her Oncologist outpatient. An MRI brain was completed (unremarkable) and BC obtained (sterile). She was prescribed Levaquin, but fevers continued. She was scheduled to received chemotherapy, but it was held 2/2 fevers. Patient is a limited historian. Her (licensed acupuncturist) provides most of the history via phone. She denies abdominal pain, headaches, cough, shortness of breath, chest pain, rash, change in urine habits or sick contacts. [place], but denies tick or mosquito bites. She has chronic loose stools with chemotherapy. On presentation, labs showed WBC 2.89, hemoglobin 10.3, plt 83, procalcitonin 28.68, lactate 4.9--->3.2 ( post IVF), direct bilirubin 0.4 with AST 270 and ALT 250, Alk phos 215. A respiratory viral panel is negative. UA without blood, nitrites or leukocyte esterase. Lyme IGM positive, IGG negative, pending reflex Western blot. GI pathogen PCR panel negative including cdiff. CXR showed no active lung disease. CTAB shows a low-attenuation lesion in the superior right hepatic lobe concerning for pancreatic metastasis, osseous metastasis including the lumbar spine and pelvis, right femoral neck and fluid-filled small bowel c/f enteritis/ileus as well as mild liquid stool in the colon. Chest CTA showeda left upper lobe subpleural nodule and no pleural effusion or pneumothorax. Osseous metastasis within the thoracic spine is also seen. Admission Bc grew Ecoli in 3/4 bottles. Augmentin was held and she was started on Zosyn. E coli susceptibilities returned, showing resistance to fluoroquinolones. She is receiving oral vancomycin. Given pt's history of a liver abscess, I spoke with radiology regarding the liver lesion on 10/19/22 CT A/P. They felt it was hard to differentiate between a treated abscess vs necrotic metastasis here, but given the prior history of abscess in this area, this could represent an abscess. Pt does have a history of radioembolization to liver metastasis. The lesion/abscess in a difficult location to access by IR, and also IR is not available at [facility] this week. The source of her E coli bacteremia could be the chronic liver abscess. She has no urinary symptoms. Port looks clean and intact. The E coli is susceptible to her chronic Augmentin, which raises the question of whether source control of a potential liver abscess is needed. Overall, pt appears to be improved, with resolution of fevers, and improvement in pancytopenia. Pancytopenia is likely secondary to cancer, chemotherapy, and sepsis. Treated empirically for tick-related disease--initial Lyme screen IgM positive, IgG negative, but reflex western blot shows IgM negative, IgG positive. Anaplasma and Babesia smear neg. Babesia PCR neg. Micro: 10/22 BCx x2: NGTD 10/19 Lyme western blot: IgM negative, IgG positive. 10/19 Lyme screen: IgM positive, IgG negative. 10/19 BCx x2: 3/ bottles + for E coli (R cipro, levo, TMP/SMX) Abx: Augmentin 10/19-10/20 zosyn 10/19 - 10/24 Vanco PO 10/19 - present Doxy 10/19-10/21, 10/22 - present Ceftriaxone 10/24 - present Problems: #Ecoli bacteremia #Metastatic ampullary carcinoma #h/o of liver abscess on chronic Augmentin #h/o C diff on oral chronic oral vancomycin #Flagyl allergy: cerebral toxicity #pancytopenia: improving # Port in place Recommendations: -Stopped pip-tazo. Started ceftriaxone 2 g IV daily to cover E coli. Holding home Augmentin for now. -Would discuss with her oncologists regarding the liver finding and whether transfer for IR aspiration is needed. Per primary team, pt's states that the hepatic abscess has not been drainable in the past--so transfer for IR aspiration may not be an option. If this is the case, anticipate transitioning back to chronic home Augmentin 875 mg PO BID on discharge -Continue home oral vancomycin 125 mg po q6 -Can continue doxycycline for now. Follow-up Anaplasma PCR -Lyme western blot shows IgM neg, IgG positive, suggestive of past history of infection, not current infection. Discussed with primary team. Please page [facility] Call Center with further questions. Admission and Anticipated Discharge Date Admission Date: October 19, 2022 Subjective This patient recommendation is based on a telemedicine consult request which was completed asynchronously through chart review and information provided by the primary physician. The patient was not seen or examined today. The evaluation is consultative in nature and all patient care and treatment decisions can either be accepted or rejected by the patient's primary hospital-based treating physician using their own independent medical judgment for their patient. Time Spent Reviewing Chart: 31+ minutes E coli susceptibilities returned with resistance to fluoroquinolones and TMP/SMX No leukocytosis Last fever on 10/21 10/22 BCx NGTD Review of System pt not seen Physical Exam Physical Exam: pt not seen Results & Data Vital Signs (Past 12 Hours) Vital Signs Temp Pulse Pulse Resp BP Pulse Ox O2 Del Method 10/24/22 08:01 37.0 C 50 L 20 124/66 95 Room Air 10/24/22 04:41 36.5 C 54 L 20 124/68 94 Room Air 10/23/22 23:42 37.0 C 56 L 18 122/61 98 Room Air 10/23/22 22:01 56 L Laboratory Results Short CBC 10/24/22 Range/Units 07:01 WBC 5.63 (4.8-10.8) K/ul Hgb 8.4 L (12.0-16.0) g/dl Hct 24.5 L (37.0-47.0) % Plt Count 126 L (130-400) K/uL BMP 10/24/22 07:01 Sodium 144 Potassium 3.3 L Chloride 115 H Carbon Dioxide 24 BUN 5 L Creatinine 0.92 Glucose 90 Calcium 7.5 L Liver Function 10/24/22 Range/Units 07:01 Total Bilirubin 0.5 (0.2-1.0) mg/dl Direct Bilirubin 0.2 (0-0.2) mg/dl AST 22 (13-39) U/L ALT 63 H (7-52) U/L Alkaline Phosphatase 134 H (34-104) U/L Albumin 2.5 L (3.4-5.0) gm/dl Medications Administered Current Inpatient Medications Acetaminophen (Acetaminophen 500 Mg Tab) 1,000 mg PO Q8H PRN PRN Reason: pain/fever Stop: 11/19/22 05:06 Last Admin: 10/21/22 11:08 Dose: 1,000 mg Amoxicillin/Clavulanate Potassium (Amoxicillin/Clavulanate 875 Mg Tab) 1 tab PO BIDM [facility]; Protocol Stop: 11/19/22 07:59 Last Admin: 10/20/22 16:53 Dose: 1 tab Lipase/Protease/Amylase (Pancreaze (Lipase 10,500u) Cap) 2 cap PO TIDM JAN Stop: 11/19/22 07:59 Last Admin: 10/24/22 07:35 Dose: 2 cap Lipase/Protease/Amylase (Pancreaze (Lipase 10,500u) Cap) 1 cap PO UD PRN PRN Reason: SNACKS Stop: 11/19/22 05:49 Doxycycline Hyclate (Doxycycline Hyclate 100 Mg Cap) 100 mg PO BID [facility] Stop: 11/01/22 08:59 Last Admin: 10/24/22 09:15 Dose: 100 mg Gabapentin (Gabapentin 300 Mg Cap) 300 mg PO TID PRN PRN Reason: Pain Stop: 11/19/22 05:06 Last Admin: 10/21/22 08:55 Dose: 300 mg Glycopyrrolate (Glycopyrrolate 1 Mg Tab) 2 mg PO BID [facility] Stop: 11/20/22 10:59 Last Admin: 10/24/22 09:15 Dose: 2 mg Heparin Sodium (Porcine) (Heparin 100 Unit/Ml 5ml Flush) 5 ml FLUSH PRN PRN PRN Reason: Flush Stop: 11/22/22 00:14 Last Admin: 10/24/22 07:02 Dose: 5 ml Piperacillin Sod/Tazobactam (Sod 4.5 gm/ Dextrose) 120 mls @ 30 mls/hr IV Q8H [facility]; Protocol Stop: 10/31/22 01:59 Last Infusion: 10/24/22 05:36 Dose: Infused Lactobacillus Acidophilus (Advanced Probiotic 1250 Mg Capsule) 2 cap PO QAM JAN Stop: 11/19/22 08:59 Last Admin: 10/24/22 09:16 Dose: 2 cap Latanoprost (Latanoprost 0.005% Op Soln 2.5 Ml Btl) 1 drops OPB HS JAN Stop: 11/19/22 20:59 Last Admin: 10/23/22 21:06 Dose: 1 drops Levothyroxine Sodium (Levothyroxine Sodium 50 Mcg Tablet) 50 mcg PO DAILYBB JAN Stop: 11/19/22 06:29 Last Admin: 10/24/22 05:34 Dose: 50 mcg Lidocaine/Prilocaine (Lidocaine/Prilocaine 2.5% Ea Crm) 1 each EXT UD PRN PRN Reason: port access Stop: 11/19/22 05:06 Loperamide HCl (Loperamide Hcl 2 Mg Cap) 2 mg PO Q6H PRN PRN Reason: Diarrhea Stop: 11/19/22 18:16 Last Admin: 10/20/22 21:12 Dose: 2 mg Ondansetron HCl (Ondansetron Inj 2 Mg/Ml 2 Ml Vial) 4 mg IV Q6H PRN PRN Reason: Nausea Stop: 11/19/22 05:06 Oxycodone HCl (Oxycodone Hcl 10 Mg Tabcr (Oxycontin)) 10 mg PO BID JAN Stop: 11/03/22 08:59 Last Admin: 10/24/22 09:18 Dose: Not Given Pantoprazole Sodium (Pantoprazole 40 Mg Tab) 40 mg PO DAILY JAN Stop: 11/19/22 08:59 Last Admin: 10/24/22 09:16 Dose: 40 mg Raspberry (Raspberry Syrup 5 Ml Udp) 5 ml PO Q6 JAN Stop: 10/30/22 05:59 Last Admin: 10/24/22 05:33 Dose: 5 ml Sucralfate (Sucralfate 1 Gm Tab) 1 gm PO ACHS JAN Stop: 11/19/22 07:29 Last Admin: 10/24/22 07:36 Dose: 1 gm Vancomycin HCl (Vancomycin Hcl 125 Mg/2.5ml Soln) 125 mg PO Q6 JAN Stop: 10/30/22 05:59 Last Admin: 10/24/22 05:34 Dose: 125 mg
[2022-10-24] MEDS: cefTRIAXone SODIUM 2,000 MG in DEXTROSE 5% 50 ML IV SCH (10:24)
[2022-10-24 12:37] LABS: 18KDIGG Band NON-REACTIVE; 23KDIGG Band REACTIVE; 23KDIGM Band REACTIVE; 28KDIGG Band NON-REACTIVE; 30KDIGG Band NON-REACTIVE; 39KDIGG Band REACTIVE; 39KDIGM Band NON-REACTIVE; 41KDIGG Band REACTIVE; 41KDIGM Band NON-REACTIVE; 45KDIGG Band NON-REACTIVE; 58KDIGG Band REACTIVE; 66KDIGG Band NON-REACTIVE; 93KDIGG Band REACTIVE; Lyme Antibodies, WB IgG POSITIVE (NEGATIVE); Lyme Antibodies, WB IgM NEGATIVE (NEGATIVE)
--- NOTE | 2022-10-24 17:18 | Hospitalist Progress Note ---
Date of Service October 24, 2022 Assessment & Plan (1) Fever: Plan: 71yo female with metastatic adenocarcinoma of the pancreas s/p surgical excision, on chemotherapy presenting with E coli bacteriemia being treated with abx. Fever Would discuss with her oncologists regarding the liver finding and whether transfer for IR aspiration is needed. Per primary team, pt's states that the hepatic abscess has not been drainable in the past--so transfer for IR aspiration may not be an option. If this is the case, anticipate transitioning back to chronic home Augmentin 875 mg PO BID on discharge. Blood cultures [place] [facility] [place]/14/22 are NGTD thus far. Transaminase levels have decreased significantly. AST=22, ALT=63 No longer leukopenic. Plts low but trending up 126. Hgb 7.5 > 8.9 > 8.4 on reassessment. -Patient has been on daily Augmentin BID due to liver abscess, currently held. -She has also been taking her rescue Levaquin daily as directed by her Oncology for febrile illness -Tick-borne illness testing: will continue doxycycline per ID recommendation. Follow up on Anaplasma PCR. -Lyme western blot shows IgM neg, IgG positive, suggestive of past history of infection, not current infection. -Vancomycin 125mg PO, chronic -Zosyn changed to Ceftriaxone IV to cover E Coli, recommendation by ID. -Follow blood cultures -Tylenol PRN -Zofran PRN (2) Pancreatic cancer: Plan: Patient receives her Oncology Care at [facility]. -Continue Oxycodone 10mg po BID -Zofran PRN -Creon as directed -Gabapentin 300mg po TID (3) Abnormal LFTs: Plan: Resolved, LFTs showed improvement. (4) Hypothyroid: Plan: Chronic. Stable -Continue Synthroid (5) Liver abscess: Plan: -Continue Augmentin BID (6) History of Clostridioides difficile infection: Plan: -Continue PO Vancomycin (7) CKD (chronic kidney disease), stage III: Plan: BUN and Cr near baseline -IVF as below Plan F/E/N - LR at 125mL/hr x 2 liters, Potassium and Phosphate repletion - 15mmol w ith repeat chemistry in AM, Mg repletion with 2gm - repeat level in AM, regular diet as tolerated Ppx - Lovenox for DVT prophylaxis Code - Full per discussion with patient Dispo - Medicine Admission and Anticipated Discharge Date Admission Date: October 19, 2022 Supervising Physician Co-Signing Physician Notes I personally examined the patient and verified all montoya points of history and exam, discussed case, and agree with decision making with Aguilar Pat MS4 and Dr Gipson feeling ok wonders about going home and wonders about getting back to work. Aguilar Pat tried multiple avenues to d/w pt's oncologist - still awaiting return call from doc or PA; I d/w ID, input appreciated vitals noted nad heent nc at mmm breathing unlabored no accessory muscles good effort skin no rashes no pallor or icterus sepsis - liver abscess and subsequent E Coli bacteremia present on admission - fortunately only R to quinolones and bactrim. on zosyn -> ID changed to rocephin. still waiting to close the loop w oncologist at [facility] but notes that IR drainage was not feasible in the past, and ID d/w radiology here raised suspicion even before talking w that this might be the case. improving. d/w pt and - without definitive source control, course of treatment will be a little more difficult to sort out - but with f/u blood cultures negative - ?IV for a period of time before resuming augmentin suppressive? otherwise as above Subjective Today, she is feeling well. She does report edema in her feet. She has been consistently afebrile and feeling well. Review of Systems Constitutional: Denied fever, fatigue, weakness, dizziness Cardiovascular: Additional Comments: Denied chest pain, palpitations Gastrointestinal: Denied nausea, vomiting, diarrhea, abdominal pain. Musculoskeletal: Endorses edema Physical Exam Constitutional: Alert and oriented x3 in hopsital bed Neck: Respiratory: CTA, no increased work of breathing Cardiovascular: Normal rate and regular rhythm. S1 S2 no r/m/g. Radial pulses equal b/l. Gastrointestinal (Abdomen): Nondistended, nontender, normoactive bowel sounds. Musculoskeletal: Able to ambulate and move all extremities Skin: Warm dry, no apparent rashes Psychiatric: Appropriate mood and affect. Results & Data Results & Data Vital Signs (Past 12 Hours) Vital Signs Temp Pulse Pulse Resp BP Pulse Ox O2 Del Method 10/24/22 15:33 37.0 C 52 L 20 140/72 96 Room Air 10/24/22 15:13 59 L 10/24/22 12:26 37.0 C 53 L 18 121/68 97 Room Air 10/24/22 08:00 49 L 10/24/22 08:01 37.0 C 50 L 20 124/66 95 Room Air
--- NOTE | 2022-10-24 18:53 | Billing Data ---
Date of Service October 24, 2022 Coding Level of Care Code 91604 SUB INP/OBS CARE
[2022-10-24] MEDS: LATANOPROST 0.005% OP SOLN 2.5 ML BTL OPB SCH (20:14)
[2022-10-25] MEDS: LEVOTHYROXINE SODIUM 50 MCG TABLET PO SCH (05:19)
[2022-10-25] MEDS: VANCOMYCIN HCL 125 MG/2.5ML SOLN PO SCH ×2 (05:19→12:29)
[2022-10-25] MEDS: RASPBERRY SYRUP 5 ML UDP PO SCH ×2 (05:19→12:24)
[2022-10-25 06:38] LABS: Basophils # (auto) 0.02 K/uL (0-0.2); Basophils % (auto) 0.4 %; Eosinophils % (auto) 1.9 %; Hematocrit (blood only) 25.3 % (37.0-47.0); Hemoglobin 8.8 g/dl (12.0-16.0); Immature Granulocytes # (auto) 0.06 K/uL (0.01-0.20); Immature Granulocytes % (auto) 1.1 %; Lymphocytes # (auto) 1.29 K/uL (1.2-3.4); Lymphocytes % (auto) 24.2 %; Mean Corpuscular Hemoglobin 33.7 pg (25.0-34.0); Mean Corpuscular Hgb Conc 34.8 g/dL (32.0-36.0); Mean Corpuscular Volume 96.9 fL (80.0-100.0); Mean Platelet Volume 11.4 fL (9.4-12.4); Monocytes # (auto) 0.37 K/uL (0.11-0.59); Monocytes % (auto) 6.9 %; Neutrophils # (auto) 3.49 K/uL (1.40-6.50); Neutrophils % (auto) 65.5 %; Platelet Count 150 K/uL (130-400); RDW Coefficient of Variation 17.7 % (11.5-14.5); Red Blood Count 2.61 M/uL (4.20-5.40); White Blood Count 5.33 K/ul (4.8-10.8)
[2022-10-25 06:55] LABS: Albumin Level 2.5 gm/dl (3.4-5.0); BUN Creatinine Ratio 6.8 (10-20); Bilirubin Direct 0.1 mg/dl (0-0.2); Bilirubin,Total 0.4 mg/dl (0.2-1.0); Calcium 7.6 mg/dl (8.6-10.3); Creatinine Clr Calc Pharmacy 56.4 ml/min; Est GFR (African American) 97.4 ml/min; Potassium 3.7 mmol/L (3.5-5.1); Total Protein 4.8 gm/dl (6.0-8.3)
--- NOTE | 2022-10-25 07:22 | Hospitalist Progress Note ---
Date of Service October 25, 2022 Assessment & Plan (1) Abnormal LFTs: (2) Fever: (3) Liver abscess: (4) History of Clostridioides difficile infection: (5) Pancreatic cancer: (6) SIRS (systemic inflammatory response syndrome): (7) Acute febrile illness: (8) Metastatic disease: (9) Transaminitis: (10) Elevated lactic acid level: Plan Pt is a 71 year-old female with metastatic adenocarcinoma of the pancreas s/p surgical excision, on chemotherapy presenting with 5 days of intermittent fever/chills/rigors. Fever with gram neg bacteremia in setting of known liver abscess Fever since 10/16/2022. Outpatient Blood cultures from [facility] 10/14/22 are NGTD. Patient has been on daily Augmentin BID due to chronic liver abscess. She had also been taking Levaquin since 10/17 as directed by her Oncology for febrile illness. Has had the liver abscess drained multiple times in past by IR -CT of the abdomen with fluid filled small bowel with liquid in stool correlating with patient's known ongoing diarrhea. -Two blood cx with Gram neg bacteria. UA did not not suggest infection. -In the past 24hrs, patient has been afebrile with no episodes of chills/rigors -ID consulted, appreciate recommendations -Suspect GI source of gram negative bacteremia -Known liver abscess previously, although imaging this admission did not visualize such abscess. -Blood cultures grew e.coli, sensitivities include resistance to Levofloxacin, Ciprofloxacin, and Bactrim -Notified ID of sensitivities, will continue Zosyn for now -Repeat blood cultures completed yesterday, NGTD -Plan to discuss with ID, [facility] Oncologist tomorrow to discuss further plan of treatment Transaminitis Elevated AST and ALT on admission.Possibly from liver abscess vs. viral infection. -Consulted GI, now have signed off. -Transaminase levels have decreased significantly overall. AST=53, ALT=87 -Hepatitis panel negative/non-reactive -Continue monitoring hepatic panel Chronic diarrhea with h/o C diff -Stool PCR neg. C diff neg as well. 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 -Considering endemic area - per ID recommendations will continue PO doxycycline. Chemotherapy induced pancytopenia -Today WBC 10.79, Hgb 8.1, Plts low at 106. Pancreatic cancer w/ metastasis Patient receives her Oncology Care at [facility]. -Continue Oxycodone 10mg po BID -Zofran PRN -Creon as directed -Gabapentin 300mg po TID Liver abscess Known history of chronic liver abscess, required hospitalization and placement of drain at [facility] in 2020. -Holding Augmentin BID while on IV antibiotics and for concern of resistance against Augmentin. CKD (chronic kidney disease), stage III: -BUN and Cr near baseline Hypokalemia -Potassium decreased to 2.9 today, ordered KCl repletion. -Repeat BMP ordered FEN: regular diet as tolerated VTE ppx: lovenox Code: full Dispo: med/surg Admission and Anticipated Discharge Date Admission Date: October 19, 2022 Results & Data Results & Data Vital Signs (Past 12 Hours) Vital Signs Temp Pulse Pulse Resp BP Pulse Ox O2 Del Method 10/25/22 04:00 36.7 C 58 L 18 132/68 98 Room Air 10/24/22 22:00 51 L 10/25/22 00:00 36.8 C 53 L 18 138/61 99 Room Air Resident Activity Tracking Resident Involvement: Resident Care Provided Care Provided: Adult Hospital Medicine
[2022-10-25] MEDS: PANCREAZE (LIPASE 10,500U) CAP PO SCH ×2 (07:53→12:23)
[2022-10-25] MEDS: SUCRALFATE 1 GM TAB PO SCH ×2 (07:53→12:23)
[2022-10-25] MEDS: oxyCODONE HCL 10 MG TABCR (OxyCONTIN) PO SCH (09:35)
[2022-10-25] MEDS: ADVANCED PROBIOTIC 1250 MG CAPSULE PO SCH (09:35)
[2022-10-25] MEDS: PANTOprazole 40 MG TAB PO SCH (09:35)
[2022-10-25] MEDS: DOXYCYCLINE HYCLATE 100 MG CAP PO SCH (09:35)
[2022-10-25] MEDS: GLYCOPYRROLATE 1 MG TAB PO SCH (09:36)
[2022-10-25] MEDS: cefTRIAXone SODIUM 2,000 MG in DEXTROSE 5% 50 ML IV SCH (10:32)
--- NOTE | 2022-10-25 12:32 | Discharge Summary ---
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 diff infection presenting with intermittent fevers over the last 5 days. Patient has had intermittent episodes of fever with Tm of 104 associated with chills and rigors that have been occurring several times daily for the last 5 days. Episodes last approximately 1 hour. Also with nausea and vomiting on 10/16/22 and ongoing watery diarrhea since 10/16/22. She was found in her car today minimally responsive. Was seen at [facility] [place]14/22 and had an MRI of the brain that is unremarkable and blood cultures that are NGTD (confirmed at time of admission) She has been on daily Augmentin for history of liver abscess. Has also been on Levaquin since 10/14/22. She was to have her chemotherapy infusion on 10/17/22 which was held due to ongoing febrile episodes. Patient otherwise denies headache, visual changes, facial/dental pain, pain with swallowing or trouble swallowing. She denies chest pain, palpitations, cough, SOB, abdominal pain, dysuria. Denies rashes or joint pain. No recent travel or sick contacts. No change in medications. Patient denies recent tick bites but she does walk through a grassy area to get to her garden. In the ER she is afebrile, HD stable, NAD Admission Exam Per Admitting Provider General: thin, frail female patient resting comfortably, NAD, non-toxic in appearance, AA&O x 4 Skin: warm, dry, intact, no rashes or lesions HEENT: NC/AT, PERRL, EOMI, anicteric sclera, conjunctiva without injection, external ear normal to inspection and nontender, nares patent, dry mucus me mbranes, dentition intact, no oropharyngeal lesions, neck supple, trachea midline, no LAD, no thyromegaly, no JVD Heart: +S1/S2, regular, no m/r/g, chest port in place, nontender, no erythema Lungs: equal air entry bilaterally, no rales/rhonchi/wheezes Abd: +BS, soft, NT/ND, no masses/organomegaly/ascites Ext: warm, 2+ pulses in UE/LE bilaterally, no clubbing/cyanosis or edema Neuro: nonfocal, patient AA&O x 4, speech intact, no facial droop, moving all extremities on command with equal strength 5/5 Principal Diagnosis gram neg bacteremia d/t presumed source of liver abscess Discharge Exam Constitutional: well appearing, no acute distress HEENT: normocephalic, no conjunctival injection CV: regular rhythm, regular rate, no murmur, no LE edema Respiratory: Clear to auscultation bilaterally. No rhonchi, wheezes, or crackles. No increased work of breathing MSK: no gross deformities noted Skin: warm, dry, no rashes Neuro: alert, oriented, no FND noted Discharge Data Allergies Allergy/AdvReac Type Severity Reaction Status Date / Time metronidazole AdvReac Severe Cerebellar Verified 09/27/22 08:45 toxicity with hospitalization benzoin AdvReac Unknown CONTACT Verified 09/27/22 08:45 DERMATITIS Consultations 10/19/22 23:07 ED Decision to Admit Stat 10/20/22 11:21 Consult Gastroenterology Routine 10/21/22 13:03 Consult Infectious Diseases Routine Ordered Studies 10/19/22 20:33 CT abd pelvis IV con only Stat CT angio chest PE protocol Stat IMPRESSION: 1. No pleural effusion or pneumothorax. 2. LEFT upper lobe subpleural nodule versus implant, anteriorly measures 1.0 x 0.8 cm. Consider evaluation with PET/CT scan given that the patient has known metastatic pancreatic carcinoma. 3. Osseous metastases within the thoracic spine. IMPRESSION: 1. Low-attenuation lesion in the superior RIGHT hepatic lobe segment 7 measures 5.1 x 4.2 cm, concerning for a pancreatic metastasis. 2. Osseous metastasis including the lumbar spine and pelvis. Metastatic lesion involves RIGHT femoral neck, which increases susceptibility to pathologic fracture. 3. Whipple procedure with partial gastrectomy, cholecystectomy, and moderate intrahepatic biliary ductal dilation. 4. Fluid-filled small bowel which is mildly distended, correlate for enteritis/ileus. Mild liquid stool in the colon, correlate for diarrheal disease. Hospital Course (1) Abnormal LFTs: Pt is a 71 yo female with metastatic adenocarcinoma of the pancreas s/p surgical excision, on chemotherapy presenting with E coli bacteriemia being treated with abx. E. coli bacteremia in the setting of known liver abscess - repeat blood cx (10/22) neg - pt had been on augmentin BID outpatient due to a liver abscess (which was held during this admission) - after extensive discussion with ID and pt, plan for 14 day total course of IV ceftriaxone; plan to switch back to augmentin BID after this - encouraged pt to check temp each day; if pt were to have fevers or rigors, she is to report to the lab for blood cx Concern for tick borne-illness - d/c pt with instructions to finish 10 day course of doxy - Lyme western blot shows IgM neg, IgG positive, suggestive of past history of infection, not current infection - recommend anaplasma PCR f/u Pancreatic cancer with metastasis Patient receives her Oncology Care at [facility] No change to her home regimen -Continue Oxycodone 10mg po BID -Creon as directed -Gabapentin 300mg po TID Abnormal LFTs - Resolved, LFTs showed improvement Hypothyroid - Continue Synthroid History of C. difficile infection -Continue chronic PO Vancomycin CKD (chronic kidney disease), stage III - BUN and Cr near baseline Diet: regular VTE ppx: lovenox Code: full Dispo: home (2) Fever: (3) Liver abscess: (4) History of Clostridioides difficile infection: (5) Pancreatic cancer: (6) SIRS (systemic inflammatory response syndrome): (7) Acute febrile illness: (8) Metastatic disease: (9) Transaminitis: (10) Elevated lactic acid level: Total Time Total Time Spent Total Time Spent (In Minutes): <30 Discharge Plan Discharge Items Patient Disposition: Home - Self-Care Reason For Visit: FEVER Discharge Diagnosis: gram neg bacteremia Activity: Per Instructions section Non-emergency contact: Primary Care Provider and Oncologist Call non-emergency contact if: you have any medication questions, your symptoms worsen and your temperature is above 101 Follow-up/Referrals: Jose Maria Mir MD [Primary Care Provider] - Diet: Regular Addtl Attending Provider Instructions: You were admitted to the hospital for a change in your mental status found to be due to gram negative bacteria in your blood presumably from your known liver abscess. You were treated with various antibiotics. After much discussion with infectious disease, the general hospital team, you, and your , it was decided to proceed forward with a prolonged course of IV ceftriaxone. After this 14 day course, you will be changed back to oral augmentin twice per day as you were before this hospitalization. You should monitor your temperature daily. For any fevers or rigors, you should report to the lab for blood cultures. A discharge summary will be sent to your primary care physician to ensure continuity of care. Please bring this discharge summary with you to your next office appointment so that your provider can review it at that time. Medications: Your medication list has been reviewed and reconciled upon discharge to ensure accuracy and continuity of care. An updated list of all your medications is included with your hospital discharge paperwork. Please review this list closely and make note of any changes to your medications. - IV ceftriaxone daily for 14 days total - You should continue the doxycycline 100 mg twice per day for 7 more days to complete a 10 day course. This was due to a concern for lyme disease (although your tests were negative). - Otherwise, continue your medications as before your hospitalization. Follow up appointments: - Make a follow up appointment with your PCP within the next week. It is very important that you follow up with them shortly after discharge from the hospital. - Keep all of your follow up appointments as already scheduled. If you cannot make an appointment, notify your provider. CONTACT YOUR PRIMARY CARE PROVIDER if you experience any of the following: - Fevers, rigors - Difficulty following your treatment plan - Difficulty taking any of your medications CALL 911 OR GO TO THE EMERGENCY DEPARTMENT if you experience any of the following: - Sudden, severe abdominal pain or nausea/vomiting - Severe chest pain or chest pain that radiates to your jaw or arm - Sudden, severe shortness of breath or difficulty breathing Pending Studies at Discharge: No Stand-Alone Forms: My [facility], Smoking Cessation Medications and DC Order Prescriptions: New doxycycline hyclate 100 mg Capsule 100 mg PO BID 7 Days Qty: 14 0RF Continued Creon 36,000-114,000- 180,000 unit capsule,delayed release(DR/EC) See Rx Instructions .ROUTE .COMPLEX Rx Instructions: 2 capsule PO TID with each meal and 1 capsule PO with each snack, contents of capsule may be mixed with soft foods such as applesauce.; administer with meals and/or snacks Primadophilus 340 mg capsule 1 cap PO QAM ascorbate calcium (vitamin C) 500 mg tablet 1 g PO DAILY hydrocodone-homatropine [Hycodan (with homatropine)] 5-1.5 mg/5 mL syrup 5 ml PO Q6H PRN (Reason: cough) Qty: 946 0RF multivitamin tablet 1 tab PO DAILY cholecalciferol (vitamin D3) 50 mcg (2,000 unit) tablet 50 mcg PO DAILY pantoprazole 40 mg tablet,delayed release (DR/EC) 40 mg PO DAILY ondansetron 8 mg tablet,disintegrating 8 mg PO Q8 PRN (Reason: Nausea And Vomiting) latanoprost 0.005 % drops 1 drp OPB HS vancomycin 125 mg capsule 125 mg PO Q6H gabapentin 300 mg capsule 300 mg PO TID PRN (Reason: Pain) Rx Instructions: take as directed up to 3600mg per day in divided dose opium tincture 10 mg/mL (morphine) tincture 0.3 ml PO QID PRN (Reason: Cough) oxycodone [OxyContin] 10 mg tablet,oral only,ext.rel.12 hr 10 mg PO BID zinc acetate 50 mg (zinc) Capsule 50 mg PO DAILY lidocaine-prilocaine 2.5-2.5 % cream 1 applic topical UD Rx Instructions: 1 hour prior to accessing port sucralfate 1 gram tablet 1 g PO ACHS Rx Instructions: 1 g PO Before Meals and at bedtime; levothyroxine 50 mcg tablet 50 mcg PO DAILYBB capecitabine 500 mg tablet 1,000 mg PO BID Rx Instructions: on 10 days off 10 days Held amoxicillin-pot clavulanate 875-125 mg tablet 1 tab PO BID Hold Instructions: Resume on 11/09/22. Hold until after IV antibiotics completed Discharge Orders: Discharge Order (Routine); Ordered 10/25/22 Ordered By: Yelena Gipson Admission Data Admit Date/Time: 10/19/22 23:58 Attending Provider: Nhan Blair Admit Provider: Mamie Brand Primary Care Provider: Jose Maria Mir Other Providers: Mamie Brand ; Shahram Hernandez Jr ; Sarah Becerra Supervising Physician Co-Signing Physician Notes I personally examined the patient and verified all montoya points of history and exam, discussed case, and agree with decision making with Dr Gipson feels good. No new complaints. Would very much like to go home. Discussed planning for further treatmentdespite multiple calls, was unable to connect with her oncologist, but patient/, and myself all agreed that given that previously interventional radiology drainage was essentially risky/impossible, and our radiologist here felt that it would be very difficult to access, we agreed that "source control" with IR drainage would be unlikely to be a viable plan, and would probably present more potential risk than benefit. We then discussed what to do given the current conundrumi.e. that she has ongoing liver abscesses, and had gram-negative bacteremia with bacteria that was sensitive to Augmentin despite Augmentin suppressive therapy. Discussed the plan as suggested by infectious diseasethat her blood cultures are now negative and she is feeling welland we could simply resume her suppressive Augmentin; discussed the alternative option of a very arbitrary longer course of IV antibiotics with ceftriaxonenoting that the bioavailability is certainly not significantly greater than p.o. Augmentin, but probably is some, and that while fundamentally they are all beta-lactam mechanisms, it is a somewhat different mechanismand that it would really be an arbitrary length of time to treatbut if we went that route I would favor something on the order of 2 weeks, followed by return to Augmentin suppressive therapy. After considering all options, and expressing a good understanding that none of them are ideal, patient and both preferred a longer course of IV antibiotics followed by return to suppressive therapy. vitals noted nad heent nc at mmm breathing unlabored no accessory muscles good effort skin no rashes no pallor or icterus sepsis - liver abscess and subsequent E Coli bacteremia present on admission - fortunately only R to quinolones and bactrim. Initially was on Zosyn, changed to Rocephin. After discussing risk/benefits/"no great options" given inability for source control, risk/benefits/alternatives, different approachespatient and opted for an arbitrary 2 weeks total of IV therapy (set up at [facility] for Rocephin) before resuming Augmentin suppressive therapy. Discussed with leora brown very clearly to take any fever or rigors seriously, and gave a prescription for blood cultures as essentially a standing order to expedite care. otherwise as above Resident Activity Tracking Resident Involvement: Resident Care Provided Care Provided: Adult [facility]
--- NOTE | 2022-10-25 13:01 | Billing Data ---
Date of Service October 25, 2022 Coding Level of Care Code 30206 IN/OBS DISCH 30 MIN/LESS
== END 2022-10-25 14:46 | disposition home or self-care (01) | DRG 871 ==
LOC: ED 19:18 → EDINP 23:58 → SUATTDRO 23:58 → 2W 10-20 05:08

== ENCOUNTER 2022-11-25 15:19 | Inpatient (IN) ==
[2022-11-25 16:15] LABS: Hematocrit (blood only) 38.5 % (37.0-47.0); Hemoglobin 12.8 g/dl (12.0-16.0); Mean Corpuscular Hemoglobin 32.4 pg (25.0-34.0); Mean Corpuscular Hgb Conc 33.2 g/dL (32.0-36.0); Mean Corpuscular Volume 97.5 fL (80.0-100.0); Mean Platelet Volume 10.1 fL (9.4-12.4); Platelet Count 154 K/uL (130-400); RDW Coefficient of Variation 14.8 % (11.5-14.5); RDW Standard Deviation 52.4 fL (36.4-46.3); Red Blood Count 3.95 M/uL (4.20-5.40)
[2022-11-25] MEDS ORDERED: SODIUM CHLORIDE 0.9% 1000ML 500 ML IV ONE (16:25)
[2022-11-25] MEDS ORDERED: CEFEPIME 2,000 MG/20 ML VIAL IV STA (16:25)
[2022-11-25] MEDS ORDERED: SODIUM CHLORIDE 0.9% 1000ML 1,000 ML IV ONE (16:25)
[2022-11-25 16:33] LABS: Albumin Globulin Ratio 1.4 (0.9-2); Albumin Level 4.3 gm/dl (3.4-5.0); BUN Creatinine Ratio 21.2 (10-20); Bilirubin,Total 0.8 mg/dl (0.2-1.0); Creatinine Clr Calc Pharmacy 34.8 ml/min; Est GFR (African American) 66.9 ml/min; Est GFR (Non-African American) 57.7 ml/min; Globulin 3.1 gm/dl (2.5-4.0); Magnesium 1.7 mg/dl (1.7-2.4); Total Protein 7.4 gm/dl (6.0-8.3)
--- NOTE | 2022-11-25 16:43 | XRay Report ---
XR chest 1V not portable HISTORY: 72 years-old Female Sepsis acute sepsis COMPARISON: 10/19/2022 TECHNIQUE: AP view of the chest FINDINGS: Left IJ Asnjjm-v-Xuru catheter distal tip terminates in the expected location of the inferior SVC. Ca rdiac mediastinal and hilar silhouettes are within normal limits. No pneumothorax, pleural effusion, airspace consolidation or pulmonary edema. Bones appear grossly intact. Surgical clips of the abdomin al right upper quadrant. IMPRESSION: No acute process. ACT 112: Negative or not required by law. The above report was generated using voice recognition software. It may contain grammatical, syntax o r spelling errors. Electronically signed by: Mario Alberto Perez M.D. 11/25/2022 4:42 PM
[2022-11-25 16:44] LABS: Basophils # (auto) 0.04 K/uL (0-0.2); Basophils % (auto) 0.3 %; Immature Granulocytes # (auto) 0.15 K/uL (0.01-0.20); Immature Granulocytes % (auto) 1.2 %; Lymphocytes # (auto) 0.53 K/uL (1.2-3.4); Lymphocytes % (auto) 4.2 %; Monocytes # (auto) 0.19 K/uL (0.11-0.59); Monocytes % (auto) 1.5 %; Neutrophils # (auto) 11.79 K/uL (1.40-6.50); Neutrophils % (auto) 92.8 %
--- NOTE | 2022-11-25 17:47 | History & Physical Report ---
Date of Service November 25, 2022 Assessment & Plan (1) Liver abscess: Plan: Fever Recent E. coli bacteremia with liver abscesses. ID was consulted at last admission, IR aspiration was discussed but previously abscesses had not been amenable to drainage due to location and multiple foci Transition back home on Augmentin 875 mg p.o. twice daily on discharge at last admission to be continued indefinitely, vancomycin 125 mg p.o. every 6 hours for C. difficile prophylaxis, and doxycycline was continued for Lyme exposure cyst of the past but not current infection Leukocytosis of 12.7 with neutrophilic predominance Lactate 3.1, repeat 2.7 and downtrending with fluids. Additional 500 cc bolus given, lactate repeat Procalcitonin 7.66 E. coli BC 10/19/2022 positive for E. coli with resistance to Cipro/Bactrim CXR no acute process - CT-A/p: 1. Hypoattenuating hepatic segment 7 mass is not significantly changed.This presumably represents a metastatic lesion. A liver abscess would appear similarly. 2. Stable osteosclerotic metastatic disease without pathologic fracture. 3. Status post Whipple procedure. Fluid-filled bowel could reflect enteritis. Colonic stool retention suggest constipation. No mechanical bowel obstruction. As CT is stable and no worsened/increased foci of abscess will admit to medical telemetry Suspect patient will have positive blood cultures given elevated Pro-Yaya. Follow for speciation and sensitivities Continue cefepime at this time Continue prophylactic/chronic Vanco every 6 hours Hemodynamically stable and mentating normally at bedside on admit - No signs of port infection Pancreatic adenocarcinoma with bony metastasis and liver mets s/p pancreatic duodenectomy 06/2019 6th cycle of chemo remitecan --> 3rd infusion this past week. Next due this Monday. Patient admitted for suspected sepsis, hold chemo at this time and reinitiation to be determined based on clinical progression Continue Creon 3 times daily with meals, open capsules into food Continue PPI History of C. difficile Continue vancomycin every 6 hours prophylaxis Hypothyroidism Continue Synthroid History of diarrhea worsened by chemo May continue glycopyrrolate, she was most recently C. difficile negative and has remained on prophylaxis for this DVT prophylaxis: Lovenox Disposition: Medical telemetry Diet: Regular CODE STATUS: Full code (2) Pancreatic cancer: (3) Metastatic disease: (4) Renal insufficiency, mild: (5) CKD (chronic kidney disease), stage III: (6) Acute kidney injury superimposed on chronic kidney disease: (7) History of Clostridioides difficile infection: (8) Hypothyroid: History of Present Illness Primary Care Provider: Jose Maria Mir MD Tamara is a 72-year-old female with past medical history of pancreatic cancer, hypothyroidism, CKD, renal insufficiency, liver abscesses, and C. difficile who was discharged from the hospital 10/25/2022 following admission for E. coli bacteremia in the setting of known liver abscesses who read presents with fever Presents w/ fever. She has a history of recurrent bacteremia with liver abscesses Woke up today and was very cold/chilly. Monitors her tempreature carefully. Was 101.2*F this morning.Is on Augmentin BID chronically now, was treated for e coli bacteremia with liver abscesses. Liver abscesses are not amenable to IR drainage, they have tried before and location precludes. Last IR attempt was fall 2021 at [facility] and did have a drain placed but was unable to fully drain abscesses and noted that further attemps in the future were unlikely to be beneficial and not recommended due to number if identified foci in addition to the two main areas of abscess. Recommended for medical management moving f orward. 6th cycle of chemo remitecan --> 3rd infusion this past week. Next due this Monday. Had baceremia after 3rd infusion in September as well. Hx thrombocytopenia in the past with chemo. Biofire negative This is her 3rd episode of sepsis overall, other than September last was 1 year prior She feels she does well on Augmentin, but as her immune system gets suppressed 'her body just can't handle infection and breaks through even if its supposed to be sensitive to the antibiotic.' Medical History: Reviewed Medications: Reviewed Surgical History: Reviewed Family history: Reviewed Allergies: Reviewed Social History: No tobacco/etoh Code Status: FUll Code Allergies Allergy/AdvReac Type Severity Reaction Status Date / Time metronidazole AdvReac Severe Cerebellar Verified 11/25/22 19:08 toxicity with hospitalization benzoin AdvReac Unknown CONTACT Verified 11/25/22 19:08 DERMATITIS Home Medications Medication Instructions Recorded Confirmed Type multivitamin 1 tab PO DAILY 12/27/18 11/25/22 History cholecalciferol (vitamin D3) 50 50 mcg PO DAILY 01/09/20 11/25/22 History mcg (2,000 unit) tablet pantoprazole 40 mg tablet,delayed 40 mg PO DAILY 01/09/20 11/25/22 History release ondansetron 8 mg disintegrating 8 mg PO Q8 PRN Nausea And Vomiting 02/04/21 11/25/22 History tablet Primadophilus 1 cap PO QAM 02/16/21 11/25/22 History [id number] 1 cap PO TIDM 02/16/21 11/25/22 History 36,000-114,000-180,000 unit capsule,delay rel (Creon) ascorbate calcium (vitamin C) 500 1 g PO DAILY 02/18/21 11/25/22 History mg tablet hydrocodone-homatropine 5 mg-1.5 5 ml PO Q6H PRN cough #946 mL 11/04/21 11/25/22 Rx mg/5 mL oral syrup (Hycodan (with homatropine)) amoxicillin 875 mg-potassium 1 tab PO BID 06/17/22 11/25/22 History clavulanate 125 mg tablet gabapentin 300 mg capsule 300 mg PO BID 06/17/22 11/25/22 History latanoprost 0.005 % eye drops 1 drp OPB HS 06/17/22 11/25/22 History lidocaine-prilocaine 2.5 %-2.5 % 1 applic topical UD 06/17/22 11/25/22 History topical cream oxycodone 10 mg tablet,crush 10 mg PO BID 06/17/22 11/25/22 History resistant,extended release 12 hr (OxyContin) sucralfate 1 gram tablet 1 g PO ACHS 06/17/22 11/25/22 History vancomycin 125 mg capsule 125 mg PO Q6H 06/17/22 11/25/22 History zinc acetate 50 mg (zinc) capsule 50 mg PO DAILY 06/17/22 11/25/22 History capecitabine 500 mg tablet 1,000 mg PO .BID UD 10/19/22 11/25/22 History levothyroxine 50 mcg tablet 50 mcg PO DAILYBB 10/19/22 11/25/22 History glycopyrrolate 2 mg tablet 2 mg PO TID PRN Constipation 11/25/22 11/25/22 History Past Med/Surg History Medical History (Updated 11/25/22 @ 19:37 by Sp Valadez MD) CKD (chronic kidney disease), stage III E coli bacteremia History of Clostridioides difficile infection Hypothyroid Liver abscess Nausea & vomiting Pancreatic cancer Thrombocytopenia Surgical History H/O oral surgery History of ERCP 05/2019 History of liver biopsy History of pancreatic surgery History of thoracentesis Family History Mother Colon cancer Hyperlipidemia Hearing loss of aging Colorectal cancer Father Prostate cancer Hypertension Unknown Breast cancer Grandmother (Maternal) Diabetes Myocardial infarction Grandfather (Paternal) Stroke Other Allergies No family history of adverse response to anesthesia No family history of bleeding disorder Denies family history of Ovarian cancer Lung cancer Social History Smoking Status: Never smoker Second Hand Exposure: No; Do You Dip or Chew Tobacco: No; Hx Alcohol Use: No Hx Substance Use: No Preferred Language: Nauruan Communication Ability: Effective Visual Impairment: Limited Hearing Ability: Normal Detective Chief Required: No Beliefs That Will Affect Care: None marital status: Current Living Situation: Spouse current occupational status: employed 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 NAD. Cooperative. HEENT: Atraumatic, normocephalic. Chest: Port intact. No erythema/warmth/tenderness Pulm: CTAB A&P. -wheezes, -rales, -rhonchi. Symmetrical chest rise. No increased work of breathing. No respiratory distress. Cardiac: RRR, -mrg. Radial pulses intact and symmetrical. Abdominal: Nontender, nondistended, soft. BS present. Ext: Warm, dry Results & Data Results & Data Vital Signs (Past 12 Hours) Vital Signs Temp Pulse Pulse Resp BP BP Pulse Ox 11/25/22 17:17 68 11/25/22 17:00 68 16 100 08/04/23 17:00 100 11/25/22 17:00 68 18 146/71 H 100 11/25/22 15:23 37.8 C H 83 16 126/71 100 O2 Del Method 11/25/22 17:17 11/25/22 17:00 Room Air 11/25/22 17:00 Room Air 11/25/22 17:00 Room Air 11/25/22 15:23 Room Air PG Care Time/CCT Total # of Minutes Spent Total Time Spent with Patient: Total time spent is greater than 50% in coordination of care (as documented) at patient's floor/unit and/or counseling patient: Coding Level of Care Code 56475 INT INP/OBS CARE 3/75MIN Diagnoses Liver abscess K75.0 Pancreatic cancer C25.9 Metastatic disease C79.9 Renal insufficiency, mild N28.9 CKD (chronic kidney disease), stage III N18.3 Acute kidney injury superimposed on chronic kidney disease N17.9; N18.9 History of Clostridioides difficile infection Z86.19 Hypothyroid E03.9
[2022-11-25] MEDS ORDERED: PLASMA-LYTE A 500 ML IV ONE (17:48)
[2022-11-25 18:12] LABS: Adenovirus PCR Not Detected (NotDetected); Bordetella parapertussis PCR Not Detected (NotDetected); Bordetella pertussis PCR Not Detected (NotDetected); Chlamydia pneumoniae PCR Not Detected (NotDetected); Coronavirus 229E PCR Not Detected (NotDetected); Coronavirus CoV-2 (COVID19)PCR Not Detected (NotDetected); Coronavirus HKU1 PCR Not Detected (NotDetected); Coronavirus NL63 PCR Not Detected (NotDetected); Coronavirus OC43PCR Not Detected (NotDetected); Human Metapneumovirus PCR Not Detected (NotDetected); Influenza A PCR Not Detected (NotDetected); Influenza B PCR Not Detected (NotDetected); Mycoplasma pneumoniae PCR Not Detected (NotDetected); Parainfluenza Virus 1 PCR Not Detected (NotDetected); Parainfluenza Virus 2 PCR Not Detected (NotDetected); Parainfluenza Virus 3 PCR Not Detected (NotDetected); Parainfluenza Virus 4 PCR Not Detected (NotDetected); Respiratory Syncytial VirusPCR Not Detected (NotDetected); Rhinovirus/Enterovirus PCR Not Detected (NotDetected)
[2022-11-25] MEDS ORDERED: OPTIRAY 320 100ml IV ONE (18:25)
[2022-11-25 18:31] LABS: Partial Thromboplastin Ratio 0.9; Partial Thromboplastin Time 24.4 Seconds (21.0-31.0); Prothrombin Time 11.4 Seconds (9.0-12.0)
--- NOTE | 2022-11-25 19:04 | CT Scan Report ---
Exam(s): CT ABDOMEN + PELVIS With Contrast IV Amt: 91ml opti 320 EXAM: CT Abdomen and Pelvis With Intravenous Contrast CLINICAL HISTORY: Reason for exam: fever, lactate. History of liver abscesses.. TECHNIQUE: Axial computed tomography images of the abdomen and pelvis with intravenous contrast. CTDI is 6.16 mGy and DLP is 275.71 mGy-cm. Automated exposure control was utilized for the study. A dose lowering technique was utilized adhering to the principles of ALARA. CONTRAST: Patient received 91ml opti 320 of IV contrast COMPARISON: 10/19/22 FINDINGS: There is subsegmental atelectasis in the lingula and right middle lobe. Lung bases appear otherwise clear. Again seen is a low-attenuation mass in hepatic segment 7 measuring 4.2 x 3.2 cm, similar to prior. There is localized adjacent perihepatic ascites. Patient is status post Whipple procedure. Intrahepatic biliary dilatation is stable from prior exam. Spleen, residual pancreas, and adrenal glands are unremarkable. Kidneys enhance symmetrically. There is no hydronephrosis. There is atherosclerosis without aortic aneurysm. Mildly prominent retroperitoneal lymph nodes are unchanged. There are fluid-filled loops of small bowel and a large volume of retained colonic stool without evidence of mechanical bowel obstruction. Appendix is not identified. Urinary bladder and uterus are unremarkable. There is trace free pelvic fluid. No free air is seen. Sclerotic bone metastases are present at multiple thoracic and lumbar vertebrae, right thoracic ribs, and within the bilateral iliac bones, left ischium, left pubic bone, and right femur. Size and distribution of these lesions is stable from prior exam. No pathologic fractures are noted. There is multilevel degenerative disc disease in the lumbar spine with stable scoliotic curvature. IMPRESSION: 1. Hypoattenuating hepatic segment 7 mass is not significantly changed. This presumably represents a metastatic lesion. A liver abscess would appear similarly. 2. Stable osteosclerotic metastatic disease without pathologic fracture. 3. Status post Whipple procedure. Fluid-filled bowel could reflect enteritis. Colonic stool retention suggest constipation. No mechanical bowel obstruction. Electronically signed by: Bobbi Manjarrez M.D. 11/25/22 19:02 PM
[2022-11-25] MEDS ORDERED: ACETAMINOPHEN 325 MG TAB PO PRN ×2 (20:05→21:06)
[2022-11-25 20:12] LABS: Appearance Urine Clear (Clear); Bilirubin Urine Negative (Negative); Blood Urine Negative (Negative); Color Urine Yellow; Glucose Urine UA Negative (Negative); Ketones Urine Negative (Negative); Leukocyte Esterase Urine Negative (Negative); Nitrite Urine Negative (Negative); Protein Urine Negative (Negative); Specific Gravity Urine 1.019 (1.000-1.030); Urobilinogen Urine Negative (Negative)
[2022-11-25] MEDS ORDERED: HYDROcodone/HOMATROPINE SYRUP 5MG/1.5MG 5ML UDP PO PRN (21:06)
[2022-11-25] MEDS ORDERED: ONDANSETRON 8MG OD TAB PO PRN (21:06)
[2022-11-25] MEDS ORDERED: LIDOCAINE/PRILOCAINE 2.5% EA CRM EXT SCH (21:06)
[2022-11-25] MEDS: oxyCODONE HCL 10 MG TABCR (OxyCONTIN) PO SCH (22:06)
[2022-11-25] MEDS: SUCRALFATE 1 GM TAB PO SCH (22:07)
[2022-11-25] MEDS: GABAPENTIN 300 MG CAP PO SCH (22:08)
[2022-11-25] MEDS: LATANOPROST 0.005% OP SOLN 2.5 ML BTL OPB SCH (22:09)
[2022-11-25] MEDS: RASPBERRY SYRUP 5 ML UDP PO SCH (22:25)
[2022-11-25] MEDS: VANCOMYCIN HCL 125 MG/2.5ML SOLN PO SCH (22:26)
--- NOTE | 2022-11-25 23:39 | Emergency Department Note ---
History of Present Illness General Chief complaint: Fever Stated complaint: REF BY DOC; FEVER Time Seen by Provider: 11/25/22 16:25 History of Present Illness Provider complaint: Fever Onset (ago): day(s) 1 72-year-old female presents emergency department for fever. 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 Patient states her last tammy motherapy was last Monday. She reports that fever Tmax one 1.2. Patient reports she has a history of sepsis. Patient's oncologist is in [place]. No abdominal pain. No chest pain. No cough. No dysuria or hematuria. Home Medications Medication Instructions Recorded Confirmed Type multivitamin 1 tab PO DAILY 12/27/18 11/25/22 History cholecalciferol (vitamin D3) 50 50 mcg PO DAILY 01/09/20 11/25/22 History mcg (2,000 unit) tablet pantoprazole 40 mg tablet,delayed 40 mg PO DAILY 01/09/20 11/25/22 History release ondansetron 8 mg disintegrating 8 mg PO Q8 PRN Nausea And Vomiting 02/04/21 11/25/22 History tablet Primadophilus 1 cap PO QAM 02/16/21 11/25/22 History rzrnnj-rnnoexgy-iyjpdyc 1 cap PO TIDM 02/16/21 11/25/22 History 36,000-114,000-180,000 unit capsule,delay rel (Creon) ascorbate calcium (vitamin C) 500 1 g PO DAILY 02/18/21 11/25/22 History mg tablet hydrocodone-homatropine 5 mg-1.5 5 ml PO Q6H PRN cough #946 mL 11/04/21 11/25/22 Rx mg/5 mL oral syrup (Hycodan (with homatropine)) amoxicillin 875 mg-potassium 1 tab PO BID 06/17/22 11/25/22 History clavulanate 125 mg tablet gabapentin 300 mg capsule 300 mg PO BID 06/17/22 11/25/22 History latanoprost 0.005 % eye drops 1 drp OPB HS 06/17/22 11/25/22 History lidocaine-prilocaine 2.5 %-2.5 % 1 applic topical UD 06/17/22 11/25/22 History topical cream oxycodone 10 mg tablet,crush 10 mg PO BID 06/17/22 11/25/22 History resistant,extended release 12 hr (OxyContin) sucralfate 1 gram tablet 1 g PO ACHS 06/17/22 11/25/22 History vancomycin 125 mg capsule 125 mg PO Q6H 06/17/22 11/25/22 History zinc acetate 50 mg (zinc) capsule 50 mg PO DAILY 06/17/22 11/25/22 History capecitabine 500 mg tablet 1,000 mg PO .BID UD 10/19/22 11/25/22 History levothyroxine 50 mcg tablet 50 mcg PO DAILYBB 10/19/22 11/25/22 History glycopyrrolate 2 mg tablet 2 mg PO TID PRN Constipation 11/25/22 11/25/22 History Allergies Allergy/AdvReac Type Severity Reaction Status Date / Time metronidazole AdvReac Severe Cerebellar Verified 11/25/22 19:08 toxicity with hospitalization benzoin AdvReac Unknown CONTACT Verified 11/25/22 19:08 DERMATITIS Past Med/Surg History Medical History CKD (chronic kidney disease), stage III E coli bacteremia History of Clostridioides difficile infection Hypothyroid Liver abscess Nausea & vomiting Pancreatic cancer Thrombocytopenia Surgical History H/O oral surgery History of ERCP 05/2019 History of liver biopsy History of pancreatic surgery History of thoracentesis Family History Mother Colon cancer Hyperlipidemia Hearing loss of aging Colorectal cancer Father Prostate cancer Hypertension Unknown Breast cancer Grandmother (Maternal) Diabetes Myocardial infarction Grandfather (Paternal) Stroke Other Allergies No family history of adverse response to anesthesia No family history of bleeding disorder Denies family history of Ovarian cancer Lung cancer Social History Smoking Status: Never smoker Second Hand Exposure: No; Do You Dip or Chew Tobacco: No; Hx Alcohol Use: No Hx Substance Use: No Preferred Language: Armenian Communication Ability: Effective Visual Impairment: Limited Hearing Ability: Normal Electrical Instrument Repairer Required: No Beliefs That Will Affect Care: None marital status: Current Living Situation: Spouse current occupational status: employed 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 How many Children do You have: 0 Other Information That Helps Us Care for You: No Feels Safe at Home: Yes Safety Concerns: Feels Safe At This Time Childhood Exposure to Second-Hand Smoke: No caffeine: No Dental Care, Regularly: Yes Physical Activity Frequency: 5-6 Times per Week Seatbelt Use: always Sunscreen Use: Yes Assistive Devices: Glasses Physical Exam Vital Signs Vital Signs - 24 hr 11/25/22 15:23 11/25/22 17:00 11/25/22 17:00 Temperature 37.8 C H Temperature Source Temporal Artery Scan Pulse Rate 83 Pulse Rate [Apical] 68 Respiratory Rate 16 18 Respiratory Effort / Characteristics Non-Labored Respiratory Depth Normal Normal Blood Pressure 126/71 Blood Pressure [Right Arm] 146/71 H Blood Pressure Mean 89 Blood Pressure Mean [Right Arm] 96 Blood Pressure Position Sitting Pulse Oximetry 100 100 100 Oxygen Delivery Method Room Air Room Air Room Air Sepsis Recent Fever Within 48 Hours Yes Sepsis New/Unexplained Change in Mental Status No Sepsis Action Taken by Nursing No Action Required 11/25/22 17:00 11/25/22 17:17 Temperature Temperature Source Pulse Rate 68 68 Pulse Rate [Apical] Respiratory Rate 16 Respiratory Effort / Characteristics Respiratory Depth Blood Pressure Blood Pressure [Right Arm] Blood Pressure Mean Blood Pressure Mean [Right Arm] Blood Pressure Position Pulse Oximetry 100 Oxygen Delivery Method Room Air Sepsis Recent Fever Within 48 Hours Sepsis New/Unexplained Change in Mental Status Sepsis Action Taken by Nursing Physical Exam GENERAL: She is oriented to person, place, and time. She appears well-developed and well-nourished. She does not appear distressed. HENT: Exam performed. -Head: Normocephalic and atraumatic. -Right Ear: External ear normal. No mastoid erythema -Left Ear: External ear normal. No mastoid erythema -Mouth/Throat: The oropharynx is clear and moist. No trismus in the jaw. No dental abscesses or uvula swelling. No oropharyngeal exudate or tonsillar abscesses. EYES: Conjunctivae and EOM are normal. Pupils are equal, round, and reactive to light. Right eye exhibits no discharge. Left eye exhibits no discharge. No scleral icterus. NECK: Normal range of motion. Neck supple. No JVD present. No tracheal deviation and normal range of motion present. CV: Normal rate, regular rhythm, normal heart sounds and intact distal pulses. There is no peripheral edema. Palpable radial pulses bue. PULM/CHEST: Effort normal and breath sounds normal. No respiratory distress. No stridor. She has no wheezes. She has no rales. -Chest Wall: She exhibits no tenderness. ABD: The abdomen is soft. Bowel sounds are normal. She has no distension. No mass is present. There is no tenderness. There is no rebound, no guarding, no Olivier's sign and no tenderness at McBurney's point. Rovsig negative LYMPH: No cervical adenopathy. NEURO: She is alert and oriented to person, place, and time. She has normal strength. No cranial nerve deficit or sensory deficit. Coordination and gait normal. GCS eye subscore is 4. GCS verbal subscore is 5. GCS motor subscore is 6. Cerebellar tests wnl. SKIN: Skin is warm and dry. She is not diaphoretic. PSYCH: She has a normal mood and affect. Behavior is normal. Judgment and thought content normal. Course Course 1625: The patient was evaluated in room A11. A complete history and physical exam was performed Cardiac monitoring: An order was placed for continuous cardiac monitoring. The monitor shows a rate of 80 with sinus rhythm interpreted by mt Sepsis protocols initiated with 30 cc/kg bolus based off the patient's ideal body weight and cefepime 2 g IV piggyback ordered for the patient. 1710: Vital signs stable. Labs show lactic acid of 3.1. White blood cell count 12.7. Procalcitonin 7.66. Chest x-ray urinalysis negative. [facility]. Administered Medications Gabapentin (Gabapentin 300 Mg Cap) 300 mg PO BID JAN Stop: 12/25/22 21:05 Last Admin: 11/25/22 22:08 Dose: 300 mg Documented By: [id number] Latanoprost (Latanoprost 0.005% Op Soln 2.5 Ml Btl) 1 drops OPB HS JAN Stop: 12/25/22 21:05 Last Admin: 11/25/22 22:09 Dose: 1 drops Documented By: [id number] Oxycodone HCl (Oxycodone Hcl 10 Mg Tabcr (Oxycontin)) 10 mg PO BID JAN Stop: 12/09/22 21:05 Last Admin: 11/25/22 22:06 Dose: Not Given Documented By: [id number] Raspberry (Raspberry Syrup 5 Ml Udp) 5 ml PO Q6H JAN Stop: 12/05/22 21:59 Last Admin: 11/25/22 22:25 Dose: 5 ml Documented By: [id number] Sucralfate (Sucralfate 1 Gm Tab) 1 gm PO ACHS JAN Stop: 12/25/22 21:05 Last Admin: 11/25/22 22:07 Dose: 1 gm Documented By: [id number] Vancomycin HCl (Vancomycin Hcl 125 Mg/2.5ml Soln) 125 mg PO Q6H JAN Stop: 12/25/22 21:59 Last Admin: 11/25/22 22:26 Dose: 125 mg Documented By: [id number] Discontinued Medications Cefepime HCl (Maxipime) 2,000 mg in 20 mls @ 5 mls/min IV NOW STA; Protocol Stop: 11/25/22 16:28 Last Admin: 11/25/22 17:58 Dose: 5 mls/min Documented By: AMANDA Sodium Chloride (Nss 1000ml) 500 mls @ 999 mls/hr IV .Q31M ONE Stop: 11/25/22 16:55 Last Infusion: 11/25/22 17:13 Dose: 0 mls/hr Documented By: Admin: 11/25/22 16:42 Dose: 999 mls/hr Documented By: PEYTON Sodium Chloride (Nss 1000ml) 1,000 mls @ 999 mls/hr IV .Q1H1M ONE Stop: 11/25/22 17:25 Last Infusion: 11/25/22 17:57 Dose: 0 mls/hr Documented By: Admin: 11/25/22 16:42 Dose: 999 mls/hr Documented By: PEYTON Parenteral Electrolytes (Plasma-Lyte A Ph 7.4) 500 mls @ 999 mls/hr IV .Q31M ONE Stop: 11/25/22 18:18 Last Infusion: 11/25/22 18:46 Dose: 999 mls/hr Documented By: Admin: 11/25/22 18:03 Dose: 999 mls/hr Documented By: AMANDA Ioversol (Optiray 320 100ml) 91 ml IV ONCE ONE Stop: 11/25/22 18:26 Last Admin: 11/25/22 18:25 Dose: 91 ml Documented By: SANGEETHA Medical Decision Making Medical Records Attestation: I reviewed the patient's medical records. External medical records reviewed. He was admitted from October 11, 2022 to October 25, 2022 and diagnosed with E. coli bacteremia. Patient was treated with Rocephin. Laboratory Data Attestation: I reviewed the patient's lab results. 11/25/22 15:58 11/25/22 15:58 Lab Results 11/25/22 11/25/22 11/25/22 Range/Units 15:58 15:58 15:58 WBC 12.70 H (4.8-10.8) K/ul RBC 3.95 L (4.20-5.40) M/uL Hgb 12.8 (12.0-16.0) g/dl Hct 38.5 (37.0-47.0) % MCV 97.5 (80.0-100.0) fL MCH 32.4 (25.0-34.0) pg MCHC 33.2 (32.0-36.0) g/dL RDW Std Deviation 52.4 H (36.4-46.3) fL RDW Coeff of Lakhwinder 14.8 H (11.5-14.5) % Plt Count 154 (130-400) K/uL MPV 10.1 (9.4-12.4) fL Immature Gran % (Auto) 1.2 % Neut % (Auto) 92.8 % Lymph % (Auto) 4.2 % [place] % (Auto) 1.5 % Eos % (Auto) 0.0 % Baso % (Auto) 0.3 % Neut # (Auto) 11.79 H (1.40-6.50) K/uL Lymph # (Auto) 0.53 L (1.2-3.4) K/uL [place] # (Auto) 0.19 (0.11-0.59) K/uL Eos # (Auto) 0.00 (0-0.50) K/uL Baso # (Auto) 0.04 (0-0.2) K/uL Immature Gran # (Auto) 0.15 (0.01-0.20) K/uL PT Cancelled INR Cancelled APTT Cancelled PTT Ratio Cancelled Sodium (136-145) mmol/L Potassium (3.5-5.1) mmol/L Chloride (98-107) mmol/L Carbon Dioxide (21-32) mmol/L Anion Gap (3-11) BUN (6-23) mg/dl Creatinine (0.6-1.2) mg/dl Est Cr Clr Drug Dosing ml/min Est GFR ( Amer) ml/min Est GFR (Non-Af Amer) ml/min BUN/Creatinine Ratio (10-20) Glucose (70-99(Fasting)) mg/dl Lactate 3.1 H* (0.4-2.0) mmol/L Calcium (8.6-10.3) mg/dl Magnesium (1.7-2.4) mg/dl Total Bilirubin (0.2-1.0) mg/dl AST (13-39) U/L ALT (7-52) U/L Alkaline Phosphatase (34-104) U/L Total Protein (6.0-8.3) gm/dl Albumin (3.4-5.0) gm/dl Globulin (2.5-4.0) gm/dl Albumin/Globulin Ratio (0.9-2) Procalcitonin (0-0.5) ng/ml Urine Color Urine Appearance (Clear) Urine pH (4.5-7.5) Ur Specific Wilson (1.000-1.030) Urine Protein (Negative) Urine Glucose (UA) (Negative) Urine Ketones (Negative) Urine Blood (Negative) Urine Nitrite (Negative) Urine Bilirubin (Negative) Urine Urobilinogen (Negative) Ur Leukocyte Esterase (Negative) 11/25/22 11/25/22 11/25/22 Range/Units 15:58 15:58 17:51 WBC (4.8-10.8) K/ul RBC (4.20-5.40) M/uL Hgb (12.0-16.0) g/dl Hct (37.0-47.0) % MCV (80.0-100.0) fL MCH (25.0-34.0) pg MCHC (32.0-36.0) g/dL RDW Std Deviation (36.4-46.3) fL RDW Coeff of Lakhwinder (11.5-14.5) % Plt Count (130-400) K/uL MPV (9.4-12.4) fL Immature Gran % (Auto) % Neut % (Auto) % Lymph % (Auto) % [place] % (Auto) % Eos % (Auto) % Baso % (Auto) % Neut # (Auto) (1.40-6.50) K/uL Lymph # (Auto) (1.2-3.4) K/uL [place] # (Auto) (0.11-0.59) K/uL Eos # (Auto) (0-0.50) K/uL Baso # (Auto) (0-0.2) K/uL Immature Gran # (Auto) (0.01-0.20) K/uL PT 11.4 INR 1.0 APTT 24.4 PTT Ratio 0.9 Sodium 136 (136-145) mmol/L Potassium 4.0 (3.5-5.1) mmol/L Chloride 101 (98-107) mmol/L Carbon Dioxide 26 (21-32) mmol/L Anion Gap 9 (3-11) BUN 21 (6-23) mg/dl Creatinine 0.99 (0.6-1.2) mg/dl Est Cr Clr Drug Dosing 34.8 ml/min Est GFR ( Amer) 66.9 ml/min Est GFR (Non-Af Amer) 57.7 ml/min BUN/Creatinine Ratio 21.2 H (10-20) Glucose 173 H (70-99(Fasting)) mg/dl Lactate (0.4-2.0) mmol/L Calcium 9.0 (8.6-10.3) mg/dl Magnesium 1.7 (1.7-2.4) mg/dl Total Bilirubin 0.8 (0.2-1.0) mg/dl AST 41 H (13-39) U/L ALT 39 (7-52) U/L Alkaline Phosphatase 95 (34-104) U/L Total Protein 7.4 (6.0-8.3) gm/dl Albumin 4.3 (3.4-5.0) gm/dl Globulin 3.1 (2.5-4.0) gm/dl Albumin/Globulin Ratio 1.4 (0.9-2) Procalcitonin 7.66 H (0-0.5) ng/ml Urine Color Urine Appearance (Clear) Urine pH (4.5-7.5) Ur Specific Wilson (1.000-1.030) Urine Protein (Negative) Urine Glucose (UA) (Negative) Urine Ketones (Negative) Urine Blood (Negative) Urine Nitrite (Negative) Urine Bilirubin (Negative) Urine Urobilinogen (Negative) Ur Leukocyte Esterase (Negative) 11/25/22 11/25/22 Range/Units 17:51 19:35 WBC (4.8-10.8) K/ul RBC (4.20-5.40) M/uL Hgb (12.0-16.0) g/dl Hct (37.0-47.0) % MCV (80.0-100.0) fL MCH (25.0-34.0) pg MCHC (32.0-36.0) g/dL RDW Std Deviation (36.4-46.3) fL RDW Coeff of Lakhwinder (11.5-14.5) % Plt Count (130-400) K/uL MPV (9.4-12.4) fL Immature Gran % (Auto) % Neut % (Auto) % Lymph % (Auto) % [place] % (Auto) % Eos % (Auto) % Baso % (Auto) % Neut # (Auto) (1.40-6.50) K/uL Lymph # (Auto) (1.2-3.4) K/uL [place] # (Auto) (0.11-0.59) K/uL Eos # (Auto) (0-0.50) K/uL Baso # (Auto) (0-0.2) K/uL Immature Gran # (Auto) (0.01-0.20) K/uL PT INR APTT PTT Ratio Sodium (136-145) mmol/L Potassium (3.5-5.1) mmol/L Chloride (98-107) mmol/L Carbon Dioxide (21-32) mmol/L Anion Gap (3-11) BUN (6-23) mg/dl Creatinine (0.6-1.2) mg/dl Est Cr Clr Drug Dosing ml/min Est GFR ( Amer) ml/min Est GFR (Non-Af Amer) ml/min BUN/Creatinine Ratio (10-20) Glucose (70-99(Fasting)) mg/dl Lactate 2.7 H* (0.4-2.0) mmol/L Calcium (8.6-10.3) mg/dl Magnesium (1.7-2.4) mg/dl Total Bilirubin (0.2-1.0) mg/dl AST (13-39) U/L ALT (7-52) U/L Alkaline Phosphatase (34-104) U/L Total Protein (6.0-8.3) gm/dl Albumin (3.4-5.0) gm/dl Globulin (2.5-4.0) gm/dl Albumin/Globulin Ratio (0.9-2) Procalcitonin (0-0.5) ng/ml Urine Color Yellow Urine Appearance Clear (Clear) Urine pH 7.0 (4.5-7.5) Ur Specific Wilson 1.019 (1.000-1.030) Urine Protein Negative (Negative) Urine Glucose (UA) Negative (Negative) Urine Ketones Negative (Negative) Urine Blood Negative (Negative) Urine Nitrite Negative (Negative) Urine Bilirubin Negative (Negative) Urine Urobilinogen Negative (Negative) Ur Leukocyte Esterase Negative (Negative) Imaging Data Radiologist's Impression: Chest X-Ray 11/25/22 15:31 XR chest 1V not portable HISTORY: 72 years-old Female Sepsis acute sepsis COMPARISON: 10/19/2022 TECHNIQUE: AP view of the chest FINDINGS: Left IJ [id number] catheter distal tip terminates in the expected location of the inferior SVC. Cardiac mediastinal and hilar silhouettes are within normal limits. No pneumothorax, pleural effusion, airspace consolidation or pulmonary edema. Bones appear grossly intact. Surgical clips of the abdominal right upper quadrant. IMPRESSION: No acute process. ACT 112: Negative or not required by law. The above report was generated using voice recognition software. It may contain grammatical, syntax or spelling errors. Electronically signed by: Mario Alberto Perez M.D. 11/25/2022 4:42 PM Abdomen/Pelvis CT 11/25/22 17:45 Exam(s): CT ABDOMEN + PELVIS With Contrast IV Amt: 91ml opti 320 EXAM: CT Abdomen and Pelvis With Intravenous Contrast CLINICAL HISTORY: Reason for exam: fever, lactate. History of liver abscesses.. TECHNIQUE: Axial computed tomography images of the abdomen and pelvis with intravenous contrast. CTDI is 6.16 mGy and DLP is 275.71 mGy-cm. Automated exposure control was utilized for the study. A dose lowering technique was utilized adhering to the principles of ALARA. CONTRAST: Patient received 91ml opti 320 of IV contrast COMPARISON: 10/19/22 FINDINGS: There is subsegmental atelectasis in the lingula and right middle lobe. Lung bases appear otherwise clear. Again seen is a low-attenuation mass in hepatic segment 7 measuring 4.2 x 3.2 cm, similar to prior. There is localized adjacent perihepatic ascites. Patient is status post Whipple procedure. Intrahepatic biliary dilatation is stable from prior exam. Spleen, residual pancreas, and adrenal glands are unremarkable. Kidneys enhance symmetrically. There is no hydronephrosis. There is atherosclerosis without aortic aneurysm. Mildly prominent retroperitoneal lymph nodes are unchanged. There are fluid-filled loops of small bowel and a large volume of retained colonic stool without evidence of mechanical bowel obstruction. Appendix is not identified. Urinary bladder and uterus are unremarkable. There is trace free pelvic fluid. No free air is seen. Sclerotic bone metastases are present at multiple thoracic and lumbar vertebrae, right thoracic ribs, and within the bilateral iliac bones, left ischium, left pubic bone, and right femur. Size and distribution of these lesions is stable from prior exam. No pathologic fractures are noted. There is multilevel degenerative disc disease in the lumbar spine with stable scoliotic curvature. IMPRESSION: 1. Hypoattenuating hepatic segment 7 mass is not significantly changed. This presumably represents a metastatic lesion. A liver abscess would appear similarly. 2. Stable osteosclerotic metastatic disease without pathologic fracture. 3. Status post Whipple procedure. Fluid-filled bowel could reflect enteritis. Colonic stool retention suggest constipation. No mechanical bowel obstruction. Electronically signed by: Bobbi Manjarrez M.D. 11/25/22 19:02 PM ECG Data Attestation: I personally reviewed and interpreted this ECG as follows: Rate (beats per minute): 77 Rhythm: + normal sinus ECG Intervals/blocks: + Normal AR and + Normal QT-c ECG ST segments: + Normal ST segments MDM Narrative 1625: The patient was evaluated in room A11. A complete history and physical exam was performed Cardiac monitoring: An order was placed for continuous cardiac monitoring. The monitor shows a rate of 80 with sinus rhythm interpreted by mt Sepsis protocols initiated with 30 cc/kg bolus based off the patient's ideal body weight and cefepime 2 g IV piggyback ordered for the patient. 1710: Vital signs stable. Labs show lactic acid of 3.1. White blood cell count 12.7. Procalcitonin 7.66. Chest x-ray urinalysis negative. [facility]. Impression & Plan Sepsis Discharge Plan Visit Data Chief Complaint: Fever Stated Complaint: REF BY DOC; FEVER ED Provider: Raphael Fleming Discharge Problem: Sepsis Patient Disposition: Admitted As Inpatient Discharge Instructions Interventions: ED Discharge Assessment Last Done: 11/25/22 20:46
[2022-11-26 05:56] LABS: A calco-baum cmplx NotReported Not Detected (NotDetected); Bact fragilis Not Reported Not Detected (NotDetected); C auris Not Reported Not Detected (NotDetected); CTX-M Resistant Gene Not Detected (NotDetected); Calbicans Not Reported Not Detected (NotDetected); Candida glabrata Not Reported Not Detected (NotDetected); Candida krusei Not Reported Not Detected (NotDetected); Cneoformans/gatti Not Reported Not Detected (NotDetected); Cparapsilosis Not Reported Not Detected (NotDetected); Ctropicalis Not Reported Not Detected (NotDetected); E cloacae compx Not Reported Not Detected (NotDetected); Efaecalis Not Reported Not Detected (NotDetected); Efaecium Not Reported Not Detected (NotDetected); Enterobacterales DETECTED (NotDetected); Enterobacterales Not Reported DETECTED (NotDetected); Escherichia coli Not Reported DETECTED (NotDetected); H influenzae Not Reported Not Detected (NotDetected); IMP Resistant Gene Not Detected (NotDetected); K aerogenes Not Reported Not Detected (NotDetected); KPC Resistant Gene Not Detected (NotDetected); Koxytoca Not Reported Not Detected (NotDetected); Kpneumoniae grp Not Reported Not Detected (NotDetected); Lmonocyt Not Reported Not Detected (NotDetected); N meningitidis Not Reported Not Detected (NotDetected); NDM Resistant Gene Not Detected (NotDetected); OXA 48 Like Resistant Gene Not Detected (NotDetected); P aeruginosa Not Reported Not Detected (NotDetected); Proteus spp Not Reported Not Detected (NotDetected); Salmonella spp Not Reported Not Detected (NotDetected); Smarcescens Not Reported Not Detected (NotDetected); Staph lugdunensis Not Reported Not Detected (NotDetected); Staph spp. Not Reported Not Detected (NotDetected); Staphaureus Not Reported Not Detected (NotDetected); Staphepi Not Reported Not Detected (NotDetected); Stenmaltophilia Not Reported Not Detected (NotDetected); Strep agal(GrpB) Not Reported Not Detected (NotDetected); Strep pneum Not Reported Not Detected (NotDetected); Strep pyog (GrpA) Not Reported Not Detected (NotDetected); Strep spp Not Reported Not Detected (NotDetected); VIM Resistant Gene Not Detected (NotDetected); mcr-1 Colistin Resistant Gene Not Detected (NotDetected)
[2022-11-26] MEDS: VANCOMYCIN HCL 125 MG/2.5ML SOLN PO SCH ×4 (06:07→23:23)
[2022-11-26] MEDS: RASPBERRY SYRUP 5 ML UDP PO SCH ×4 (06:07→23:23)
[2022-11-26] MEDS: CEFEPIME 2,000 MG in SYRINGE 0 ML IV SCH ×2 (06:07→18:16)
[2022-11-26] MEDS: LEVOTHYROXINE SODIUM 50 MCG TABLET PO SCH (06:08)
--- NOTE | 2022-11-26 07:11 | Electrocardiogram Report ---
Test Reason : Blood Pressure : / mmHG Vent. Rate : 077 BPM Atrial Rate : 077 BPM P-R Int : 126 ms QRS Dur : 072 ms QT Int : 388 ms P-R-T Axes : 055 051 070 degrees QTc Int : 439 ms Normal sinus rhythm Possible Left atrial enlargement Nonspecific ST abnormality Abnormal ECG When compared with ECG of 19-OCT-2022 20:39, No significant change was found Confirmed by Omkar Yap ([id number]) on 11/26/2022 7:11:00 AM Referred By: Jose Maria Mir Confirmed By:Pradeep Yap
[2022-11-26 08:45] LABS: BUN Creatinine Ratio 20.3 (10-20); Calcium 7.6 mg/dl (8.6-10.3); Creatinine Clr Calc Pharmacy 49.1 ml/min; Est GFR (African American) 87.9 ml/min; Est GFR (Non-African American) 75.8 ml/min; Phosphorus 2.2 mg/dl (2.5-4.9); Potassium 3.2 mmol/L (3.5-5.1)
[2022-11-26 08:57] LABS: Basophils # (auto) 0.02 K/uL (0-0.2); Basophils % (auto) 0.3 %; Eosinophils # (auto) 0.13 K/uL (0-0.50); Eosinophils % (auto) 1.6 %; Hematocrit (blood only) 29.1 % (37.0-47.0); Hemoglobin 9.7 g/dl (12.0-16.0); Immature Granulocytes # (auto) 0.06 K/uL (0.01-0.20); Immature Granulocytes % (auto) 0.8 %; Lymphocytes # (auto) 0.73 K/uL (1.2-3.4); Lymphocytes % (auto) 9.2 %; Mean Corpuscular Hemoglobin 32.2 pg (25.0-34.0); Mean Corpuscular Hgb Conc 33.3 g/dL (32.0-36.0); Mean Corpuscular Volume 96.7 fL (80.0-100.0); Mean Platelet Volume 10.5 fL (9.4-12.4); Monocytes # (auto) 0.26 K/uL (0.11-0.59); Monocytes % (auto) 3.3 %; Neutrophils # (auto) 6.73 K/uL (1.40-6.50); Neutrophils % (auto) 84.8 %; Platelet Count 103 K/uL (130-400); RDW Standard Deviation 51.7 fL (36.4-46.3); Red Blood Count 3.01 M/uL (4.20-5.40); White Blood Count 7.93 K/ul (4.8-10.8)
[2022-11-26] MEDS ORDERED: NON-FORMULARY MEDICATION (Zinc Acetate 50 mg (zinc) Capsule) PO SCH (09:00)
[2022-11-26] MEDS: SUCRALFATE 1 GM TAB PO SCH ×4 (09:19→20:37)
[2022-11-26] MEDS: GABAPENTIN 300 MG CAP PO SCH ×2 (09:19→20:35)
[2022-11-26] MEDS: PANCREAZE (LIPASE 10,500U) CAP PO SCH ×3 (09:19→16:54)
[2022-11-26] MEDS: PANTOprazole 40 MG TAB PO SCH (09:19)
[2022-11-26] MEDS: oxyCODONE HCL 10 MG TABCR (OxyCONTIN) PO SCH ×2 (09:21→20:47)
--- NOTE | 2022-11-26 14:30 | Hospitalist Progress Note ---
Date of Service November 26, 2022 Assessment & Plan (1) Bacteremia: (2) Liver abscess: (3) Pancreatic cancer: (4) Metastatic disease: (5) CKD (chronic kidney disease), stage III: (6) Acute kidney injury superimposed on chronic kidney disease: (7) History of Clostridioides difficile infection: (8) Hypothyroid: (9) Hypokalemia: (10) Hypophosphatemia: (11) Hypocalcemia: Plan Bacteremia Recent E. coli bacteremia with liver abscesses. ID was consulted at last admission, IR aspiration was discussed but previously abscesses had not been amenable to drainage due to location and multiple foci Transition back home on Augmentin 875 mg p.o. twice daily on discharge at last admission to be continued indefinitely, vancomycin 125 mg p.o. every 6 hours for C. difficile prophylaxis, and doxycycline was continued for Lyme exposure cyst of the past but not current infection Leukocytosis resolved Lactate 3.1 downtrended after IVF Procalcitonin 7.66 E. coli BC 10/19/2022 positive for E. coli with resistance to Cipro/Bactrim CXR no acute process - CT-A/p stable with no worsened/increased foci of abscess: 1. Hypoattenuating hepatic segment 7 mass is not significantly changed.This presumably represents a metastatic lesion. A liver abscess would appear similarly. 2. Stable osteosclerotic metastatic disease without pathologic fracture. 3. Status post Whipple procedure. Fluid-filled bowel could reflect enteritis. Colonic stool retention suggest constipation. No mechanical bowel obstruction. 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 Next due this Monday. Patient admitted for suspected sepsis, hold chemo at this time and reinitiation to be determined based on clinical progression Continue Creon 3 times daily with meals, open capsules into food Continue PPI History of C. difficile Continue vancomycin every 6 hours prophylaxis Hypothyroidism Continue Synthroid History of diarrhea worsened by chemo May continue glycopyrrolate, she was most recently C. difficile negative and has remained on prophylaxis for this Electrolyte derangements Monitor and replete as necessary Check ionized calcium in the morning DVT prophylaxis: Lovenox Disposition: Medical telemetry Diet: Regular CODE STATUS: Full code Admission and Anticipated Discharge Date Admission Date: November 25, 2022 Subjective Overall doing well. Denies any feverish feeling. Denies lightheadedness or dizziness, chest pain or shortness of breath or significant abdominal pain. Noting loose stools. Physical Exam Physical Exam: General: Well-appearing, NAD Cardiovascular: RRR, no M/R/G Pulmonary: CTAB, no W/R/R Abdomen: Soft, NT/ND, no guarding Integumentary: No suspicious rash or lesion on exposed skin Neurologic: AAOx3, no focal deficits Psychiatric: Appropriate mood/affect Results & Data Results & Data Vital Signs (Past 12 Hours) Vital Signs Temp Pulse Pulse Resp BP Pulse Ox O2 Del Method 11/26/22 12:48 36.7 C 66 17 104/49 L 97 Room Air 11/26/22 09:25 65 18 118/64 Room Air 11/26/22 08:04 66 11/26/22 02:36 36.7 C 60 18 110/52 L 98 Room Air Laboratory Results Reviewed CBC from this morninghemoglobin decreased to 9.7, WBC normalized Reviewed BMPK decreased to 3.2, calcium low at 7.6, phosphorus low at 2.2 Blood cultures from 11/25 growing GNR PG Care Time/CCT Total # of Minutes Spent Total Time Spent with Patient: Total time spent is greater than 50% in coordination of care (as documented) at patient's floor/unit and/or counseling patient: Coding Level of Care Code 40127 SUB INP/OBS CARE 3/50MIN Diagnoses Bacteremia R78.81 Liver abscess K75.0 Pancreatic cancer C25.9 Metastatic disease C79.9 CKD (chronic kidney disease), stage III N18.3 Acute kidney injury superimposed on chronic kidney disease N17.9; N18.9 History of Clostridioides difficile infection Z86.19 Hypothyroid E03.9 Hypokalemia E87.6 Hypophosphatemia E83.39 Hypocalcemia E83.51
[2022-11-26] MEDS ORDERED: POTASSIUM CHLORIDE CRTAB 20 MEQ TABCR PO STA (15:07)
[2022-11-26] MEDS: GLYCOPYRROLATE 1 MG TAB PO PRN (16:53)
[2022-11-26] MEDS ORDERED: POT PHOSPHATE MONOBASIC W/ SOD TAB PO ONE (18:39)
[2022-11-26] MEDS: LATANOPROST 0.005% OP SOLN 2.5 ML BTL OPB SCH (20:35)
[2022-11-27] MEDS: LEVOTHYROXINE SODIUM 50 MCG TABLET PO SCH (06:26)
[2022-11-27] MEDS: GLYCOPYRROLATE 1 MG TAB PO PRN ×3 (06:26→20:46)
[2022-11-27] MEDS: RASPBERRY SYRUP 5 ML UDP PO SCH ×3 (06:27→17:00)
[2022-11-27] MEDS: CEFEPIME 2,000 MG in SYRINGE 0 ML IV SCH (06:27)
[2022-11-27] MEDS: VANCOMYCIN HCL 125 MG/2.5ML SOLN PO SCH ×3 (06:27→17:02)
[2022-11-27 07:38] LABS: Basophils # (auto) 0.02 K/uL (0-0.2); Basophils % (auto) 0.4 %; Eosinophils # (auto) 0.17 K/uL (0-0.50); Eosinophils % (auto) 3.6 %; Hematocrit (blood only) 29.7 % (37.0-47.0); Hemoglobin 9.9 g/dl (12.0-16.0); Immature Granulocytes # (auto) 0.07 K/uL (0.01-0.20); Immature Granulocytes % (auto) 1.5 %; Lymphocytes % (auto) 19.1 %; Mean Corpuscular Hemoglobin 32.4 pg (25.0-34.0); Mean Corpuscular Hgb Conc 33.3 g/dL (32.0-36.0); Mean Corpuscular Volume 97.1 fL (80.0-100.0); Monocytes # (auto) 0.23 K/uL (0.11-0.59); Monocytes % (auto) 4.9 %; Neutrophils # (auto) 3.31 K/uL (1.40-6.50); Neutrophils % (auto) 70.5 %; Platelet Count 103 K/uL (130-400); RDW Coefficient of Variation 14.7 % (11.5-14.5); RDW Standard Deviation 50.9 fL (36.4-46.3); Red Blood Count 3.06 M/uL (4.20-5.40)
[2022-11-27 07:56] LABS: BUN Creatinine Ratio 16.2 (10-20); Calcium 8.2 mg/dl (8.6-10.3); Est GFR (African American) 95.1 ml/min; Est GFR (Non-African American) 82.1 ml/min; Phosphorus 2.1 mg/dl (2.5-4.9); Potassium 3.7 mmol/L (3.5-5.1)
[2022-11-27] MEDS: PANCREAZE (LIPASE 10,500U) CAP PO SCH ×3 (08:01→17:00)
[2022-11-27] MEDS: SUCRALFATE 1 GM TAB PO SCH ×4 (08:01→20:44)
[2022-11-27] MEDS: GABAPENTIN 300 MG CAP PO SCH ×2 (08:01→20:45)
[2022-11-27] MEDS: PANTOprazole 40 MG TAB PO SCH (08:02)
[2022-11-27] MEDS: oxyCODONE HCL 10 MG TABCR (OxyCONTIN) PO SCH ×2 (08:06→20:47)
--- NOTE | 2022-11-27 08:12 | Hospitalist Progress Note ---
Date of Service November 27, 2022 Assessment & Plan (1) Bacteremia: (2) Liver abscess: (3) Pancreatic cancer: (4) Metastatic disease: (5) CKD (chronic kidney disease), stage III: (6) Acute kidney injury superimposed on chronic kidney disease: (7) History of Clostridioides difficile infection: (8) Hypothyroid: (9) Hypokalemia: (10) Hypophosphatemia: (11) Hypocalcemia: Plan E. coli Bacteremia Recent E. coli bacteremia with liver abscesses. ID was consulted at last admission, IR aspiration was discussed but previously abscesses had not been amenable to drainage due to location and multiple foci. Was discharged on IV ceftriaxone and transitioned back to chronic Augmentin, chronic vancomycin prophylaxis for C dif, and [id number] for Lyme exposure - CT-A/p stable with no worsened/increased foci of abscess: 1. Hypoattenuating hepatic segment 7 mass is not significantly changed.This presumably represents a metastatic lesion. A liver abscess would appear similarly. 2. Stable osteosclerotic metastatic disease without pathologic fracture. 3. Status post Whipple procedure. Fluid-filled bowel could reflect enteritis. Colonic stool retention suggest constipation. No mechanical bowel obstruction. - Seems to be pattern in relation to chemotherapy BCx from 11/25 - E. 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 Next due this Monday Patient admitted for suspected sepsis, hold chemo at this time and reinitiation to be determined based on clinical progression Continue Creon 3 times daily with meals, open capsules into food Continue PPI - Discussed and will need to communicate with oncologist Dr. García through [place] on 11/28 to develop chemo treatment plan given pattern of bacteremia History of C. difficile Continue vancomycin every 6 hours prophylaxis Hypothyroidism Continue Synthroid History of diarrhea worsened by chemo May continue glycopyrrolate, she was most recently C. difficile negative and has remained on prophylaxis for this Electrolyte derangements Monitor and replete as necessary DVT prophylaxis: Lovenox Disposition: Medical telemetry Diet: Regular CODE STATUS: Full code Admission and Anticipated Discharge Date Admission Date: November 25, 2022 Subjective Overall doing well. Denies significant fatigue. No lightheadedness/dizziness, fevers/chills, CP, SOB. Still having loose stools. Physical Exam Physical Exam: General: NAD Cardiovascular: RRR, no M/R/G Pulmonary: CTAB, no W/R/R Integumentary: No suspicious rash or lesion on exposed skin Neurologic: AAOx3, no focal deficits Psychiatric: Appropriate mood/affect Results & Data Results & Data Vital Signs (Past 12 Hours) Vital Signs Temp Pulse Pulse Resp BP Pulse Ox O2 Del Method 11/27/22 07:48 51 L 11/27/22 07:46 36.8 C 58 L 18 116/58 L 97 Room Air 11/26/22 22:23 59 L 11/26/22 23:00 37.0 C 63 19 105/54 L 98 Room Air Laboratory Results Notable for mild increase but still low hemoglobin at 9.9, normalization of potassium to 3.7, low calcium at 8.2 with normal ionized calcium, phosphorus low at 2.1 Blood cultures from 11/25 are growing E. coli that appears to have the same sensitivity pattern to prior E. coli bacteremia from 10/19/2022 Repeat blood cultures from 11/26 with no growth to date PG Care Time/CCT Total # of Minutes Spent Total Time Spent with Patient: Total time spent is greater than 50% in coordination of care (as documented) at patient's floor/unit and/or counseling patient: Coding Level of Care Code 53211 SUB INP/OBS CARE 05/18MIN Diagnoses Bacteremia R78.81 Liver abscess K75.0 Pancreatic cancer C25.9 Metastatic disease C79.9 CKD (chronic kidney disease), stage III N18.3 Acute kidney injury superimposed on chronic kidney disease N17.9; N18.9 History of Clostridioides difficile infection Z86.19 Hypothyroid E03.9 Hypokalemia E87.6 Hypophosphatemia E83.39 Hypocalcemia E83.51
[2022-11-27] MEDS ORDERED: POT PHOSPHATE MONOBASIC W/ SOD TAB PO ONE (16:33)
[2022-11-27] MEDS: cefTRIAXone SODIUM 2,000 MG in DEXTROSE 5% 50 ML IV SCH (17:02)
[2022-11-27] MEDS: LATANOPROST 0.005% OP SOLN 2.5 ML BTL OPB SCH (20:46)
[2022-11-28] MEDS: VANCOMYCIN HCL 125 MG/2.5ML SOLN PO SCH ×5 (00:39→23:53)
[2022-11-28] MEDS: RASPBERRY SYRUP 5 ML UDP PO SCH ×5 (00:39→23:53)
[2022-11-28] MEDS: GLYCOPYRROLATE 1 MG TAB PO PRN ×2 (05:58→20:38)
[2022-11-28] MEDS: LEVOTHYROXINE SODIUM 50 MCG TABLET PO SCH (05:58)
[2022-11-28 06:52] LABS: Basophils # (auto) 0.02 K/uL (0-0.2); Basophils % (auto) 0.5 %; Eosinophils # (auto) 0.26 K/uL (0-0.50); Hematocrit (blood only) 29.2 % (37.0-47.0); Hemoglobin 9.9 g/dl (12.0-16.0); Immature Granulocytes # (auto) 0.02 K/uL (0.01-0.20); Immature Granulocytes % (auto) 0.5 %; Lymphocytes # (auto) 1.04 K/uL (1.2-3.4); Lymphocytes % (auto) 24.1 %; Mean Corpuscular Hemoglobin 32.6 pg (25.0-34.0); Mean Corpuscular Hgb Conc 33.9 g/dL (32.0-36.0); Mean Corpuscular Volume 96.1 fL (80.0-100.0); Mean Platelet Volume 10.4 fL (9.4-12.4); Monocytes # (auto) 0.34 K/uL (0.11-0.59); Monocytes % (auto) 7.9 %; Neutrophils # (auto) 2.64 K/uL (1.40-6.50); Platelet Count 115 K/uL (130-400); RDW Coefficient of Variation 14.7 % (11.5-14.5); RDW Standard Deviation 51.1 fL (36.4-46.3); Red Blood Count 3.04 M/uL (4.20-5.40); White Blood Count 4.32 K/ul (4.8-10.8)
[2022-11-28 07:16] LABS: BUN Creatinine Ratio 13.3 (10-20); Calcium 8.3 mg/dl (8.6-10.3); Creatinine Clr Calc Pharmacy 48.3 ml/min; Est GFR (African American) 93.6 ml/min; Est GFR (Non-African American) 80.8 ml/min; Potassium 3.8 mmol/L (3.5-5.1)
[2022-11-28] MEDS: GABAPENTIN 300 MG CAP PO SCH ×2 (08:19→20:37)
[2022-11-28] MEDS: PANTOprazole 40 MG TAB PO SCH (08:19)
[2022-11-28] MEDS: SUCRALFATE 1 GM TAB PO SCH ×4 (08:19→20:37)
[2022-11-28] MEDS: PANCREAZE (LIPASE 10,500U) CAP PO SCH ×3 (08:19→16:06)
[2022-11-28] MEDS: oxyCODONE HCL 10 MG TABCR (OxyCONTIN) PO SCH ×2 (08:21→20:41)
--- NOTE | 2022-11-28 11:44 | Infectious Disease Consult ---
Date of Consultation November 28, 2022 Assessment & Plan (1) E coli bacteremia: (2) Liver abscess: (3) History of Clostridioides difficile infection: Plan Micro: 11/26 BCx x2: NGTD 11/25 BCx x2 (17:51): E coli in 3/4 bottles 11/25 BCx x2 (12:29): E coli in 4/4 bottles 10/19 BCx x2: E coli in 3/4 bottles 02/04/21 BCx x2: E coli in 4/4 bottles Abx: Ceftriaxone 2 g 11/27 - present Cefepime 11/25-11/27 Problems: #Recurrent E coli bacteremia #Liver abscess #Metastatic ampullary adenocarcinoma 71 year old female with metastatic pancreatic adenocarcinoma to bone and liver s/p pancreaticoduodenectomy in 06/2019 on chemotherapy, liver abscess on chronic Augmentin, C diff infection on chronic oral vancomycin, recent admission for E coli bacteremia who presented on 11/25 with fever, found to have recurrent E coli bacteremia. During her last admission from 10/19-10/25, she was found to have E coli bacteremia likely secondary to hepatic abscess. Pt has a history a radioembolization to liver metastases, and CT has shown a R hepatic lobe lesion c/f abscess vs necrotic metastasis. Pt's had stated that the hepatic lesion has been seen on prior imaging and has not been drainable in the past due to location and multiple foci, and she is on chronic Augmentin for this. She was discharged with a plan for 14 days of ceftriaxone then transitioning back to chronic home Augmentin. On presentation this admission, T37.8, WBC 12.7, lactate 3.1, procalcitonin 7.66. UA, RVP, CXR negative. CT A/P with contrast showed again low-attenuation mass in hepatic segment 7 measuring 4.2 x 3.2 cm, similar to prior, presumably representing a metastatic lesion, a liver abscess would appear similarly. Also showed fluid-filled loops of small bowel. Patient was started on cefepime. Blood cultures were collected, BCID PCR panel positive for E. coli. Cefepime was changed to ceftriaxone. Leukocytosis and fever have resolved. Repeat blood cultures from 11/26 are NGTD. The E coli bacteremia is likely secondary to persistent hepatic abscess. Recommendations: -With the recurrent bacteremia despite a 14 day course of ceftriaxone and chronic Augmentin, without any improvement in size of abscess, this raises concern that pt requires source control. Hepatic abscess appears more coalesced on recent imaging than in the past (Apr 2021, Feb 2021), so perhaps this can be more successfully drained now. Would recommend IR evaluation for drainage (may require transfer) -Continue ceftriaxone 2 g IV daily -Spoke to pt and her about why pt is on prophylactic PO vancomycin q6h. Typically for C diff prophylaxis, it is prescribed once daily or BID. They will discuss with their oncologist. Discussed with hospitalist. Will continue to follow. Please page [facility] with further questions. Consultation Information This patient recommendation is based on a telemedicine consult request which was completed asynchronously through chart review and information provided by the primary physician. The patient was not seen or examined today. The evaluation is consultative in nature and all patient care and treatment decisions can either be accepted or rejected by the patient's primary hospital-based treating physician using their own independent medical judgment for their patient. Court Assistant contact information: Please call [facility] [phone]. (Phone Number For Physician Use Only) Time Spent Reviewing Chart: 31+ minutes History of Present Illness Reason for Consultation: E coli bacteremia Requesting Physician: Dr. Jones De Anda Attending Physician: Jones De Anda MD History of Present Illness 71 year old female with metastatic pancreatic adenocarcinoma to bone and liver s/p pancreaticoduodenectomy in 06/2019 on chemotherapy, liver abscess on chronic Augmentin, C diff infection on chronic oral vancomycin, recent admission for E coli bacteremia who presented on 11/25 with fever. During her last admission from 10/19-10/25, she was found to have E coli bacteremia likely secondary to hepatic abscess. Pt has a history a radioembolization to liver metastases, and CT has shown a R hepatic lobe lesion c/f abscess vs necrotic metastasis. Pt's had stated that the hepatic lesion has been seen on prior imaging and has not been drainable in the past due to location and multiple foci, and she is on chronic Augmentin for this. She was discharged with a plan for 14 days of ceftriaxone then transitioning back to chronic home Augmentin. On presentation, T37.8, other VSS stable. Labs showed WBC 12.7, lactate 3.1, procalcitonin 7.66. UA negative, RVP negative. Chest x-ray negative. CT A/P with contrast showed again low-attenuation mass in hepatic segment 7 measuring 4.2 x 3.2 cm, cimilar to prior, presumably representing a metastatic lesion, a liver abscess would appear similarly. Also showed fluid-filled loops of small bowel. Patient was started on cefepime. Blood cultures were collected, BCID PCR panel positive for E. coli. Cefepime was changed to ceftriaxone. Leukocytosis and fever have resolved. Repeat blood cultures from 11/26 are NGTD. Spoke to patient and her by phone. They state that the last attempted IR drainage procedure was around October 2021, but it was aborted because unable to access? They feel that she has been getting bacteremic after her 3rd chemothera py infusion. Her last case of C diff was in Fall 2021, and she has been on C diff prophylaxis q6h since then, prescribed by her oncologist. They note that oncologist has been having difficulty getting vancomycin approved by insurance. Allergies Allergy/AdvReac Type Severity Reaction Status Date / Time metronidazole AdvReac Severe Cerebellar Verified 11/25/22 19:08 toxicity with hospitalization benzoin AdvReac Unknown CONTACT Verified 11/25/22 19:08 DERMATITIS Home Medications Medication Instructions Recorded Confirmed Type multivitamin 1 tab PO DAILY 12/27/18 11/25/22 History cholecalciferol (vitamin D3) 50 50 mcg PO DAILY 01/09/20 11/25/22 History mcg (2,000 unit) tablet pantoprazole 40 mg tablet,delayed 40 mg PO DAILY 01/09/20 11/25/22 History release ondansetron 8 mg disintegrating 8 mg PO Q8 PRN Nausea And Vomiting 02/04/21 11/25/22 History tablet Primadophilus 1 cap PO QAM 02/16/21 11/25/22 History vfjimz-vkvekhxl-jazkoia 1 cap PO TIDM 02/16/21 11/25/22 History 36,000-114,000-180,000 unit capsule,delay rel (Creon) ascorbate calcium (vitamin C) 500 1 g PO DAILY 02/18/21 11/25/22 History mg tablet hydrocodone-homatropine 5 mg-1.5 5 ml PO Q6H PRN cough #946 mL 11/04/21 11/25/22 Rx mg/5 mL oral syrup (Hycodan (with homatropine)) amoxicillin 875 mg-potassium 1 tab PO BID 06/17/22 11/25/22 History clavulanate 125 mg tablet gabapentin 300 mg capsule 300 mg PO BID 06/17/22 11/25/22 History latanoprost 0.005 % eye drops 1 drp OPB HS 06/17/22 11/25/22 History lidocaine-prilocaine 2.5 %-2.5 % 1 applic topical UD 06/17/22 11/25/22 History topical cream oxycodone 10 mg tablet,crush 10 mg PO BID 06/17/22 11/25/22 History resistant,extended release 12 hr (OxyContin) sucralfate 1 gram tablet 1 g PO ACHS 06/17/22 11/25/22 History vancomycin 125 mg capsule 125 mg PO Q6H 06/17/22 11/25/22 History zinc acetate 50 mg (zinc) capsule 50 mg PO DAILY 06/17/22 11/25/22 History capecitabine 500 mg tablet 1,000 mg PO .BID UD 10/19/22 11/25/22 History levothyroxine 50 mcg tablet 50 mcg PO DAILYBB 10/19/22 11/25/22 History glycopyrrolate 2 mg tablet 2 mg PO TID PRN Constipation 11/25/22 11/25/22 History Patient History Medical History (Updated 11/26/22 @ 18:42 by Liliana Ho MD) CKD (chronic kidney disease), stage III E coli bacteremia History of Clostridioides difficile infection Hypothyroid Liver abscess Nausea & vomiting Pancreatic cancer Thrombocytopenia Surgical History H/O oral surgery History of ERCP 05/2019 History of liver biopsy History of pancreatic surgery History of thoracentesis Family History Mother Colon cancer Hyperlipidemia Hearing loss of aging Colorectal cancer Father Prostate cancer Hypertension Unknown Breast cancer Grandmother (Maternal) Diabetes Myocardial infarction Grandfather (Paternal) Stroke Other Allergies No family history of adverse response to anesthesia No family history of bleeding disorder Denies family history of Ovarian cancer Lung cancer Social History Smoking Status: Never smoker Second Hand Exposure: No; Do You Dip or Chew Tobacco: No; Hx Alcohol Use: No Hx Substance Use: No Preferred Language: Arabic Communication Ability: Effective Visual Impairment: Limited Hearing Ability: Normal Type Photography Supervisor Required: No Beliefs That Will Affect Care: None marital status: Current Living Situation: Spouse current occupational status: employed 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 How many Children do You have: 0 Other Information That Helps Us Care for You: No Feels Safe at Home: Yes Safety Concerns: Feels Safe At This Time Childhood Exposure to Second-Hand Smoke: No caffeine: No Dental Care, Regularly: Yes Physical Activity Frequency: 5-6 Times per Week Seatbelt Use: always Sunscreen Use: Yes Assistive Devices: None Review of System Patient not seen Physical Exam Physical Exam: Patient not seen Results & Data Vital Signs (Past 12 Hours) Vital Signs Temp Pulse Pulse Resp BP Pulse Ox O2 Del Method 11/28/22 08:28 36.7 C 60 18 128/65 96 Room Air 11/28/22 07:52 58 L 11/28/22 03:22 36.8 C 57 L 18 128/63 98 Room Air Laboratory Results Short CBC 11/28/22 Range/Units 05:48 WBC 4.32 L (4.8-10.8) K/ul Hgb 9.9 L (12.0-16.0) g/dl Hct 29.2 L (37.0-47.0) % Plt Count 115 L (130-400) K/uL BMP 11/28/22 05:48 Sodium 143 Potassium 3.8 Chloride 111 H Carbon Dioxide 25 BUN 10 Creatinine 0.75 Glucose 88 Calcium 8.3 L Diagnostic Findings Chest X-Ray 11/25/22 15:31 XR chest 1V not portable HISTORY: 72 years-old Female Sepsis acute sepsis COMPARISON: 10/19/2022 TECHNIQUE: AP view of the chest FINDINGS: Left IJ [id number] catheter distal tip terminates in the expected location of the inferior SVC. Cardiac mediastinal and hilar silhouettes are within normal limits. No pneumothorax, pleural effusion, airspace consolidation or pulmonary edema. Bones appear grossly intact. Surgical clips of the abdominal right upper quadrant. IMPRESSION: No acute process. ACT 112: Negative or not required by law. The above report was generated using voice recognition software. It may contain grammatical, syntax or spelling errors. Electronically signed by: Mario Alberto Perez M.D. 11/25/2022 4:42 PM Abdomen/Pelvis CT 11/25/22 17:45 Exam(s): CT ABDOMEN + PELVIS With Contrast IV Amt: 91ml opti 320 EXAM: CT Abdomen and Pelvis With Intravenous Contrast CLINICAL HISTORY: Reason for exam: fever, lactate. History of liver abscesses.. TECHNIQUE: Axial computed tomography images of the abdomen and pelvis with intravenous contrast. CTDI is 6.16 mGy and DLP is 275.71 mGy-cm. Automated exposure control was utilized for the study. A dose lowering technique was utilized adhering to the principles of ALARA. CONTRAST: Patient received 91ml opti 320 of IV contrast COMPARISON: 10/19/22 FINDINGS: There is subsegmental atelectasis in the lingula and right middle lobe. Lung bases appear otherwise clear. Again seen is a low-attenuation mass in hepatic segment 7 measuring 4.2 x 3.2 cm, similar to prior. There is localized adjacent perihepatic ascites. Patient is status post Whipple procedure. Intrahepatic biliary dilatation is stable from prior exam. Spleen, residual pancreas, and adrenal glands are unremarkable. Kidneys enhance symmetrically. There is no hydronephrosis. There is atherosclerosis without aortic aneurysm. Mildly prominent retroperitoneal lymph nodes are unchanged. There are fluid-filled loops of small bowel and a large volume of retained colonic stool without evidence of mechanical bowel obstruction. Appendix is not identified. Urinary bladder and uterus are unremarkable. There is trace free pelvic fluid. No free air is seen. Sclerotic bone metastases are present at multiple thoracic and lumbar vertebrae, right thoracic ribs, and within the bilateral iliac bones, left ischium, left pubic bone, and right femur. Size and distribution of these lesions is stable from prior exam. No pathologic fractures are noted. There is multilevel degenerative disc disease in the lumbar spine with stable scoliotic curvature. IMPRESSION: 1. Hypoattenuating hepatic segment 7 mass is not significantly changed. This presumably represents a metastatic lesion. A liver abscess would appear similarly. 2. Stable osteosclerotic metastatic disease without pathologic fracture. 3. Status post Whipple procedure. Fluid-filled bowel could reflect enteritis. Colonic stool retention suggest constipation. No mechanical bowel obstruction. Electronically signed by: Bobbi Manjarrez M.D. 11/25/22 19:02 PM Medications Administered Current Inpatient Medications Acetaminophen (Acetaminophen 325 Mg Tab) 650 mg PO Q4H PRN PRN Reason: pain/fever Stop: 12/25/22 20:04 Lipase/Protease/Amylase (Pancreaze (Lipase 10,500u) Cap) 1 cap PO TIDM JAN Stop: 12/26/22 07:59 Last Admin: 11/28/22 08:19 Dose: 1 cap Gabapentin (Gabapentin 300 Mg Cap) 300 mg PO BID JAN Stop: 12/25/22 21:05 Last Admin: 11/28/22 08:19 Dose: 300 mg Glycopyrrolate (Glycopyrrolate 1 Mg Tab) 2 mg PO TID PRN PRN Reason: Diarrhea Stop: 12/25/22 21:05 Last Admin: 11/28/22 05:58 Dose: 2 mg Hydrocodone Bit/Homatropine Methylb (Hydrocodone/Homatropine Syrup 5mg/1.5mg 5ml Udp) 5 ml PO Q6H PRN PRN Reason: cough Stop: 12/09/22 21:05 Ceftriaxone Sodium 2,000 mg/ (Dextrose) 70 mls @ 100 mls/hr IV Q24H JAN; Protocol Stop: 12/11/22 17:59 Last Infusion: 11/27/22 17:58 Dose: Infused Latanoprost (Latanoprost 0.005% Op Soln 2.5 Ml Btl) 1 drops OPB HS JAN Stop: 12/25/22 21:05 Last Admin: 11/27/22 20:46 Dose: 1 drops Levothyroxine Sodium (Levothyroxine Sodium 50 Mcg Tablet) 50 mcg PO DAILYBB JAN Stop: 12/26/22 06:29 Last Admin: 11/28/22 05:58 Dose: 50 mcg Lidocaine/Prilocaine (Lidocaine/Prilocaine 2.5% Ea Crm) 1 each EXT UD JAN Stop: 12/25/22 21:05 Ondansetron HCl (Ondansetron 8mg Od Tab) 8 mg PO Q8 PRN PRN Reason: Nausea And Vomiting Stop: 12/25/22 21:05 Oxycodone HCl (Oxycodone Hcl 10 Mg Tabcr (Oxycontin)) 10 mg PO BID JAN Stop: 12/09/22 21:05 Last Admin: 11/28/22 08:21 Dose: 10 mg Pantoprazole Sodium (Pantoprazole 40 Mg Tab) 40 mg PO DAILY JAN Stop: 12/26/22 08:59 Last Admin: 11/28/22 08:19 Dose: 40 mg Raspberry (Raspberry Syrup 5 Ml Udp) 5 ml PO Q6H JAN Stop: 12/05/22 21:59 Last Admin: 11/28/22 05:58 Dose: 5 ml Sucralfate (Sucralfate 1 Gm Tab) 1 gm PO ACHS JAN Stop: 12/25/22 21:05 Last Admin: 11/28/22 08:19 Dose: 1 gm Vancomycin HCl (Vancomycin Hcl 125 Mg/2.5ml Soln) 125 mg PO Q6H JAN Stop: 12/25/22 21:59 Last Admin: 11/28/22 05:58 Dose: 125 mg
--- NOTE | 2022-11-28 15:30 | Hospitalist Progress Note ---
Date of Service November 28, 2022 Assessment & Plan (1) Bacteremia: Plan: Recurrent E. coli bacteremia. Probable source is the known liver abscess which needs definitive treatment according to infectious disease sales development consultant. Will defer to oncology at [facility] where she gets her therapy. She will need ongoing IV antibiotics through her venous access port. This will be Rocephin 2 g once daily which she [facility] an [facility] on a daily basis. (2) Liver abscess: Plan: Probable source of recurrent E. coli bacteremia. Most recent CT scan shows the abscess to be more defined. Hopefully this can be drained by IR at [facility]. (3) Pancreatic cancer: Plan: Treated by oncology at [facility] (4) Metastatic disease: Plan: Pain control measures (5) CKD (chronic kidney disease), stage III: Plan: Monitor intake and output. Serial labs (6) Acute kidney injury superimposed on chronic kidney disease: Plan: Monitor intake and output. Serial labs (7) History of Clostridioides difficile infection: Plan: Continue oral vancomycin prophylaxis (8) Hypothyroid: Plan: Continue thyroid replaced (9) Hypokalemia: Plan: Continue oral potassium replaced (10) Hypophosphatemia: Plan: Corrected with intravenous phosphate repletion Plan Home tomorrowNovember 29. Continued outpatient IV [facility] therapy via the [facility]. She has a venous access port. Duration of treatment to be determined by her oncologist Admission and Anticipated Discharge Date Admission Date: November 25, 2022 Subjective Alert and oriented. at the bedside. Case discussed with soila holloway. Definitive treatment by interventional radiology for the liver abscess will be needed. This can be done at [facility] where she receives her oncology treatment. She will need ongoing IV Rocephin therapy which she prefers to get at [facility] on a daily basis. She has a venous access port. Probably home tomorrowNovember 29 Review of Systems Review of Systems: Constitutional-no fever or chills ENT-no blurred vision, no double vision, no epistaxis, no sore throat Respiratory-no cough, no wheezing, no shortness of breath Cardiac-no palpitations, no chest pain, no syncope GI-no nausea, vomiting, diarrhea, melena, hematochezia -no urinary retention, no urinary incontinence, no dysuria, no hematuria Musculoskeletal-no joint pain, no muscle tenderness Skin-no bruising, no rashes, no pruritus Neuro-no isolated weakness, no paresthesia, no weakness Psych-no depression, no anxiety Physical Exam Physical Exam: General-alert and oriented x3, no fevers, no chills HEENT-head atraumatic and normocephalic, pupils equal and reactive to light, extraocular muscles intact Neck-no lymphadenopathy or thyromegaly, trachea midline Chest-clear to auscultation percussion. No rales wheezing or rhonchi Cardiac-regular rate and rhythm, normal S1 and S2, no murmurs Abdomen-normal bowel sounds, nontender, no hepatosplenomegaly Extremities-no cyanosis, clubbing, or edema Neuro-cranial nerves II through XII intact, motor and sensory function within normal limits, strength symmetrical , no focal deficits Psych-normal affect, normal mood Results & Data Results & Data Vital Signs (Past 12 Hours) Vital Signs Temp Pulse Pulse Resp BP Pulse Ox O2 Del Method 11/28/22 15:15 36.8 C 72 17 112/51 L 99 Room Air 11/28/22 12:26 37.0 C 72 17 135/78 98 Room Air 11/28/22 08:28 36.7 C 60 18 128/65 96 Room Air 11/28/22 07:52 58 L Laboratory Results 11/28/22 05:48 11/28/22 05:48 PG Care Time/CCT Total # of Minutes Spent Total Time Spent with Patient: Total time spent is greater than 50% in coordination of care (as documented) at patient's floor/unit and/or counseling patient: Coding Level of Care Code 13382 SUB INP/OBS CARE 3/50MIN Diagnoses Bacteremia R78.81 Liver abscess K75.0 Pancreatic cancer C25.9 Metastatic disease C79.9 CKD (chronic kidney disease), stage III N18.3 Acute kidney injury superimposed on chronic kidney disease N17.9; N18.9 History of Clostridioides difficile infection Z86.19 Hypothyroid E03.9 Hypokalemia E87.6 Hypophosphatemia E83.39
[2022-11-28] MEDS: cefTRIAXone SODIUM 2,000 MG in DEXTROSE 5% 50 ML IV SCH (17:33)
[2022-11-28] MEDS: LATANOPROST 0.005% OP SOLN 2.5 ML BTL OPB SCH (20:37)
[2022-11-29] MEDS: LEVOTHYROXINE SODIUM 50 MCG TABLET PO SCH (05:58)
[2022-11-29] MEDS: RASPBERRY SYRUP 5 ML UDP PO SCH ×2 (05:58→11:41)
[2022-11-29] MEDS: VANCOMYCIN HCL 125 MG/2.5ML SOLN PO SCH ×2 (05:58→11:44)
[2022-11-29] MEDS: GLYCOPYRROLATE 1 MG TAB PO PRN ×2 (05:59→09:36)
[2022-11-29] MEDS: PANCREAZE (LIPASE 10,500U) CAP PO SCH ×2 (08:12→11:41)
[2022-11-29] MEDS: GABAPENTIN 300 MG CAP PO SCH (08:12)
[2022-11-29] MEDS: SUCRALFATE 1 GM TAB PO SCH ×2 (08:13→11:41)
[2022-11-29] MEDS: PANTOprazole 40 MG TAB PO SCH (08:14)
[2022-11-29] MEDS: oxyCODONE HCL 10 MG TABCR (OxyCONTIN) PO SCH (08:23)
--- NOTE | 2022-11-29 09:18 | Infectious Disease Progress Nt ---
Date of Service November 29, 2022 Assessment & Plan (1) E coli bacteremia: (2) Liver abscess: (3) History of Clostridioides difficile infection: Plan Micro: 11/26 BCx x2: NGTD 11/25 BCx x2 (17:51): E coli in 3/4 bottles 11/25 BCx x2 (12:29): E coli in 4/4 bottles (R cipro, levo, TMP/SMX. 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 During her last admission from 10/19-10/25, she was found to have E coli bacteremia likely secondary to hepatic abscess. Pt has a history a radioembolization to liver metastases, and CT has shown a R hepatic lobe lesion c/f abscess vs necrotic metastasis. Pt's had stated that the hepatic lesion has been seen on prior imaging and has not been drainable in the past due to location and multiple foci, and she is on chronic Augmentin for this. She was discharged with a plan for 14 days of ceftriaxone then transitioning back to chronic home Augmentin. On presentation this admission, T37.8, WBC 12.7, lactate 3.1, procalcitonin 7.66. UA, RVP, CXR negative. CT A/P with contrast showed again low-attenuation mass in hepatic segment 7 measuring 4.2 x 3.2 cm, similar to prior, presumably representing a metastatic lesion, a liver abscess would appear similarly. Also showed fluid-filled loops of small bowel. Patient was started on cefepime. Blood cultures grew E coli in 3/4 bottles. Cefepime was changed to ceftriaxone. Leukocytosis and fever have resolved. Repeat blood cultures from 11/26 are NGTD. The E coli bacteremia is likely secondary to persistent hepatic abscess. Recommendations: -With the recurrent bacteremia despite a 14 day course of ceftriaxone and chronic Augmentin (to which the E coli is susceptible), without any improvement in size of abscess, this raises concern that pt requires source control. Hepatic abscess appears more coalesced on recent imaging than in the past (Apr 2021, Feb 2021), so perhaps this can be more successfully drained now. Recommended IR evaluation for drainage (would require transfer, as IR not available here). Hospitalist attempted to contact pt's oncologist, but unable to arrange transfer--so pt has appt to see her oncologist later this week. At this appointment, IR evaluation should be discussed and arranged. -Continue ceftriaxone 2 g IV daily for at least 14 day course (11/25 - 12/08). Check weekly CBC with diff, CMP while on ceftriaxone to monitor for toxicity. Can hold home Augmentin while on ceftriaxone, then restart afterwards. -Spoke to pt and her about why pt is on prophylactic PO vancomycin q6h. Typically for C diff prophylaxis, it is prescribed once daily or BID. They will discuss with their oncologist. Will sign off. Please page [facility] with further questions. Admission and Anticipated Discharge Date Admission Date: November 25, 2022 Subjective This patient recommendation is based on a telemedicine consult request which was completed asynchronously through chart review and information provided by the primary physician. The patient was not seen or examined today. The evaluation is consultative in nature and all patient care and treatment decisions can either be accepted or rejected by the patient's primary hospital-based treating physician using their own independent medical judgment for their patient. Time Spent Reviewing Chart: 21 - 30 minutes No acute events Review of System Patient not seen Physical Exam Physical Exam: Patient not seen Results & Data Vital Signs (Past 12 Hours) Vital Signs Temp Pulse Pulse Resp BP Pulse Ox O2 Del Method 11/29/22 07:41 36.9 C 55 L 17 129/64 100 Room Air 11/29/22 03:06 36.6 C 60 18 124/64 99 Room Air 11/28/22 22:04 60 11/28/22 23:00 37.1 C 59 L 18 109/53 L 100 Room Air Medications Administered Current Inpatient Medications Acetaminophen (Acetaminophen 325 Mg Tab) 650 mg PO Q4H PRN PRN Reason: pain/fever Stop: 12/25/22 20:04 Lipase/Protease/Amylase (Pancreaze (Lipase 10,500u) Cap) 1 cap PO TIDM JAN Stop: 12/26/22 07:59 Last Admin: 11/29/22 08:12 Dose: 1 cap Gabapentin (Gabapentin 300 Mg Cap) 300 mg PO BID JAN Stop: 12/25/22 21:05 Last Admin: 11/29/22 08:12 Dose: 300 mg Glycopyrrolate (Glycopyrrolate 1 Mg Tab) 2 mg PO TID PRN PRN Reason: Diarrhea Stop: 12/25/22 21:05 Last Admin: 11/29/22 05:59 Dose: 2 mg Hydrocodone Bit/Homatropine Methylb (Hydrocodone/Homatropine Syrup 5mg/1.5mg 5ml Udp) 5 ml PO Q6H PRN PRN Reason: cough Stop: 12/09/22 21:05 Ceftriaxone Sodium 2,000 mg/ (Dextrose) 70 mls @ 100 mls/hr IV Q24H [facility]; Protocol Stop: 12/11/22 17:59 Last Infusion: 11/28/22 18:21 Dose: Infused Latanoprost (Latanoprost 0.005% Op Soln 2.5 Ml Btl) 1 drops OPB HS JAN Stop: 12/25/22 21:05 Last Admin: 11/28/22 20:37 Dose: 1 drops Levothyroxine Sodium (Levothyroxine Sodium 50 Mcg Tablet) 50 mcg PO DAILYBB JAN Stop: 12/26/22 06:29 Last Admin: 11/29/22 05:58 Dose: 50 mcg Lidocaine/Prilocaine (Lidocaine/Prilocaine 2.5% Ea Crm) 1 each EXT UD JAN Stop: 12/25/22 21:05 Ondansetron HCl (Ondansetron 8mg Od Tab) 8 mg PO Q8 PRN PRN Reason: Nausea And Vomiting Stop: 12/25/22 21:05 Oxycodone HCl (Oxycodone Hcl 10 Mg Tabcr (Oxycontin)) 10 mg PO BID JAN Stop: 12/09/22 21:05 Last Admin: 11/29/22 08:23 Dose: 10 mg Pantoprazole Sodium (Pantoprazole 40 Mg Tab) 40 mg PO DAILY JAN Stop: 12/26/22 08:59 Last Admin: 11/29/22 08:14 Dose: 40 mg Raspberry (Raspberry Syrup 5 Ml Udp) 5 ml PO Q6H JAN Stop: 12/05/22 21:59 Last Admin: 11/29/22 05:58 Dose: 5 ml Sucralfate (Sucralfate 1 Gm Tab) 1 gm PO ACHS JAN Stop: 12/25/22 21:05 Last Admin: 11/29/22 08:13 Dose: 1 gm Vancomycin HCl (Vancomycin Hcl 125 Mg/2.5ml Soln) 125 mg PO Q6H JAN Stop: 12/25/22 21:59 Last Admin: 11/29/22 05:58 Dose: 125 mg
--- NOTE | 2022-11-29 11:38 | Discharge Summary ---
Date of Service November 29, 2022 Admission HPI Per Admitting Provider Tamara is a 72-year-old female with past medical history of pancreatic cancer, hypothyroidism, CKD, renal insufficiency, liver abscesses, and C. difficile who was discharged from the hospital 10/25/2022 following admission for E. coli bacteremia in the setting of known liver abscesses who read presents with fever Presents w/ fever. She has a history of recurrent bacteremia with liver abscesses Woke up today and was very cold/chilly. Monitors her tempreature carefully. Was 101.2*F this morning.Is on Augmentin BID chronically now, was treated for e coli bacteremia with liver abscesses. Liver abscesses are not amenable to IR drainage, they have tried before and location precludes. [place] fall [place] [facility] [place] did have a drain placed but was unable to fully drain abscesses and noted that further attemps in the future were unlikely to be beneficial and not recommended due to number if identified foci in addition to the two main areas of abscess. Recommended for medical management moving forward. 6th cycle of chemo remitecan --> 3rd infusion this past week. Next due this Monday. Had baceremia after 3rd infusion in September as well. Hx thrombocytopenia in the past with chemo. Biofire negative This is her 3rd episode of sepsis overall, other than September last was 1 year prior She feels she does well on Augmentin, but as her immune system gets suppressed 'her body just can't handle infection and breaks through even if its supposed to be sensitive to the antibiotic.' Medical History: Reviewed Medications: Reviewed Surgical History: Reviewed Family history: Reviewed Allergies: Reviewed Social History: No tobacco/etoh Code Status: FUll Code Principal Diagnosis E. coli bacteremia, acute on chronic kidney disease, sepsis present on admiss ion, liver abscess Discharge Exam General-alert and oriented x3, no fevers, no chills HEENT-head atraumatic and normocephalic, pupils equal and reactive to light, extraocular muscles intact Neck-no lymphadenopathy or thyromegaly, trachea midline Chest-clear to auscultation percussion. No rales wheezing or rhonchi Cardiac-regular rate and rhythm, normal S1 and S2, no murmurs Abdomen-normal bowel sounds, nontender, no hepatosplenomegaly Extremities-no cyanosis, clubbing, or edema Neuro-cranial nerves II through XII intact, motor and sensory function within normal limits, strength symmetrical , no focal deficits Psych-normal affect, normal mood Discharge Data Allergies Allergy/AdvReac Type Severity Reaction Status Date / Time metronidazole AdvReac Severe Cerebellar Verified 11/25/22 19:08 toxicity with hospitalization benzoin AdvReac Unknown CONTACT Verified 11/25/22 19:08 DERMATITIS Consultations 11/25/22 17:10 ED Decision to Admit Stat 11/28/22 10:17 Consult Infectious Diseases Routine Ordered Studies 11/25/22 17:45 CT abd pelvis IV con only Stat Hospital Course (1) Bacteremia: Recurrent E. coli bacteremia. Probable source is the known liver abscess which needs definitive treatment according to infectious disease wedding consultant. Will defer to oncology at [facility] where she gets her therapy. She will need ongoing IV antibiotics through her venous access port. This will be Rocephin 2 g once daily which she [facility] to [facility] as an outpatient on a daily basis. This will continue through December 08 (2) Liver abscess: Probable source of recurrent E. coli bacteremia. Most recent CT scan shows the abscess to be more defined. Hopefully this can be drained by IR at [facility]. (3) Pancreatic cancer: Treated by oncology at [facility] (4) Metastatic disease: Pain control measures (5) CKD (chronic kidney disease), stage III: Monitor intake and output. Serial labs (6) Acute kidney injury superimposed on chronic kidney disease: Monitor intake and output. Serial labs (7) History of Clostridioides difficile infection: Continue oral vancomycin prophylaxis (8) Hypothyroid: Continue thyroid replaced (9) Hypokalemia: Continue oral potassium replaced (10) Hypophosphatemia: Corrected with intravenous phosphate repletion Plan Home today, November 29. Continued outpatient IV [facility]phin therapy via the [facility] through December 08. Weekly lab ordered while on intravenous Rocephin.. She has a venous access port. Total Time Total Time Spent Total Time Spent (In Minutes): 45 minutes Discharge Plan Discharge Items Patient Disposition: Home - Self-Care Reason For Visit: SEPSIS Discharge Diagnosis: Sepsis, E. coli bacteremia, liver abscess, acute on chronic kidney disease Activity: Resume your previous activity Non-emergency contact: Primary Care Provider and Oncologist Call non-emergency contact if: you have any medication questions and your symptoms worsen Follow-up/Referrals: Jose Maria Mir MD [Primary Care Provider] - Diet: Regular and Heart Healthy Addtl Attending Provider Instructions: Intravenous Rocephin daily through December 08. Follow-up with [facility] oncologist as soon as possible Pending Studies at Discharge: No Stand-Alone Forms: My [facility], Smoking Cessation Medications and DC Order Prescriptions: New ceftriaxone 2 gram recon soln 2 g IV DAILY Qty: 10 0RF Continued Creon 36,000-114,000- 180,000 unit capsule,delayed release(DR/EC) 1 cap PO TIDM Primadophilus 340 mg capsule 1 cap PO QAM ascorbate calcium (vitamin C) 500 mg tablet 1 g PO DAILY hydrocodone-homatropine [Hycodan (with homatropine)] 5-1.5 mg/5 mL syrup 5 ml PO Q6H PRN (Reason: cough) Qty: 946 0RF multivitamin tablet 1 tab PO DAILY cholecalciferol (vitamin D3) 50 mcg (2,000 unit) tablet 50 mcg PO DAILY pantoprazole 40 mg tablet,delayed release (DR/EC) 40 mg PO DAILY ondansetron 8 mg tablet,disintegrating 8 mg PO Q8 PRN (Reason: Nausea And Vomiting) latanoprost 0.005 % drops 1 drp OPB HS gabapentin 300 mg capsule 300 mg PO BID oxycodone [OxyContin] 10 mg tablet,oral only,ext.rel.12 hr 10 mg PO BID zinc acetate 50 mg (zinc) Capsule 50 mg PO DAILY lidocaine-prilocaine 2.5-2.5 % cream 1 applic topical UD Rx Instructions: 1 hour prior to accessing port amoxicillin-pot clavulanate 875-125 mg tablet 1 tab PO BID Hold Instructions: Resume on 11/09/22. Hold until after IV antibiotics completed sucralfate 1 gram tablet 1 g PO ACHS Rx Instructions: 1 g PO Before Meals and at bedtime; levothyroxine 50 mcg tablet 50 mcg PO DAILYBB capecitabine 500 mg tablet 1,000 mg PO .BID UD Rx Instructions: on 10 days off 10 days with chemo. glycopyrrolate 2 mg tablet 2 mg PO TID PRN (Reason: Constipation) Changed vancomycin 125 mg capsule 125 mg PO BID Qty: 1 0RF Discharge Orders: Discharge Order (Routine); Ordered 08/08/23 Ordered By: Jones De Anda Admission Data Admit Date/Time: 11/25/22 20:04 Attending Provider: Jones De Anda Admit Provider: Sp Valadez Primary Care Provider: Jose Maria Mir Other Providers: Sp Valadez ; Pattie Snigh ; Rajendra Petty ; Sarah Becerra ; Aruna Krishna ; Dilma Varner ; Claire Chavez ; Ni Lombardo ; Yinka Lee ; Nicol Lo Coding Level of Care Code 37953 INP/OBS DISCH >30 MIN Diagnoses Bacteremia R78.81 Liver abscess K75.0 Pancreatic cancer C25.9 Metastatic disease C79.9 CKD (chronic kidney disease), stage III N18.3 Acute kidney injury superimposed on chronic kidney disease N17.9; N18.9 History of Clostridioides difficile infection Z86.19 Hypothyroid E03.9 Hypokalemia E87.6 Hypophosphatemia E83.39
[2022-11-29] MEDS: cefTRIAXone SODIUM 2,000 MG in DEXTROSE 5% 50 ML IV SCH (11:41)
== END 2022-11-29 13:38 | disposition home or self-care (01) | DRG 871 ==
LOC: ED 15:19 → SUATTDRO 20:04 → 2E 20:04

== ENCOUNTER 2023-08-16 11:36 | Inpatient (IN) ==
--- NOTE | 2023-08-16 13:01 | Emergency Department Note ---
History of Present Illness General Chief complaint: Hip Pain Stated complaint: PAIN IN HIP,KNEES,FEET,MED CONCERN Time Seen by Provider: 08/16/23 12:59 History of Present Illness Maximum Pain Intensity: 8 NAME: ANNALEE STEWART AGE: 72 SEX: F : 1950 ARRIVES VIA: Walk-In INFORMANT: Patient ED PROVIDER(S): LEENA Banks, Kate Willingham MD The patient is a 72-year-old female who presents to the emergency department for evaluation of low back pain that is not tolerable. She reports a history of metastatic disease with pain medications controlled by her PCP. She states she is currently taking 15mg of oral oxycodone for pain and recently weaned off gabapentin. She states this morning she believed she was taking too much oxycodone and skipped her next dose due to fear. She states she allowed the pain to worsen to the point where she was unable to control it. She denies chest pain, shob, fever, abdominal pain, urinary or bowel incontinence, saddle anesthesia. Home Medications Medication Instructions Recorded Confirmed Type multivitamin 1 tab PO DAILY 12/27/18 08/16/23 History cholecalciferol (vitamin D3) 50 50 mcg PO DAILY 01/09/20 08/16/23 History mcg (2,000 unit) tablet ondansetron 8 mg disintegrating 8 mg PO Q8 PRN Nausea And Vomiting 02/04/21 08/16/23 History tablet Primadophilus 1 cap PO QAM 02/16/21 08/16/23 History psmsuy-awfdezpm-heahoya 1 cap PO TIDM 02/16/21 08/16/23 History 36,000-114,000-180,000 unit capsule,delay rel (Creon) ascorbate calcium (vitamin C) 500 1 g PO DAILY 02/18/21 08/16/23 History mg tablet latanoprost 0.005 % eye drops 1 drp OPB HS 06/17/22 08/16/23 History lidocaine-prilocaine 2.5 %-2.5 % 1 applic topical UD 06/17/22 08/16/23 History topical cream oxycodone 10 mg tablet,crush 15 mg PO UD 06/17/22 08/16/23 History resistant,extended release 12 hr (OxyContin) sucralfate 1 gram tablet 1 g PO ACHS 06/17/22 08/16/23 History zinc acetate 50 mg (zinc) capsule 50 mg PO DAILY 06/17/22 08/16/23 History capecitabine 500 mg tablet 1,000 mg PO .BID UD 10/19/22 08/16/23 History levothyroxine 50 mcg tablet 50 mcg PO DAILYBB 10/19/22 08/16/23 History glycopyrrolate 2 mg tablet 2 mg PO TID PRN Constipation 11/25/22 08/16/23 History amoxicillin 875 mg-potassium 1 tab PO BID 08/16/23 08/16/23 History clavulanate 125 mg tablet duloxetine 20 mg capsule,delayed 20 mg PO DAILY 08/16/23 08/16/23 History release famotidine 20 mg tablet 20 mg PO DAILY 08/16/23 08/16/23 History fentanyl 75 mcg/hr transdermal 1 patch topical Q72H 08/16/23 08/16/23 History patch lidocaine 5 % topical patch 1 patch topical UD PRN Other 08/16/23 08/16/23 History vancomycin 125 mg capsule 125 mg PO QID 08/16/23 08/16/23 History Allergies Allergy/AdvReac Type Severity Reaction Status Date / Time metronidazole AdvReac Severe Cerebellar Verified 07/11/23 12:41 toxicity with hospitalization benzoin AdvReac Unknown CONTACT Verified 07/11/23 12:41 DERMATITIS Past Med/Surg History Medical History E coli bacteremia Metastatic disease Nausea & vomiting History of Clostridioides difficile infection Liver abscess Thrombocytopenia Pancreatic cancer Hypothyroid CKD (chronic kidney disease), stage III Renal insufficiency, mild Surgical History History of liver biopsy History of thoracentesis History of ERCP History of pancreatic surgery H/O oral surgery Family History Mother Colon cancer Hyperlipidemia Hearing loss of aging Colorectal cancer Father Prostate cancer Hypertension Unknown Breast cancer Grandmother (Maternal) Diabetes Myocardial infarction Grandfather (Paternal) Stroke Other Allergies No family history of adverse response to anesthesia No family history of bleeding disorder Denies family history of Ovarian cancer Lung cancer Social History Smoking Status: Never smoker Second Hand Exposure: No; Do You Dip or Chew Tobacco: No; Hx Alcohol Use: No Hx Substance Use: No Preferred Language: Faroese Communication Ability: Effective Visual Impairment: Limited Hearing Ability: Normal Monitor And Storage Bin Tender Required: No Beliefs That Will Affect Care: None marital status: Current Living Situation: Spouse current occupational status: employed 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 How many Children do You have: 0 Feels Safe at Home: Yes Childhood Exposure to Second-Hand Smoke: No caffeine: No Dental Care, Regularly: Yes Physical Activity Frequency: 5-6 Times per Week Seatbelt Use: always Sunscreen Use: Yes Assistive Devices: None Physical Exam Vital Signs Vital Signs - 24 hr 08/16/23 11:50 Temperature 36.6 C Temperature Source Skin Pulse Rate 105 H Respiratory Rate 18 Blood Pressure 152/76 H Blood Pressure Mean 101 Pulse Oximetry 96 Oxygen Delivery Method Room Air Sepsis Recent Fever Within 48 Hours No Sepsis New/Unexplained Change in Mental Status No Sepsis Action Taken by Nursing No Action Required VITALS: Vitals are noted on the nurse's note and reviewed by myself. Vital signs stable. GENERAL: 72-year-old female, in no acute distress, nondiaphoretic, well- developed well-nourished. SKIN: The skin was without rashes, erythema, edema, or bruising. HEAD: Normocephalic atraumatic. HEART: Regular rate and rhythm without murmurs gallops or rubs. LUNGS: Clear to auscultation bilaterally without wheezes, rales or rhonchi. No retractions or accessory muscle use. ABDOMEN: Positive bowel sounds x 4. Soft, nontender, without masses or organomegaly. Olivier sign negative. No guarding or rebound tenderness. MUSCULOSKELETAL: TTP low mid back, positive straight leg raise bilaterally, strength 5/5, distal pulses intact. NEURO: Patient was alert and oriented to person place and time. No focal neurological deficits. Course Administered Medications Lipase/Protease/Amylase (Pancreaze (Lipase 10,500u) Cap) 1 cap PO ACHS JAN Stop: 09/17/23 11:29 Last Admin: 08/18/23 17:13 Dose: 1 cap Documented By: Admin: 08/18/23 12:11 Dose: 1 cap Documented By: CS Duloxetine HCl (Duloxetine Hcl 20 Mg Cap) 20 mg PO DAILY JAN Stop: 09/16/23 08:59 Last Admin: 08/18/23 08:12 Dose: 20 mg Documented By: Admin: 08/17/23 08:07 Dose: 20 mg Documented By: CS Famotidine (Famotidine 20 Mg Tab) 20 mg PO DAILY JAN Stop: 09/16/23 08:59 Last Admin: 08/18/23 09:15 Dose: 20 mg Documented By: Admin: 08/17/23 08:06 Dose: 20 mg Documented By: HALIMA Fentanyl (Fentanyl 100 Mcg/Hr Tdsy) 1 patch TD Q3D JAN Stop: 09/01/23 13:29 Last Admin: 08/18/23 13:52 Dose: 1 patch Documented By: HALIMA Hydromorphone HCl (Hydromorphone Inj 1 Mg/Ml Syringe) 1 mg IV Q2H PRN PRN Reason: Pain Stop: 08/30/23 17:25 Last Admin: 08/18/23 20:02 Dose: 1 mg Documented By: Admin: 08/17/23 20:31 Dose: 1 mg Documented By: Admin: 08/17/23 07:42 Dose: 1 mg Documented By: Admin: 08/17/23 04:16 Dose: 1 mg Documented By: JEISON Ketorolac Tromethamine (Ketorolac Tromethamine 15 Mg/Ml Vial) 15 mg IV Q6H PRN PRN Reason: Pain Stop: 08/23/23 13:59 Last Admin: 08/18/23 22:01 Dose: 15 mg Documented By: Admin: 08/18/23 15:44 Dose: 15 mg Documented By: HALIMA Latanoprost (Latanoprost 0.005% Op Soln 2.5 Ml Btl) 1 drops OPB HS JAN Stop: 09/15/23 20:59 Last Admin: 08/18/23 20:26 Dose: 1 drops Documented By: Admin: 08/17/23 20:31 Dose: 1 drops Documented By: Admin: 08/16/23 21:13 Dose: 1 drops Documented By: RACHELL Levothyroxine Sodium (Levothyroxine Sodium 50 Mcg Tablet) 50 mcg PO DAILYBB [facility] [place] Stop: 09/16/23 06:29 Last Admin: 08/18/23 05:05 Dose: 50 mcg Documented By: Admin: 08/17/23 05:48 Dose: 50 mcg Documented By: JEISON Davenport (Remove Lidoderm Patch) 1 each N/A DAILY@2100 [facility] [place] Stop: 09/16/23 20:59 Last Admin: 08/18/23 20:27 Dose: 1 each Documented By: Admin: 08/17/23 20:31 Dose: 1 each Documented By: JEISON Davenport (Fentanyl Patch Remove & Waste) 1 each N/A Q3D JAN Stop: 09/17/23 13:28 Last Admin: 08/18/23 13:52 Dose: 1 each Documented By: HALIMA Co-signed By: JANEEN Davenport (Check Fentanyl Patch Placement) 1 each N/A QS [facility] [place] Stop: 09/17/23 15:59 Last Admin: 08/18/23 16:18 Dose: 1 each Documented By: HALIMA Oxycodone HCl (Oxycodone Hcl Ir 5 Mg Tab (Immediate Release)) 15 mg PO Q4 PRN PRN Reason: Mild-Mod Pain (Scale 1-6) Stop: 09/01/23 13:17 Last Admin: 08/18/23 22:00 Dose: 15 mg Documented By: Admin: 08/18/23 18:00 Dose: 15 mg Documented By: Admin: 08/18/23 13:59 Dose: 15 mg Documented By: HALIMA Pantoprazole Sodium (Pantoprazole 40 Mg Tab) 40 mg PO DAILY [facility] [place] Stop: 09/16/23 08:59 Last Admin: 08/18/23 08:12 Dose: 40 mg Documented By: Admin: 08/17/23 08:05 Dose: 40 mg Documented By: HALIMA Sucralfate (Sucralfate 1 Gm Tab) 1 gm PO ACHS [facility] [place] Stop: 09/15/23 20:59 Last Admin: 08/18/23 20:27 Dose: 1 gm Documented By: Admin: 08/18/23 17:14 Dose: 1 gm Documented By: Admin: 08/18/23 12:11 Dose: 1 gm Documented By: Admin: 08/18/23 08:11 Dose: 1 gm Documented By: Admin: 08/17/23 20:31 Dose: 1 gm Documented By: Admin: 08/17/23 17:07 Dose: 1 gm Documented By: Admin: 08/17/23 12:02 Dose: 1 gm Documented By: Admin: 08/17/23 08:05 Dose: 1 gm Documented By: Admin: 08/16/23 21:15 Dose: Not Given Documented By: MED Vitamin D (Cholecalciferol 25 Mcg (1000 Units) Tab) 50 mcg PO DAILY JAN Stop: 09/16/23 08:59 Last Admin: 08/18/23 09:52 Dose: 50 mcg Documented By: Admin: 08/17/23 08:06 Dose: 50 mcg Documented By: CS Discontinued Medications Lipase/Protease/Amylase (Pancreaze (Lipase 10,500u) Cap) 1 cap PO TIDM JAN Stop: 09/16/23 07:59 Last Admin: 08/18/23 08:12 Dose: 1 cap Documented By: Admin: 08/17/23 17:07 Dose: 1 cap Documented By: Admin: 08/17/23 12:03 Dose: 1 cap Documented By: Admin: 08/17/23 08:06 Dose: 1 cap Documented By: HALIMA Fentanyl (Fentanyl 75 Mcg/Hr Tdsy) 1 patch TD NOW ONE Stop: 08/16/23 17:28 Last Admin: 08/16/23 18:33 Dose: 1 patch Documented By: PARESH Heparin Sodium (Beef Lung) (Heparin 10 Unit/Ml 5 Ml Flush) 5 ml FLUSH PRN PRN PRN Reason: Flush Stop: 09/17/23 01:51 Last Admin: 08/18/23 05:03 Dose: 5 ml Documented By: JEISON Heparin Sodium (Porcine) (Heparin 100 Unit/Ml 5ml Flush) 5 ml FLUSH ONE ONE Stop: 08/18/23 15:52 Last Admin: 08/18/23 16:15 Dose: 5 ml Documented By: HALIMA Hydromorphone HCl (Hydromorphone Inj 0.5 Mg/0.5 Ml Syr) 0.5 mg IV NOW STA Stop: 08/16/23 13:59 Last Admin: 08/16/23 14:18 Dose: 0.5 mg Documented By: NENA Hydromorphone HCl (Hydromorphone Inj 1 Mg/Ml Syringe) 1 mg IV NOW STA Stop: 08/16/23 15:03 Last Admin: 08/16/23 15:07 Dose: 1 mg Documented By: DANITZA Hydromorphone HCl (Hydromorphone Inj 1 Mg/Ml Syringe) 1 mg IV NOW STA Stop: 08/16/23 15:50 Last Admin: 08/16/23 15:56 Dose: 1 mg Documented By: PARESH Hydromorphone HCl (Hydromorphone Inj 1 Mg/Ml Syringe) 1 mg IV NOW STA Stop: 08/16/23 17:26 Last Admin: 08/16/23 17:53 Dose: 1 mg Documented By: PARESH Hydromorphone HCl (Hydromorphone Hcl 2 Mg Tab) 2 mg PO Q4 PRN PRN Reason: Pain Stop: 08/30/23 17:25 Last Admin: 08/18/23 02:41 Dose: 2 mg Documented By: Admin: 08/17/23 18:02 Dose: 2 mg Documented By: HALIMA Hydromorphone HCl (Hydromorphone Inj 2 Mg/Ml Syr/Vial) 2 mg IV NOW STA Stop: 08/16/23 22:01 Last Admin: 08/16/23 22:48 Dose: 2 mg Documented By: SONU Sodium Chloride (Nss) 500 mls @ 999 mls/hr IV .Q31M ONE Stop: 08/16/23 14:19 Last Infusion: 08/16/23 15:01 Dose: Infused Documented By: Admin: 08/16/23 14:28 Dose: 999 mls/hr Documented By: NENA Acetaminophen (Ofirmev) 1,000 mg in 100 mls @ 400 mls/hr IV NOW STA Stop: 08/16/23 22:13 Last Infusion: 08/16/23 23:25 Dose: Infused Documented By: Admin: 08/16/23 22:48 Dose: 400 mls/hr Documented By: SONU Ketorolac Tromethamine (Ketorolac Tromethamine 15 Mg/Ml Vial) 15 mg IV NOW ONE Stop: 08/17/23 08:47 Last Admin: 08/17/23 08:54 Dose: 15 mg Documented By: HALIMA Ketorolac Tromethamine (Ketorolac Tromethamine 15 Mg/Ml Vial) 15 mg IV NOW ONE Stop: 08/17/23 14:36 Last Admin: 08/17/23 14:46 Dose: 15 mg Documented By: HALIMA Ketorolac Tromethamine (Ketorolac Tromethamine 15 Mg/Ml Vial) 15 mg IV ONE PRN PRN Reason: pain Stop: 08/18/23 03:00 Last Admin: 08/17/23 22:24 Dose: 15 mg Documented By: JEISON Ketorolac Tromethamine (Ketorolac Tromethamine 15 Mg/Ml Vial) 15 mg IV NOW ONE Stop: 08/18/23 04:57 Last Admin: 08/18/23 05:31 Dose: Not Given Documented By: JEISON Ketorolac Tromethamine (Ketorolac Tromethamine 15 Mg/Ml Vial) Confirm Administered Dose 15 mg .ROUTE .STK-MED ONE Stop: 08/18/23 05:01 Last Admin: 08/18/23 05:02 Dose: 15 mg Documented By: JEISON Ketorolac Tromethamine (Ketorolac Tromethamine 15 Mg/Ml Vial) 15 mg IV NOW ONE Stop: 08/18/23 08:58 Last Admin: 08/18/23 09:07 Dose: 15 mg Documented By: HALIMA Lidocaine (Lidocaine 5% 1 Patch) 1 patch TD NOW STA Stop: 08/16/23 22:00 Last Admin: 08/16/23 22:48 Dose: 1 patch Documented By: SONU Davenport (Check Fentanyl Patch Placement) 1 each N/A QS JAN Stop: 09/16/23 00:00 Last Admin: 08/18/23 08:12 Dose: 1 each Documented By: Admin: 08/18/23 00:10 Dose: 1 each Documented By: Admin: 08/17/23 17:06 Dose: 1 each Documented By: Admin: 08/17/23 08:08 Dose: 1 each Documented By: Admin: 08/17/23 00:41 Dose: 1 each Documented By: JEISON Davenport (Remove Lidoderm Patch) 1 each N/A 1100 ONE Stop: 08/17/23 11:01 Last Admin: 08/17/23 12:01 Dose: 1 each Documented By: HALIMA Morphine Sulfate (Morphine Sulfate 10 Mg/Ml Carp/Vial) 6 mg IV NOW STA Stop: 08/16/23 13:50 Last Admin: 08/16/23 14:16 Dose: Not Given Documented By: NENA Morphine Sulfate (Morphine Sulfate 2 Mg/Ml Carp) 2 mg IV ONE PRN PRN Reason: Pain Stop: 08/18/23 00:05 Last Admin: 08/17/23 21:55 Dose: 2 mg Documented By: JEISON Ondansetron HCl (Ondansetron Inj 2 Mg/Ml 2 Ml Vial) 4 mg IV NOW STA Stop: 08/16/23 13:50 Last Admin: 08/16/23 14:18 Dose: 4 mg Documented By: NENA Medical Decision Making Differential Diagnosis Musculoskeletal, disc herniation, fracture, metastatic disease, cord compression, discitis, sciatica, cauda equina, infection, aortic disease, renal colic, gastrointestinal, as well as other pathologies. Medical Records Attestation: I reviewed the patient's medical records. Home Medications Current Medication List: was personally reviewed by me Laboratory Data Attestation: I reviewed the patient's lab results. no leukocytosis, stable hemoglobin and hematocrit, no electrolyte abnormalities. 08/18/23 08:18 08/18/23 08:18 Lab Results 08/16/23 Range/Units 14:08 WBC 7.45 (4.8-10.8) K/ul RBC 3.25 L (4.20-5.40) M/uL Hgb 10.0 L (12.0-16.0) g/dl Hct 31.2 L (37.0-47.0) % MCV 96.0 (80.0-100.0) fL MCH 30.8 (25.0-34.0) pg MCHC 32.1 (32.0-36.0) g/dL RDW Std Deviation 64.5 H (36.4-46.3) fL RDW Coeff of Lakhwinder 18.7 H (11.5-14.5) % Plt Count 211 (130-400) K/uL MPV 9.3 L (9.4-12.4) fL Immature Gran % (Auto) 0.5 % Neut % (Auto) 77.4 % Lymph % (Auto) 10.1 % [place] % (Auto) 9.1 % Eos % (Auto) 2.4 % Baso % (Auto) 0.5 % Neut # (Auto) 5.76 (1.40-6.50) K/uL Lymph # (Auto) 0.75 L (1.20-3.40) K/uL [place] # (Auto) 0.68 H (0.11-0.59) K/uL Eos # (Auto) 0.18 (0.00-0.50) K/uL Baso # (Auto) 0.04 (0.00-0.20) K/uL Immature Gran # (Auto) 0.04 (0.01-0.20) K/uL Sodium 140 (136-145) mmol/L Potassium 4.0 (3.5-5.1) mmol/L Chloride 103 (98-107) mmol/L Carbon Dioxide 28 (21-32) mmol/L Anion Gap 9 (3-11) BUN 18 (6-23) mg/dl Creatinine 0.80 (0.6-1.2) mg/dl Est Cr Clr Drug Dosing 51.9 ml/min Est GFR ( Amer) 86.6 ml/min Est GFR (Non-Af Amer) 74.7 ml/min BUN/Creatinine Ratio 22.5 H (10-20) Glucose 109 H (70-99(Fasting)) mg/dl Calcium 8.9 (8.6-10.3) mg/dl Total Bilirubin 0.5 (0.2-1.0) mg/dl AST 21 (13-39) U/L ALT 19 (7-52) U/L Alkaline Phosphatase 172 H (34-104) U/L Total Protein 6.3 (6.0-8.3) gm/dl Albumin 4.0 (3.4-5.0) gm/dl Globulin 2.3 L (2.5-4.0) gm/dl Albumin/Globulin Ratio 1.7 (0.9-2) Lipase 8 L (11-82) U/L MDM Narrative The patient is a 72-year-old female who presents to the emergency department for the above stated complaint. The patient reports she is here for pain control. I was able to speak with her at length regarding her disease state. Due to the possibility the patient has sustained a pathological fracture, CT imaging of the pelvis, and bilateral femurs were ordered. The patient has a medi-port which was accessed by nursing staff. CBC, CMP, were obtained which were reassuring. The patient was provided with an initial dose of IV dilaudid which gave no relief. A repeat dose was attempted which also was not successful. The patient was unable to lay flat for CT imaging. A third dose of dilaudid was placed which only slightly successful at pain control. At that time, it was appropriate for the patient to be admitted for pain control. I spoke with case management who facilitated admission. [facility] agreed to admit the patient and requested XR imaging of the pelvis and lumbar spine were obtained. Dr. Poe will assume care of the patient at this time, please refer to her documentation for further patient care. Continuous library monitor: Order was placed for continuous library monitor. Patient was placed on the library monitor. Patient was noted to be in normal sinus rhythm at an initial rate of 82 bpm. The patient's case was discussed with Dr. Willingham, who agreed with my evaluation and treatment plan. Impression & Plan Back pain Discharge Plan Visit Data Chief Complaint: Hip Pain Stated Complaint: PAIN IN HIP,KNEES,FEET,MED CONCERN ED Provider: Kate Willingham ED Midlevel Provider: Negin Sheffield Discharge Problem: Back pain Patient Disposition: Admitted As Inpatient Discharge Instructions Interventions: ED Discharge Assessment Last Done: 08/16/23 23:40
[2023-08-16] MEDS: MoRPHine SULFATE 10 MG/ML CARP/VIAL IV STA (14:16)
[2023-08-16] MEDS: HYDROmorphone INJ 0.5 MG/0.5 ML SYR IV STA (14:18)
[2023-08-16] MEDS: ONDANSETRON INJ 2 MG/ML 2 ML VIAL IV STA (14:18)
[2023-08-16] MEDS: SODIUM CHLORIDE 0.9% 500 ML IV ONE (14:28)
[2023-08-16 14:34] LABS: Basophils # (auto) 0.04 K/uL (0.00-0.20); Basophils % (auto) 0.5 %; Eosinophils # (auto) 0.18 K/uL (0.00-0.50); Eosinophils % (auto) 2.4 %; Hematocrit (blood only) 31.2 % (37.0-47.0); Immature Granulocytes # (auto) 0.04 K/uL (0.01-0.20); Immature Granulocytes % (auto) 0.5 %; Lymphocytes # (auto) 0.75 K/uL (1.20-3.40); Lymphocytes % (auto) 10.1 %; Mean Corpuscular Hemoglobin 30.8 pg (25.0-34.0); Mean Corpuscular Hgb Conc 32.1 g/dL (32.0-36.0); Mean Platelet Volume 9.3 fL (9.4-12.4); Monocytes # (auto) 0.68 K/uL (0.11-0.59); Monocytes % (auto) 9.1 %; Neutrophils # (auto) 5.76 K/uL (1.40-6.50); Neutrophils % (auto) 77.4 %; Platelet Count 211 K/uL (130-400); RDW Coefficient of Variation 18.7 % (11.5-14.5); RDW Standard Deviation 64.5 fL (36.4-46.3); Red Blood Count 3.25 M/uL (4.20-5.40); White Blood Count 7.45 K/ul (4.8-10.8)
[2023-08-16 14:46] LABS: Albumin Globulin Ratio 1.7 (0.9-2); BUN Creatinine Ratio 22.5 (10-20); Bilirubin,Total 0.5 mg/dl (0.2-1.0); Calcium 8.9 mg/dl (8.6-10.3); Creatinine Clr Calc Pharmacy 51.9 ml/min; Est GFR (African American) 86.6 ml/min; Est GFR (Non-African American) 74.7 ml/min; Globulin 2.3 gm/dl (2.5-4.0); Total Protein 6.3 gm/dl (6.0-8.3)
[2023-08-16] MEDS: HYDROmorphone INJ 1 MG/ML SYRINGE IV STA ×3 (15:07→17:53)
[2023-08-16] MEDS ORDERED: HYDROmorphone INJ 1 MG/ML SYRINGE IV PRN (17:26)
[2023-08-16] MEDS ORDERED: ONDANSETRON INJ 2 MG/ML 2 ML VIAL IV PRN (17:28)
[2023-08-16] MEDS ORDERED: ALUMINUM/MAGNESIUM SUSP 30 ML UDC PO PRN (17:29)
--- NOTE | 2023-08-16 18:06 | History & Physical Report ---
Date of Service August 16, 2023 Assessment & Plan (1) Back pain: Plan 72-year-old female with a history of pancreatic adenocarcinoma, liver mets, bone mets, in the process of getting chemotherapy at [facility] capecitabine, remitecan, presents with severe lower back pain, not sure if she has severe left hip pain, but as per she did at home, denies radiculopathy # severe back pain Will obtain x-ray of the lumbar spine, pelvic x-ray Obtain MRI of the lumbar spine pain control IV Dilaudid, p.o. Dilaudid, continue fentanyl patch 75 mcg tid # anemia due to pancreatic cancer, monitor CBC # hypothyroidism continue Synthroid # ckd st 3 BUN/Cr is normal , monitor bun/cr History of Present Illness Chief Complaint: severe low back pain low back pain, treated with IV Dilaudid in ER without significant relief Primary Care Provider: Jose Maria Mir MD 72-year-old female with history of pancreatic adenocarcinoma, metastasis to the liver and right hip, status post Whipple procedure, she received radiation for the right hip metastasis, she is undergoing chemo at [facility], her oncologist Dr. García, patient presents here with severe lower back pain, left hip pain, currently denies any radiation to her left leg, she recently had a CAT scan of the left hip, no fracture or metastasis identified. She is on a fentanyl patch 75 mcg, oxycodone at home, Neurontin was tapered off, she is also on Cymbalta 20 mg daily. Patient denies fever chills, abdominal pain, nausea , vomiting, diarrhea or constipation, no urinary incontinence or dysuria, reports lower extremities numbness, she is able to ambulate. 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 No x-ray or CAT scan done in the emergency room. She received 2-1/2 mg of Dilaudid, without having any relief. Allergies Allergy/AdvReac Type Severity Reaction Status Date / Time metronidazole AdvReac Severe Cerebellar Verified 07/11/23 12:41 toxicity with hospitalization benzoin AdvReac Unknown CONTACT Verified 07/11/23 12:41 DERMATITIS Home Medications Medication Instructions Recorded Confirmed Type multivitamin 1 tab PO DAILY 12/27/18 08/16/23 History cholecalciferol (vitamin D3) 50 50 mcg PO DAILY 01/09/20 08/16/23 History mcg (2,000 unit) tablet ondansetron 8 mg disintegrating 8 mg PO Q8 PRN Nausea And Vomiting 02/04/21 08/16/23 History tablet Primadophilus 1 cap PO QAM 02/16/21 08/16/23 History nswgoc-rwqhjzgf-hzitctw 1 cap PO TIDM 02/16/21 08/16/23 History 36,000-114,000-180,000 unit capsule,delay rel (Creon) ascorbate calcium (vitamin C) 500 1 g PO DAILY 02/18/21 08/16/23 History mg tablet latanoprost 0.005 % eye drops 1 drp OPB HS 06/17/22 08/16/23 History lidocaine-prilocaine 2.5 %-2.5 % 1 applic topical UD 06/17/22 08/16/23 History topical cream oxycodone 10 mg tablet,crush 15 mg PO UD 06/17/22 08/16/23 History resistant,extended release 12 hr (OxyContin) sucralfate 1 gram tablet 1 g PO ACHS 06/17/22 08/16/23 History zinc acetate 50 mg (zinc) capsule 50 mg PO DAILY 06/17/22 08/16/23 History capecitabine 500 mg tablet 1,000 mg PO .BID UD 10/19/22 08/16/23 History levothyroxine 50 mcg tablet 50 mcg PO DAILYBB 10/19/22 08/16/23 History glycopyrrolate 2 mg tablet 2 mg PO TID PRN Constipation 11/25/22 08/16/23 History amoxicillin 875 mg-potassium 1 tab PO BID 08/16/23 08/16/23 History clavulanate 125 mg tablet duloxetine 20 mg capsule,delayed 20 mg PO DAILY 08/16/23 08/16/23 History release famotidine 20 mg tablet 20 mg PO DAILY 08/16/23 08/16/23 History fentanyl 75 mcg/hr transdermal 1 patch topical Q72H 08/16/23 08/16/23 History patch lidocaine 5 % topical patch 1 patch topical UD PRN Other 08/16/23 08/16/23 History vancomycin 125 mg capsule 125 mg PO QID 08/16/23 08/16/23 History Past Med/Surg History Medical History E coli bacteremia Metastatic disease Nausea & vomiting History of Clostridioides difficile infection Liver abscess Thrombocytopenia Pancreatic cancer Hypothyroid CKD (chronic kidney disease), stage III Renal insufficiency, mild Surgical History History of liver biopsy History of thoracentesis History of ERCP History of pancreatic surgery H/O oral surgery Family History Mother Colon cancer Hyperlipidemia Hearing loss of aging Colorectal cancer Father Prostate cancer Hypertension Unknown Breast cancer Grandmother (Maternal) Diabetes Myocardial infarction Grandfather (Paternal) Stroke Other Allergies No family history of adverse response to anesthesia No family history of bleeding disorder Denies family history of Ovarian cancer Lung cancer Social History Smoking Status: Never smoker Second Hand Exposure: No; Do You Dip or Chew Tobacco: No; Hx Alcohol Use: No Hx Substance Use: No Preferred Language: Gibraltarian Communication Ability: Effective Visual Impairment: Limited Hearing Ability: Normal Materials Intern Required: No Beliefs That Will Affect Care: None marital status: Current Living Situation: Spouse current occupational status: employed 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 How many Children do You have: 0 Feels Safe at Home: Yes Childhood Exposure to Second-Hand Smoke: No caffeine: No Dental Care, Regularly: Yes Physical Activity Frequency: 5-6 Times per Week Seatbelt Use: always Sunscreen Use: Yes Assistive Devices: None Review of Systems Review of Systems: All systems reviewed & are unremarkable except as noted in HPI & below Physical Exam Physical Exam: head atraumatic normocephalic Neck supple, no JVD no carotid bruit Lungs clear to auscultation bilaterally Heart S1-S2 regular Abdomen not distended, bowel sounds diminished, nontender extremities 3+ bilateral edema, strength is 4 out of 5, there is some degree of numbness Results & Data Results & Data Vital Signs (Past 12 Hours) Vital Signs Temp Pulse Pulse Resp BP BP Pulse Ox 08/16/23 14:29 85 16 179/77 H 98 08/16/23 14:12 08/16/23 11:50 36.6 C 105 H 18 152/76 H 96 O2 Del Method 08/16/23 14:29 Room Air 08/16/23 14:12 Room Air 08/16/23 11:50 Room Air Laboratory Results Abnormal lab results 08/16/23 Range/Units 14:08 RBC 3.25 L (4.20-5.40) M/uL Hgb 10.0 L (12.0-16.0) g/dl Hct 31.2 L (37.0-47.0) % RDW Std Deviation 64.5 H (36.4-46.3) fL RDW Coeff of Lakhwinder 18.7 H (11.5-14.5) % MPV 9.3 L (9.4-12.4) fL Lymph # (Auto) 0.75 L (1.20-3.40) K/uL Irwin # (Auto) 0.68 H (0.11-0.59) K/uL BUN/Creatinine Ratio 22.5 H (10-20) Glucose 109 H (70-99(Fasting)) mg/dl Alkaline Phosphatase 172 H (34-104) U/L Globulin 2.3 L (2.5-4.0) gm/dl Lipase 8 L (11-82) U/L Code Status & VTE Plan Code Status full VTE Prophylaxis Plan VTE Prophylaxis will be ordered: Yes PG Care Time/CCT Total # of Minutes Spent Total Time Spent with Patient: Total time spent is greater than 50% in coordination of care (as documented) at patient's floor/unit and/or counseling patient: Coding Level of Care Code 96688 INT INP/OBS CARE 2/55MIN Diagnoses Back pain M54.9
[2023-08-16] MEDS ORDERED: fentaNYL 75 MCG/HR TDSY TD ONE (18:15)
[2023-08-16] MEDS: fentaNYL 75 MCG/HR TDSY TD ONE (18:33)
--- NOTE | 2023-08-16 18:55 | Magnetic Resonance Report ---
LUMBAR SPINE MRI HISTORY: back pain, legs weakness TECHNIQUE: Multiplanar multisequence MRI of the lumbar spine was performed without the use of contras t. COMPARISON: Abdomen and pelvis CT 11/25/2022. FINDINGS: For the purpose of the report the L5-S1 disc space will be located on axial image 23 of 25. Suboptimal evaluation of the lumbar spine due to the motion artifact. The patient was unable to compl ete the entire examination. Therefore, axial T1 images were not obtained. There is S-shaped scoliosis of the thoracolumbar spine with a convex curvature to the left within the lumbar spine. This remains unchanged. Multifocal osseous metastatic disease again noted within the lumbar spine and sacrum. Mil d presacral edema is noted. No fractures within the lumbar spine. Near nondiagnostic evaluation of th e axial T2 sequences due to the significant motion artifact. There is no high-grade central canal harlan nosis identified. Moderate disc space narrowing at L2-L3. Mild disc space narrowing throughout the re maining lumbar spine. IMPRESSION: 1. Severe motion artifact resulting in difficult evaluation of the lumbar spine. 2. Multifocal osseous metastatic disease seen throughout the lumbar spine and sacrum. 3. No definite acute fractures identified within the lumbar spine. 4. Near nondiagnostic evaluation of the central canal due to the motion artifact. However, no high-gr erasmo central canal stenosis identified. ACT 112: Negative or not required by law. Electronically signed by: Ruiz Perrin M.D. 08/16/2023 6:53 PM
--- NOTE | 2023-08-16 19:04 | XRay Report ---
XR pelvis 1-2V routine CLINICAL HISTORY: Pelvic pain. COMPARISON STUDY: Abdomen and pelvis CT 11/25/2022. Right hip CT 08/03/2023. FINDINGS: Multiple scattered osteoblastic metastatic lesions are again seen within the lower lumbar s pine, pelvis, and bilateral proximal femora. A right proximal femoral lesion results in mild cortical irregularity, unchanged. The no acute fracture or dislocation within the pelvis or hips. The sacrum appears intact. The IMPRESSION: 1. No acute fracture or dislocation within the pelvis or hips. 2. Multifocal osteoblastic metastatic disease again noted. ACT 112: Negative or not required by law. Electronically signed by: Ruiz Perrin M.D. 08/16/2023 7:02 PM
--- NOTE | 2023-08-16 19:05 | XRay Report ---
XR lumbar spine 2-3V CLINICAL HISTORY: Low back pain. COMPARISON STUDY: Abdomen and pelvis CT 11/25/2022. Lumbar spine MRI 08/16/2023. FINDINGS: There is mild S-shaped scoliosis of the thoracolumbar spine. There are suture material left upper quadrant. The focal osseous metastatic disease again seen within the lumbar spine, sacrum, and visualized pelvic bones. No acute fractures of fixation within the lumbar spine. Vascular calcificat ions are noted. Moderate facet degenerative changes within the lower lumbar spine. Mild disc space na rrowing within the lumbar spine. IMPRESSION: 1. No fractures within the lumbar spine. 2. Multifocal osteoblastic metastatic disease again noted. ACT 112: Negative or not required by law. Electronically signed by: Ruiz Perrin M.D. 08/16/2023 7:04 PM
[2023-08-16] MEDS ORDERED: ONDANSETRON 8MG OD TAB PO PRN (19:55)
[2023-08-16] MEDS ORDERED: fentaNYL 75 MCG/HR TDSY TD SCH (19:55)
[2023-08-16] MEDS ORDERED: LIDOCAINE 5% 1 PATCH TD PRN (20:00)
--- NOTE | 2023-08-16 20:42 | Ultrasound Report ---
Exam(s): US VENOUS BILATERAL LOWER EXTREMITIES EXAM: US Duplex Bilateral Lower Extremities Veins CLINICAL HISTORY: Reason for exam: swelling. TECHNIQUE: Real-time duplex ultrasound scan of the bilateral lower extremity veins integrating B-mode two-dimensional vascular structure, Doppler spectral analysis, color flow Doppler imaging and compression. COMPARISON: No relevant prior studies available. FINDINGS: Right deep veins: Unremarkable. No DVT in the right common femoral, femoral, proximal deep femoral or popliteal veins. The veins demonstrate normal color flow, are normally compressible, with normal phasic flow and/or augmentation response. Right superficial veins: Unremarkable. No thrombus in the visualized right great saphenous vein. Left deep veins: Unremarkable. No DVT in the left common femoral, femoral, proximal deep femoral or popliteal veins. The veins demonstrate normal color flow, are normally compressible, with normal phasic flow and/or augmentation response. Left superficial veins: Unremarkable. No thrombus in the visualized left great saphenous vein. Soft tissues: No acute findings. IMPRESSION: Normal bilateral lower extremity duplex venous ultrasound. Electronically signed by: Bobbi Manjarrez M.D. 08/16/23 20:42 PM
[2023-08-16] MEDS: LATANOPROST 0.005% OP SOLN 2.5 ML BTL OPB SCH (21:13)
[2023-08-16] MEDS: SUCRALFATE 1 GM TAB PO SCH (21:15)
[2023-08-16] MEDS: ACETAMINOPHEN 1,000 MG/100 ML VIAL IV STA (22:48)
[2023-08-16] MEDS: HYDROmorphone INJ 2 MG/ML SYR/VIAL IV STA (22:48)
[2023-08-16] MEDS: LIDOCAINE 5% 1 PATCH TD STA (22:48)
[2023-08-17] MEDS ORDERED: CHECK fentaNYL PATCH PLACEMENT SCH
[2023-08-17] MEDS: CHECK fentaNYL PATCH PLACEMENT SCH (00:41)
[2023-08-17] MEDS: HYDROmorphone INJ 1 MG/ML SYRINGE IV PRN (04:16)
[2023-08-17] MEDS: LEVOTHYROXINE SODIUM 50 MCG TABLET PO SCH (05:48)
[2023-08-17] MEDS: PANTOprazole 40 MG TAB PO SCH (08:05)
[2023-08-17] MEDS: CHOLECALCIFEROL 25 MCG (1000 UNITS) TAB PO SCH (08:06)
[2023-08-17] MEDS: PANCREAZE (LIPASE 10,500U) CAP PO SCH (08:06)
[2023-08-17] MEDS: FAMOTIDINE 20 MG TAB PO SCH (08:06)
[2023-08-17] MEDS: DULoxetine HCL 20 MG CAP PO SCH (08:07)
[2023-08-17] MEDS: KETOROLAC TROMETHAMINE 15 MG/ML VIAL IV ONE ×2 (08:54→14:46)
[2023-08-17 08:58] LABS: Hematocrit (blood only) 30.5 % (37.0-47.0); Hemoglobin 9.7 g/dl (12.0-16.0); Mean Corpuscular Hemoglobin 30.7 pg (25.0-34.0); Mean Corpuscular Hgb Conc 31.8 g/dL (32.0-36.0); Mean Corpuscular Volume 96.5 fL (80.0-100.0); Mean Platelet Volume 9.4 fL (9.4-12.4); Platelet Count 213 K/uL (130-400); RDW Coefficient of Variation 18.9 % (11.5-14.5); RDW Standard Deviation 66.8 fL (36.4-46.3); Red Blood Count 3.16 M/uL (4.20-5.40); White Blood Count 6.22 K/ul (4.8-10.8)
[2023-08-17 09:10] LABS: BUN Creatinine Ratio 18.8 (10-20); Calcium 8.6 mg/dl (8.6-10.3); Creatinine Clr Calc Pharmacy 59.1 ml/min; Est GFR (African American) 104.8 ml/min; Est GFR (Non-African American) 90.4 ml/min; Potassium 3.7 mmol/L (3.5-5.1)
[2023-08-17 09:46] LABS: Appearance Urine Clear (Clear); Bilirubin Urine Negative (Negative); Blood Urine Negative (Negative); Color Urine Yellow; Glucose Urine UA Negative (Negative); Ketones Urine 2+ (Negative); Leukocyte Esterase Urine Negative (Negative); Nitrite Urine Negative (Negative); Protein Urine Negative (Negative); Specific Gravity Urine 1.018 (1.000-1.030); Urobilinogen Urine Negative (Negative); pH Urine 5.5 (4.5-7.5)
--- NOTE | 2023-08-17 12:33 | Hospitalist Progress Note ---
Date of Service August 17, 2023 Assessment & Plan (1) Back pain: Plan: 72-year-old female with a history of pancreatic adenocarcinoma, liver mets, bone mets, in the process of getting chemotherapy at [facility] capecitabine, remitecan, presents with severe lower back pain, no radicular symptoms MRI of the lumbar spine showed multifocal osseous metastatic disease seen throughout the lumbar spine and sacrum, no definite acute fractures no high- grade central stenosis pain control IV Dilaudid, p.o. Dilaudid, continue fentanyl patch 75 mcg tid Consult pain management (2) Primary malignant neoplasm of pancreas with metastasis to other site: Plan: Attic adenocarcinoma with mets to the liver and bones Currently on chemotherapy at [facility] Outpatient follow-up with hematology oncology Plan Continue to monitor in the hospital continue pain management Hopefully discharge when pain is under good control. Admission and Anticipated Discharge Date Admission Date: August 16, 2023 Subjective Patient seen and examined today, still a lot of pains 10 out of 10 denies numbness of the lower extremities Review of Systems Review of Systems: All systems reviewed are negative, apart from the ones contained in the history. Physical Exam Physical Exam: The patient is awake, alert and oriented 3, chronically ill looking, in mild painful distress HEENT--PERRL, EOMI, mucous membranes and oropharynx mildly dry Neck--supple. No JVD. No bruits. Thyroid normal, trachea midline, no adenopathy. Heart--normal S1 and S2. No murmurs, rubs or gallops. Lungs--clear bilaterally, no respiratory distress, no accessory muscle use. Abdomen--normal bowel sounds and soft. Extremities--no cyanosis or clubbing. No edema. Dermatologic--normal skin turgor, normal color, no abnormal lymph nodes, no rash. Neurologic--cranial nerves II through XII grossly intact. Rheumatologic--normal range of motion. Psychiatric--normal affect. Results & Data Results & Data Vital Signs (Past 12 Hours) Vital Signs Temp Pulse Resp BP Pulse Ox O2 Del Method 08/17/23 11:23 85 138/68 08/17/23 07:41 98.2 F 87 18 175/77 H 95 Room Air PG Care Time/CCT Total # of Minutes Spent Total Time Spent with Patient: Total time spent is greater than 50% in coordination of care (as documented) at patient's floor/unit and/or counseling patient: Coding Level of Care Code 01583 SUB INP/OBS CARE 2/35MIN Diagnoses Back pain M54.9 Primary malignant neoplasm of pancreas 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
[2023-08-17] MEDS: HYDROmorphone HCL 2 MG TAB PO PRN (18:02)
[2023-08-17] MEDS: MoRPHine SULFATE 2 MG/ML CARP IV PRN (21:55)
[2023-08-17] MEDS: KETOROLAC TROMETHAMINE 15 MG/ML VIAL IV PRN (22:24)
[2023-08-18] MEDS: KETOROLAC TROMETHAMINE 15 MG/ML VIAL ONE (05:02)
[2023-08-18] MEDS: KETOROLAC TROMETHAMINE 15 MG/ML VIAL IV ONE ×2 (05:31→09:07)
[2023-08-18 09:28] LABS: Calcium 8.1 mg/dl (8.6-10.3); Est GFR (African American) 106.5 ml/min; Est GFR (Non-African American) 91.9 ml/min; Potassium 3.6 mmol/L (3.5-5.1)
[2023-08-18 10:02] LABS: Hemoglobin 10.8 g/dl (12.0-16.0); Mean Corpuscular Hgb Conc 32.7 g/dL (32.0-36.0); Mean Corpuscular Volume 94.8 fL (80.0-100.0); Mean Platelet Volume 9.2 fL (9.4-12.4); Platelet Count 239 K/uL (130-400); RDW Coefficient of Variation 18.6 % (11.5-14.5); RDW Standard Deviation 63.7 fL (36.4-46.3); Red Blood Count 3.48 M/uL (4.20-5.40); White Blood Count 8.29 K/ul (4.8-10.8)
[2023-08-18] MEDS: PANCREAZE (LIPASE 10,500U) CAP PO SCH (12:11)
--- NOTE | 2023-08-18 12:46 | Hospitalist Progress Note ---
Date of Service August 18, 2023 Assessment & Plan (1) Back pain: Plan: 72-year-old female with a history of pancreatic adenocarcinoma, liver mets, bone mets, in the process of getting chemotherapy at [facility] capecitabine, remitecan, presents with severe lower back pain, no radicular symptoms MRI of the lumbar spine showed multifocal osseous metastatic disease seen throughout the lumbar spine and sacrum, no definite acute fractures no high- grade central stenosis pain control IV Dilaudid, p.o. Dilaudid, continue fentanyl patch 75 mcg tid However patient states she gets better relief with Toradol, will order IV Toradol 15 mg every 6 hours as needed Awaiting recommendations from pain management (2) Primary malignant neoplasm of pancreas with metastasis to other site: Plan: Attic adenocarcinoma with mets to the liver and bones Currently on chemotherapy at [facility] Outpatient follow-up with hematology oncology Plan Continue to monitor in the hospital continue pain management Hopefully discharge when pain is under good control. Admission and Anticipated Discharge Date Admission Date: August 16, 2023 Subjective Patient seen and examined today, says her pain is under better control, she gets better relief with Toradol according to her. Review of Systems Review of Systems: All systems reviewed are negative, apart from the ones contained in the history. Physical Exam Physical Exam: The patient is awake, alert and oriented 3, chronically ill looking, in mild painful distress HEENT--PERRL, EOMI, mucous membranes and oropharynx mildly dry Neck--supple. No JVD. No bruits. Thyroid normal, trachea midline, no adenopathy. Heart--normal S1 and S2. No murmurs, rubs or gallops. Lungs--clear bilaterally, no respiratory distress, no accessory muscle use. Abdomen--normal bowel sounds and soft. Extremities--no cyanosis or clubbing. No edema. Dermatologic--normal skin turgor, normal color, no abnormal lymph nodes, no rash. Neurologic--cranial nerves II through XII grossly intact. Rheumatologic--normal range of motion. Psychiatric--normal affect. PG Care Time/CCT Total # of Minutes Spent Total Time Spent with Patient: Total time spent is greater than 50% in coordination of care (as documented) at patient's floor/unit and/or counseling patient: Coding Level of Care Code 86869 SUB INP/OBS CARE 2/35MIN Diagnoses Back pain M54.9 Primary malignant neoplasm of pancreas 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
--- NOTE | 2023-08-18 13:29 | Pain Management Consultation ---
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 I have increased the fentanyl patch from 75 to 100 mcg/hour 2. I have discontinued oral Dilaudid and switched her back onto oxycodone 15 mg every 4 hours as she has found it efficacious towards diminishing her pain and has not caused any side effects. 3. Continue lidocaine patch and Cymbalta 20 mg daily. Cymbalta dosage may need further increased. 4. I have emphasized the importance of the patient and her to speak with her oncologist to discuss possible palliative radiation into the spine as it is causing such significant pain. 5. Patient does find Toradol 15 mg every 6 hours effective towards diminishing her pain. On an outpatient basis could consider a prescription such as diclofenac for anti-inflammatory effect. 6. She does have IV Dilaudid 1 mg every 2 hours if needed for breakthrough pain. 7. Fentanyl patch and oxycodone dosages may need further increased pending her response to these recent changes. 8. Please contact with any questions or concerns. Will sign off on the patient. History of Present Illness Reason for Consultation: Back pain Attending Physician: Tania Johnson MD History of Present Illness Mrs. 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 Patient is under oncology care with [facility]. She has been noticing increased low back pain and found to have metastasis along the spine. For pain over the last several months she has tried oxycodone, OxyContin, and most recently fentanyl patches. Prior to hospital admission she was placed on fentanyl patch 75 mcg/hour and oxycodone 15 mg every 4 hours for pain relief which was controlling the pain at that time. Since hospital admission she has been on fentanyl patch 75 mcg/hr, p.o. Dilaudid 2 mg every 4 hours, lidocaine patch, and Cymbalta 20 mg daily. She does not find the oral Dilaudid to provide adequate pain relief and finds it is helpful for about an hour's time and then the pain returns. She describes a deep aching and intermittent sharp stabbing pain along the low back. No true radicular symptoms. 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 Pain is rated 6/10 at its best and 10/10 at its worst. She is able to ambulate with [place] assistance but does find a walker helpful for stability. Case discussed with Dr. Tsering Alfaro Allergies Allergy/AdvReac Type Severity Reaction Status Date / Time metronidazole AdvReac Severe Cerebellar Verified 07/11/23 12:41 toxicity with hospitalization benzoin AdvReac Unknown CONTACT Verified 07/11/23 12:41 DERMATITIS Home Medications Medication Instructions Recorded Confirmed Type multivitamin 1 tab PO DAILY 12/27/18 08/16/23 History cholecalciferol (vitamin D3) 50 50 mcg PO DAILY 01/09/20 08/16/23 History mcg (2,000 unit) tablet ondansetron 8 mg disintegrating 8 mg PO Q8 PRN Nausea And Vomiting 02/04/21 08/16/23 History tablet Primadophilus 1 cap PO QAM 02/16/21 08/16/23 History vnkjxy-jzhurcus-ninuokm 1 cap PO TIDM 02/16/21 08/16/23 History 36,000-114,000-180,000 unit capsule,delay rel (Creon) ascorbate calcium (vitamin C) 500 1 g PO DAILY 02/18/21 08/16/23 History mg tablet latanoprost 0.005 % eye drops 1 drp OPB HS 06/17/22 08/16/23 History lidocaine-prilocaine 2.5 %-2.5 % 1 applic topical UD 06/17/22 08/16/23 History topical cream oxycodone 10 mg tablet,crush 15 mg PO UD 06/17/22 08/16/23 History resistant,extended release 12 hr (OxyContin) sucralfate 1 gram tablet 1 g PO ACHS 06/17/22 08/16/23 History zinc acetate 50 mg (zinc) capsule 50 mg PO DAILY 06/17/22 08/16/23 History capecitabine 500 mg tablet 1,000 mg PO .BID UD 10/19/22 08/16/23 History levothyroxine 50 mcg tablet 50 mcg PO DAILYBB 10/19/22 08/16/23 History glycopyrrolate 2 mg tablet 2 mg PO TID PRN Constipation 11/25/22 08/16/23 History amoxicillin 875 mg-potassium 1 tab PO BID 08/16/23 08/16/23 History clavulanate 125 mg tablet duloxetine 20 mg capsule,delayed 20 mg PO DAILY 08/16/23 08/16/23 History release famotidine 20 mg tablet 20 mg PO DAILY 08/16/23 08/16/23 History fentanyl 75 mcg/hr transdermal 1 patch topical Q72H 08/16/23 08/16/23 History patch lidocaine 5 % topical patch 1 patch topical UD PRN Other 08/16/23 08/16/23 History vancomycin 125 mg capsule 125 mg PO QID 08/16/23 08/16/23 History Pain History Chief Complaint Chief Complaint: Back pain Patient History Medical History E coli bacteremia Metastatic disease Nausea & vomiting History of Clostridioides difficile infection Liver abscess Thrombocytopenia Pancreatic cancer Hypothyroid CKD (chronic kidney disease), stage III Renal insufficiency, mild Surgical History History of liver biopsy History of thoracentesis History of ERCP History of pancreatic surgery H/O oral surgery Family History Mother Colon cancer Hyperlipidemia Hearing loss of aging Colorectal cancer Father Prostate cancer Hypertension Unknown Breast cancer Grandmother (Maternal) Diabetes Myocardial infarction Grandfather (Paternal) Stroke Other Allergies No family history of adverse response to anesthesia No family history of bleeding disorder Denies family history of Ovarian cancer Lung cancer Social History Smoking Status: Never smoker Second Hand Exposure: No; Do You Dip or Chew Tobacco: No; Hx Alcohol Use: No Hx Substance Use: No Preferred Language: Icelandic Communication Ability: Effective Visual Impairment: Limited Hearing Ability: Normal Technical Director Required: No Beliefs That Will Affect Care: None marital status: Current Living Situation: Spouse current occupational status: employed 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 HEAD/FACE: Normocephalic and atraumatic. EYES: No drainage or conjunctival injection. ENT: Nose without bleeding or discharge. Oral mucosa moist. NECK: Full ROM without apparent pain. No swelling or masses noted. RESPIRATORY: Patient with unlabored breathing. No signs of respiratory distress. CHEST/AXILLA: Chest movement symmetrical. No deformities noted. ABDOMEN/GI: No distension BACK: Moves without difficulty. Mild lumbosacral tenderness. Nonfocal to midline, facet joint, SI joint. No myofascial spasm or trigger points noted. SKIN: [place], warm and dry. No rash noted. MS/EXTREMITY: No swelling, no deformities. Moving extremities appropriately. NEURO: Alert and appears oriented. Speech is fluent. Cranial Nerves are grossly intact. PSYCH: Alert, pleasant, affect is calm Results (Pain Clinic) Diagnostic Review MRI Findings: LUMBAR SPINE MRI HISTORY: back pain, legs weakness TECHNIQUE: Multiplanar multisequence MRI of the lumbar spine was performed without the use of contrast. COMPARISON: Abdomen and pelvis CT 11/25/2022. FINDINGS: For the purpose of the report the L5-S1 disc space will be located on axial image 23 of 25. Suboptimal evaluation of the lumbar spine due to the motion artifact. The patient was unable to complete the entire examination. Therefore, axial T1 images were not obtained. There is S-shaped scoliosis of the thoracolumbar spine with a convex curvature to the left within the lumbar spine. This remains unchanged. Multifocal osseous metastatic disease again noted within the lumbar spine and sacrum. Mild presacral edema is noted. No fractures within the lumbar spine. Near nondiagnostic evaluation of the axial T2 sequences due to the significant motion artifact. There is no high-grade central canal stenosis identified. Moderate disc space narrowing at L2-L3. Mild disc space narrowing throughout the remaining lumbar spine. IMPRESSION: 1. Severe motion artifact resulting in difficult evaluation of the lumbar spine. 2. Multifocal osseous metastatic disease seen throughout the lumbar spine and sacrum. 3. No definite acute fractures identified within the lumbar spine. 4. Near nondiagnostic evaluation of the central canal due to the motion artifact. However, no high-grade central canal stenosis identified. ACT 112: Negative or not required by law. Electronically signed by: Ruiz Perrin M.D. 08/16/2023 6:53 PM
[2023-08-18] MEDS: fentaNYL 100 MCG/HR TDSY TD SCH (13:52)
[2023-08-18] MEDS: oxyCODONE HCL IR 5 MG TAB (IMMEDIATE RELEASE) PO PRN (13:59)
[2023-08-18] MEDS: KETOROLAC TROMETHAMINE 15 MG/ML VIAL IV PRN (15:44)
[2023-08-18] MEDS: HEPARIN 100 UNIT/ML 5ML FLUSH FLUSH ONE (16:15)
[2023-08-18] MEDS: CHECK fentaNYL PATCH PLACEMENT SCH (16:18)
[2023-08-19 07:15] LABS: Hematocrit (blood only) 30.6 % (37.0-47.0); Hemoglobin 9.7 g/dl (12.0-16.0); Mean Corpuscular Hemoglobin 30.4 pg (25.0-34.0); Mean Corpuscular Hgb Conc 31.7 g/dL (32.0-36.0); Mean Corpuscular Volume 95.9 fL (80.0-100.0); Mean Platelet Volume 9.5 fL (9.4-12.4); Platelet Count 213 K/uL (130-400); RDW Coefficient of Variation 18.1 % (11.5-14.5); RDW Standard Deviation 63.5 fL (36.4-46.3); Red Blood Count 3.19 M/uL (4.20-5.40); White Blood Count 7.37 K/ul (4.8-10.8)
[2023-08-19 07:45] LABS: BUN Creatinine Ratio 16.4 (10-20); Calcium 8.1 mg/dl (8.6-10.3); Creatinine Clr Calc Pharmacy 51.8 ml/min; Est GFR (African American) 96.7 ml/min; Est GFR (Non-African American) 83.4 ml/min; Potassium 3.7 mmol/L (3.5-5.1)
--- NOTE | 2023-08-19 10:34 | Hospitalist Progress Note ---
Date of Service August 19, 2023 Assessment & Plan (1) Back pain: Plan: 72-year-old female with a history of pancreatic adenocarcinoma, liver mets, bone mets, in the process of getting chemotherapy at [facility] capecitabine, remitecan, presents with severe lower back pain, no radicular symptoms MRI of the lumbar spine showed multifocal osseous metastatic disease seen throughout the lumbar spine and sacrum, no definite acute fractures no high- grade central stenosis pain control IV Dilaudid, p.o. 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 Review of Systems Review of Systems: All systems reviewed are negative, apart from the ones contained in the history. Physical Exam Physical Exam: The patient is awake, alert and oriented 3, chronically ill looking, in mild painful distress HEENT--PERRL, EOMI, mucous membranes and oropharynx mildly dry Neck--supple. No JVD. No bruits. Thyroid normal, trachea midline, no adenop athy. Heart--normal S1 and S2. No murmurs, rubs or gallops. Lungs--clear bilaterally, no respiratory distress, no accessory muscle use. Abdomen--normal bowel sounds and soft. Extremities--no cyanosis or clubbing. No edema. Dermatologic--normal skin turgor, normal color, no abnormal lymph nodes, no rash. Neurologic--cranial nerves II through XII grossly intact. Rheumatologic--normal range of motion. Psychiatric--normal affect. 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
[2023-08-19] MEDS: POLYETHYLENE (MIRALAX) 17 GM PACK PO PRN (14:28)
[2023-08-19] MEDS ORDERED: fentaNYL 75 MCG/HR TDSY TD SCH (21:00)
[2023-08-20 05:48] LABS: Hematocrit (blood only) 28.9 % (37.0-47.0); Hemoglobin 9.3 g/dl (12.0-16.0); Mean Corpuscular Hgb Conc 32.2 g/dL (32.0-36.0); Mean Corpuscular Volume 96.3 fL (80.0-100.0); Mean Platelet Volume 9.6 fL (9.4-12.4); Platelet Count 215 K/uL (130-400); RDW Coefficient of Variation 17.9 % (11.5-14.5); RDW Standard Deviation 62.9 fL (36.4-46.3); White Blood Count 7.39 K/ul (4.8-10.8)
[2023-08-20 06:01] LABS: BUN Creatinine Ratio 18.4 (10-20); Calcium 8.2 mg/dl (8.6-10.3); Creatinine Clr Calc Pharmacy 49.8 ml/min; Est GFR (African American) 92.1 ml/min; Est GFR (Non-African American) 79.5 ml/min; Potassium 3.8 mmol/L (3.5-5.1)
--- NOTE | 2023-08-20 09:55 | Discharge Summary ---
Date of Service August 20, 2023 Admission HPI Per Admitting Provider 72-year-old female with history of pancreatic adenocarcinoma, metastasis to the liver and right hip, status post Whipple procedure, she received radiation for the right hip metastasis, she is undergoing chemo at [facility], her oncologist Dr. García, patient presents here with severe lower back pain, left hip pain, currently denies any radiation to her left leg, she recently had a CAT scan of the left hip, no fracture or metastasis identified. She is on a fentanyl patch 75 mcg, oxycodone at home, Neurontin was tapered off, she is also on Cymbalta 20 mg daily. Patient denies fever chills, abdominal pain, nausea , vomiting, diarrhea or constipation, no urinary incontinence or dysuria, reports lower extremities numbness, she is able to ambulate. 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 No x-ray or CAT scan done in the emergency room. She received 2-1/2 mg of Dilaudid, without having any relief. Principal Diagnosis Back pain Discharge Exam The patient is awake, alert and oriented 3, chronically ill looking, in mild painful distress HEENT--PERRL, EOMI, mucous membranes and oropharynx mildly dry Neck--supple. No JVD. No bruits. Thyroid normal, trachea midline, no adenopathy. Heart--normal S1 and S2. No murmurs, rubs or gallops. Lungs--clear bilaterally, no respiratory distress, no accessory muscle use. Abdomen--normal bowel sounds and soft. Extremities--no cyanosis or clubbing. No edema. Dermatologic--normal skin turgor, normal color, no abnormal lymph nodes, no rash. Neurologic--cranial nerves II through XII grossly intact. Rheumatologic--normal range of motion. Psychiatric--normal affect. Discharge Data Allergies Allergy/AdvReac Type Severity Reaction Status Date / Time metronidazole AdvReac Severe Cerebellar Verified 07/11/23 12:41 toxicity with hospitalization benzoin AdvReac Unknown CONTACT Verified 07/11/23 12:41 DERMATITIS Consultations 08/16/23 16:47 ED Decision to Admit Stat 08/17/23 09:34 Consult Pain Management Routine Ordered Studies 08/16/23 17:31 MR lumbar spine wo con Stat 08/16/23 18:50 US venous doppler LE BI Stat Hospital Course (1) Back pain: 72-year-old female with a history of pancreatic adenocarcinoma, liver mets, bone mets, in the process of getting chemotherapy at [facility] capecitabine, remitecan, presents with severe lower back pain, no radicular symptoms MRI of the lumbar spine showed multifocal osseous metastatic disease seen throughout the lumbar spine and sacrum, no definite acute fractures no high- grade central stenosis pain control IV Dilaudid, p.o. Dilaudid, continue fentanyl patch and IV Toradol while in the hospital Pain is better overall Discharged on p.o. ibuprofen 600 mg every 6 hours as needed and p.o. 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 site: Pancreatic adenocarcinoma with mets to the liver and bones Currently on chemotherapy at [facility] Outpatient follow-up with hematology oncology Plan Discharge home Total Time Total Time Spent Total Time Spent (In Minutes): 35 Discharge Plan Discharge Items Patient Disposition: Home - Self-Care Reason For Visit: BACK PAIN Discharge Diagnosis: back pain Activity: Resume your previous activity Non-emergency contact: Primary Care Provider and Oncologist Call non-emergency contact if: you have any medication questions Follow-up/Referrals: Jose Maria Mir MD [Primary Care Provider] - Diet: Regular Addtl Attending Provider Instructions: please follow up with your regular Oncologist Pending Studies at Discharge: No Stand-Alone Forms: My [employer], Smoking Cessation Medications and DC Order Prescriptions: New oxycodone 5 mg Tablet 15 mg PO Q4 PRN (Reason: pain) Qty: 10 0RF ibuprofen 600 mg tablet 600 mg PO Q6H PRN (Reason: pain) Qty: 20 0RF Continued Creon 36,000-114,000- 180,000 unit capsule,delayed release(DR/EC) 1 cap PO TIDM Primadophilus 340 mg capsule 1 cap PO QAM ascorbate calcium (vitamin C) 500 mg tablet 1 g PO DAILY multivitamin tablet 1 tab PO DAILY cholecalciferol (vitamin D3) 50 mcg (2,000 unit) tablet 50 mcg PO DAILY ondansetron 8 mg tablet,disintegrating 8 mg PO Q8 PRN (Reason: Nausea And Vomiting) latanoprost 0.005 % drops 1 drp OPB HS oxycodone [OxyContin] 10 mg tablet,oral only,ext.rel.12 hr 15 mg PO UD Rx Instructions: per spouse, it's "about every 3 hours now" zinc acetate 50 mg (zinc) Capsule 50 mg PO DAILY lidocaine-prilocaine 2.5-2.5 % cream 1 applic topical UD Rx Instructions: 1 hour prior to accessing port sucralfate 1 gram tablet 1 g PO ACHS Rx Instructions: 1 g PO Before Meals and at bedtime; levothyroxine 50 mcg tablet 50 mcg PO DAILYBB capecitabine 500 mg tablet 1,000 mg PO .BID UD Rx Instructions: on 10 days off 10 days with chemo. glycopyrrolate 2 mg tablet 2 mg PO TID PRN (Reason: Constipation) famotidine 20 mg tablet 20 mg PO DAILY lidocaine 5 % adhesive patch,medicated 1 patch topical UD PRN (Reason: Other) fentanyl 75 mcg/hr patch 72 hour 1 patch topical Q72H duloxetine 20 mg capsule,delayed release(DR/EC) 20 mg PO DAILY Discontinued amoxicillin-pot clavulanate 875-125 mg tablet 1 tab PO BID vancomycin 125 mg capsule 125 mg PO QID Discharge Orders: Discharge Order (Routine); Ordered 08/20/23 Ordered By: Tania Johnson Admission Data Admit Date/Time: 08/16/23 17:29 Attending Provider: Tania Johnson Admit Provider: Adeola Poe Primary Care Provider: Jose Maria Mir Other Providers: Adeola Poe; Gerald Wright Other Interventions: Discharge Summary Assessment (RN) Last Done: 08/20/23 09:23 Coding Level of Care Code 60163 INP/OBS DISCH >30 MIN Diagnoses Back pain M54.9 Primary malignant neoplasm of pancreas 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
[2023-08-20] MEDS: HEPARIN 100 UNIT/ML 5ML FLUSH FLUSH PRN (10:04)
== END 2023-08-20 11:06 | disposition home or self-care (01) | DRG 948 ==
LOC: ED 11:36 → EDINP 17:29 → SUATTDRO 17:29 → 3W 23:40
DX: Z95.828 Presence of other vascular implants and grafts; Z79.891 Long term (current) use of opiate analgesic; G89.3 Neoplasm related pain (acute) (chronic); M54.89 Other dorsalgia; Z90.49 Acquired absence of other specified parts of digestive tract; Z79.890 Hormone replacement therapy; C79.51 Secondary malignant neoplasm of bone; D63.0 Anemia in neoplastic disease; Z79.899 Other long term (current) drug therapy; Z92.3 Personal history of irradiation; N18.30 Chronic kidney disease, stage 3 unspecified; C78.7 Secondary malignant neoplasm of liver and intrahepatic bile duct; C25.9 Malignant neoplasm of pancreas, unspecified; E03.9 Hypothyroidism, unspecified; Z88.1 Allergy status to other antibiotic agents; Z90.411 Acquired partial absence of pancreas